=== PATIENT | female | born 1945 | race Caucasian/White ===

== ENCOUNTER 2019-06-17 11:37 | Outpatient (RCR) | payer MEDICARE, OTHER, SELFPAY | END 2019-07-15 23:59 | disposition home or self-care (01) | LOC: SPT 11:37 | PROVIDERS: Family Provider Family Medicine; PCP Family Medicine; Referring Provider Nurse Practitioner Adult Health; Visit Provider Nurse Practitioner Adult Health | DX: Z47.1 Aftercare following joint replacement surgery (principal); Z96.612 Presence of left artificial shoulder joint | CPT/HCPCS: 97110; 97161 ==

== ENCOUNTER 2019-07-16 06:00 | Outpatient (RCR) | payer MEDICARE, OTHER, SELFPAY | END 2019-08-14 23:59 | disposition home or self-care (01) | LOC: SPT 06:00 | PROVIDERS: Family Provider Family Medicine; PCP Family Medicine; Referring Provider Nurse Practitioner Adult Health; Visit Provider Nurse Practitioner Adult Health | DX: Z47.89 Encounter for other orthopedic aftercare (principal); Z96.612 Presence of left artificial shoulder joint | CPT/HCPCS: 97110 ==

== ENCOUNTER 2019-07-29 11:23 | Outpatient (CLI) | payer MEDICARE, OTHER, SELFPAY ==
[2019-07-29 11:59] LABS: Basophils # 0.1 10^3/uL (0.0-0.1); Basophils % 0.7 %; Eosinophils # 0.2 10^3/uL (0.0-0.8); Eosinophils % 2.1 %; Hematocrit 37.1 % (37.0-47.0); Lymphocytes % 27.4 %; Mean Corpuscular HGB Conc 29.6 g/dL (30.0-36.0); Mean Corpuscular Volume 94.4 fL (81-99); Monocytes # 0.7 10^3/uL (0.2-0.9); Monocytes % 9.8 %; Neutrophils # 4.4 10^3/uL (1.8-7.7); Neutrophils % 59.7 %; Nucleated Red Blood Cells % 0 %; Platelet Count 314 10^3/cmm (130-400); Red Blood Count 3.93 10^6/uL (4.1-5.3); Red Cell Distribution Width 13.1 % (12.1-15.1); White Blood Count 7.3 10^3/uL (4.0-10.0)
[2019-07-29 12:27] LABS: Creatinine Urine, Random 21 mg/dL (28-217)
[2019-07-29 12:28] LABS: Albumin Level 4.2 g/dL (3.5-5.2); Anion Gap 19.5 (5-19); Blood Urea Nitrogen 18 mg/dL (8-23); Calcium 10.7 mg/dL (8.5-10.5); Carbon Dioxide 22 mmol/L (22-29); Chloride 100 mmol/L (98-107); Glucose 114 mg/dL (65-115); Phosphorus 2.9 mg/dL (2.5-4.5); Potassium 3.5 mmol/L (3.5-5.1); Sodium 138 mmol/L (136-145)
[2019-07-29 12:41] LABS: 25 Hydroxy Vitamin D 32 ng/mL (30-100)
[2019-07-29 12:42] LABS: Calcium 9.9 mg/dL (8.5-10.5); Parathyroid Hormone 104.9 pg/mL (15-65)
[2019-07-29 12:43] LABS: Microalbum Creatinine Ratio Ur 48 mg/dL (0-20); Microalbumin Random Urine < 1 ug/dL (0-20)
== END 2019-07-29 11:24 | disposition home or self-care (01) ==
LOC: LAB 11:28
PROVIDERS: Family Provider Family Medicine; PCP Family Medicine; Visit Provider Internal Medicine Nephrology
DX: N18.3 Chronic kidney disease, stage 3 (moderate) (principal)
CPT/HCPCS: 80069; 82044; 82306; 82310; 83970; 85025

== ENCOUNTER 2019-08-15 06:00 | Outpatient (RCR) | payer MEDICARE, OTHER, SELFPAY | END 2019-09-14 23:59 | disposition home or self-care (01) | LOC: SPT 06:00 | PROVIDERS: PCP Family Medicine; Referring Provider Nurse Practitioner Adult Health; Visit Provider Nurse Practitioner Adult Health | DX: Z47.1 Aftercare following joint replacement surgery (principal); Z96.612 Presence of left artificial shoulder joint | CPT/HCPCS: 97110 ==

== ENCOUNTER 2019-09-19 11:05 | Outpatient (CLI) | payer MEDICARE, OTHER, SELFPAY ==
[2019-09-19 11:41] VITALS: BMI 32.8
== END 2019-09-19 11:06 | disposition home or self-care (01) ==
LOC: GILAB 11:10
PROVIDERS: PCP Family Medicine; Visit Provider Family Medicine
DX: M81.8 Other osteoporosis without current pathological fracture (principal)
CPT/HCPCS: 96365; J3489

== ENCOUNTER 2019-09-24 16:51 | Outpatient (RCR) | payer MEDICARE, OTHER, SELFPAY | END 2019-10-14 23:59 | disposition home or self-care (01) | LOC: SPT 16:51 | PROVIDERS: PCP Family Medicine; Visit Provider Nurse Practitioner Adult Health | DX: R53.1 Weakness (principal) | CPT/HCPCS: 97110 ==

== ENCOUNTER 2019-10-14 12:22 | Outpatient (RCR) | payer MEDICARE, OTHER, SELFPAY | END 2019-10-14 23:59 | disposition home or self-care (01) | LOC: SPT 12:22 | PROVIDERS: PCP Family Medicine; Referring Provider Family Medicine; Visit Provider Family Medicine | DX: R53.1 Weakness (principal) | CPT/HCPCS: 97161 ==

== ENCOUNTER 2019-11-15 06:00 | Outpatient (RCR) | payer MEDICARE, OTHER, SELFPAY | END 2019-12-15 23:59 | disposition home or self-care (01) | LOC: SPT 06:00 | PROVIDERS: PCP Family Medicine; Referring Provider Family Medicine; Visit Provider Family Medicine | DX: R53.1 Weakness (principal) | CPT/HCPCS: 97110 ==

== ENCOUNTER → 2019-12-10 15:07 | Outpatient (BNVA) | payer MEDICARE, OTHER, SELFPAY | PROVIDERS: PCP Family Medicine; Referring Provider Internal Medicine; Visit Provider Specialist | DX: M25.562 Pain in left knee (principal); M17.12 Unilateral primary osteoarthritis, left knee; E66.9 Obesity, unspecified | CPT/HCPCS: 73560; 73565 ==

== ENCOUNTER 2019-12-24 12:19 | Outpatient (CLI) | payer MEDICARE, OTHER, SELFPAY ==
--- NOTE | 2019-12-24 12:34 | IR_ITS ---
WS: [id number] LEFT KNEE ARTHROGRAM Fluoroscopic guided left knee arthrogram. CLINICAL INFORMATION: L KNEE PAIN COMPARISON: None. TECHNIQUE: The procedure including risks, benefits, and complications were discussed with the patient , who agreed to proceed. Timeout was performed. Using sterile technique, the patient was prepped and draped in the usual sterile fashion. After 1% lidocaine injection using fluoroscopic guidance, a 22-g auge spinal needle was advanced into the left patellofemoral compartment. Subsequently 40 cc of a mix ture containing 20 cc normal saline and 20 cc Omnipaque 300 was administered. No immediate complicati ons. FLUOROSCOPY TIME: 1.3 minutes. IR/[place] [id number] IMPRESSION: Uncomplicated left knee fluoroscopic guided arthrogram. CT to follow.
--- NOTE | 2019-12-24 13:00 | CT_ITS ---
WS: [id number] CT ARTHROGRAM LEFT KNEE TECHNIQUE: CT arthrogram left knee with coronal and sagittal reformatted images. CLINICAL INFORMATION: pain COMPARISON: None. DLP: 835.[address] scans at [facility] use at least one of these dose optimization techniques: automat ed exposure control; mA and/or kV adjustment per patient size (includes targeted exams where dose is matched to clinical indication); or iterative reconstruction. FINDINGS: Moderate degenerative arthritis left knee with hypertrophic changes along the joint line. Moderate albert int space narrowing with chronic narrowing of the medial and lateral meniscus. Hypertrophic patella. Small lobulated popliteal cyst measuring 1.8 cm. Moderate to advanced chondromalacia patella. Anterior and posterior cruciate ligaments appear intact. No acute appearing meniscal tears. Prior postoperative changes intramedullary velasquez and screw fixation distal femur partially included on this examination. Medial and lateral collateral ligaments appear intact. CT/CT knee LT w con [id number] IMPRESSION: 1. Moderate degenerative arthritis with medial and lateral joint space narrowi ng. Hypertrophic changes along the joint line. 2. Moderate to advanced chondromalacia patella with hypertrophic patella. 3. Chronic thinning of the medial and lateral meniscus. No acute appearing men iscal tears. 4. Anterior and posterior cruciate ligaments appear intact. 5. Prior postoperative changes intramedullary velasquez and screw fixation distal fe mur partially visualized. 6. Small popliteal cyst measuring 18 mm.
[2019-12-24] MEDS: iohexol 300 mg/mL 50 mL Btl IV (13:20)
== END 2019-12-24 12:20 | disposition home or self-care (01) ==
LOC: RAD 12:22
PROVIDERS: Visit Provider Specialist
DX: M17.12 Unilateral primary osteoarthritis, left knee (principal); M22.42 Chondromalacia patellae, left knee; M71.22 Synovial cyst of popliteal space [Baker], left knee
CPT/HCPCS: 27369; 73701; 77002

== ENCOUNTER 2020-02-03 14:41 | Outpatient (CLI) | payer MEDICARE, OTHER, SELFPAY ==
[2020-02-03 15:32] LABS: Basophils # 0.1 10^3/uL (0.0-0.1); Basophils % 0.8 %; Eosinophils # 0.2 10^3/uL (0.0-0.8); Eosinophils % 2.2 %; Hematocrit 36.7 % (37.0-47.0); Hemoglobin 11.1 g/dL (11.5-15.3); Lymphocytes # 1.7 10^3/uL (0.8-4.8); Lymphocytes % 22.6 %; Mean Corpuscular HGB Conc 30.2 g/dL (30.0-36.0); Mean Corpuscular Hemoglobin 29.4 pg (28.0-34.0); Mean Corpuscular Volume 97.1 fL (81-99); Mean Platelet Volume 9.8 fL (7.4-10.4); Monocytes # 0.6 10^3/uL (0.2-0.9); Monocytes % 7.9 %; Neutrophils % 66.2 %; Nucleated Red Blood Cells % 0 %; Platelet Count 364 10^3/cmm (130-400); Red Blood Count 3.78 10^6/uL (4.1-5.3); Red Cell Distribution Width 13.7 % (12.1-15.1); White Blood Count 7.6 10^3/uL (4.0-10.0)
[2020-02-03 15:51] LABS: Anion Gap 16.6 (5-19); Blood Urea Nitrogen 29 mg/dL (8-23); Carbon Dioxide 22 mmol/L (22-29); Chloride 99 mmol/L (98-107); Glucose 133 mg/dL (65-115); Phosphorus 4.6 mg/dL (2.5-4.5); Potassium 3.6 mmol/L (3.5-5.1); Sodium 134 mmol/L (136-145)
[2020-02-03 16:14] LABS: Calcium 9.8 mg/dL (8.5-10.5); Parathyroid Hormone 144.2 pg/mL (15-65)
[2020-02-03 16:20] LABS: Creatinine Urine, Random 52 mg/dL (28-217)
[2020-02-03 16:23] LABS: Microalbum Creatinine Ratio Ur 19 mg/dL (0-20); Microalbumin Random Urine 1 ug/dL (0-20)
== END 2020-02-03 14:42 | disposition home or self-care (01) ==
LOC: LAB 14:48
PROVIDERS: Visit Provider Registered Nurse
DX: N18.30 Chronic kidney disease, stage 3 unspecified (principal)
CPT/HCPCS: 36415; 80069; 82044; 82310; 83970; 85025

== ENCOUNTER 2020-03-30 12:39 | Outpatient (CLI) | payer MEDICARE, OTHER, SELFPAY ==
--- NOTE | 2020-03-30 13:01 | XR_ITS ---
WS: [id number] Left shoulder, 2 views, 03/30/2020 Clinical Data: L SHOULDER PAIN/? FROZEN VS OA Comparison: Left shoulder, 05/22/2018. Findings: There is now a total left shoulder prosthesis in position. The stem of the prosthesis is fixed to the proximal humerus with circumferential wires. The AC joint is unremarkable. The adjacent left ribs and left lung are normal. The soft tissues are normal. XR/XR shoulder LT min 2V* [id number] Impression: Portable left shoulder prosthesis with no evidence of recent fracture or loosen ing.
[2020-03-30 14:11] LABS: Chol HDL Ratio 3.46 mg/dL (0.0-4.40); Cholesterol 173 mg/dL (0-200); Free T4 Free Thyroxine 1.74 ng/dL (0.82-1.77); HDL Cholesterol 50 mg/dL (60-100); LDL Cholesterol Calculated 103 mg/dL (50-129); LDL HDL Ratio 2.06 RATIO (0.00-3.22); Thyroid Stimulating Hormone 0.45 uIU/mL (0.27-4.20); Triglycerides 102 mg/dL (0-150)
[2020-03-30 15:10] LABS: Estmated Average Glucose 117; Hemoglobin A1C 5.7 % (4.0-6.0)
== END 2020-03-30 12:40 | disposition home or self-care (01) ==
PROVIDERS: PCP Internal Medicine; Visit Provider Internal Medicine
DX: M25.512 Pain in left shoulder (principal); E11.9 Type 2 diabetes mellitus without complications; E03.9 Hypothyroidism, unspecified
CPT/HCPCS: 36415; 73030; 80061; 83036; 84439; 84443

== ENCOUNTER → 2020-03-31 11:59 | Outpatient (BNVA) | payer MEDICARE, OTHER, SELFPAY | PROVIDERS: PCP Internal Medicine; Visit Provider Specialist | DX: M17.11 Unilateral primary osteoarthritis, right knee (principal) | CPT/HCPCS: 73560; 73565 ==

== ENCOUNTER 2020-06-30 14:56 | Outpatient (CLI) | payer MEDICARE, OTHER, SELFPAY ==
[2020-06-30 15:42] LABS: Albumin Level 3.8 g/dL (3.5-5.2); Anion Gap 14.5 (5-19); Blood Urea Nitrogen 20 mg/dL (8-23); Calcium 9.4 mg/dL (8.5-10.5); Carbon Dioxide 25 mmol/L (22-29); Chloride 102 mmol/L (98-107); Glucose 157 mg/dL (65-115); Phosphorus 3.3 mg/dL (2.5-4.5); Potassium 3.5 mmol/L (3.5-5.1); Sodium 138 mmol/L (136-145)
== END 2020-06-30 14:57 | disposition home or self-care (01) ==
LOC: LAB 15:03
PROVIDERS: PCP Internal Medicine; Visit Provider Internal Medicine Nephrology
DX: N18.32 Chronic kidney disease, stage 3b (principal)
CPT/HCPCS: 36415; 80069

== ENCOUNTER 2020-07-21 13:38 | Outpatient (CLI) | payer MEDICARE, OTHER, SELFPAY ==
[2020-07-21 14:18] LABS: Basophils # 0.1 10^3/uL (0.0-0.1); Basophils % 0.7 %; Eosinophils # 0.2 10^3/uL (0.0-0.8); Eosinophils % 3.3 %; Hematocrit 35.3 % (37.0-47.0); Hemoglobin 10.4 g/dL (11.5-15.3); Lymphocytes # 2.3 10^3/uL (0.8-4.8); Lymphocytes % 33.3 %; Mean Corpuscular HGB Conc 29.5 g/dL (30.0-36.0); Mean Corpuscular Hemoglobin 28.4 pg (28.0-34.0); Mean Corpuscular Volume 96.4 fL (81-99); Mean Platelet Volume 9.8 fL (7.4-10.4); Monocytes # 0.6 10^3/uL (0.2-0.9); Monocytes % 8.7 %; Neutrophils # 3.73 10^3/uL (1.8-7.7); Neutrophils % 53.9 %; Nucleated Red Blood Cells % 0 %; Platelet Count 350 10^3/cmm (130-400); Red Blood Count 3.66 10^6/uL (4.1-5.3); Red Cell Distribution Width 13.4 % (12.1-15.1); White Blood Count 6.9 10^3/uL (4.0-10.0)
[2020-07-21 14:33] LABS: Anion Gap 13.8 (5-19); Blood Urea Nitrogen 21 mg/dL (8-23); Calcium 9.2 mg/dL (8.5-10.5); Carbon Dioxide 22 mmol/L (22-29); Chloride 102 mmol/L (98-107); Glucose 97 mg/dL (65-115); Osmolality Calculated 281 mOsm/kg (285-295); Potassium 3.8 mmol/L (3.5-5.1); Sodium 134 mmol/L (136-145)
[2020-07-21 15:14] LABS: Ferritin 28 ng/mL (15-150); Iron 73 ug/dL (37-145); Percent Saturation 28.6 % (20-50); Total Iron Binding Capacity 255 mcg/dl; Unsaturated Iron Binding 182 ug/dL (112-347)
== END 2020-07-21 13:39 | disposition home or self-care (01) ==
LOC: LAB 13:45
PROVIDERS: PCP Internal Medicine; Visit Provider Nurse Practitioner
DX: D63.1 Anemia in chronic kidney disease (principal)
CPT/HCPCS: 80048; 82728; 83540; 83550; 85025

== ENCOUNTER 2020-08-06 11:44 | Outpatient (CLI) | payer MEDICARE, OTHER, SELFPAY ==
--- NOTE | 2020-08-06 11:49 | MM_ITS ---
WS: [id number] BILATERAL DIGITAL DIAGNOSTIC MAMMOGRAM MAMMOGRAPHY WITH CAD CLINICAL INFORMATION: BREAST LESION HISTORY: COMPARISON: TECHNIQUE: Bilateral CC, MLO, and ML views. FINDINGS: The breasts are composed of heterogeneous fibroglandular density, which can limit the detection of sm all underlying mass lesions. Palpable marker left breast near the areola with skin thickening. Skin t hickening left breast. Focal asymmetric density deep to the palpable marker measuring 8 mm. This appe ars new since 2019. Ultrasound is pending. Right breast is unremarkable and unchanged. ULTRASOUND BREAST LEFT TECHNIQUE: Ultrasound left breast focused area of concern. CLINICAL INFORMATION: BREAST LESION COMPARISON: None. FINDINGS: Ultrasound left breast 12:00 position at the areola. Concern. Dense shadowing tissue deep to the areo la. Adjacent to the nipple there is a mixed echogenicity ill-defined lesion which merges with the are loretta. Considering asymmetry on mammogram, Recommend further evaluation with biopsy. Ultrasound biopsy can be attempted, however surgical biopsy may need to be performed due to superficial location and p roximity to the nipple. MM/[place] [id number] IMPRESSION: BI-RADS: 4-Suspicious Finding-Biopsy Should Be Considered FOLLOW UP: See Report RECOMMEND ULTRASOUND GUIDED BIOPSY VERSUS SURGICAL EXCISION LEFT AREOLA LESION. ULTRASOUND BIOPSY CAN BE ATTEMPTED HOWEVER SURGICAL BIOPSY MAY NEED TO BE PERFO RMED DUE TO SUPERFICIAL LOCATION AND PROXIMITY TO THE NIPPLE.
== END 2020-08-06 11:45 | disposition home or self-care (01) ==
LOC: RADSHAW 11:48
PROVIDERS: PCP Internal Medicine; Visit Provider Internal Medicine
DX: N64.89 Other specified disorders of breast (principal)
CPT/HCPCS: 76642; 77066

== ENCOUNTER 2020-08-18 10:13 | Outpatient (CLI) | payer MEDICARE, OTHER, SELFPAY ==
--- NOTE | 2020-08-18 11:00 | US_ITS ---
WS: [id number] ULTRASOUND-GUIDED LEFT BREAST BIOPSY CLINICAL INFORMATION: N63.20 - Unspecified lump in the left breast, unspecified... COMPARISON: None. FINDINGS: The procedure including risks, benefits, and complications were discussed with the patient who agreed to proceed. Using sterile technique patient was prepped and draped in the usual sterile fashion. Aft er 1% lidocaine utilizing real-time ultrasound guidance 6 14-gauge cores were obtained of the left br east lesion at the 5:00 o'clock position at the nipple. Subsequently a titanium clip was placed in th e biopsy cavity. No immediate complications. PATHOLOGY DEMONSTRATES: Invasive ductal carcinoma breast with moderate nuclear grade 5 of 5 cores in volved. Longest positive core 0.7 cm Breast prognostic profile is pending. US/[place] [id number] IMPRESSION: 1. Uncomplicated ultrasound-guided left breast biopsy. 2. The pathology demonstrates INVASIVE DUCTAL CARCINOMA WITH MODERATE NUCLEAR GRADE. 3. Breast cancer prognostic profile is pending BI-RADS: 6-Known Biopsy-Proven Malignancy FOLLOW UP: Surgical Biopsy Recommended RECOMMEND BREAST SURGERY CONSULTATION FOR FURTHER EVALUATION.
[2020-08-23 10:40] LABS: Miscellaneous Test See Scanned Lab Rpt
== END 2020-08-18 10:14 | disposition home or self-care (01) ==
LOC: RAD 10:16
PROVIDERS: PCP Internal Medicine; Visit Provider Surgery
DX: N63.20 Unspecified lump in the left breast, unspecified quadrant (principal); C50.512 Malignant neoplasm of lower-outer quadrant of left female breast
CPT/HCPCS: 19083; 88305; 88361; 88367; 88374

== ENCOUNTER 2020-08-26 09:54 | Outpatient (CLI) | payer MEDICARE, OTHER, SELFPAY ==
--- NOTE | 2020-08-26 17:00 | ONC CON_ITS ---
Dr. Alston New Patient Note Patient: Lucie Joyner Unit #: [id number]: 1945 Dicatated By: Francois Alston M.D.Date of Visit: August 26, 2020 Onc MED New Patient/Consult Referring Physician: Dr. CAROLINE DE LEON M.D. Chief Complaint: Breast cancer. 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 She had presented with a palpable mass in the subareolar area of the left breast, which she first noticed a week before . Bilateral diagnostic mammogram on 08/06/2020 showed a focal asymmetric density deep to the palpable marker measuring 8 mm. It was new from a prior study in 2019. Ultrasound showed a mixed echogenicity ill-defined lesion adjacent to the nipple. It appeared to emerge with the areola. The findings were BI-RADS 4, suspicious, and subsequent ultrasound directed biopsy on 08/18/2020 showed grade 2 invasive ductal carcinoma. The breast prognostic profile showed ER positive at 99% and MT positive at 100%. It was positive for overexpression of HER-2/alhaji, 3+ by IHC and amplification ratio by FISH of 5.3 with 12.4 HER-2 copies/cell. The Ki-67 was high at 35%. She is seen now for further management. She says she feels fine, but she has very limited activity due to longstanding degenerative disease with chronic pain and to a severe neuropathy in her left leg which developed following an ORIF procedure for a traumatic intertrochanteric left hip fracture in May 2018. Her ECOG score is 3. Her appetite has been good. Her weight tends to fluctuate somewhat. Recently it has been up a little. She does not have fever, night sweats, or hot flashes. She had menopause following complete hysterectomy in 1988. She had 4 years of hormone replacement therapy. It was stopped when she developed a small blood clot . She reports having sinus congestion/drainage all the time and she does have occasional cough. She also complains of shortness of breath, which also limits her activity. She does not complain of chest pain. She has some acid reflux at night. Bowel function has been okay. She has neurogenic bladder, and she self catheterizes. She has fairly generalized joint pain including the knees, hips, shoulders, and hands. She also has chronic back pain. That has been going on for years . She says she has sinus headache every day. She has pain, weakness, and numbness associated with the neuropathy in her left leg. Past Medical History: Her medical history includes borderline diabetes, degenerative arthritis, degenerative disease of the spine, hyperlipidemia, hypertension, hypothyroidism, left lower extremity neuropathy, obesity, and osteoporosis. Past Surgical History: Her surgical/procedural history includes arthroscopic knee surgery, bilateral cataract excisions, carpal tunnel release, tonsillectomy, redo left shoulder joint arthroplasty in 2019, ORIF for intertrochanteric left hip fracture in 2018, thoracic laminectomy with placement of spinal cord stimulator in 2015, L4-L5 laminectomy for lumbar spinal stenosis in 2014, decompressive laminectomy at L3-4 and L4-5 for severe stenosis in 2012, left shoulder replacement in 2011, right shoulder replacement in 2010, incisional hernia repair in 2001, gastric bypass procedure in 2000, hysterectomy/bilateral salpingo-oophorectomy in 1988, and cholecystectomy in 1970. Medications: B-12 1 (1000 mcg) Tablet Oral daily, Benadryl Allergy 1 (25 mg) Tablet Oral t.i.d., Claritin 1 (10 mg) Tablet Oral daily, HYDROcodone-Acetaminophen 1 (10-325 mg) Tablet Oral four times a day, K-Tab 1 (20 meq) Tablet, controlled release Oral b.i.d., Lasix 1 (40 mg) Tablet Oral b.i.d., Levothyroxine Sodium 1 (125 mcg) Tablet Oral every am, Losartan Potassium 1 (50 mg) Tablet Oral daily, Melatonin 1 (10 mg/mL) Liquid Oral at bedtime, Simvastatin 1 (40 mg) Tablet Oral daily Allergies: TRENT Inhibitors, Cephalexin, Gabapentin, Pregabalin, Sulfa Antibiotics, and traZODone HCl. Social History: Ms. Joyner is . nking. She is a retired RN. She is a non-smoker. She does not drink alcohol. Family History: Father at age 91 of ruptured aortic aneurysm. Mother of heart attack at age 88. She also had diabetes and she had endometrial cancer. One sister is in good health. Review Of Symptoms: Constitutional - She says she feels fine, but she has very limited activity. Her appetite has been okay. Her weight recently has been up a little. She does not have fever, night sweats, or hot flashes. ECOG score is 3, Eyes - No recent change in vision. She has had cataract excisions, ENMT - She has hearing loss and tinnitus. She has sinus congestion all the time. No mouth sores. No sore throat or difficulty swallowing, Hematologic/Lymphatic - No abnormal bruising or bleeding. She has a history of having had a small blood clot while on hormone replacement therapy, Respiratory - She has shortness of breath. She occasionally has cough. No pleuritic pain or hemoptysis, Cardiovascular - No angina pain. No palpitations, Gastrointestinal - No nausea or vomiting. She sometimes has acid reflux at night No diarrhea or constipation. No blood in the stool or black stools, Genitourinary (F) - She has neurogenic bladder and she self catheterizes, Musculoskeletal - She has longstanding, generalized pain including her hips, knees, shoulders, and hands. She also has chronic back pain. She has had persistent pain following ORIF for intertrochanteric left hip fracture in May 2018, Neurologic - She has sinus headaches on a daily basis. She also has dizziness. She has numbness associated with the neuropathy in her left leg and foot, Psychiatric - No anxiety or depression. She has difficulty sleeping. Vital Signs: Performed on August 26, 2020 11:06: 8, 6, 0.00, 0.00 sq.m, 99 %, 73 /min, 18 /min, 150/84 mm(hg) (HIGH), 98.3 F (LOW), and 239 lbs (HIGH). Physical Examination: Constitutional - She has very limited mobility. She does not appear acutely ill, Eyes - Sclerae nonicteric. Conjunctivae clear, ENMT - No lesions noted in the oral cavity, Neck - No mass or thyromegaly, Hematologic/Lymphatic - No cervical or clavicular adenopathy, Respiratory - Lungs are clear with some decrease in air movement bilaterally, Cardiovascular - Heart rhythm is regular. There is no murmur, gallop, or rub noted, Breasts - The right breast shows no mass. There is mild induration in the central left breast. There is a firm nodule in the immediate subareolar area which does appear to be a little less than a centimeter in diameter. There is no axillary adenopathy, Abdomen - Soft and non-tender. Liver and spleen are not enlarged. There is no abdominal mass or ascites noted and there is no inguinal adenopathy, Back/Spine - No spine or CVA tenderness noted, Extremities - No edema. Dorsalis pedis pulses are palpable bilaterally, Integumentary - No rashes. No suspicious skin lesions noted, Neurologic - There is significant weakness in the proximal musculature of the left leg. Problem List: 1. Grade 2 invasive ductal carcinoma involving the subareolar area of the left breast, ER/MT positive and HER-2/alhaji positive. Staging is incomplete, but it appears to be a T1b primary lesion. 2. Hypertension. 3. Hyperlipidemia. 4. Borderline diabetes. 5. Hypothyroidism. 6. 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 7. Osteoporosis. 8. Left lower extremity neuropathy. 9. Obesity with previous gastric bypass. 10. 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 Problems Addressed with this Encounter and Plan: Patient with grade 2 invasive ductal carcinoma involving the subareolar area of the left breast, ER/MT positive and HER-2/alhaji positive. Staging is incomplete, but it appears to be a T1b primary lesion. The pathology results were reviewed with the patient and we discussed the clinical implications. She has infiltrating ductal carcinoma of the left breast which is ER/MT positive and HER-2/alhaji positive. Her primary tumor is in the subareolar area, and it is small, estimated to be T1b. In the absence of any evidence of lymph node involvement, she would not meet criteria for neoadjuvant chemotherapy. In that case, we would then proceed with lumpectomy and axillary sentinel lymph node biopsy, as she would be appropriate for breast conservation management. Her further management will obviously depend on the final pathologic staging, but I can already identify multiple issues that may potentially complicate her treatment, not the least of which is that her generalized arthritis pain may preclude use of an aromatase inhibitor for endocrine therapy and her history of thrombosis in association with hormone replacement therapy would potentially be a contraindication to use of tamoxifen. Furthermore, her marginal performance status and neuropathy would potentially complicate chemotherapy if it is ultimately determined to be appropriate. At least initially I am going to schedule her for left axillary ultrasound and for ultrasound directed biopsy if any suspicious lymph nodes are identified. If the ultrasound is negative, she can return to Dr. De Leon for excision of the mass and axillary sentinel lymph node biopsy. She is aware that the excision will have to include the nipple areolar complex. Signed By: Francois Alston M.D. <<Signature on File>>
== END 2020-08-26 09:55 | disposition home or self-care (01) ==
LOC: ONCMED 09:57
PROVIDERS: PCP Internal Medicine; Visit Provider Internal Medicine Medical Oncology
DX: C50.012 Malignant neoplasm of nipple and areola, left female breast (principal); Z17.0 Estrogen receptor positive status [ER+]; I10 Essential (primary) hypertension; E78.5 Hyperlipidemia, unspecified; R73.03 Prediabetes; E03.9 Hypothyroidism, unspecified; M47.9 Spondylosis, unspecified; M81.0 Age-related osteoporosis without current pathological fracture; G62.9 Polyneuropathy, unspecified; E66.9 Obesity, unspecified; Z86.718 Personal history of other venous thrombosis and embolism; Z79.01 Long term (current) use of anticoagulants; Z79.890 Hormone replacement therapy; Z79.899 Other long term (current) drug therapy
CPT/HCPCS: 99205

== ENCOUNTER 2020-08-27 14:16 | Outpatient (CLI) | payer MEDICARE, OTHER, SELFPAY ==
--- NOTE | 2020-08-27 14:27 | US_ITS ---
WS: [id number] ULTRASOUND LEFT axilla HISTORY: POSITIVE FOR BREAST CANCER COMPARISON: None available. TECHNIQUE: 2-D and Doppler. Several lymph nodes are identified within the LEFT axilla. These lymph nodes maintain a normal fatty юлия. Cortex is not enlarged and is lymph nodes are not significantly abnormal. US/US breast LT limited* [id number] IMPRESSION: BI-RADS: 6-Known Biopsy-Proven Malignancy FOLLOW-UP: See Report LEFT axillary lymph nodes appear benign. No suspicious or enlarged lymph nodes in the LEFT axilla. Patient has known LEFT breast cancer.
== END 2020-08-27 14:17 | disposition home or self-care (01) ==
LOC: RAD 14:22
PROVIDERS: PCP Internal Medicine; Visit Provider Internal Medicine Medical Oncology
DX: C50.912 Malignant neoplasm of unspecified site of left female breast (principal)
CPT/HCPCS: 76642

== ENCOUNTER → 2020-09-10 14:43 | Outpatient (BNVA) | payer MEDICARE, OTHER, SELFPAY | PROVIDERS: PCP Internal Medicine; Visit Provider Surgery | DX: Z01.812 Encounter for preprocedural laboratory examination (principal); Z20.822 Contact with and (suspected) exposure to COVID-19 | CPT/HCPCS: 87635 ==

== ENCOUNTER 2020-09-16 07:33 | Day surgery (SDC) | payer MEDICARE, OTHER, SELFPAY ==
[2020-09-15 14:12] VITALS: BMI 34.7
[2020-09-16] VITALS (7 sets, daily range): BP systolic 122–142; BP diastolic 72–79; PULSE 72–79; RESP 12–18; TEMP 36.1–36.7; O2SAT 95–100
--- NOTE | 2020-09-16 07:30 | NM_ITS ---
WS: [id number] SENTINEL NODE TECHNIQUE: Left sentinel node injection CLINICAL INFORMATION: L Breast Mass/Lumpectomy COMPARISON: None. PROCEDURE: The procedure including risks, benefits, and complications were discussed; the patient agr eed to proceed. Patient was prepped and draped in usual sterile fashion. Subsequently, 1% lidocaine p reservative-free was administered at the 12:00, 3:00, 6:00, and 9:00 o'clock positions for local anes thesia. Subsequently, 4 aliquots of filtered technetium 99m sulfur colloid was injected into the subc utaneous soft tissues. A total dose of 1.07 mCi was administered. Patient tolerated the procedure well with no immediate complications. SC/SC sentinel node inject [id number] IMPRESSION: Uncomplicated left breast sentinel node injection with a total dose of 1.07 mCi .
--- NOTE | 2020-09-16 08:38 | PC.NURSE ---
Left Breast [place] Node Injection 4 quardrants. No Complications. Patient was injected with 1.07 mCi Tc99m Filtered Sulfur Colloid @ 0815.
[2020-09-16] MEDS: sodium chloride 0.9% 1,000 ML 30 ML IV (08:54)
[2020-09-16] MEDS: acetaminophen 1,000 MG/100 ML PIGGYBACK 400 MG IV (08:54)
--- NOTE | 2020-09-16 09:26 | W.PM.OPSUD ---
Surgery/Procedure H&P Update DATE OF PROCEDURE: September 16, 2020 DATE H&P PERFORMED: 09/08/20 H&P UPDATE INFORMATION: I have reviewed H&P completed within last 30 days, I have examined patient prior to procedure and No changes to prior documentation PREOP DIAGNOSIS: Breast Cancer PRIMARY INDICATION FOR PROCEDURE: The same PLANNED PROCEDURE: Operation Date: 09/16/20 09:50 Proposed Procedures p Lumpectomy 23943 76870 63562 c50.919(Left) - Maurizio De Leon MD s w/sentinel lymph node axilla biopsy(Left) - Maurizio De Leon MD
[2020-09-16 09:37] LABS: Blood Urea Nitrogen 16 mg/dL (8-23); Carbon Dioxide 23 mmol/L (22-29); Chloride 105 mmol/L (98-107); Glucose 101 mg/dL (65-115); Osmolality Calculated 287 mOsm/kg (285-295); Sodium 138 mmol/L (136-145)
--- NOTE | 2020-09-16 09:50 | ANES.PREANE2 ---
Pre-Anesthetic Assessment Pre-Anesthetic Assessment: Height/Weight: Height 1.75 m Weight 106.594 kg Temp Pulse Resp BP Pulse Ox 98.1 F 79 18 142/79 100 09/16/20 07:56 09/16/20 07:56 09/16/20 07:56 09/16/20 07:56 09/16/20 07:56 Preop Diagnosis: Breast Cancer Proposed Procedure: Operation Date: 09/16/20 09:50 Proposed Procedures p Lumpectomy 76918 15732 53040 c50.919(Left) - Maurizio De Leon MD s w/sentinel lymph node axilla biopsy(Left) - Maurizio De Leon MD Was Beta Colleen taken within 24 hours: N/A Was Clonidine taken within 24 hours: N/A Last intake: Intake Last Liquid Date 09/15/20 Last Solid Date 09/15/20 Social: Social History: No alcohol and No tobacco Exam: Pre-Anes Outpt Exam: alert, oriented x 3, clear to auscultation bilaterally and regular rate & rhythm Airway: Submandibular: WNL Cervical ROM: WNL MP: 2 Dentition: Full CV/HEM: CV/HEM: HTN Metabolic: Metabolic: Hyperlipidemia, Morbid obesity and Thyroid Anesthetic Plan: ASA status: 3 Anesthesia: General Risk of > 500 ml blood loss (7ml/kg in children): No Meds/Allergies Current Medications: Current Medications Generic Name Dose Route Start Last Admin Trade Name Freq PRN Reason Stop Dose Admin Sodium Chloride 1,000 mls @ 30 ml s/hr 09/16/20 07:45 09/16/20 08:54 Sodium Chloride 0.9% IV 09/17/20 07:44 30 mls/hr .Q24H YANICK Administration PFSH Anesthesia PFSH: Medical History Diabetes Hyperlipemia Hypertension Hypothyroidism Osteoporosis Surgical History H/O bariatric surgery H/O hernia repair H/O total hysterectomy History of appendectomy History of back surgery History of repair of left hip joint History of tonsillectomy Hx of cholecystectomy Family History Mother Stroke Hypertension CAD (coronary artery disease) Social History Smoking and tobacco status: never smoked Alcohol intake: never Data Anesthesia CBC & Chem 7: 09/16/20 08:00 Other Labs: Laboratory Results - last 48 hr 09/16/20 08:00 Sodium 138 Potassium 4.0 Chloride 105 Carbon Dioxide 23 Anion Gap 14.0 BUN 16 Creatinine 1.1 H GFR Calculation Not Reportable Glucose 101 Calculated Osmolality 287 Calcium 9.0 Cardiac Studies: No Data to Display
[2020-09-16] MEDS: clindamycin 900 MG/50 ML PREMIX 100 MG IV (10:34)
--- NOTE | 2020-09-16 12:06 | P.OP_ITS ---
Operative Report Date of procedure: September 16, 2020 Pre-op Diagnosis: Breast Cancer Post-op diagnosis: same Post-op Findings: [place] lymph node biopsy x1 Procedure Done: Left partial mastectomy with left axilla sentinel lymph node biopsy Specimens removed/disposition: Left axillary sentinel lymph node biopsy in vivo 35 and ex vivo 0 Left partial mastectomy short sutures marked superior and long sutures marked lateral Surgeon: Maurizio De Leon Grinder Tender: Surgical sayda Sampson Circulating nurse Christina Higginbotham Anesthesia: General ([employer] SUPERVISOR Will Smart and Ovidio) Estimated blood loss (mL): 20 Condition: stable Disposition: same day Brief History: Left breast cancer. Full H&P and informed consent per chart Procedure: In the nuclear medicine suite, patient undergone technetium 99 injection peritumoral Of the left breast lump. The patient was then identified in the holding area and the left breast was marked by me in the presence of female supervisor home energy consultant nursing staff Sherley.Few hours after technetium injection. Patient was taken to the operating room and general anesthesia was induced,Time- out was done verifying the patient's name/date of /planned procedure and destination after the procedure, all were in agreement. SCDs confirmed to be functioning, preoperative antibiotics administered per protocol, and beta oralia protocol was confirmed, appropriate positioning of the patient was done by me Staff. patient was placed in supine position, with her left side being towards the edge of the table, and hand-held gamma probe was used to identify the location of the hottest spot in the axilla .prep and drape was done for the chest including left breast and left arm and axilla. Lymphazurin blue dye was injected at the peritumoral region, this was massaged gently for 5 minutes, again hand-held probe was used to identify the location of the hottest spot in the axilla. incision was then made over the left axilla, the probe was placed in contact with the Lymphofatty tissues/There was not much blue staining was appreciated, and the lymphofatty tissues were excised in its entirety. [place] counts as follows [place] lymph node #1 in vivo 35,ex vivo 0 The above lymph node was placed in formalin and passed to the circulating nurse for permanent pathology No additional hot spots were detected, or blue lymphatics were identified. No clinically abnormal nodes were palpated. Procedure was terminated at this point. Hemostasis was achieved using small clips and Bovie cautery, after thorough irrigation of the left axilla, and the wound was closed in layers using interrupted 3-0 Vicryl followed by 4-0 Monocryl. Attention now was deviated towards the left breast mass ,an elliptical Skin incision was then made including the previous left nipple areolar complex including the underlying mass,I was able to dissect using the Bovie cautery a good margin of normal breast tissue, and appropriate orientation was done for the left partial mastectomy which was oriented in the form of short superior sutures, long lateral sutures, and the specimen was taken out and passed to the circulating nurse for permanent pathology Note. The specimen was stained by Lymphazurin blue due to the previous injection at the nipple areolar complex. Thorough irrigation of the cavity was done with normal saline followed by appropriate hemostasis, followed by closure with deep subdermal 2-0 Vicryl followed by skin melisa, followed by fluffs and sports bra Counts of sponges, needles and instruments were completed at the end of the procedure I was present for the whole entire procedure Patient was then extubated and taken to the recovery room in stable condition
[2020-09-16] MEDS: HYDROcodone-acetaminophen 10-325 mg Tablet 1 TAB PO (13:26)
--- NOTE | 2020-09-16 14:59 | ANE.PACU2 ---
Inpatient post-anesthesia follow up: Airway intact: Yes Vital signs: Temperature 97.6 F Pulse Rate 76 Respiratory Rate 18 Blood Pressure 122/72 Pulse Oximetry 96 Oxygen Delivery Me thod Room Air Oxygen Flow Rate 8 Fraction of Inspir ed Oxygen Hydration adequate: Yes Nausea and vomiting: No Pain level: 2 Mental status: Baseline
== END 2020-09-16 14:00 | disposition home or self-care (01) ==
PROVIDERS: PCP Internal Medicine; Visit Provider Surgery
PROC: (CPT 19301; 2020-09-16 09:40)
PROC: (CPT 19303; 2020-09-16 09:40)
DX: C50.912 Malignant neoplasm of unspecified site of left female breast (principal); I10 Essential (primary) hypertension; E78.5 Hyperlipidemia, unspecified; E66.01 Morbid (severe) obesity due to excess calories; Z68.34 Body mass index [BMI] 34.0-34.9, adult; E11.9 Type 2 diabetes mellitus without complications; E03.9 Hypothyroidism, unspecified; M81.0 Age-related osteoporosis without current pathological fracture; Z98.84 Bariatric surgery status
CPT/HCPCS: 19301; 38525; 36415; 38792; 80048; 88305; 88309; 96365; A9541; J1100; J2405; J2704; J2710; J3010; J3490; J7030

== ENCOUNTER → 2020-09-23 11:15 | Day surgery (SDC) | payer MEDICARE, OTHER, SELFPAY ==
[2020-09-23 11:25] VITALS: BP 110/64; PULSE 74; RESP 18; TEMP 36.4; O2SAT 99
[2020-09-23 11:31] VITALS: BMI 35.2
== END ==
PROVIDERS: PCP Internal Medicine; Visit Provider Internal Medicine
DX: M81.0 Age-related osteoporosis without current pathological fracture (principal)
CPT/HCPCS: 96365; J3489

== ENCOUNTER 2020-10-06 07:53 | Outpatient (CLI) | payer MEDICARE, OTHER, SELFPAY ==
--- NOTE | 2020-10-09 15:08 | ONC FU_ITS ---
Dr. Alston Patient Follow-Up Note Patient: Lucie Joyner Unit #: [id number]: 1945 Dicatated By: Francois Alston M.D.Date of Visit:Oct 06, 2020 Onc Med Follow-up/Prog Note Chief Complaint: Breast cancer. 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 She had presented with a palpable mass in the subareolar area of the left breast, which she first noticed a week before . Bilateral diagnostic mammogram on 08/06/2020 showed a focal asymmetric density deep to the palpable marker measuring 8 mm. It was new from a prior study in 2019. Ultrasound showed a mixed echogenicity ill-defined lesion adjacent to the nipple. It appeared to emerge with the areola. The findings were BI-RADS 4, suspicious, and subsequent ultrasound directed biopsy on 08/18/2020 showed grade 2 invasive ductal carcinoma. The breast prognostic profile showed ER positive at 99% and MO positive at 100%. It was positive for overexpression of HER-2/alhaji, 3+ by IHC and amplification ratio by FISH of 5.3 with 12.4 HER-2 copies/cell. The Ki-67 was high at 35%. I had seen her initially on 08/26/2020. She had had further evaluation with left axillary ultrasound. That study did show several lymph nodes within the left axilla, but they appeared benign, as there was noted to be maintenance of normal fatty юлия. By clinical staging she appeared to have T1, N0 disease, and she did not meet criteria for neoadjuvant chemotherapy. As such, she was recommended to proceed with surgery. On 09/16/2020 she underwent left breast lumpectomy and left axillary sentinel lymph node biopsy. Pathology on the lumpectomy showed grade 2 invasive ductal carcinoma measuring 1.2 cm in greatest dimension. There was no DCIS identified. The closest margin was the inferior margin measuring 4 mm. There were no lymph nodes identified in the axillary specimen. She is seen now to discuss further management of the breast cancer. Her history is otherwise significant for longstanding degenerative disease with chronic pain for a severe neuropathy in her left leg which developed following an ORIF procedure for a traumatic intertrochanteric left hip fracture in May 2018. As a result, she has had very limited activity with ECOG score 3. She does complain that her neuropathy has continued to get worse and that her activity tolerance has continued to decline. Her other medical illnesses include hypertension, hyperlipidemia, borderline diabetes, hypothyroidism, and osteoporosis. Her other prior surgeries include gastric bypass for obesity in 2000, cholecystectomy in 1970, and hysterectomy/bilateral salpingo-oophorectomy in 1988. She has also had bilateral shoulder replacement and redo arthroplasty of the left shoulder, lumbar laminectomy in 2014, and thoracic laminectomy in 2015. She is a non-smoker. Medications: B-12 1 (1000 mcg) Tablet Oral daily, Benadryl Allergy 1 (25 mg) Tablet Oral t.i.d., Claritin 1 (10 mg) Tablet Oral daily, HYDROcodone-Acetaminophen 1 (10-325 mg) Tablet Oral four times a day, K-Tab 1 (20 meq) Tablet, controlled release Oral b.i.d., Lasix 1 (40 mg) Tablet Oral b.i.d., Levothyroxine Sodium 1 (125 mcg) Tablet Oral every am, Losartan Potassium 1 (50 mg) Tablet Oral daily, Melatonin 1 (10 mg/mL) Liquid Oral at bedtime, Simvastatin 1 (40 mg) Tablet Oral daily Allergies: TRENT Inhibitors, Cephalexin, Gabapentin, Pregabalin, Sulfa Antibiotics, and traZODone HCl. Vital Signs: Performed on Oct 06, 2020 08:04 Temperature - 98.5 F Pulse - 65 /min Respiration - 18 /min BP - 106/69 mm(hg) O2 Sat - 99 % Pain - 0 Fatigue - 6 Problem List: 1. Grade 2 invasive ductal carcinoma involving the subareolar area of the left breast, ER/MO positive and HER-2/alhaji positive. Staging is incomplete, but it appears to be a T1b primary lesion. 2. Hypertension. 3. Hyperlipidemia. 4. Borderline diabetes. 5. Hypothyroidism. 6. 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 7. Osteoporosis. 8. Left lower extremity neuropathy. 9. Obesity with previous gastric bypass. 10. 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 Problems Addressed with this Encounter and Plan: Patient with grade 2 invasive ductal carcinoma involving the subareolar area of the left breast, ER/MO positive and HER-2/alhaji positive. By clinical evaluation, she had T1, N0 disease, and she did not meet criteria for neoadjuvant chemotherapy. She then proceeded with left breast lumpectomy and left axillary sentinel lymph node biopsy on 09/16/2020. Pathology showed grade 2 invasive ductal carcinoma measuring 1.2 cm in maximum diameter. The margins were free. There were no lymph nodes identified in the axillary specimen. Her pathologic staging was pT1c, Nx. With a HER-2/alhaji positive T1c primary tumor, she is recommended to undergo adjuvant chemotherapy, per NCCN guidelines. I reviewed options with her. With a T1c primary tumor and with a clinically negative axilla, I would limit the chemotherapy to weekly paclitaxel/Herceptin, but that treatment would have the risk of worsening her neuropathy. I think it is still reasonable to consider it if I can get approval for use of nab-paclitaxel, as the neuropathy with it is more likely to be reversible. Otherwise, may be best to limit her systemic adjuvant therapy to just Herceptin and endocrine therapy. The intercurrent therapy also may be problematic, though, as she has significant degenerative arthritis and she may not tolerate an aromatase inhibitor, and her history of thrombosis while on hormone replacement therapy will be a relative contraindication to use of tamoxifen. She is aware that she also will need to undergo radiation to the left breast. The timing of that will depend on whether or not her systemic adjuvant therapy includes the chemotherapy. Signed By: Francois Alston M.D. <<Signature on File>>
== END 2020-10-06 07:54 | disposition home or self-care (01) ==
LOC: ONCMED 07:57
PROVIDERS: PCP Internal Medicine; Visit Provider Internal Medicine Medical Oncology
DX: C50.812 Malignant neoplasm of overlapping sites of left female breast (principal); Z17.0 Estrogen receptor positive status [ER+]; I10 Essential (primary) hypertension; E78.5 Hyperlipidemia, unspecified; E03.9 Hypothyroidism, unspecified; M47.9 Spondylosis, unspecified; M18.0 Bilateral primary osteoarthritis of first carpometacarpal joints; G57.92 Unspecified mononeuropathy of left lower limb; E66.9 Obesity, unspecified; Z98.84 Bariatric surgery status; Z86.718 Personal history of other venous thrombosis and embolism
CPT/HCPCS: 99214

== ENCOUNTER → 2020-10-21 15:56 | Outpatient (BNVA) | payer MEDICARE, OTHER, SELFPAY | PROVIDERS: PCP Internal Medicine; Visit Provider Internal Medicine Medical Oncology | DX: Z01.812 Encounter for preprocedural laboratory examination (principal); Z20.822 Contact with and (suspected) exposure to COVID-19 | CPT/HCPCS: 87635 ==

== ENCOUNTER 2020-10-25 12:12 | Outpatient (CLI) | payer MEDICARE, OTHER, SELFPAY ==
--- NOTE | 2020-10-25 12:30 | USCV_ITS ---
Lucie Joyner Age: 75 Gender: F : 1945 Exam Date: 10/25/2020 12:47 Ordering Phys: Francois Alston MD Technologist: Jessica Meadows Exam Location: [facility] [place] Indication: BEGINNING HIGH RISK CHEMO BP: 104 / 67 HR: 64 Rhythm: Sinus Technical Quality: Adequate MEASUREMENTS (Male / Female) Normal Values 2D ECHO LV Diastolic Diameter PLAX 3.3 cm 4.2 - 5.9 / 3.9 - 5.3 cm LV Systolic Diameter PLAX 2.4 cm LV Chamber Size 2.6 cm IVS Diastolic Thickness 1.5 cm 0.6 - 1.0 / 0.6 - 0.9 cm IVS Systolic Thickness 1.4 cm LVPW Diastolic Thickness 1.5 cm 0.6 - 1.0 / 0.6 - 0.9 cm LVPW Systolic Thickness 1.3 cm RV Chamber Size 2.9 cm LVOT Diameter 2.0 cm LV Ejection Fraction 2D Teich 56.2 % LV Ejection Fraction MOD 2C 32.9 % LV Ejection Fraction 2C AL 39.5 % LA Diameter 2.8 cm LA Width 3.6 cm LA Height 4.5 cm RA Width 3.6 cm RA Height 3.9 cm M-MODE LV Diastolic Diameter MM 5.6 cm 4.2 - 5.9 / 3.9 - 5.3 cm LV Systolic Diameter MM 3.9 cm LV Ejection Fraction MM Teich 58.9 % IVS Diastolic Thickness MM 1.2 cm 0.6 - 1.0 / 0.6 - 0.9 cm IVS Systolic Thickness MM 1.1 cm LVPW Diastolic Thickness MM 1.5 cm 0.6 - 1.0 / 0.6 - 0.9 cm LVPW Systolic Thickness MM 2.3 cm Aortic Annulus Diameter 2.5 cm LA Ao Ratio MM 1.3 MV E Point Septal Separation 0.5 cm DOPPLER AV Peak Velocity 185.0 cm/s LVOT Peak Velocity 111.0 cm/s AV Area Cont Eq vti 2.2 cm squared AV Area Cont Eq pk 1.9 cm squared MV Area PHT 3.5 cm squared Mitral E to A Ratio 1.0 MV E' Velocity 55.5 cm/s Mitral E to MV E' Ratio 8.9 Mitral E to LV E' Lateral Ratio 10.8 Mitral E to LV E' Septal Ratio 7.6 TR Peak Velocity 207.4 cm/s TR Peak Gradient 17.2 mmHg TR Mean Velocity 172.8 cm/s TR Mean Gradient 12.8 mmHg TR Velocity Time Integral 71.7 cm TV Peak E Velocity 53.0 cm/s Right Atrial Pressure 3.0 mmHg Pulmonary Artery Systolic Pressu 20.2 mmHg PV Peak Velocity 54.0 cm/s RV Acceleration Time 0.1 s RV Ejection Time 0.3 s RV AcT/ET 0.3 FINDINGS Left Ventricle Normal left ventricular size and systolic function, EF 70 %. No regional wall motion abnormalitiesmild left ventricular hypertrophy. Grade I/IV diastolic dysfunction (abnormal relaxation filling pattern), normal to mildly elevated filling pressures. . Right Ventricle The right ventricle is normal in size and function. Right Atrium The right atrium is normal in size. Left Atrium The left atrium is normal in size. Mitral Valve Moderate mitral annular calcification. Aortic Valve Thickened aortic valve. Tricuspid Valve Tricuspid valve not well visualized. Pulmonic Valve Pulmonic valve not well visualized. Pericardium Normal pericardium without effusion. Aorta Normal aortic annulus size. CONCLUSIONS Normal left ventricular size and systolic function, EF 70 %. No regional wall motion abnormalitiesmild left ventricular hypertrophy. Grade I/IV diastolic dysfunction (abnormal relaxation filling pattern), normal to mildly elevated filling pressures. . Moderate mitral annular calcification. Thickened aortic valve. There is no pericardial effusion. Technically difficult study because of the poor ultrasonic window. Comparison with the previous study is difficult because of the difference in the technical quality. Dr Jagjit Gonzales MD [facility] (Electronically Signed) Final Date: 25 October 2020 17:52 S
== END 2020-10-25 12:13 | disposition home or self-care (01) ==
PROVIDERS: PCP Internal Medicine; Visit Provider Radiology Radiation Oncology
DX: Z79.899 Other long term (current) drug therapy (principal); I35.8 Other nonrheumatic aortic valve disorders
CPT/HCPCS: 93306

== ENCOUNTER 2020-10-25 12:23 | Day surgery (SDC) | payer MEDICARE, OTHER, SELFPAY ==
[2020-10-22 14:08] VITALS: BMI 34.9
[2020-10-25] VITALS (8 sets, daily range): BP systolic 127–154; BP diastolic 63–90; PULSE 65–77; RESP 12–18; TEMP 36.1–36.6; O2SAT 96–99
--- NOTE | 2020-10-25 | SCC_ITS ---
Procedure Done: Right subclavian vein PowerPort placement 26.7 seconds of fluoroscopic guidance, for a cumulative dose of 6.75 mGy, was provided to Dr. De Leon by the radiology department. C-arm images of the chest were saved for the patient's permanent record. [facility]
[2020-10-25] MEDS: sodium chloride 0.9% 1,000 ML 30 ML IV (14:08)
--- NOTE | 2020-10-25 14:11 | SC_ITS ---
WS: [id number] INTRAOPERATIVE TECHNIQUE: 2 Spot fluoroscopic images for intraoperative purposes. FLUOROSCOPY TIME: 26.7 seconds CLINICAL INFORMATION: portacath COMPARISON: None. FINDINGS: Right Port-A-Cath with tip in the distal SVC. No visualized pneumothorax. SC/C-arm FL for CVA [id number] IMPRESSION: Images obtained for intraoperative purposes.
--- NOTE | 2020-10-25 15:05 | ANES.PREANE2 ---
Pre-Anesthetic Assessment Pre-Anesthetic Assessment: Height/Weight: Height 1.75 m Weight 107.501 kg Temp Pulse Resp BP Pulse Ox 97 F L 71 18 154/63 99 10/25/20 13:33 10/25/20 13:33 10/25/20 13:33 10/25/20 13:33 10/25/20 13:33 Preop Diagnosis: Breast Cancer Proposed Procedure: Operation Date: 10/25/20 14:35 Proposed Procedures p Portacath Placement 83787 C50.919(Not Applicable) - Maurizio De Leon MD Was Beta Colleen taken within 24 hours: N/A Was Clonidine taken within 24 hours: N/A Last intake: Intake Last Liquid Date 10/25/20 Last Liquid Time 09:00 Last Solid Date 10/24/20 Last Solid Time 21:00 Social: Social History: No alcohol and No tobacco Exam: Pre-Anes Outpt Exam: alert, oriented x 3, clear to auscultation bilaterally and regular rate & rhythm Airway: Submandibular: WNL Cervical ROM: WNL MP: 2 Dentition: Full CV/HEM: CV/HEM: HTN Metabolic: Metabolic: Hyperlipidemia, Morbid obesity and Thyroid Neuropsych: Neuropsych: Neuropathy Comments: wheelchair Anesthetic Plan: ASA status: 3 Anesthesia: MAC Risk of > 500 ml blood loss (7ml/kg in children): No Meds/Allergies Current Medications: Current Medications Generic Name Dose Route Start Last Admin Trade Name Freq PRN Reason Stop Dose Admin Sodium Chloride 1,000 mls @ 30 ml s/hr 10/25/20 13:00 10/25/20 14:08 Sodium Chloride 0.9% IV 10/26/20 12:59 30 mls/hr .Q24H YANICK Administration PFSH Anesthesia PFSH: Medical History Diabetes Hyperlipemia Hypertension Hypothyroidism Osteoporosis Surgical History H/O bariatric surgery H/O hernia repair H/O total hysterectomy History of appendectomy History of back surgery History of repair of left hip joint History of tonsillectomy Hx of cholecystectomy Family History Mother Stroke Hypertension CAD (coronary artery disease) Social History Smoking and tobacco status: never smoked Alcohol intake: never Data Anesthesia Cardiac Studies: No Data to Display
--- NOTE | 2020-10-25 15:14 | W.PM.OPSUD ---
Surgery/Procedure H&P Update DATE OF PROCEDURE: October 25, 2020 DATE H&P PERFORMED: 09/08/20 H&P UPDATE INFORMATION: I have reviewed H&P completed within last 30 days, I have examined patient prior to procedure and Changes to prior documentation as noted here (Patient after being seen by oncology service requiring Port-A-Cath for chemotherapy) PREOP DIAGNOSIS: Breast Cancer PRIMARY INDICATION FOR PROCEDURE: The same PLANNED PROCEDURE: Operation Date: 10/25/20 14:35 Proposed Procedures p Portacath Placement 70204 C50.919(Not Applicable) - Maurizio De Leon MD
[2020-10-25] MEDS: clindamycin 900 MG/50 ML PREMIX 100 MG IV (15:59)
[2020-10-25] MEDS: lidocaine 2% INJ 20 mL INJECTION (16:05)
[2020-10-25] MEDS: heparin, porcine 1,000 unit/mL INJ 10 mL 10000 UNIT INJECTION (16:26)
--- NOTE | 2020-10-25 16:39 | P.OP_ITS ---
Operative Report Date of procedure: October 25, 2020 Pre-op Diagnosis: Breast cancer Post-op diagnosis: same Procedure Done: Right subclavian vein PowerPort placement Fluoroscopic interpretation was done by me through the entire procedure Implants: Right subclavian vein PowerPort placed Specimens removed/disposition: No specimen [employer] Specialist: Isiah Vasquez Circulating nurse Patricia Corona Anesthesia: MAC (seconds grader [place]) Estimated blood loss (mL): 5 Condition: stable Disposition: same day Brief History: Left breast cancer requiring PowerPort placement for chemotherapy. Full H&P per chart Procedure: Patient was identified in the holding area and taken to the operative room and placed in supine position IV propofol was given by the anesthesia provider ,both arms were tucked,Time-out was done verifying the patient's name/date of /planned procedure and destination after the procedure, all were in agreement. SCDs confirmed to be functioning, preoperative antibiotics administered per protocol, and beta oralia protocol was confirmed, appropriate positioning of the patient was done by me. Medications were reviewed to assess for anticoagulant usage. Risks and benefits and prevention of central line associated blood stream infection (CLABSI) were discussed with the patient/CPOA, and a consent was obtained. Monitors were in place and monitored throughout the procedure. All necessary supplies were available prior to start. Hand hygiene was completed prior to starting. Maximum barrier technique was utilized including a sterile gown, sterile gloves with a hat and mask. Site was was prepped with [chlorhexidine] and a full body drape was placed. 5 mL of 2% lidocaine was injected into the skin with a 25 gauge needle. Prep& drape was done under the usual sterile technique, lidocaine 2% was injected at the site of the stick, started by right subclavian stick that retrieved venous blood was obtained from the first stick, a guidewire was then threaded and under the guidance of fluoroscopy position was confirmed to be in the right ventricle and my personal interpretation, there was no PVC changes, at that point the guidewire was secured to the drapes with a hemostat and the needle was taken out, attention was then deviated towards creation of a pocket for the port were lidocaine 2% was injected using an 15 blade knife skin incision was created dissection using the Bovie to create a pocket for the Port-A-Cath to be accommodated, hemostasis was secured, after the port being appropriately flushed it was inserted into the pocket and a tunneler was used to accommodate the catheter of the port cath to be delivered through the incision first created at the site of the stick, at that point under fluoroscopy an estimated length was measured for the catheter and was cut at the designed level, followed by that a dilator with the sheath introduced onto the guidewire the dilator and the wire were retrieved and the catheter of the port was introduced via the sheath where it was peeled off and the catheter maintained to be in the SVC that was confirmed with fluoroscopy, and the fluoroscopy interpretation was done by me throughout the entire procedure. The port was kept in its pocket,3-0 Vicryl deep subdermal interrupted sutures, skin was then closed by 4-0 Monocryl as subcuticular closure. The port was flushed and blood was withdrawn without difficulty. The stick site was closed by 3/0 Vicryl followed by Dermabond that was used followed by dry dressing. Patient tolerated the procedure well was taken to the recovery area Count was correct at the end of the procedure I was present for the whole entire procedure. Position of the catheter was checked with a postoperative chest x-ray and it was in good position without evidence of pneumothorax
--- NOTE | 2020-10-25 16:40 | XRR_ITS ---
PROCEDURE INFORMATION: Exam: XR Chest Exam date and time: 10/25/2020 5:03 PM Age: 75 years old Clinical indication: Other vascular access device placement or adjustment; Patient HX: Status post placement of right subclavian vein powerport jordan TECHNIQUE: Imaging protocol: XR of the chest. Views: 1 view. COMPARISON: Chest x-ray 06/06/2018 FINDINGS: Tubes, catheters and devices: Right chest port terminates within the cavoatrial junction. Suspected spinal stimulator device leads projecting over the lower thoracic spine. Lungs: Minor interstitial scarring. No consolidation. Pleural spaces: Unremarkable. No pleural effusion. No pneumothorax. Heart/Mediastinum: Unremarkable. No cardiomegaly. Bones/joints: Left reversed total shoulder arthroplasty and right shoulder hemiarthroplasty in expected positioning. Moderate acromioclavicular DJD. Moderate to severe scoliosis and DJD of the thoracic spine. Soft tissues: Left breast/axillary clips. XR/XR chest 1V portable [id number] IMPRESSION: Status post right port placement which terminates at the cavoatrial junction. No acute cardiopulmonary findings.
--- NOTE | 2020-10-25 16:47 | P.PCN_ITS ---
Documented by User: [place] Arthur CRNA 10/25/20 16:47 PACU note PACU note: VSS, Good respiratory effort, report to TECHNICAL ASSISTANCE CONSULTANT Post-Anesthesia Exam: awake
--- NOTE | 2020-10-25 17:11 | ANE.PACU2 ---
Inpatient post-anesthesia follow up: Airway intact: Yes Vital signs: Temperature 97.8 F Pulse Rate 65 Respiratory Rate 16 Blood Pressure 148/67 Pulse Oximetry 99 Oxygen Delivery Me thod Room Air Oxygen Flow Rate Fraction of Inspir ed Oxygen Hydration adequate: Yes Nausea and vomiting: No Pain level: 2 Mental status: Baseline
== END 2020-10-25 18:20 | disposition home or self-care (01) ==
PROVIDERS: PCP Internal Medicine; Visit Provider Surgery
PROC: (CPT 36561; principal; 2020-10-25 14:25)
DX: C50.919 Malignant neoplasm of unspecified site of unspecified female breast (principal); I10 Essential (primary) hypertension; E78.5 Hyperlipidemia, unspecified; E66.01 Morbid (severe) obesity due to excess calories; Z68.35 Body mass index [BMI] 35.0-35.9, adult; Z99.3 Dependence on wheelchair; E11.40 Type 2 diabetes mellitus with diabetic neuropathy, unspecified; E03.9 Hypothyroidism, unspecified; M81.0 Age-related osteoporosis without current pathological fracture; Z98.84 Bariatric surgery status; Z82.49 Family history of ischemic heart disease and other diseases of the circulatory system; Z82.3 Family history of stroke
CPT/HCPCS: 36561; 71045; 76000; 77001; C1788; J1644; J2704; J3010; J3490; J7030

== ENCOUNTER 2020-10-28 11:21 | Outpatient (CLI) | payer MEDICARE, OTHER, SELFPAY ==
[2020-10-28 12:18] LABS: Basophils # 0.1 10^3/uL (0.0-0.1); Eosinophils # 0.3 10^3/uL (0.0-0.8); Eosinophils % 3.9 %; Hematocrit 34.3 % (37.0-47.0); Hemoglobin 10.2 g/dL (11.5-15.3); Lymphocytes # 2.2 10^3/uL (0.8-4.8); Lymphocytes % 31.2 %; Mean Corpuscular HGB Conc 29.7 g/dL (30.0-36.0); Mean Corpuscular Hemoglobin 28.8 pg (28.0-34.0); Mean Corpuscular Volume 96.9 fL (81-99); Mean Platelet Volume 10.3 fL (7.4-10.4); Monocytes # 0.8 10^3/uL (0.2-0.9); Monocytes % 11.6 %; Neutrophils # 3.75 10^3/uL (1.8-7.7); Neutrophils % 52.2 %; Nucleated Red Blood Cells % 0 %; Platelet Count 311 10^3/cmm (130-400); Red Blood Count 3.54 10^6/uL (4.1-5.3); Red Cell Distribution Width 13.2 % (12.1-15.1); White Blood Count 7.2 10^3/uL (4.0-10.0)
[2020-10-28 12:55] LABS: Alanine Aminotransferase < 5 U/L (0-33); Albumin Level 3.8 g/dL (3.5-5.2); Alkaline Phosphatase 106 IU/L (35-105); Anion Gap 15.2 (5-19); Aspartate Amino Transferase 17 U/L (0-32); Blood Urea Nitrogen 20 mg/dL (8-23); Carbon Dioxide 21 mmol/L (22-29); Chloride 106 mmol/L (98-107); Globulin 2.5 g/dL (1.3-4.6); Glucose 89 mg/dL (65-115); Osmolality Calculated 288 mOsm/kg (285-295); Potassium 4.2 mmol/L (3.5-5.1); Sodium 138 mmol/L (136-145); Total Bilirubin 0.4 mg/dL (0.15-1.2); Total Protein 6.3 g/dL (6.6-8.7)
[2020-10-28] MEDS: acetaminophen 325 mg Tablet 650 MG PO (15:03)
[2020-10-28] MEDS: sodium chloride 0.9% 250 ML 75 ML IV (15:03)
[2020-10-28] MEDS: famotidine 20 mg/2 mL INJ IVP (15:03)
[2020-10-28] MEDS: diphenhydrAMINE 50 mg/mL SDV 1mL 25 MG IV (15:04)
[2020-10-28] MEDS: ondansetron 2 mg/ML SDV 2 mL 8 MG IV (15:08)
--- NOTE | 2020-10-29 07:37 | ONC FU_ITS ---
Dr. Alston Patient Follow-Up Note Patient: Lucie Joyner Unit #: [id number]: 1945 Dicatated By: Francois Alston M.D.Date of Visit:Oct 28, 2020 Onc Med Follow-up/Prog Note Chief Complaint: Breast cancer. 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 She had presented with a palpable mass in the subareolar area of the left breast, which she first noticed a week before . Bilateral diagnostic mammogram on 08/06/2020 showed a focal asymmetric density deep to the palpable marker measuring 8 mm. It was new from a prior study in 2019. Ultrasound showed a mixed echogenicity ill-defined lesion adjacent to the nipple. It appeared to emerge with the areola. The findings were BI-RADS 4, suspicious, and subsequent ultrasound directed biopsy on 08/18/2020 showed grade 2 invasive ductal carcinoma. The breast prognostic profile showed ER positive at 99% and AL positive at 100%. It was positive for overexpression of HER-2/alhaji, 3+ by IHC and amplification ratio by FISH of 5.3 with 12.4 HER-2 copies/cell. The Ki-67 was high at 35%. I had seen her initially on 08/26/2020. She had had further evaluation with left axillary ultrasound. That study did show several lymph nodes within the left axilla, but they appeared benign, as there was noted to be maintenance of normal fatty юлия. By clinical staging she appeared to have T1, N0 disease, and she did not meet criteria for neoadjuvant chemotherapy. As such, she was recommended to proceed with surgery. On 09/16/2020 she underwent left breast lumpectomy and left axillary sentinel lymph node biopsy. Pathology on the lumpectomy showed grade 2 invasive ductal carcinoma measuring 1.2 cm in greatest dimension. There was no DCIS identified. The closest margin was the inferior margin measuring 4 mm. There were no lymph nodes identified in the axillary specimen. As such her disease was pathologic stage pT1c, Nx. but stage IA for clinical T1, N0 or IB for T1, N1 involvement. In the setting of HER-2/alhaji positive disease, I had recommended adjuvant chemotherapy with weekly Abraxane/Herceptin for 12 weeks, as she had additional history of longstanding neuropathy of the left leg, and I preferred to avoid use of Taxol. Her other medical illnesses include hypertension, hyperlipidemia, borderline diabetes, hypothyroidism, degenerative arthritis, and osteoporosis. Her other prior surgeries include gastric bypass for obesity in 2000, cholecystectomy in 1970, and hysterectomy/bilateral salpingo-oophorectomy in 1988. She has also had bilateral shoulder replacement and redo arthroplasty of the left shoulder, lumbar laminectomy in 2014, and thoracic laminectomy in 2015. She is a non-smoker. INTERIM HISTORY: She continues to have very limited activity due to the neuropathy and to her degenerative arthritis. Her ECOG score is 3. Her appetite is not very good. She complains of dry mouth and throat. She has no fever, night sweats, or hot flashes. She has no shortness of breath, cough, or chest pain. She reports having a lot of acid reflux at night. She has chronic constipation. She has neurogenic bladder. She has significant arthritis pain, mainly in the knees, and she has chronic neuropathy in the left leg. Medications: B-12 1 (1000 mcg) Tablet Oral daily, Benadryl Allergy 1 (25 mg) Tablet Oral t.i.d., Claritin 1 (10 mg) Tablet Oral daily, HYDROcodone-Acetaminophen 1 (10-325 mg) Tablet Oral four times a day, K-Tab 1 (20 meq) Tablet, controlled release Oral b.i.d., Lasix 1 (40 mg) Tablet Oral b.i.d., Levothyroxine Sodium 1 (125 mcg) Tablet Oral every am, Losartan Potassium 1 (50 mg) Tablet Oral daily, Melatonin 1 (10 mg/mL) Liquid Oral at bedtime, Simvastatin 1 (40 mg) Tablet Oral daily Allergies: TRENT Inhibitors, Cephalexin, Gabapentin, Pregabalin, Sulfa Antibiotics, and traZODone HCl. Vital Signs: Performed on Oct 28, 2020 14:37 Height - 69 in Weight - 235 lbs (LOW) BSA - 2.21 sq.m BMI - 34.70 (HIGH) Temperature - 98.2 F (LOW) Pulse - 69 /min Respiration - 18 /min BP - 105/69 mm(hg) O2 Sat - 97 % Pain - 6 Fatigue - 8 Physical Examination: Constitutional - She has very limited mobility, Eyes - Sclerae nonicteric. Conjunctivae clear, ENMT - No lesions noted in the oral cavity, Hematologic/Lymphatic - No cervical, clavicular, or axillary adenopathy, Respiratory - Lungs sound clear, Cardiovascular - Heart rhythm is regular. There is no murmur, gallop, or rub noted, Abdomen - Soft. Liver and spleen are not enlarged. There is no abdominal mass or ascites noted, Extremities - No edema, Neurologic - She has significant weakness in her left leg. Lab/Imaging: Test performed on Oct 28, 2020 11:50 Sodium 138 mmol/L Potassium 4.2 mmol/L Chloride 106 mmol/L CO2 21 mmol/L Anion Gap 15.2 BUN 20 mg/dL Creatinine 1.3 mg/dL Cr Clearance (Est) 62.92 mL/min Glucose 89 mg/dL Osmolality - Calculated 288 mOsm/kg Calcium 9.0 mg/dL Protein, Total 6.3 g/dL Albumin 3.8 g/dL Globulin 2.5 g/dL Bilirubin, Total 0.4 mg/dL ALT (SGPT) < 5 U/L AST (SGOT) 17 U/L Alkaline Phosphatase 106 IU/L WBC 7.2 10 3/uL RBC 3.54 10 6/uL HGB 10.2 g/dL HCT 34.3 % MCV 96.9 fL MCH 28.8 pg MCHC 29.7 g/dL RDW 13.2 % Platelet Count 311 10 3/cmm MPV 10.3 fL Neutrophils 3.75 10 3/uL Lymphocytes 2.2 10 3/uL Monocytes 0.8 10 3/uL Eosinophils 0.3 10 3/uL Basophils 0.1 10 3/uL Neutrophil % 52.2 % Lymphocyte % 31.2 % Monocyte % 11.6 % Eosinophil % 3.9 % Basophils % 1.0 % NRBC % 0 % Problem List: 1. Grade 2 invasive ductal carcinoma involving the subareolar area of the left breast, ER/AL positive and HER-2/alhaji positive. Staging is incomplete, but it appears to be a T1b primary lesion. 2. Hypertension. 3. Hyperlipidemia. 4. Borderline diabetes. 5. Hypothyroidism. 6. 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 7. Osteoporosis. 8. Left lower extremity neuropathy. 9. Obesity with previous gastric bypass. 10. 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 Problems Addressed with this Encounter and Plan: Patient with grade 2 invasive ductal carcinoma involving the subareolar area of the left breast, ER/AL positive and HER-2/alhaji positive. By clinical evaluation, she had T1, N0 disease, and she did not meet criteria for neoadjuvant chemotherapy. She then proceeded with left breast lumpectomy and left axillary sentinel lymph node biopsy on 09/16/2020. Pathology showed grade 2 invasive ductal carcinoma measuring 1.2 cm in maximum diameter. The margins were free. There were no lymph nodes identified in the axillary specimen. Her pathologic staging was pT1c, Nx. With a HER-2/alhaji positive T1c primary tumor, she was recommended to undergo adjuvant chemotherapy with weekly Abraxane/Herceptin for 12 weeks. I reviewed anticipated side effects which may include nausea/vomiting, diarrhea, alopecia, fatigue, low blood counts, and neuropathy, among others. She is aware, in particular, that the neuropathy may worsen, and it will just have to be monitored very closely. She begins week 1 treatment today. She will return for lab and treatment next week and for a follow-up visit in 2 weeks. Signed By: Francois Alston M.D. <<Signature on File>>
== END 2020-10-28 11:22 | disposition home or self-care (01) ==
LOC: ONCMED 11:23
PROVIDERS: PCP Internal Medicine; Visit Provider Internal Medicine Medical Oncology
DX: Z51.11 Encounter for antineoplastic chemotherapy (principal); C50.812 Malignant neoplasm of overlapping sites of left female breast; Z17.0 Estrogen receptor positive status [ER+]; I10 Essential (primary) hypertension; E78.5 Hyperlipidemia, unspecified; E03.9 Hypothyroidism, unspecified; M47.9 Spondylosis, unspecified; M18.0 Bilateral primary osteoarthritis of first carpometacarpal joints; G57.92 Unspecified mononeuropathy of left lower limb; E66.9 Obesity, unspecified; Z68.34 Body mass index [BMI] 34.0-34.9, adult; Z98.84 Bariatric surgery status; Z86.718 Personal history of other venous thrombosis and embolism
CPT/HCPCS: 36415; 80053; 85025; 96367; 96375; 96413; 96417; 99215; J1100; J1200; J2405; J3490; J7050; J9264; Q5112

== ENCOUNTER 2020-11-08 05:44 | Outpatient (RCR) | payer MEDICARE, OTHER, SELFPAY ==
[2020-11-04 12:07] LABS: Basophils % 0.8 %; Eosinophils # 0.2 10^3/uL (0.0-0.8); Eosinophils % 5.3 %; Hematocrit 31.8 % (37.0-47.0); Hemoglobin 9.3 g/dL (11.5-15.3); Lymphocytes # 1.4 10^3/uL (0.8-4.8); Lymphocytes % 34.3 %; Mean Corpuscular HGB Conc 29.2 g/dL (30.0-36.0); Mean Corpuscular Volume 99.1 fL (81-99); Mean Platelet Volume 10.5 fL (7.4-10.4); Monocytes # 0.2 10^3/uL (0.2-0.9); Monocytes % 3.8 %; Neutrophils # 2.21 10^3/uL (1.8-7.7); Neutrophils % 55.3 %; Nucleated Red Blood Cells % 0 %; Platelet Count 283 10^3/cmm (130-400); Red Blood Count 3.21 10^6/uL (4.1-5.3); Red Cell Distribution Width 12.9 % (12.1-15.1)
[2020-11-04 12:34] LABS: Alanine Aminotransferase 7 U/L (0-33); Albumin Level 3.6 g/dL (3.5-5.2); Alkaline Phosphatase 97 IU/L (35-105); Anion Gap 15.2 (5-19); Aspartate Amino Transferase 15 U/L (0-32); Blood Urea Nitrogen 20 mg/dL (8-23); Calcium 9.1 mg/dL (8.5-10.5); Globulin 2.3 g/dL (1.3-4.6); Glucose 102 mg/dL (65-115); Osmolality Calculated 293 mOsm/kg (285-295); Potassium 4.2 mmol/L (3.5-5.1); Sodium 140 mmol/L (136-145); Total Bilirubin 0.3 mg/dL (0.15-1.2)
[2020-11-04 12:47] LABS: Carbon Dioxide 20 mmol/L (22-29); Chloride 109 mmol/L (98-107); Total Protein 5.9 g/dL (6.6-8.7)
[2020-11-08 12:59] LABS: Basophils % 0.8 %; Eosinophils # 0.2 10^3/uL (0.0-0.8); Eosinophils % 3.9 %; Hematocrit 31.3 % (37.0-47.0); Hemoglobin 9.4 g/dL (11.5-15.3); Lymphocytes # 1.7 10^3/uL (0.8-4.8); Lymphocytes % 44.7 %; Mean Corpuscular Hemoglobin 28.7 pg (28.0-34.0); Mean Corpuscular Volume 95.4 fL (81-99); Mean Platelet Volume 10.2 fL (7.4-10.4); Monocytes # 0.6 10^3/uL (0.2-0.9); Monocytes % 14.2 %; Neutrophils % 36.1 %; Nucleated Red Blood Cells % 0 %; Platelet Count 388 10^3/cmm (130-400); Red Blood Count 3.28 10^6/uL (4.1-5.3); Red Cell Distribution Width 12.9 % (12.1-15.1); White Blood Count 3.9 10^3/uL (4.0-10.0)
[2020-11-08 13:22] LABS: Alanine Aminotransferase < 5 U/L (0-33); Albumin Level 3.6 g/dL (3.5-5.2); Alkaline Phosphatase 114 IU/L (35-105); Anion Gap 14.7 (5-19); Aspartate Amino Transferase 13 U/L (0-32); Blood Urea Nitrogen 20 mg/dL (8-23); Calcium 8.5 mg/dL (8.5-10.5); Carbon Dioxide 23 mmol/L (22-29); Chloride 106 mmol/L (98-107); Globulin 2.5 g/dL (1.3-4.6); Glucose 92 mg/dL (65-115); Osmolality Calculated 290 mOsm/kg (285-295); Potassium 4.7 mmol/L (3.5-5.1); Sodium 139 mmol/L (136-145); Total Bilirubin 0.3 mg/dL (0.15-1.2); Total Protein 6.1 g/dL (6.6-8.7)
[2020-11-08] MEDS: acetaminophen 325 mg Tablet 650 MG PO (14:15)
[2020-11-08] MEDS: diphenhydrAMINE 50 mg/mL SDV 1mL 25 MG IVP (14:15)
[2020-11-08] MEDS: sodium chloride 0.9% 250 ML IV (14:50)
[2020-11-08 17:08] LABS: Iron 25 ug/dL (37-145); Percent Saturation 9.7 % (20-50); Total Iron Binding Capacity 257 mcg/dl; Unsaturated Iron Binding 232 ug/dL (112-347)
[2020-11-08 19:14] LABS: Vitamin B12 > 2000 pg/mL (232-1245)
--- NOTE | 2020-11-11 16:46 | ONC FU_ITS ---
Dr. Alston Patient Follow-Up Note Patient: Lucie Joyner Unit #: [id number]: 1945 Dicatated By: Francois Alston M.D.Date of Visit:Nov 08, 2020 Onc Med Follow-up/Prog Note Chief Complaint: Breast cancer. 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 She had presented with a palpable mass in the subareolar area of the left breast, which she first noticed a week before . Bilateral diagnostic mammogram on 08/06/2020 showed a focal asymmetric density deep to the palpable marker measuring 8 mm. It was new from a prior study in 2019. Ultrasound showed a mixed echogenicity ill-defined lesion adjacent to the nipple. It appeared to emerge with the areola. The findings were BI-RADS 4, suspicious, and subsequent ultrasound directed biopsy on 08/18/2020 showed grade 2 invasive ductal carcinoma. The breast prognostic profile showed ER positive at 99% and WI positive at 100%. It was positive for overexpression of HER-2/alhaji, 3+ by IHC and amplification ratio by FISH of 5.3 with 12.4 HER-2 copies/cell. The Ki-67 was high at 35%. I had seen her initially on 08/26/2020. She had had further evaluation with left axillary ultrasound. That study did show several lymph nodes within the left axilla, but they appeared benign, as there was noted to be maintenance of normal fatty юлия. By clinical staging she appeared to have T1, N0 disease, and she did not meet criteria for neoadjuvant chemotherapy. As such, she was recommended to proceed with surgery. On 09/16/2020 she underwent left breast lumpectomy and left axillary sentinel lymph node biopsy. Pathology on the lumpectomy showed grade 2 invasive ductal carcinoma measuring 1.2 cm in greatest dimension. There was no DCIS identified. The closest margin was the inferior margin measuring 4 mm. There were no lymph nodes identified in the axillary specimen. As such her disease was pathologic stage pT1c, Nx. but stage IA for clinical T1, N0 or IB for T1, N1 involvement. In the setting of HER-2/alhaji positive disease, I had recommended adjuvant chemotherapy with weekly Abraxane/Herceptin for 12 weeks, as she had additional history of longstanding neuropathy of the left leg, and I preferred to avoid use of Taxol. Her other medical illnesses include hypertension, hyperlipidemia, borderline diabetes, hypothyroidism, degenerative arthritis, and osteoporosis. Her other prior surgeries include gastric bypass for obesity in 2000, cholecystectomy in 1970, and hysterectomy/bilateral salpingo-oophorectomy in 1988. She has also had bilateral shoulder replacement and redo arthroplasty of the left shoulder, lumbar laminectomy in 2014, and thoracic laminectomy in 2015. She is a non-smoker. INTERIM HISTORY: She began week 1 of weekly Abraxane/Herceptin on 10/28/2020. She tolerated that treatment without acute toxicity. She is seen for a follow-up visit. She says she feels fine. However, she reports that every bone in her body ache for 2 days after her treatment last week. She continues to have very limited activity. ECOG score is 3. She says her appetite is not bad. She has no fever or night sweats. She has allergy related sinus symptoms, adequately managed with Zyrtec. She has had no mouth sores. She has occasional cough. She does not complain of shortness of breath or chest pain. She has had no nausea. She does have some acid reflux. Bowel function remains adequate. She has neurogenic bladder. She still has some pain in her low back and both legs. She has headache and she also reports having some dizziness. She has chronic neuropathy in the left leg. Medications: B-12 1 (1000 mcg) Tablet Oral daily, Benadryl Allergy 1 (25 mg) Tablet Oral t.i.d., Claritin 1 (10 mg) Tablet Oral daily, HYDROcodone-Acetaminophen 1 (10-325 mg) Tablet Oral four times a day, K-Tab 1 (20 meq) Tablet, controlled release Oral b.i.d., Lasix 1 (40 mg) Tablet Oral b.i.d., Levothyroxine Sodium 1 (125 mcg) Tablet Oral every am, Losartan Potassium 1 (50 mg) Tablet Oral daily, Melatonin 1 (10 mg/mL) Liquid Oral at bedtime, Simvastatin 1 (40 mg) Tablet Oral daily Allergies: TRENT Inhibitors, Cephalexin, Gabapentin, Pregabalin, Sulfa Antibiotics, and traZODone HCl. Vital Signs: Performed on Nov 08, 2020 13:30 Height - 69.00 in Temperature - 99.3 F (HIGH) Pulse - 66 /min Respiration - 18 /min BP - 120/69 mm(hg) O2 Sat - 97 % Pain - 6 Fatigue - 5 Physical Examination: Constitutional - She has very limited mobility, Eyes - Sclerae nonicteric. Conjunctivae clear, ENMT - No lesions noted in the oral cavity, Hematologic/Lymphatic - No cervical, clavicular, or axillary adenopathy, Respiratory - Lungs sound clear, Cardiovascular - Heart rhythm is regular. There is no murmur, gallop, or rub noted, Abdomen - Soft. Liver and spleen are not enlarged. There is no abdominal mass or ascites noted, Extremities - No edema, Neurologic - She has significant weakness in her left leg. Lab/Imaging: Test performed on Nov 08, 2020 11:48 Iron 25 mcg/dL Sodium 139 mmol/L Vitamin B12 > 2000 pg/mL Iron Binding Capacity (TIBC) 257 mcg/dl Potassium 4.7 mmol/L % Iron Saturation 9.7 % Chloride 106 mmol/L CO2 23 mmol/L UIBC 232 mcg/dL Anion Gap 14.7 BUN 20 mg/dL Creatinine 1.1 mg/dL Cr Clearance (Est) 74.3600 mL/min Glucose 92 mg/dL Osmolality - Calculated 290 mOsm/kg Calcium 8.5 mg/dL Protein, Total 6.1 g/dL Albumin 3.6 g/dL Globulin 2.5 g/dL Bilirubin, Total 0.3 mg/dL ALT (SGPT) < 5 U/L AST (SGOT) 13 U/L Alkaline Phosphatase 114 IU/L WBC 3.9 10 3/uL RBC 3.28 10 6/uL HGB 9.4 g/dL HCT 31.3 % MCV 95.4 fL MCH 28.7 pg MCHC 30.0 g/dL RDW 12.9 % Platelet Count 388 10 3/cmm MPV 10.2 fL Neutrophils 1.40 10 3/uL Lymphocytes 1.7 10 3/uL Monocytes 0.6 10 3/uL Eosinophils 0.2 10 3/uL Basophils 0.0 10 3/uL Neutrophil % 36.1 % Lymphocyte % 44.7 % Monocyte % 14.2 % Eosinophil % 3.9 % Basophils % 0.8 % NRBC % 0 % Problem List: 1. Grade 2 invasive ductal carcinoma involving the subareolar area of the left breast, ER/WI positive and HER-2/alhaji positive. Staging is incomplete, but it appears to be a T1b primary lesion. 2. Hypertension. 3. Hyperlipidemia. 4. Borderline diabetes. 5. Hypothyroidism. 6. 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 7. Osteoporosis. 8. Left lower extremity neuropathy. 9. Obesity with previous gastric bypass. 10. 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 Problems Addressed with this Encounter and Plan: Patient with grade 2 invasive ductal carcinoma involving the subareolar area of the left breast, ER/WI positive and HER-2/alhaji positive. By clinical evaluation, she had T1, N0 disease, and she did not meet criteria for neoadjuvant chemotherapy. She then proceeded with left breast lumpectomy and left axillary sentinel lymph node biopsy on 09/16/2020. Pathology showed grade 2 invasive ductal carcinoma measuring 1.2 cm in maximum diameter. The margins were free. There were no lymph nodes identified in the axillary specimen. Her pathologic staging was pT1c, Nx. With a HER-2/alhaji positive T1c primary tumor, she was recommended to undergo adjuvant chemotherapy with weekly Abraxane/Herceptin for 12 weeks. She began her week 1 treatment on 10/28/2020. She had generalized bone aching for 2 days after that treatment. She had no other significant side effects, but she has moderately severe neutropenia, and her further treatment will be delayed at least 1 week. In the meantime, she will be given a prescription for Protonix for her GERD symptoms. Signed By: Francois Alston M.D. <<Signature on File>>
== END 2020-11-13 23:59 | disposition home or self-care (01) ==
LOC: ONCMED 05:44
PROVIDERS: PCP Internal Medicine; Visit Provider Internal Medicine Medical Oncology
DX: Z51.12 Encounter for antineoplastic immunotherapy (principal); C50.112 Malignant neoplasm of central portion of left female breast; Z17.0 Estrogen receptor positive status [ER+]; I10 Essential (primary) hypertension; E78.5 Hyperlipidemia, unspecified; R73.03 Prediabetes; E03.9 Hypothyroidism, unspecified; G31.89 Other specified degenerative diseases of nervous system; G89.29 Other chronic pain; M81.0 Age-related osteoporosis without current pathological fracture; G62.9 Polyneuropathy, unspecified; E66.9 Obesity, unspecified; Z86.718 Personal history of other venous thrombosis and embolism; Z79.890 Hormone replacement therapy; Z79.899 Other long term (current) drug therapy
CPT/HCPCS: 36415; 36591; 80053; 82607; 83540; 83550; 85025; 96375; 96413; 99214; J1200; J7050; Q5112

== ENCOUNTER 2020-12-08 13:00 | Outpatient (RCR) | payer MEDICARE, OTHER, SELFPAY ==
[2020-11-15 10:59] LABS: Basophils # 0.1 10^3/uL (0.0-0.1); Eosinophils # 0.2 10^3/uL (0.0-0.8); Eosinophils % 3.4 %; Hematocrit 32.6 % (37.0-47.0); Hemoglobin 9.8 g/dL (11.5-15.3); Lymphocytes # 2.2 10^3/uL (0.8-4.8); Lymphocytes % 35.4 %; Mean Corpuscular HGB Conc 30.1 g/dL (30.0-36.0); Mean Corpuscular Hemoglobin 28.2 pg (28.0-34.0); Mean Corpuscular Volume 93.9 fL (81-99); Mean Platelet Volume 9.5 fL (7.4-10.4); Monocytes # 0.8 10^3/uL (0.2-0.9); Monocytes % 13.5 %; Neutrophils % 46.4 %; Nucleated Red Blood Cells % 0 %; Platelet Count 388 10^3/cmm (130-400); Red Blood Count 3.47 10^6/uL (4.1-5.3); Red Cell Distribution Width 13.1 % (12.1-15.1); White Blood Count 6.2 10^3/uL (4.0-10.0)
[2020-11-15 11:25] LABS: Alanine Aminotransferase < 5 U/L (0-33); Albumin Level 3.8 g/dL (3.5-5.2); Alkaline Phosphatase 131 IU/L (35-105); Anion Gap 13.2 (5-19); Aspartate Amino Transferase 13 U/L (0-32); Blood Urea Nitrogen 20 mg/dL (8-23); Calcium 8.8 mg/dL (8.5-10.5); Carbon Dioxide 23 mmol/L (22-29); Chloride 107 mmol/L (98-107); Globulin 2.3 g/dL (1.3-4.6); Glucose 95 mg/dL (65-115); Osmolality Calculated 290 mOsm/kg (285-295); Potassium 4.2 mmol/L (3.5-5.1); Sodium 139 mmol/L (136-145); Total Bilirubin 0.3 mg/dL (0.15-1.2); Total Protein 6.1 g/dL (6.6-8.7)
[2020-11-15] MEDS: acetaminophen 325 mg Tablet 650 MG PO (12:50)
[2020-11-15] MEDS: sodium chloride 0.9% 250 ML IV (12:53)
[2020-11-15] MEDS: famotidine 20 mg/2 mL INJ IVP (12:53)
[2020-11-15] MEDS: diphenhydrAMINE 50 mg/mL SDV 1mL 25 MG IV (12:55)
[2020-11-15] MEDS: ondansetron 2 mg/ML SDV 2 mL 8 MG IV (13:00)
--- NOTE | 2020-11-19 13:03 | ONC FU_ITS ---
Dr. Alston Patient Follow-Up Note Patient: Lucie Joyner Unit #: [id number]: 1945 Dicatated By: Francois Alston M.D.Date of Visit:Nov 15, 2020 Onc Med Follow-up/Prog Note Chief Complaint: Breast cancer. 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 She had presented with a palpable mass in the subareolar area of the left breast, which she first noticed a week before . Bilateral diagnostic mammogram on 08/06/2020 showed a focal asymmetric density deep to the palpable marker measuring 8 mm. It was new from a prior study in 2019. Ultrasound showed a mixed echogenicity ill-defined lesion adjacent to the nipple. It appeared to emerge with the areola. The findings were BI-RADS 4, suspicious, and subsequent ultrasound directed biopsy on 08/18/2020 showed grade 2 invasive ductal carcinoma. The breast prognostic profile showed ER positive at 99% and AR positive at 100%. It was positive for overexpression of HER-2/alhaji, 3+ by IHC and amplification ratio by FISH of 5.3 with 12.4 HER-2 copies/cell. The Ki-67 was high at 35%. I had seen her initially on 08/26/2020. She had had further evaluation with left axillary ultrasound. That study did show several lymph nodes within the left axilla, but they appeared benign, as there was noted to be maintenance of normal fatty юлия. By clinical staging she appeared to have T1, N0 disease, and she did not meet criteria for neoadjuvant chemotherapy. As such, she was recommended to proceed with surgery. On 09/16/2020 she underwent left breast lumpectomy and left axillary sentinel lymph node biopsy. Pathology on the lumpectomy showed grade 2 invasive ductal carcinoma measuring 1.2 cm in greatest dimension. There was no DCIS identified. The closest margin was the inferior margin measuring 4 mm. There were no lymph nodes identified in the axillary specimen. As such her disease was pathologic stage pT1c, Nx. but stage IA for clinical T1, N0 or IB for T1, N1 involvement. In the setting of HER-2/alhaji positive disease, I had recommended adjuvant chemotherapy with weekly Abraxane/Herceptin for 12 weeks, as she had additional history of longstanding neuropathy of the left leg, and I preferred to avoid use of Taxol. Her other medical illnesses include hypertension, hyperlipidemia, borderline diabetes, hypothyroidism, degenerative arthritis, and osteoporosis. Her other prior surgeries include gastric bypass for obesity in 2000, cholecystectomy in 1970, and hysterectomy/bilateral salpingo-oophorectomy in 1988. She has also had bilateral shoulder replacement and redo arthroplasty of the left shoulder, lumbar laminectomy in 2014, and thoracic laminectomy in 2015. She is a non-smoker. INTERIM HISTORY: She began week 1 of weekly Abraxane/Herceptin on 10/28/2020. She developed bone generalized aching following that treatment. Her further chemotherapy was then delayed due to neutropenia. She did receive a second dose of Herceptin last week. She is seen for a follow-up visit. She continues to have very limited activity. Her ECOG score is 3. Appetite is fair. She has no fever or night sweats. She still has some generalized aching, though she says it is better now than it was. She says her nose runs a lot. She has not had mouth sores. She has no shortness of breath, cough, or chest pain. She has not been having any nausea. Bowel function remains adequate. She has neurogenic bladder. She has had some headaches and she complains that she gets dizzy a lot. She has neuropathy pain in her left leg, which is unchanged. She also has some numbness in both legs, left worse than right. Medications: B-12 1 (1000 mcg) Tablet Oral daily, Benadryl Allergy 1 (25 mg) Tablet Oral t.i.d., Claritin 1 (10 mg) Tablet Oral daily, Esomeprazole Magnesium (20 mg) Tablet, enteric coated Oral daily, HYDROcodone-Acetaminophen 1 (10-325 mg) Tablet Oral four times a day, K-Tab 1 (20 meq) Tablet, controlled release Oral b.i.d., Lasix 1 (40 mg) Tablet Oral b.i.d., Levothyroxine Sodium 1 (125 mcg) Tablet Oral every am, Losartan Potassium 1 (50 mg) Tablet Oral daily, Melatonin 1 (10 mg/mL) Liquid Oral at bedtime, Simvastatin 1 (40 mg) Tablet Oral daily Allergies: TRENT Inhibitors, Cephalexin, Gabapentin, Pregabalin, Sulfa Antibiotics, and traZODone HCl. Vital Signs: Performed on Nov 15, 2020 12:54 Height - 69.00 in Weight - 240 lbs (HIGH) BSA - 2.23 sq.m BMI - 35.44 (HIGH) Temperature - 97.2 F (LOW) Pulse - 73 /min Respiration - 18 /min BP - 155/84 mm(hg) (HIGH) O2 Sat - 99 % Pain - 6 Fatigue - 7 Physical Examination: Constitutional - She has very limited mobility, Eyes - Sclerae nonicteric. Conjunctivae clear, ENMT - No lesions noted in the oral cavity, Hematologic/Lymphatic - No cervical, clavicular, or axillary adenopathy, Respiratory - Lungs sound clear, Cardiovascular - Heart rhythm is regular. There is no murmur, gallop, or rub noted, Abdomen - Soft. Liver and spleen are not enlarged. There is no abdominal mass or ascites noted, Extremities - Mild lower extremity edema, Neurologic - She has significant weakness in her left leg. Lab/Imaging: Test performed on Nov 15, 2020 10:52 Sodium 139 mmol/L Potassium 4.2 mmol/L Chloride 107 mmol/L CO2 23 mmol/L Anion Gap 13.2 BUN 20 mg/dL Creatinine 1.2 mg/dL Cr Clearance (Est) 68.1600 mL/min Glucose 95 mg/dL Osmolality - Calculated 290 mOsm/kg Calcium 8.8 mg/dL Protein, Total 6.1 g/dL Albumin 3.8 g/dL Globulin 2.3 g/dL Bilirubin, Total 0.3 mg/dL ALT (SGPT) < 5 U/L AST (SGOT) 13 U/L Alkaline Phosphatase 131 IU/L WBC 6.2 10 3/uL RBC 3.47 10 6/uL HGB 9.8 g/dL HCT 32.6 % MCV 93.9 fL MCH 28.2 pg MCHC 30.1 g/dL RDW 13.1 % Platelet Count 388 10 3/cmm MPV 9.5 fL Neutrophils 2.90 10 3/uL Lymphocytes 2.2 10 3/uL Monocytes 0.8 10 3/uL Eosinophils 0.2 10 3/uL Basophils 0.1 10 3/uL Neutrophil % 46.4 % Lymphocyte % 35.4 % Monocyte % 13.5 % Eosinophil % 3.4 % Basophils % 1.0 % NRBC % 0 % Test performed on Nov 08, 2020 11:48 Iron 25 mcg/dL Vitamin B12 > 2000 pg/mL Iron Binding Capacity (TIBC) 257 mcg/dl % Iron Saturation 9.7 % UIBC 232 mcg/dL Problem List: 1. Grade 2 invasive ductal carcinoma involving the subareolar area of the left breast, ER/AR positive and HER-2/alhaji positive. Staging is incomplete, but it appears to be a T1b primary lesion. 2. Hypertension. 3. Hyperlipidemia. 4. Borderline diabetes. 5. Hypothyroidism. 6. 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 7. Osteoporosis. 8. Left lower extremity neuropathy. 9. Obesity with previous gastric bypass. 10. 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 Problems Addressed with this Encounter and Plan: Patient with grade 2 invasive ductal carcinoma involving the subareolar area of the left breast, ER/AR positive and HER-2/alhaji positive. By clinical evaluation, she had T1, N0 disease, and she did not meet criteria for neoadjuvant chemotherapy. She then proceeded with left breast lumpectomy and left axillary sentinel lymph node biopsy on 09/16/2020. Pathology showed grade 2 invasive ductal carcinoma measuring 1.2 cm in maximum diameter. The margins were free. There were no lymph nodes identified in the axillary specimen. Her pathologic staging was pT1c, Nx. With a HER-2/alhaji positive T1c primary tumor, she was recommended to undergo adjuvant chemotherapy with weekly Abraxane/Herceptin for 12 weeks. She began her week 1 treatment on 10/28/2020. She had generalized bone aching for 2 days after that treatment. She had no other significant side effects, but at day 8 she was moderately neutropenic and her further chemotherapy was delayed. She has now had adequate recovery of her neutrophil count. She will proceed with week 2 Abraxane/Herceptin. The Abraxane dosage will be reduced by 20% due to the neutropenia. The Herceptin dosage remains the same. I will see her again in 1 week. Signed By: Francois Alston M.D. <<Signature on File>>
[2020-11-22 08:49] LABS: Basophils % 0.7 %; Eosinophils # 0.2 10^3/uL (0.0-0.8); Eosinophils % 3.1 %; Hematocrit 31.6 % (37.0-47.0); Hemoglobin 9.4 g/dL (11.5-15.3); Lymphocytes # 2.4 10^3/uL (0.8-4.8); Lymphocytes % 42.9 %; Mean Corpuscular HGB Conc 29.7 g/dL (30.0-36.0); Mean Corpuscular Hemoglobin 28.7 pg (28.0-34.0); Mean Corpuscular Volume 96.3 fL (81-99); Mean Platelet Volume 10.4 fL (7.4-10.4); Monocytes # 0.3 10^3/uL (0.2-0.9); Monocytes % 5.5 %; Neutrophils % 47.4 %; Nucleated Red Blood Cells % 0 %; Platelet Count 329 10^3/cmm (130-400); Red Blood Count 3.28 10^6/uL (4.1-5.3); Red Cell Distribution Width 13.2 % (12.1-15.1); White Blood Count 5.5 10^3/uL (4.0-10.0)
[2020-11-22 09:08] LABS: Alanine Aminotransferase 6 U/L (0-33); Albumin Level 3.8 g/dL (3.5-5.2); Alkaline Phosphatase 105 IU/L (35-105); Anion Gap 14.6 (5-19); Aspartate Amino Transferase 14 U/L (0-32); Blood Urea Nitrogen 17 mg/dL (8-23); Calcium 9.1 mg/dL (8.5-10.5); Carbon Dioxide 22 mmol/L (22-29); Chloride 107 mmol/L (98-107); Globulin 2.2 g/dL (1.3-4.6); Glucose 94 mg/dL (65-115); Osmolality Calculated 289 mOsm/kg (285-295); Potassium 4.6 mmol/L (3.5-5.1); Sodium 139 mmol/L (136-145); Total Bilirubin 0.4 mg/dL (0.15-1.2)
[2020-11-22] MEDS: acetaminophen 325 mg Tablet 650 MG PO (09:43)
[2020-11-22] MEDS: diphenhydrAMINE 50 mg/mL SDV 1mL 25 MG IV (09:43)
[2020-11-22] MEDS: ondansetron 2 mg/ML SDV 2 mL 8 MG IV (09:46)
[2020-11-22] MEDS: famotidine 20 mg/2 mL INJ IVP (09:48)
[2020-11-22] MEDS: sodium chloride 0.9% 250 ML 75 ML IV (09:51)
--- NOTE | 2020-11-22 13:56 | ONC FU_ITS ---
Dr. Alston Patient Follow-Up Note Patient: Lucie Joyner Unit #: [id number]: 1945 Dicatated By: Francois Alston M.D.Date of Visit:Nov 22, 2020 Onc Med Follow-up/Prog Note Chief Complaint: Breast cancer. 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 She had presented with a palpable mass in the subareolar area of the left breast, which she first noticed a week before . Bilateral diagnostic mammogram on 08/06/2020 showed a focal asymmetric density deep to the palpable marker measuring 8 mm. It was new from a prior study in 2019. Ultrasound showed a mixed echogenicity ill-defined lesion adjacent to the nipple. It appeared to emerge with the areola. The findings were BI-RADS 4, suspicious, and subsequent ultrasound directed biopsy on 08/18/2020 showed grade 2 invasive ductal carcinoma. The breast prognostic profile showed ER positive at 99% and GA positive at 100%. It was positive for overexpression of HER-2/alhaji, 3+ by IHC and amplification ratio by FISH of 5.3 with 12.4 HER-2 copies/cell. The Ki-67 was high at 35%. I had seen her initially on 08/26/2020. She had had further evaluation with left axillary ultrasound. That study did show several lymph nodes within the left axilla, but they appeared benign, as there was noted to be maintenance of normal fatty юлия. By clinical staging she appeared to have T1, N0 disease, and she did not meet criteria for neoadjuvant chemotherapy. As such, she was recommended to proceed with surgery. On 09/16/2020 she underwent left breast lumpectomy and left axillary sentinel lymph node biopsy. Pathology on the lumpectomy showed grade 2 invasive ductal carcinoma measuring 1.2 cm in greatest dimension. There was no DCIS identified. The closest margin was the inferior margin measuring 4 mm. There were no lymph nodes identified in the axillary specimen. As such her disease was pathologic stage pT1c, Nx. but stage IA for clinical T1, N0 or IB for T1, N1 involvement. In the setting of HER-2/alhaji positive disease, I had recommended adjuvant chemotherapy with weekly Abraxane/Herceptin for 12 weeks, as she had additional history of longstanding neuropathy of the left leg, and I preferred to avoid use of Taxol. Her other medical illnesses include hypertension, hyperlipidemia, borderline diabetes, hypothyroidism, degenerative arthritis, and osteoporosis. Her other prior surgeries include gastric bypass for obesity in 2000, cholecystectomy in 1970, and hysterectomy/bilateral salpingo-oophorectomy in 1988. She has also had bilateral shoulder replacement and redo arthroplasty of the left shoulder, lumbar laminectomy in 2014, and thoracic laminectomy in 2015. She is a non-smoker. INTERIM HISTORY: She began week 1 of weekly Abraxane/Herceptin on 10/28/2020. She developed bone generalized aching following that treatment. Her further chemotherapy was then delayed due to neutropenia. The following week her Abraxane had to be delayed due to neutropenia, but she did receive Herceptin. She was then given week 2 Abraxane/Herceptin on 11/15/2020. The Abraxane was administered at a reduced dosage. She is seen for a follow-up visit. She has been having more pain since her treatment last week, particularly in the knees and now mainly in the right knee. She says it feels like a nail is being pounded into it. She also has generalized joint pain and back pain. Her activity is very limited. ECOG score is 3. She says she is having difficulty finding something that she wants to eat. She has not had fever. She had some sweating one night. She has had no mouth sores. She does not complain of cough. Her breathing has been okay and she has not been having chest pain. She has just a little bit of nausea. Her acid reflux is adequately managed with Nexium. Bowel function is the same. Her bowels typically move every other day. She has neurogenic bladder. She has headache almost daily. She has difficulty with balance. She has numbness in her left leg and a little bit in the right leg. She also has some numbness in the ulnar distribution of the left hand. Medications: B-12 1 (1000 mcg) Tablet Oral daily, Benadryl Allergy 1 (25 mg) Tablet Oral t.i.d., Claritin 1 (10 mg) Tablet Oral daily, Esomeprazole Magnesium (20 mg) Tablet, enteric coated Oral daily, HYDROcodone-Acetaminophen 1 (10-325 mg) Tablet Oral four times a day, K-Tab 1 (20 meq) Tablet, controlled release Oral b.i.d., Lasix 1 (40 mg) Tablet Oral b.i.d., Levothyroxine Sodium 1 (125 mcg) Tablet Oral every am, Losartan Potassium 1 (50 mg) Tablet Oral daily, Melatonin 1 (10 mg/mL) Liquid Oral at bedtime, Simvastatin 1 (40 mg) Tablet Oral daily Allergies: TRENT Inhibitors, Cephalexin, Gabapentin, Pregabalin, Sulfa Antibiotics, and traZODone HCl. Vital Signs: Performed on Nov 22, 2020 13:34 Height - 69.00 in Weight - 238 lbs (LOW) BSA - 2.22 sq.m BMI - 35.15 (HIGH) Temperature - 98.3 F (LOW) Pulse - 75 /min Respiration - 18 /min BP - 133/94 mm(hg) O2 Sat - 99 % Pain - 7 Fatigue - 7 Physical Examination: Constitutional - She has very limited mobility, Eyes - Sclerae nonicteric. Conjunctivae clear, ENMT - No lesions noted in the oral cavity, Hematologic/Lymphatic - No cervical, clavicular, or axillary adenopathy, Respiratory - Lungs sound clear, Cardiovascular - Heart rhythm is regular. There is no murmur, gallop, or rub noted, Abdomen - Soft. Liver and spleen are not enlarged. There is no abdominal mass or ascites noted, Extremities - Mild lower extremity edema, Neurologic - She has weakness in her left leg. Lab/Imaging: Test performed on Nov 22, 2020 08:20 Sodium 139 mmol/L Potassium 4.6 mmol/L Chloride 107 mmol/L CO2 22 mmol/L Anion Gap 14.6 BUN 17 mg/dL Creatinine 1.3 mg/dL Cr Clearance (Est) 62.9200 mL/min Glucose 94 mg/dL Osmolality - Calculated 289 mOsm/kg Calcium 9.1 mg/dL Protein, Total 6.0 g/dL Albumin 3.8 g/dL Globulin 2.2 g/dL Bilirubin, Total 0.4 mg/dL ALT (SGPT) 6 U/L AST (SGOT) 14 U/L Alkaline Phosphatase 105 IU/L WBC 5.5 10 3/uL RBC 3.28 10 6/uL HGB 9.4 g/dL HCT 31.6 % MCV 96.3 fL MCH 28.7 pg MCHC 29.7 g/dL RDW 13.2 % Platelet Count 329 10 3/cmm MPV 10.4 fL Neutrophils 2.60 10 3/uL Lymphocytes 2.4 10 3/uL Monocytes 0.3 10 3/uL Eosinophils 0.2 10 3/uL Basophils 0.0 10 3/uL Neutrophil % 47.4 % Lymphocyte % 42.9 % Monocyte % 5.5 % Eosinophil % 3.1 % Basophils % 0.7 % NRBC % 0 % Problem List: 1. Grade 2 invasive ductal carcinoma involving the subareolar area of the left breast, ER/GA positive and HER-2/alhaji positive. Staging is incomplete, but it appears to be a T1b primary lesion. 2. Hypertension. 3. Hyperlipidemia. 4. Borderline diabetes. 5. Hypothyroidism. 6. 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 7. Osteoporosis. 8. Left lower extremity neuropathy. 9. Obesity with previous gastric bypass. 10. 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 Problems Addressed with this Encounter and Plan: Patient with grade 2 invasive ductal carcinoma involving the subareolar area of the left breast, ER/GA positive and HER-2/alhaji positive. By clinical evaluation, she had T1, N0 disease, and she did not meet criteria for neoadjuvant chemotherapy. She then proceeded with left breast lumpectomy and left axillary sentinel lymph node biopsy on 09/16/2020. Pathology showed grade 2 invasive ductal carcinoma measuring 1.2 cm in maximum diameter. The margins were free. There were no lymph nodes identified in the axillary specimen. Her pathologic staging was pT1c, Nx. With a HER-2/alhaji positive T1c primary tumor, she was recommended to undergo adjuvant chemotherapy with weekly Abraxane/Herceptin for 12 weeks. She began her week 1 treatment on 10/28/2020. She had generalized bone aching for 2 days after that treatment. She had no other significant side effects, but at day 8 she was moderately neutropenic and her chemotherapy was delayed. She will continued with week 2 Abraxane/Herceptin on 11/15/2020 with the Abraxane dosage reduced by 20%. She continues to have limited activity. She has experienced some increase in musculoskeletal pain, which seems relatively unlikely to be treatment related. Her neuropathy does not seem to be any worse, and her blood counts now are adequate. She will continue with week 3 Abraxane/Herceptin. The dosages remain the same. She returns in 1 week. Signed By: Francois Alston M.D. <<Signature on File>>
[2020-11-29 09:51] LABS: Eosinophils # 0.2 10^3/uL (0.0-0.8); Eosinophils % 6.3 %; Hematocrit 29.2 % (37.0-47.0); Hemoglobin 8.8 g/dL (11.5-15.3); Lymphocytes # 1.3 10^3/uL (0.8-4.8); Lymphocytes % 44.2 %; Mean Corpuscular HGB Conc 30.1 g/dL (30.0-36.0); Mean Corpuscular Hemoglobin 28.7 pg (28.0-34.0); Mean Corpuscular Volume 95.1 fl (81-99); Mean Platelet Volume 10.5 fL (7.4-10.4); Monocytes # 0.2 10^3/uL (0.2-0.9); Monocytes % 7.9 %; Neutrophils # 1.22 10^3/uL (1.8-7.7); Neutrophils % 40.3 %; Nucleated Red Blood Cells % 0 %; Platelet Count 311 10^3/cmm (130-400); Red Blood Count 3.07 10^6/uL (4.1-5.3); Red Cell Distribution Width 13.5 % (12.1-15.1)
[2020-11-29 10:19] LABS: Alanine Aminotransferase < 5 U/L (0-33); Albumin Level 3.8 g/dL (3.5-5.2); Alkaline Phosphatase 95 IU/L (35-105); Anion Gap 17.3 (5-19); Aspartate Amino Transferase 11 U/L (0-32); Blood Urea Nitrogen 31 mg/dL (8-23); Calcium 9.6 mg/dL (8.5-10.5); Carbon Dioxide 19 mmol/L (22-29); Chloride 106 mmol/L (98-107); Globulin 2.2 g/dL (1.3-4.6); Glucose 97 mg/dL (65-115); Osmolality Calculated 292 mOsm/kg (285-295); Potassium 4.3 mmol/L (3.5-5.1); Sodium 138 mmol/L (136-145); Total Bilirubin 0.3 mg/dL (0.15-1.2)
[2020-11-29] MEDS: sodium chloride 0.9% 250 ML IV (11:29)
[2020-11-29] MEDS: diphenhydrAMINE 50 mg/mL SDV 1mL 25 MG IV (11:29)
[2020-11-29] MEDS: acetaminophen 325 mg Tablet 650 MG PO (11:29)
[2020-11-29] MEDS: famotidine 20 mg/2 mL INJ IVP (11:31)
[2020-11-29] MEDS: ondansetron 2 mg/ML SDV 2 mL 8 MG IV (11:33)
--- NOTE | 2020-11-29 12:41 | ONC FU_ITS ---
Dr. Alston Patient Follow-Up Note Patient: Lucie Joyner Unit #: [id number]: 1945 Dicatated By: Francois Alston M.D.Date of Visit:Nov 29, 2020 Onc Med Follow-up/Prog Note Chief Complaint: Breast cancer. 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 She had presented with a palpable mass in the subareolar area of the left breast, which she first noticed a week before . Bilateral diagnostic mammogram on 08/06/2020 showed a focal asymmetric density deep to the palpable marker measuring 8 mm. It was new from a prior study in 2019. Ultrasound showed a mixed echogenicity ill-defined lesion adjacent to the nipple. It appeared to emerge with the areola. The findings were BI-RADS 4, suspicious, and subsequent ultrasound directed biopsy on 08/18/2020 showed grade 2 invasive ductal carcinoma. The breast prognostic profile showed ER positive at 99% and W[place] positive at 100%. It was positive for overexpression of HER-2/alhaji, 3+ by IHC and amplification ratio by FISH of 5.3 with 12.4 HER-2 copies/cell. The Ki-67 was high at 35%. I had seen her initially on 08/26/2020. She had had further evaluation with left axillary ultrasound. That study did show several lymph nodes within the left axilla, but they appeared benign, as there was noted to be maintenance of normal fatty юлия. By clinical staging she appeared to have T1, N0 disease, and she did not meet criteria for neoadjuvant chemotherapy. As such, she was recommended to proceed with surgery. On 09/16/2020 she underwent left breast lumpectomy and left axillary sentinel lymph node biopsy. Pathology on the lumpectomy showed grade 2 invasive ductal carcinoma measuring 1.2 cm in greatest dimension. There was no DCIS identified. The closest margin was the inferior margin measuring 4 mm. There were no lymph nodes identified in the axillary specimen. As such her disease was pathologic stage pT1c, Nx. but stage IA for clinical T1, N0 or IB for T1, N1 involvement. In the setting of HER-2/alhaji positive disease, I had recommended adjuvant chemotherapy with weekly Abraxane/Herceptin for 12 weeks, as she had additional history of longstanding neuropathy of the left leg, and I preferred to avoid use of Taxol. Her other medical illnesses include hypertension, hyperlipidemia, borderline diabetes, hypothyroidism, degenerative arthritis, and osteoporosis. Her other prior surgeries include gastric bypass for obesity in 2000, cholecystectomy in 1970, and hysterectomy/bilateral salpingo-oophorectomy in 1988. She has also had bilateral shoulder replacement and redo arthroplasty of the left shoulder, lumbar laminectomy in 2014, and thoracic laminectomy in 2015. She is a non-smoker. INTERIM HISTORY: She began week 1 of weekly Abraxane/Herceptin on 10/28/2020. She developed bone generalized aching following that treatment. Her further chemotherapy was then delayed due to neutropenia. The following week her Abraxane had to be delayed due to neutropenia, but she did receive Herceptin. She was then given week 2 Abraxane/Herceptin on 11/15/2020. The Abraxane was administered at a reduced dosage. She tolerated it much better, and she continued with week 3 Abraxane on 11/22/2020. She is seen for a follow-up visit. She has been feeling okay. With her visit last week she was reporting some increase in musculoskeletal pain, I had changed her pain medication to immediate release oxycodone. With that change she has had improved pain control and she has been sleeping better. She still has very limited activity. ECOG score is 3. Her appetite is not very good. She has not had fever. She does have episodes of sweating. Following her last treatment she had developed some fever blisters on the insides of her lips, but those have resolved. She has no shortness of breath, cough, or chest pain. She has very little nausea. Her acid reflux is adequately managed. She has constipation, but that is adequately managed with MiraLAX. She has neurogenic bladder. She still has some pain in her knees and hips, but also adequately managed. Her neuropathy is the same. Medications: B-12 1 (1000 mcg) Tablet Oral daily, Benadryl Allergy 1 (25 mg) Tablet Oral t.i.d., Claritin 1 (10 mg) Tablet Oral daily, Esomeprazole Magnesium (20 mg) Tablet, enteric coated Oral daily, K-Tab 1 (20 meq) Tablet, controlled release Oral b.i.d., Lasix 1 (40 mg) Tablet Oral b.i.d., Levothyroxine Sodium 1 (125 mcg) Tablet Oral every am, Losartan Potassium 1 (50 mg) Tablet Oral daily, Melatonin 1 (10 mg/mL) Liquid Oral at bedtime, oxyCODONE HCl (15 mg) Tablet Oral four times a day PRN, Simvastatin 1 (40 mg) Tablet Oral daily Allergies: TRENT Inhibitors, Cephalexin, Gabapentin, Pregabalin, Sulfa Antibiotics, and traZODone HCl. Vital Signs: Performed on Nov 29, 2020 10:56 Height - 69.00 in Weight - 239 lbs (HIGH) BSA - 2.23 sq.m BMI - 35.29 (HIGH) Temperature - 97.9 F (LOW) Pulse - 76 /min Respiration - 18 /min BP - 108/64 mm(hg) O2 Sat - 99 % Pain - 4 Fatigue - 7 Physical Examination: Constitutional - She has limited mobility, Eyes - Sclerae nonicteric. Conjunctivae clear, ENMT - No lesions noted in the oral cavity, Hematologic/Lymphatic - No cervical, clavicular, or axillary adenopathy, Respiratory - Lungs sound clear, Cardiovascular - Heart rhythm is regular. There is no murmur, gallop, or rub noted, Abdomen - Soft. Liver and spleen are not enlarged. There is no abdominal mass or ascites noted, Extremities - No edema, Neurologic - She has weakness in her left leg. Lab/Imaging: Test performed on Nov 29, 2020 09:32 WBC 3.0 10 3/uL RBC 3.07 10 6/uL HGB 8.8 g/dL HCT 29.2 % MCV 95.1 fl MCH 28.7 pg MCHC 30.1 g/dL RDW 13.5 % Platelet Count 311 10 3/cmm MPV 10.5 fL Neutrophils 1.22 10 3/uL Lymphocytes 1.3 10 3/uL Monocytes 0.2 10 3/uL Eosinophils 0.2 10 3/uL Basophils 0.0 10 3/uL Neutrophil % 40.3 % Lymphocyte % 44.2 % Monocyte % 7.9 % Eosinophil % 6.3 % Basophils % 1.0 % NRBC % 0 % Test performed on Nov 29, 2020 09:23 Sodium 138 mmol/L Potassium 4.3 mmol/L Chloride 106 mmol/L CO2 19 mmol/L Anion Gap 17.3 BUN 31 mg/dL Creatinine 1.4 mg/dL Cr Clearance (Est) 58.4300 mL/min Glucose 97 mg/dL Osmolality - Calculated 292 mOsm/kg Calcium 9.6 mg/dL Protein, Total 6.0 g/dL Albumin 3.8 g/dL Globulin 2.2 g/dL Bilirubin, Total 0.3 mg/dL ALT (SGPT) < 5 U/L AST (SGOT) 11 U/L Alkaline Phosphatase 95 IU/L Problem List: 1. Grade 2 invasive ductal carcinoma involving the subareolar area of the left breast, ER/WV positive and HER-2/alhaji positive. Staging is incomplete, but it appears to be a T1b primary lesion. 2. Hypertension. 3. Hyperlipidemia. 4. Borderline diabetes. 5. Hypothyroidism. 6. 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 7. Osteoporosis. 8. Left lower extremity neuropathy. 9. Obesity with previous gastric bypass. 10. 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 Problems Addressed with this Encounter and Plan: Patient with grade 2 invasive ductal carcinoma involving the subareolar area of the left breast, ER/WV positive and HER-2/alhaji positive. By clinical evaluation, she had T1, N0 disease, and she did not meet criteria for neoadjuvant chemotherapy. She then proceeded with left breast lumpectomy and left axillary sentinel lymph node biopsy on 09/16/2020. Pathology showed grade 2 invasive ductal carcinoma measuring 1.2 cm in maximum diameter. The margins were free. There were no lymph nodes identified in the axillary specimen. Her pathologic staging was pT1c, Nx. With a HER-2/alhaji positive T1c primary tumor, she was recommended to undergo adjuvant chemotherapy with weekly Abraxane/Herceptin for 12 weeks. She began her week 1 treatment on 10/28/2020. She had generalized bone aching for 2 days after that treatment. She had no other significant side effects, but at day 8 she was moderately neutropenic and her chemotherapy was delayed. She will continued with week 2 Abraxane/Herceptin on 11/15/2020 with the Abraxane dosage reduced by 20%. She tolerated that treatment much better. With her week 3 treatment she did require a change in her pain medication due to an increase in her musculoskeletal pain. She has since then been feeling somewhat better. She still has very limited activity. Her neuropathy is the same. There has been further decline in her hemoglobin/hematocrit levels and she also now has moderately severe neutropenia. She will continue with her week 4 Abraxane/Herceptin. The dosages remain the same. She will be given Neupogen prophylactically for 2 days. She returns in 1 week. Signed By: Francois Alston M.D. <<Signature on File>>
[2020-12-01 16:03] LABS: Basophils % 0.6 %; Eosinophils # 0.1 10^3/uL (0.0-0.8); Hemoglobin 8.6 g/dL (11.5-15.3); Lymphocytes # 0.8 10^3/uL (0.8-4.8); Lymphocytes % 16.8 %; Mean Corpuscular HGB Conc 29.7 g/dL (30.0-36.0); Mean Corpuscular Hemoglobin 28.5 pg (28.0-34.0); Monocytes # 0.1 10^3/uL (0.2-0.9); Monocytes % 2.8 %; Neutrophils % 76.8 %; Nucleated Red Blood Cells % 0 %; Platelet Count 318 10^3/cmm (130-400); Red Blood Count 3.02 10^6/uL (4.1-5.3); Red Cell Distribution Width 13.8 % (12.1-15.1)
[2020-12-01 16:51] LABS: Creatinine Urine, Random 21 mg/dL (28-217)
[2020-12-01 16:52] LABS: Microalbum Creatinine Ratio Ur 48 mg/dL (0-20); Microalbumin Random Urine 1 ug/dL (0-20)
[2020-12-01 17:02] LABS: Albumin Level 3.9 g/dL (3.5-5.2); Anion Gap 16.8 (5-19); Blood Urea Nitrogen 26 mg/dL (8-23); Calcium 8.8 mg/dL (8.5-10.5); Carbon Dioxide 18 mmol/L (22-29); Chloride 103 mmol/L (98-107); Glucose 103 mg/dL (65-115); Phosphorus 3.4 mg/dL (2.5-4.5); Potassium 3.8 mmol/L (3.5-5.1); Sodium 134 mmol/L (136-145)
[2020-12-01 17:15] LABS: 25 Hydroxy Vitamin D 58 ng/mL (30-100)
[2020-12-01 18:53] LABS: Calcium 8.8 mg/dL (8.5-10.5); Parathyroid Hormone 264.2 pg/mL (15-65)
[2020-12-06 10:20] LABS: Basophils # 0.1 10^3/uL (0.0-0.1); Eosinophils # 0.1 10^3/uL (0.0-0.8); Eosinophils % 1.7 %; Hematocrit 30.7 % (37.0-47.0); Hemoglobin 9.1 g/dL (11.5-15.3); Lymphocytes # 1.6 10^3/uL (0.8-4.8); Lymphocytes % 22.3 %; Mean Corpuscular HGB Conc 29.6 g/dL (30.0-36.0); Mean Corpuscular Hemoglobin 28.7 pg (28.0-34.0); Mean Corpuscular Volume 96.8 fl (81-99); Mean Platelet Volume 10.5 fL (7.4-10.4); Monocytes # 0.9 10^3/uL (0.2-0.9); Monocytes % 12.4 %; Neutrophils # 3.79 10^3/uL (1.8-7.7); Nucleated Red Blood Cells % 0 %; Platelet Count 362 10^3/cmm (130-400); Red Blood Count 3.17 10^6/uL (4.1-5.3); Red Cell Distribution Width 14.6 % (12.1-15.1); White Blood Count 7.2 10^3/uL (4.0-10.0)
[2020-12-06 10:38] LABS: Alanine Aminotransferase < 5 U/L (0-33); Albumin Level 3.5 g/dL (3.5-5.2); Alkaline Phosphatase 91 IU/L (35-105); Anion Gap 17.8 (5-19); Aspartate Amino Transferase 13 U/L (0-32); Blood Urea Nitrogen 21 mg/dL (8-23); Calcium 8.3 mg/dL (8.5-10.5); Carbon Dioxide 18 mmol/L (22-29); Chloride 106 mmol/L (98-107); Globulin 2.3 g/dL (1.3-4.6); Glucose 140 mg/dL (65-115); Osmolality Calculated 291 mOsm/kg (285-295); Potassium 3.8 mmol/L (3.5-5.1); Sodium 138 mmol/L (136-145); Total Bilirubin 0.2 mg/dL (0.15-1.2); Total Protein 5.8 g/dL (6.6-8.7)
[2020-12-06 11:03] LABS: Neutrophils % 62.6 %
[2020-12-06 11:04] LABS: Slide Review Slide Review Perform
--- NOTE | 2020-12-07 07:09 | ONC FU_ITS ---
Dr. Alston Patient Follow-Up Note Patient: Lucie Joyner Unit #: [id number]: 1945 Dicatated By: Francois Alston M.D.Date of Visit:Dec 06, 2020 Onc Med Follow-up/Prog Note Chief Complaint: Breast cancer. 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 She had presented with a palpable mass in the subareolar area of the left breast, which she first noticed a week before . Bilateral diagnostic mammogram on 08/06/2020 showed a focal asymmetric density deep to the palpable marker measuring 8 mm. It was new from a prior study in 2019. Ultrasound showed a mixed echogenicity ill-defined lesion adjacent to the nipple. It appeared to emerge with the areola. The findings were BI-RADS 4, suspicious, and subsequent ultrasound directed biopsy on 08/18/2020 showed grade 2 invasive ductal carcinoma. The breast prognostic profile showed ER positive at 99% and WV positive at 100%. It was positive for overexpression of HER-2/alhaji, 3+ by IHC and amplification ratio by FISH of 5.3 with 12.4 HER-2 copies/cell. The Ki-67 was high at 35%. I had seen her initially on 08/26/2020. She had had further evaluation with left axillary ultrasound. That study did show several lymph nodes within the left axilla, but they appeared benign, as there was noted to be maintenance of normal fatty юлия. By clinical staging she appeared to have T1, N0 disease, and she did not meet criteria for neoadjuvant chemotherapy. As such, she was recommended to proceed with surgery. On 09/16/2020 she underwent left breast lumpectomy and left axillary sentinel lymph node biopsy. Pathology on the lumpectomy showed grade 2 invasive ductal carcinoma measuring 1.2 cm in greatest dimension. There was no DCIS identified. The closest margin was the inferior margin measuring 4 mm. There were no lymph nodes identified in the axillary specimen. As such her disease was pathologic stage pT1c, Nx. but stage IA for clinical T1, N0 or IB for T1, N1 involvement. In the setting of HER-2/alhaji positive disease, I had recommended adjuvant chemotherapy with weekly Abraxane/Herceptin for 12 weeks, as she had additional history of longstanding neuropathy of the left leg, and I preferred to avoid use of Taxol. Her other medical illnesses include hypertension, hyperlipidemia, borderline diabetes, hypothyroidism, degenerative arthritis, and osteoporosis. Her other prior surgeries include gastric bypass for obesity in 2000, cholecystectomy in 1970, and hysterectomy/bilateral salpingo-oophorectomy in 1988. She has also had bilateral shoulder replacement and redo arthroplasty of the left shoulder, lumbar laminectomy in 2014, and thoracic laminectomy in 2015. She is a non-smoker. INTERIM HISTORY: She began week 1 of weekly Abraxane/Herceptin on 10/28/2020. She developed bone generalized aching following that treatment. Her further chemotherapy was then delayed due to neutropenia. The following week her Abraxane had to be delayed due to neutropenia, but she did receive Herceptin. She was then given week 2 Abraxane/Herceptin on 11/15/2020. The Abraxane was administered at a reduced dosage. She tolerated it much better. She then continued with week 3 Abraxane on 11/22/2020 and with week 4 on 11/29/2020. At that point she had developed moderately severe neutropenia, and she was given Neupogen prophylactically for 2 days. She is seen for a follow-up visit. She said she had a horrible weekend after having 2 days of Neupogen last week. She had generalized aching and hurting and she had low-grade fever, maximum 100.6 degrees. She had associated chills and sweating. She also had a runny nose and cough productive of yellowish sputum. She had a touch of diarrhea. She has had fever blisters and a little bit of sore throat. She has some shortness of breath. She does not complain of chest pain. Her activity remains very limited. ECOG score is three. She complains that she has no appetite and no taste. She does not complain of nausea. Bowel function is okay now. She has neurogenic bladder. She has had headaches and she has some dizziness. Her neuropathy does not seem to be any worse. Medications: Acyclovir 1 Capsule (of 400 mg) Oral b.i.d., B-12 1 (1000 mcg) Tablet Oral daily, Benadryl Allergy 1 (25 mg) Tablet Oral t.i.d., Claritin 1 (10 mg) Tablet Oral daily, Esomeprazole Magnesium (20 mg) Tablet, enteric coated Oral daily, K-Tab 1 (20 meq) Tablet, controlled release Oral b.i.d., Lasix 1 (40 mg) Tablet Oral b.i.d., Levothyroxine Sodium 1 (125 mcg) Tablet Oral every am, Losartan Potassium 1 (50 mg) Tablet Oral daily, Melatonin 1 (10 mg/mL) Liquid Oral at bedtime, oxyCODONE HCl (15 mg) Tablet Oral four times a day PRN, Prochlorperazine Maleate 1 Tablet (of 10 mg) Oral q 4 hours PRN, Simvastatin 1 (40 mg) Tablet Oral daily Allergies: TRENT Inhibitors, Cephalexin, Gabapentin, Pregabalin, Sulfa Antibiotics, and traZODone HCl. Vital Signs: Performed on Dec 06, 2020 11:10 Height - 69.00 in Weight - 237 lbs (LOW) BSA - 2.22 sq.m BMI - 35.00 (HIGH) Temperature - 97.4 F (LOW) Pulse - 89 /min Respiration - 16 /min BP - 105/66 mm(hg) O2 Sat - 99 % Pain - 9 Fatigue - 9 Physical Examination: Constitutional - She appears somewhat weak generally, and she has limited mobility, Eyes - Sclerae nonicteric. Conjunctivae clear, ENMT - No lesions noted in the oral cavity, Hematologic/Lymphatic - No cervical, clavicular, or axillary adenopathy, Respiratory - Lungs sound clear, Cardiovascular - Heart rhythm is regular. There is no murmur, gallop, or rub noted, Abdomen - Soft. Liver and spleen are not enlarged. There is no abdominal mass or ascites noted, Extremities - No edema, Neurologic - She has weakness in her left leg. Lab/Imaging: Test performed on Dec 06, 2020 09:40 Sodium 138 mmol/L Potassium 3.8 mmol/L Chloride 106 mmol/L CO2 18 mmol/L Anion Gap 17.8 BUN 21 mg/dL Creatinine 1.5 mg/dL Cr Clearance (Est) 54.5300 mL/min Glucose 140 mg/dL Osmolality - Calculated 291 mOsm/kg Calcium 8.3 mg/dL Protein, Total 5.8 g/dL Albumin 3.5 g/dL Globulin 2.3 g/dL Bilirubin, Total 0.2 mg/dL ALT (SGPT) < 5 U/L AST (SGOT) 13 U/L Alkaline Phosphatase 91 IU/L WBC 7.2 10 3/uL RBC 3.17 10 6/uL HGB 9.1 g/dL HCT 30.7 % MCV 96.8 fl MCH 28.7 pg MCHC 29.6 g/dL RDW 14.6 % Platelet Count 362 10 3/cmm MPV 10.5 fL Neutrophils 3.79 10 3/uL Lymphocytes 1.6 10 3/uL Monocytes 0.9 10 3/uL Eosinophils 0.1 10 3/uL Basophils 0.1 10 3/uL Neutrophil % 62.6 % Lymphocyte % 22.3 % Monocyte % 12.4 % Eosinophil % 1.7 % Basophils % 1.0 % NRBC % 0 % CBC Slide Review Slide Review Perform REVIEW AGREES WITH AUTOMATED RESULTS Problem List: 1. Grade 2 invasive ductal carcinoma involving the subareolar area of the left breast, ER/WV positive and HER-2/alhaji positive. Staging is incomplete, but it appears to be a T1b primary lesion. 2. Hypertension. 3. Hyperlipidemia. 4. Borderline diabetes. 5. Hypothyroidism. 6. 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 7. Osteoporosis. 8. Left lower extremity neuropathy. 9. Obesity with previous gastric bypass. 10. 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 Problems Addressed with this Encounter and Plan: Patient with grade 2 invasive ductal carcinoma involving the subareolar area of the left breast, ER/WV positive and HER-2/alhaji positive. By clinical evaluation, she had T1, N0 disease, and she did not meet criteria for neoadjuvant chemotherapy. She then proceeded with left breast lumpectomy and left axillary sentinel lymph node biopsy on 09/16/2020. Pathology showed grade 2 invasive ductal carcinoma measuring 1.2 cm in maximum diameter. The margins were free. There were no lymph nodes identified in the axillary specimen. Her pathologic staging was pT1c, Nx. With a HER-2/alhaji positive T1c primary tumor, she was recommended to undergo adjuvant chemotherapy with weekly Abraxane/Herceptin for 12 weeks. She began her week 1 treatment on 10/28/2020. She had generalized bone aching for 2 days after that treatment. She had no other significant side effects, but at day 8 she was moderately neutropenic and her chemotherapy was delayed. She will continued with week 2 Abraxane/Herceptin on 11/15/2020 with the Abraxane dosage reduced by 20%. She tolerated that treatment much better. With her week 3 treatment she did require a change in her pain medication due to an increase in her musculoskeletal pain. She then felt somewhat better and she continued with her week 4 Abraxane/Herceptin on 11/29/2020. At that point she had developed moderately severe neutropenia, and she also was given Neupogen prophylactically for 2 days. She has unfortunately developed significant side effects following the 2 days of Neupogen, including generalized aching and low-grade fever. She also reported having productive cough and some transient diarrhea. She is still not feeling good generally. As such, I am going to delay her chemotherapy for 1 week. In the meantime, as a precaution, I will have her tested for COVID-19 virus infection. Signed By: Francois Alston M.D. <<Signature on File>>
[2020-12-07 10:33] LABS: Quest SARS-CoV-2 RNA DETECTED (NOT DETECTED)
[2020-12-08 13:08] VITALS: BP 89/54; PULSE 76; RESP 20; TEMP 36.8; O2SAT 94; BMI 34.7
[2020-12-08 13:50] VITALS: BP 121/68; PULSE 76; RESP 20; TEMP 36.4; O2SAT 98
[2020-12-08 14:00] VITALS: BP 77/46; PULSE 80; RESP 20; O2SAT 95
[2020-12-08 14:50] VITALS: BP 121/68; PULSE 76; RESP 20; TEMP 36.4; O2SAT 98
== END 2020-12-14 23:59 | disposition home or self-care (01) ==
LOC: ONCMED 13:00
PROVIDERS: Nurse Practitioner; PCP Internal Medicine; Visit Provider Internal Medicine Medical Oncology
DX: Z51.12 Encounter for antineoplastic immunotherapy (principal); Z51.11 Encounter for antineoplastic chemotherapy; C50.812 Malignant neoplasm of overlapping sites of left female breast; Z17.0 Estrogen receptor positive status [ER+]; I10 Essential (primary) hypertension; E78.5 Hyperlipidemia, unspecified; R73.03 Prediabetes; E03.9 Hypothyroidism, unspecified; M47.9 Spondylosis, unspecified; G89.29 Other chronic pain; M81.0 Age-related osteoporosis without current pathological fracture; G62.9 Polyneuropathy, unspecified; E66.9 Obesity, unspecified; Z86.718 Personal history of other venous thrombosis and embolism; Z79.890 Hormone replacement therapy; Z79.899 Other long term (current) drug therapy
CPT/HCPCS: 36415; 36591; 80053; 80069; 82044; 82306; 82310; 83970; 85025; 87635; 96367; 96372; 96375; 96413; 96417; 99214; 99215; J1100; J1200; J2405; J3490; J7050; J9264; Q5101; Q5112

== ENCOUNTER 2021-01-03 05:34 | Outpatient (RCR) | payer MEDICARE, OTHER, SELFPAY ==
[2020-12-21] MEDS: alteplase 1 mg/mL SDV 2 mL 2 MG IV (10:07)
[2020-12-21 10:08] LABS: Basophils # 0.1 10^3/uL (0.0-0.1); Basophils % 0.8 %; Eosinophils # 0.5 10^3/uL (0.0-0.8); Eosinophils % 6.5 %; Hematocrit 31.1 % (37.0-47.0); Hemoglobin 9.2 g/dL (11.5-15.3); Lymphocytes % 27.7 %; Mean Corpuscular HGB Conc 29.6 g/dL (30.0-36.0); Mean Corpuscular Hemoglobin 28.5 pg (28.0-34.0); Mean Corpuscular Volume 96.3 fl (81-99); Mean Platelet Volume 9.6 fL (7.4-10.4); Monocytes % 14.6 %; Neutrophils # 3.56 10^3/uL (1.8-7.7); Neutrophils % 50.1 %; Nucleated Red Blood Cells % 0 %; Platelet Count 402 10^3/cmm (130-400); Red Blood Count 3.23 10^6/uL (4.1-5.3); Red Cell Distribution Width 14.7 % (12.1-15.1); White Blood Count 7.1 10^3/uL (4.0-10.0)
[2020-12-21 10:43] LABS: Alanine Aminotransferase < 5 U/L (0-33); Albumin Level 3.4 g/dL (3.5-5.2); Alkaline Phosphatase 109 IU/L (35-105); Anion Gap 17.4 (5-19); Aspartate Amino Transferase 14 U/L (0-32); Blood Urea Nitrogen 17 mg/dL (8-23); Calcium 9.2 mg/dL (8.5-10.5); Carbon Dioxide 21 mmol/L (22-29); Chloride 105 mmol/L (98-107); Globulin 3.1 g/dL (1.3-4.6); Glucose 93 mg/dL (65-115); Osmolality Calculated 289 mOsm/kg (285-295); Potassium 4.4 mmol/L (3.5-5.1); Sodium 139 mmol/L (136-145); Total Bilirubin 0.4 mg/dL (0.15-1.2); Total Protein 6.5 g/dL (6.6-8.7)
[2020-12-21] MEDS: sodium chloride 0.9% 250 ML IV (11:40)
[2020-12-21] MEDS: acetaminophen 325 mg Tablet 650 MG PO (11:40)
[2020-12-21] MEDS: famotidine 20 mg/2 mL INJ IVP (11:41)
[2020-12-21] MEDS: diphenhydrAMINE 50 mg/mL SDV 1mL 25 MG IV (11:42)
[2020-12-21] MEDS: ondansetron 2 mg/ML SDV 2 mL 8 MG IV (11:43)
--- NOTE | 2020-12-21 15:03 | ONC FU_ITS ---
Dr. Alston Patient Follow-Up Note Patient: Lucie Joyner Unit #: [id number]: 1945 Dicatated By: Francois Alston M.D.Date of Visit:Dec 21, 2020 Onc Med Follow-up/Prog Note Chief Complaint: Breast cancer. 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 She had presented with a palpable mass in the subareolar area of the left breast, which she first noticed a week before . Bilateral diagnostic mammogram on 08/06/2020 showed a focal asymmetric density deep to the palpable marker measuring 8 mm. It was new from a prior study in 2019. Ultrasound showed a mixed echogenicity ill-defined lesion adjacent to the nipple. It appeared to emerge with the areola. The findings were BI-RADS 4, suspicious, and subsequent ultrasound directed biopsy on 08/18/2020 showed grade 2 invasive ductal carcinoma. The breast prognostic profile showed ER positive at 99% and MA positive at 100%. It was positive for overexpression of HER-2/alhaji, 3+ by IHC and amplification ratio by FISH of 5.3 with 12.4 HER-2 copies/cell. The Ki-67 was high at 35%. I had seen her initially on 08/26/2020. She had had further evaluation with left axillary ultrasound. That study did show several lymph nodes within the left axilla, but they appeared benign, as there was noted to be maintenance of normal fatty юлия. By clinical staging she appeared to have T1, N0 disease, and she did not meet criteria for neoadjuvant chemotherapy. As such, she was recommended to proceed with surgery. On 09/16/2020 she underwent left breast lumpectomy and left axillary sentinel lymph node biopsy. Pathology on the lumpectomy showed grade 2 invasive ductal carcinoma measuring 1.2 cm in greatest dimension. There was no DCIS identified. The closest margin was the inferior margin measuring 4 mm. There were no lymph nodes identified in the axillary specimen. As such her disease was pathologic stage pT1c, Nx. but stage IA for clinical T1, N0 or IB for T1, N1 involvement. In the setting of HER-2/alhaji positive disease, I had recommended adjuvant chemotherapy with weekly Abraxane/Herceptin for 12 weeks, as she had additional history of longstanding neuropathy of the left leg, and I preferred to avoid use of Taxol. Her other medical illnesses include hypertension, hyperlipidemia, borderline diabetes, hypothyroidism, degenerative arthritis, and osteoporosis. Her other prior surgeries include gastric bypass for obesity in 2000, cholecystectomy in 1970, and hysterectomy/bilateral salpingo-oophorectomy in 1988. She has also had bilateral shoulder replacement and redo arthroplasty of the left shoulder, lumbar laminectomy in 2014, and thoracic laminectomy in 2015. She is a non-smoker. INTERIM HISTORY: She began week 1 of weekly Abraxane/Herceptin on 10/28/2020. She developed bone generalized aching following that treatment. Her further chemotherapy was then delayed due to neutropenia. The following week her Abraxane had to be delayed due to neutropenia, but she did receive Herceptin. She was then given week 2 Abraxane/Herceptin on 11/15/2020. The Abraxane was administered at a reduced dosage. She tolerated it much better. She then continued with week 3 Abraxane on 11/22/2020 and with week 4 on 11/29/2020. At that point she had developed moderately severe neutropenia, and she was given Neupogen prophylactically for 2 days. At her follow-up visit on 12/06/2020 her blood counts were adequate. However, she had developed a slight cough and she was significantly more fatigued. She also had some generalized aching and low-grade fever. I opted to put her treatment on hold. As a precaution, I also had her tested for COVID-19, and that came back positive. She was given the monoclonal antibody infusion. The following day her temperature spike to 102 degrees, but after that she felt much better. She is seen for a follow-up visit. Her treatment has remained on hold. She says her energy is still not very good, but she is trying to walk more. Her ECOG score is 3. She had a decline in appetite, but is starting to come back now. She has not had any more fever, and she is not having hot flashes or sweating. Her sinus drainage almost stopped and her cough is almost gone now. She had developed fever blisters, but those resolved. She says her breathing is okay, she does not complain of chest pain. She has just occasional nausea. Her bowels are so-so. She has neurogenic bladder. She still has some joint pain in her hips and knees and she also has lower back pain. She does not complain of headache. She does lose her balance very easily. There has been no change in her neuropathy. Medications: Acyclovir 1 Capsule (of 400 mg) Oral b.i.d., B-12 1 (1000 mcg) Tablet Oral daily, Benadryl Allergy 1 (25 mg) Tablet Oral t.i.d., Claritin 1 (10 mg) Tablet Oral daily, Esomeprazole Magnesium (20 mg) Tablet, enteric coated Oral daily, K-Tab 1 (20 meq) Tablet, controlled release Oral b.i.d., Lasix 1 (40 mg) Tablet Oral b.i.d., Levothyroxine Sodium 1 (125 mcg) Tablet Oral every am, Losartan Potassium 1 (50 mg) Tablet Oral daily, Melatonin 1 (10 mg/mL) Liquid Oral at bedtime, oxyCODONE HCl (15 mg) Tablet Oral four times a day PRN, Prochlorperazine Maleate 1 Tablet (of 10 mg) Oral q 4 hours PRN, Simvastatin 1 (40 mg) Tablet Oral daily Allergies: TRENT Inhibitors, Cephalexin, Gabapentin, Pregabalin, Sulfa Antibiotics, and traZODone HCl. Vital Signs: Performed on Dec 21, 2020 11:49 Height - 69.00 in Weight - 230 lbs (LOW) BSA - 2.19 sq.m BMI - 33.97 (HIGH) Temperature - 98.4 F Pulse - 71 /min Respiration - 18 /min BP - 114/72 mm(hg) O2 Sat - 96 % Pain - 7 Fatigue - 7 Physical Examination: Constitutional - She appears generally weak, Eyes - Sclerae nonicteric. Conjunctivae clear, ENMT - No lesions noted in the oral cavity, Hematologic/Lymphatic - No cervical, clavicular, or axillary adenopathy, Respiratory - Lungs sound clear, Cardiovascular - Heart rhythm is regular. There is no murmur, gallop, or rub noted, Abdomen - Mildly distended but soft. Liver and spleen are not enlarged. There is no abdominal mass or ascites noted. There is no inguinal adenopathy noted, Extremities - No edema, Neurologic - She has weakness in her left leg. Lab/Imaging: Test performed on Dec 21, 2020 09:45 Sodium 139 mmol/L Potassium 4.4 mmol/L Chloride 105 mmol/L CO2 21 mmol/L Anion Gap 17.4 BUN 17 mg/dL Creatinine 1.4 mg/dL Cr Clearance (Est) 58.4300 mL/min Glucose 93 mg/dL Osmolality - Calculated 289 mOsm/kg Calcium 9.2 mg/dL Protein, Total 6.5 g/dL Albumin 3.4 g/dL Globulin 3.1 g/dL Bilirubin, Total 0.4 mg/dL ALT (SGPT) < 5 U/L AST (SGOT) 14 U/L Alkaline Phosphatase 109 IU/L WBC 7.1 10 3/uL RBC 3.23 10 6/uL HGB 9.2 g/dL HCT 31.1 % MCV 96.3 fl MCH 28.5 pg MCHC 29.6 g/dL RDW 14.7 % Platelet Count 402 10 3/cmm MPV 9.6 fL Neutrophils 3.56 10 3/uL Lymphocytes 2.0 10 3/uL Monocytes 1.0 10 3/uL Eosinophils 0.5 10 3/uL Basophils 0.1 10 3/uL Neutrophil % 50.1 % Lymphocyte % 27.7 % Monocyte % 14.6 % Eosinophil % 6.5 % Basophils % 0.8 % NRBC % 0 % Test performed on Dec 06, 2020 11:30 SARS-CoV-2 RNA (COVID-19) DETECTED A Detected result indicates that the patients' specimen was positive for SARS-CoV-2 RNA. Test Method: Nucleic Acid Amplification Test including reverse professor of philosophy polymerase chain reaction (RT-PCR and professor of philosophy mediated amplification (TMA). The test method meets the [place] Centers for Disease Control and prevention (CDC) pre departure and arrival requirement for viral test for COVID-19 dated May 13, 2020. Testing requirements for traveling may change with time. The patient is responsible for determining the test requirements for each nation while they are traveling. This test has been authorized by the FDA under an Emergency Use Authorization (EUA) for use by authorized laboratories. Please review the Fact Sheets and FDA authorized labeling available for health care providers and patients using the following websites: https://www.[employer].HOSTING/home/Covid-19/HCP/[facility]/fact- sheet.html https://www.[employer].HOSTING/home/Covid-19/Patients/ [facility]/fact-sheet.html Due to the current public health emergency, [facility] is accepting samples from appropriate clinical sources collected using wide variety of swabs and transport media for COVID-19. Not detected test results derived from specimens received in non- commercially manufactured viral collection kits or those not yet authorized by FDA for COVID-19 testing should be cautiously evaluated and take extra precautions such as such as additional clinical monitoring, including collection of an additional specimen. Additional information about COVID-19 can be found at the [employer] [facility] website: www.[employer].HOSTING/Covid19. THIS TEST WAS PERFORMED AT: [facility] [address] [place] [address] MITCH HANKS DO,MPH Test performed on Dec 06, 2020 09:40 CBC Slide Review Slide Review Perform REVIEW AGREES WITH AUTOMATED RESULTS Test performed on Nov 08, 2020 11:48 Iron 25 mcg/dL Vitamin B12 > 2000 pg/mL Iron Binding Capacity (TIBC) 257 mcg/dl % Iron Saturation 9.7 % UIBC 232 mcg/dL Problem List: 1. Grade 2 invasive ductal carcinoma involving the subareolar area of the left breast, ER/MA positive and HER-2/alhaji positive. Staging is incomplete, but it appears to be a T1b primary lesion. 2. Hypertension. 3. Hyperlipidemia. 4. Borderline diabetes. 5. Hypothyroidism. 6. 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 7. Osteoporosis. 8. Left lower extremity neuropathy. 9. Obesity with previous gastric bypass. 10. 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 Problems Addressed with this Encounter and Plan: 1. Patient with grade 2 invasive ductal carcinoma involving the subareolar area of the left breast, ER/MA positive and HER-2/alhaji positive. By clinical evaluation, she had T1, N0 disease, and she did not meet criteria for neoadjuvant chemotherapy. She then proceeded with left breast lumpectomy and left axillary sentinel lymph node biopsy on 09/16/2020. Pathology showed grade 2 invasive ductal carcinoma measuring 1.2 cm in maximum diameter. The margins were free. There were no lymph nodes identified in the axillary specimen. Her pathologic staging was pT1c, Nx. With a HER-2/alhaji positive T1c primary tumor, she was recommended to undergo adjuvant chemotherapy with weekly Abraxane/Herceptin for 12 weeks. She began her week 1 treatment on 10/28/2020. She had generalized bone aching for 2 days after that treatment. She had no other significant side effects, but at day 8 she was moderately neutropenic and her chemotherapy was delayed. She will continued with week 2 Abraxane/Herceptin on 11/15/2020 with the Abraxane dosage reduced by 20%. She tolerated that treatment much better. With her week 3 treatment she did require a change in her pain medication due to an increase in her musculoskeletal pain. She then felt somewhat better and she continued with her week 4 Abraxane/Herceptin on 11/29/2020. At that point she had developed moderately severe neutropenia, and she was given Neupogen prophylactically for 2 days. At her follow-up visit on 01/06/2021 she presented with increased fatigue in association with a slight cough, some generalized aching, and low-grade fever. Her treatment was put on hold, and she had subsequently tested positive for COVID-19 virus infection. She was given the monoclonal antibody infusion, and she has gradually been feeling better since then. She will proceed now with her week 5 Abraxane/Herceptin. The dosages will remain the same. I am going to have her try it without Neupogen. I will see her in 1 week. 2. She has had mild to moderately severe anemia throughout her treatment. Her serum iron studies show low transferrin saturation at 9.7%, consistent with iron deficiency. She will start on oral iron supplementation. If she does not tolerate it or does not respond adequately, she will be given the option to have parenteral iron replacement. Signed By: Francois Alston M.D. <<Signature on File>>
[2020-12-27 09:42] LABS: Basophils # 0.1 10^3/uL (0.0-0.1); Basophils % 0.8 %; Eosinophils # 0.8 10^3/uL (0.0-0.8); Eosinophils % 12.5 %; Hematocrit 28.5 % (37.0-47.0); Hemoglobin 8.6 g/dL (11.5-15.3); Lymphocytes # 1.5 10^3/uL (0.8-4.8); Lymphocytes % 24.4 %; Mean Corpuscular HGB Conc 30.2 g/dL (30.0-36.0); Mean Corpuscular Hemoglobin 28.7 pg (28.0-34.0); Mean Platelet Volume 10.7 fL (7.4-10.4); Monocytes # 0.3 10^3/uL (0.2-0.9); Monocytes % 4.3 %; Neutrophils # 3.47 10^3/uL (1.8-7.7); Neutrophils % 56.9 %; Nucleated Red Blood Cells % 0 %; Platelet Count 330 10^3/cmm (130-400); Red Cell Distribution Width 14.8 % (12.1-15.1); White Blood Count 6.1 10^3/uL (4.0-10.0)
[2020-12-27 10:29] LABS: Alanine Aminotransferase < 5 U/L (0-33); Albumin Level 3.4 g/dL (3.5-5.2); Alkaline Phosphatase 95 IU/L (35-105); Anion Gap 15.3 (5-19); Aspartate Amino Transferase 15 U/L (0-32); Blood Urea Nitrogen 22 mg/dL (8-23); Calcium 8.9 mg/dL (8.5-10.5); Carbon Dioxide 22 mmol/L (22-29); Chloride 107 mmol/L (98-107); Globulin 2.7 g/dL (1.3-4.6); Glucose 95 mg/dL (65-115); Osmolality Calculated 293 mOsm/kg (285-295); Potassium 4.3 mmol/L (3.5-5.1); Sodium 140 mmol/L (136-145); Total Bilirubin 0.5 mg/dL (0.15-1.2); Total Protein 6.1 g/dL (6.6-8.7)
[2020-12-27] MEDS: famotidine 20 mg/2 mL INJ IVP (11:00)
[2020-12-27] MEDS: sodium chloride 0.9% 250 ML 75 ML IV (11:00)
[2020-12-27] MEDS: acetaminophen 325 mg Tablet 650 MG PO (11:00)
[2020-12-27] MEDS: ondansetron 2 mg/ML SDV 2 mL 8 MG IV (11:02)
[2020-12-27] MEDS: diphenhydrAMINE 50 mg/mL SDV 1mL 25 MG IV (11:05)
--- NOTE | 2020-12-27 17:04 | ONC FU_ITS ---
Dr. Alston Patient Follow-Up Note Patient: Lucie Joyner Unit #: [id number]: 1945 Dicatated By: Francois Alston M.D.Date of Visit:Dec 27, 2020 Onc Med Follow-up/Prog Note Chief Complaint: Breast cancer. 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 She had presented with a palpable mass in the subareolar area of the left breast, which she first noticed a week before . Bilateral diagnostic mammogram on 08/06/2020 showed a focal asymmetric density deep to the palpable marker measuring 8 mm. It was new from a prior study in 2019. Ultrasound showed a mixed echogenicity ill-defined lesion adjacent to the nipple. It appeared to emerge with the areola. The findings were BI-RADS 4, suspicious, and subsequent ultrasound directed biopsy on 08/18/2020 showed grade 2 invasive ductal carcinoma. The breast prognostic profile showed ER positive at 99% and ID positive at 100%. It was positive for overexpression of HER-2/alhaji, 3+ by IHC and amplification ratio by FISH of 5.3 with 12.4 HER-2 copies/cell. The Ki-67 was high at 35%. I had seen her initially on 08/26/2020. She had had further evaluation with left axillary ultrasound. That study did show several lymph nodes within the left axilla, but they appeared benign, as there was noted to be maintenance of normal fatty юлия. By clinical staging she appeared to have T1, N0 disease, and she did not meet criteria for neoadjuvant chemotherapy. As such, she was recommended to proceed with surgery. On 09/16/2020 she underwent left breast lumpectomy and left axillary sentinel lymph node biopsy. Pathology on the lumpectomy showed grade 2 invasive ductal carcinoma measuring 1.2 cm in greatest dimension. There was no DCIS identified. The closest margin was the inferior margin measuring 4 mm. There were no lymph nodes identified in the axillary specimen. As such her disease was pathologic stage pT1c, Nx. but stage IA for clinical T1, N0 or IB for T1, N1 involvement. In the setting of HER-2/alhaji positive disease, I had recommended adjuvant chemotherapy with weekly Abraxane/Herceptin for 12 weeks, as she had additional history of longstanding neuropathy of the left leg, and I preferred to avoid use of Taxol. Her other medical illnesses include hypertension, hyperlipidemia, borderline diabetes, hypothyroidism, degenerative arthritis, and osteoporosis. Her other prior surgeries include gastric bypass for obesity in 2000, cholecystectomy in 1970, and hysterectomy/bilateral salpingo-oophorectomy in 1988. She has also had bilateral shoulder replacement and redo arthroplasty of the left shoulder, lumbar laminectomy in 2014, and thoracic laminectomy in 2015. She is a non-smoker. INTERIM HISTORY: She began week 1 of weekly Abraxane/Herceptin on 10/28/2020. She developed bone generalized aching following that treatment. Her further chemotherapy was then delayed due to neutropenia. The following week her Abraxane had to be delayed due to neutropenia, but she did receive Herceptin. She was then given week 2 Abraxane/Herceptin on 11/15/2020. The Abraxane was administered at a reduced dosage. She tolerated it much better. She then continued with week 3 Abraxane on 11/22/2020 and with week 4 on 11/29/2020. At that point she had developed moderately severe neutropenia, and she was given Neupogen prophylactically for 2 days. At her follow-up visit on 12/06/2020 her blood counts were adequate. However, she had developed a slight cough and she was significantly more fatigued. She also had some generalized aching and low-grade fever. I opted to put her treatment on hold. As a precaution, I also had her tested for COVID-19, and that came back positive. She was given the monoclonal antibody infusion. The following day her temperature spike to 102 degrees, but after that she felt much better. She was able to continue with week 5 Abraxane/Herceptin on 12/21/2020. She is seen for a follow-up visit. She says that her knees have been hurting all weekend. She says they feel like two little jackhammers. She otherwise does not feel too bad. Her activity tolerance remains very limited. ECOG score is 3. She says her appetite is not real good, but she is eating. She does not have fever or night sweats. She complains that her nose runs in her mouth has been a little bit sore. She is having some trouble swallowing her potassium pills. She does not complain of cough and she is not having shortness of breath or chest pain. She has just slight nausea now and then. She has chronic constipation. Her bowels move 2 or 3 times a week. She has neurogenic bladder. She does not complain of headache. She complains that she is dizzy all the time. She has her usual neuropathy symptoms in the left leg. They are not any worse. Medications: Acyclovir 1 Capsule (of 400 mg) Oral b.i.d., B-12 1 (1000 mcg) Tablet Oral daily, Benadryl Allergy 1 (25 mg) Tablet Oral t.i.d., Claritin 1 (10 mg) Tablet Oral daily, Esomeprazole Magnesium (20 mg) Tablet, enteric coated Oral daily, K-Tab 1 (20 meq) Tablet, controlled release Oral b.i.d., Lasix 1 (40 mg) Tablet Oral b.i.d., Levothyroxine Sodium 1 (125 mcg) Tablet Oral every am, Losartan Potassium 1 (50 mg) Tablet Oral daily, Melatonin 1 (10 mg/mL) Liquid Oral at bedtime, oxyCODONE HCl (15 mg) Tablet Oral four times a day PRN, Prochlorperazine Maleate 1 Tablet (of 10 mg) Oral q 4 hours PRN, Simvastatin 1 (40 mg) Tablet Oral daily Allergies: TRENT Inhibitors, Cephalexin, Gabapentin, Pregabalin, Sulfa Antibiotics, and traZODone HCl. Vital Signs: Performed on Dec 27, 2020 10:20 Height - 69.00 in Weight - 230 lbs BSA - 2.19 sq.m BMI - 33.97 (HIGH) Temperature - 98.1 F (LOW) Pulse - 80 /min Respiration - 18 /min BP - 134/75 mm(hg) O2 Sat - 92 % (LOW) Pain - 8 Fatigue - 8 Physical Examination: Constitutional - She appears somewhat weak generally, Eyes - Sclerae nonicteric. Conjunctivae clear, ENMT - No lesions noted in the oral cavity, Hematologic/Lymphatic - No cervical, clavicular, or axillary adenopathy, Respiratory - Lungs sound clear, Cardiovascular - Heart rhythm is regular. There is no murmur, gallop, or rub noted, Abdomen - Mildly distended but soft. Liver and spleen are not enlarged. There is no abdominal mass or ascites noted. There is no inguinal adenopathy noted, Extremities - No edema, Neurologic - She has weakness in her left leg. Lab/Imaging: Test performed on Dec 27, 2020 09:00 Sodium 140 mmol/L Potassium 4.3 mmol/L Chloride 107 mmol/L CO2 22 mmol/L Anion Gap 15.3 BUN 22 mg/dL Creatinine 1.3 mg/dL Cr Clearance (Est) 62.9200 mL/min Glucose 95 mg/dL Osmolality - Calculated 293 mOsm/kg Calcium 8.9 mg/dL Protein, Total 6.1 g/dL Albumin 3.4 g/dL Globulin 2.7 g/dL Bilirubin, Total 0.5 mg/dL ALT (SGPT) < 5 U/L AST (SGOT) 15 U/L Alkaline Phosphatase 95 IU/L WBC 6.1 10 3/uL RBC 3.00 10 6/uL HGB 8.6 g/dL HCT 28.5 % MCV 95.0 fl MCH 28.7 pg MCHC 30.2 g/dL RDW 14.8 % Platelet Count 330 10 3/cmm MPV 10.7 fL Neutrophils 3.47 10 3/uL Lymphocytes 1.5 10 3/uL Monocytes 0.3 10 3/uL Eosinophils 0.8 10 3/uL Basophils 0.1 10 3/uL Neutrophil % 56.9 % Lymphocyte % 24.4 % Monocyte % 4.3 % Eosinophil % 12.5 % Basophils % 0.8 % NRBC % 0 % Problem List: 1. Grade 2 invasive ductal carcinoma involving the subareolar area of the left breast, ER/ID positive and HER-2/alhaji positive. Staging is incomplete, but it appears to be a T1b primary lesion. 2. Hypertension. 3. Hyperlipidemia. 4. Borderline diabetes. 5. Hypothyroidism. 6. 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 7. Osteoporosis. 8. Left lower extremity neuropathy. 9. Obesity with previous gastric bypass. 10. 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 Problems Addressed with this Encounter and Plan: Patient with grade 2 invasive ductal carcinoma involving the subareolar area of the left breast, ER/ID positive and HER-2/alhaji positive. By clinical evaluation, she had T1, N0 disease, and she did not meet criteria for neoadjuvant chemotherapy. She then proceeded with left breast lumpectomy and left axillary sentinel lymph node biopsy on 09/16/2020. Pathology showed grade 2 invasive ductal carcinoma measuring 1.2 cm in maximum diameter. The margins were free. There were no lymph nodes identified in the axillary specimen. Her pathologic staging was pT1c, Nx. With a HER-2/alhaji positive T1c primary tumor, she was recommended to undergo adjuvant chemotherapy with weekly Abraxane/Herceptin for 12 weeks. She began her week 1 treatment on 10/28/2020. She had generalized bone aching for 2 days after that treatment. She had no other significant side effects, but at day 8 she was moderately neutropenic and her chemotherapy was delayed. She will continued with week 2 Abraxane/Herceptin on 11/15/2020 with the Abraxane dosage reduced by 20%. She tolerated that treatment much better. With her week 3 treatment she did require a change in her pain medication due to an increase in her musculoskeletal pain. She then felt somewhat better and she continued with her week 4 Abraxane/Herceptin on 11/29/2020. At that point she had developed moderately severe neutropenia, and she was given Neupogen prophylactically for 2 days. At her follow-up visit on 12/06/2020 she presented with increased fatigue in association with a slight cough, some generalized aching, and low-grade fever. Her treatment was put on hold, and she had subsequently tested positive for COVID-19 virus infection. She was given the monoclonal antibody infusion, and she the felt better gradually. She was able to continue with week 5 Abraxane/Herceptin on 12/21/2020. She seems to be tolerating treatment now with acceptable toxicity. She will proceed with her week 6 Abraxane/Herceptin. The dosages will remain the same. She returns in 1 week. Signed By: Francois Alston M.D. <<Signature on File>>
[2021-01-03 09:01] LABS: Hematocrit 27.4 % (37.0-47.0); Hemoglobin 8.5 g/dL (11.5-15.3); Mean Corpuscular Hemoglobin 28.7 pg (28.0-34.0); Mean Corpuscular Volume 92.6 fl (81-99); Mean Platelet Volume 10.7 fL (7.4-10.4); Platelet Count 316 10^3/cmm (130-400); Red Blood Count 2.96 10^6/uL (4.1-5.3); Red Cell Distribution Width 16.1 % (12.1-15.1); White Blood Count 5.4 10^3/uL (4.0-10.0)
[2021-01-03 09:18] LABS: Slide Review Slide Review Perform
[2021-01-03 09:22] LABS: Alanine Aminotransferase 12 U/L (0-33); Albumin Level 3.2 g/dL (3.5-5.2); Alkaline Phosphatase 106 IU/L (35-105); Anion Gap 20.8 (5-19); Aspartate Amino Transferase 20 U/L (0-32); Blood Urea Nitrogen 39 mg/dL (8-23); Carbon Dioxide 13 mmol/L (22-29); Chloride 99 mmol/L (98-107); Globulin 2.8 g/dL (1.3-4.6); Glucose 92 mg/dL (65-115); Osmolality Calculated 275 mOsm/kg (285-295); Potassium 4.8 mmol/L (3.5-5.1); Sodium 128 mmol/L (136-145); Total Bilirubin 0.8 mg/dL (0.15-1.2)
[2021-01-03 09:25] LABS: Absolute Segmented Neutrophil 2.3 10/cmm (1.6-7.1); Band Neutrophils Absolute 2.1 10^3/cmm (0.0-1.2); Eosinophils 1 %; Lymphocytes 13 %; Monocytes Absolute 0.3 10^3/cmm (0.1-0.6); Segmented Neutrophils 42 %; Total Cells Counted 100 (0-100)
[2021-01-03 09:26] LABS: Absolute Neutrophil 4.3 10^3/cmm (1.4-6.5); Anisocytosis 1+; Lymphocytes Absolute 0.7 10^3/cmm (1.2-3.4); Platelet Estimate Normal (Normal); Poikilocytosis 1+
[2021-01-03] MEDS: sodium chloride 0.9% 1,000 ML 999 ML IV (10:00)
--- NOTE | 2021-01-03 10:09 | ONC FU_ITS ---
Dr. Alston Patient Follow-Up Note Patient: Lucie Joyner Unit #: [id number]: 1945 Dicatated By: Francois Alston M.D.Date of Visit:Jan 03, 2021 Onc Med Follow-up/Prog Note Chief Complaint: Breast cancer. 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 She had presented with a palpable mass in the subareolar area of the left breast, which she first noticed a week before . Bilateral diagnostic mammogram on 08/06/2020 showed a focal asymmetric density deep to the palpable marker measuring 8 mm. It was new from a prior study in 2019. Ultrasound showed a mixed echogenicity ill-defined lesion adjacent to the nipple. It appeared to emerge with the areola. The findings were BI-RADS 4, suspicious, and subsequent ultrasound directed biopsy on 08/18/2020 showed grade 2 invasive ductal carcinoma. The breast prognostic profile showed ER positive at 99% and MN positive at 100%. It was positive for overexpression of HER-2/alhaji, 3+ by IHC and amplification ratio by FISH of 5.3 with 12.4 HER-2 copies/cell. The Ki-67 was high at 35%. I had seen her initially on 08/26/2020. She had had further evaluation with left axillary ultrasound. That study did show several lymph nodes within the left axilla, but they appeared benign, as there was noted to be maintenance of normal fatty юлия. By clinical staging she appeared to have T1, N0 disease, and she did not meet criteria for neoadjuvant chemotherapy. As such, she was recommended to proceed with surgery. On 09/16/2020 she underwent left breast lumpectomy and left axillary sentinel lymph node biopsy. Pathology on the lumpectomy showed grade 2 invasive ductal carcinoma measuring 1.2 cm in greatest dimension. There was no DCIS identified. The closest margin was the inferior margin measuring 4 mm. There were no lymph nodes identified in the axillary specimen. As such her disease was pathologic stage pT1c, Nx. but stage IA for clinical T1, N0 or IB for T1, N1 involvement. In the setting of HER-2/alhaji positive disease, I had recommended adjuvant chemotherapy with weekly Abraxane/Herceptin for 12 weeks, as she had additional history of longstanding neuropathy of the left leg, and I preferred to avoid use of Taxol. Her other medical illnesses include hypertension, hyperlipidemia, borderline diabetes, hypothyroidism, degenerative arthritis, and osteoporosis. Her other prior surgeries include gastric bypass for obesity in 2000, cholecystectomy in 1970, and hysterectomy/bilateral salpingo-oophorectomy in 1988. She has also had bilateral shoulder replacement and redo arthroplasty of the left shoulder, lumbar laminectomy in 2014, and thoracic laminectomy in 2015. She is a non-smoker. INTERIM HISTORY: She began week 1 of weekly Abraxane/Herceptin on 10/28/2020. She developed bone generalized aching following that treatment. Her further chemotherapy was then delayed due to neutropenia. The following week her Abraxane had to be delayed due to neutropenia, but she did receive Herceptin. She was then given week 2 Abraxane/Herceptin on 11/15/2020. The Abraxane was administered at a reduced dosage. She tolerated it much better. She then continued with week 3 Abraxane on 11/22/2020 and with week 4 on 11/29/2020. At that point she had developed moderately severe neutropenia, and she was given Neupogen prophylactically for 2 days. At her follow-up visit on 12/06/2020 her blood counts were adequate. However, she had developed a slight cough and she was significantly more fatigued. She also had some generalized aching and low-grade fever. I opted to put her treatment on hold. As a precaution, I also had her tested for COVID-19, and that came back positive. She was given the monoclonal antibody infusion. The following day her temperature spike to 102 degrees, but after that she felt much better. She was able to continue with week 5 Abraxane/Herceptin on 12/21/2020 and with week 6 on 12/27/2020. She is seen for a scheduled visit. She says she has been feeling really bad all weekend. Her symptoms started evening with low-grade fever, up to 101.4 degrees. She has had no energy to even get up. Her appetite has been poor. She has been drinking water, but she has had very limited food intake. She has been having chills and sweating. She has very dry mouth and throat. She is short of breath with activity. She does not complain of cough and she has not been having chest pain. She had some nausea last evening. She had one episode of diarrhea on Sunday and on Sunday, and then she began having more diarrhea this morning. Her urine output has decreased. She has significantly increased generalized joint pain and she has developed numbness in her fingers. Medications: Acyclovir 1 Capsule (of 400 mg) Oral b.i.d., B-12 1 (1000 mcg) Tablet Oral daily, Benadryl Allergy 1 (25 mg) Tablet Oral t.i.d., Claritin 1 (10 mg) Tablet Oral daily, Esomeprazole Magnesium (20 mg) Tablet, enteric coated Oral daily, Ferrous Sulfate (325 (65 fe) mg) Tablet Oral daily, K-Tab 1 (20 meq) Tablet, controlled release Oral b.i.d., Lasix 1 (40 mg) Tablet Oral b.i.d., Levothyroxine Sodium 1 (125 mcg) Tablet Oral every am, Losartan Potassium 1 (50 mg) Tablet Oral daily, Melatonin 1 (10 mg/mL) Liquid Oral at bedtime, oxyCODONE HCl (15 mg) Tablet Oral four times a day PRN, Prochlorperazine Maleate 1 Tablet (of 10 mg) Oral q 4 hours PRN, Simvastatin 1 (40 mg) Tablet Oral daily Allergies: TRENT Inhibitors, Cephalexin, Gabapentin, Pregabalin, Sulfa Antibiotics, and traZODone HCl. Vital Signs: Performed on Jan 03, 2021 09:50 Height - 69.00 in Weight - 229 lbs (LOW) BSA - 2.19 sq.m BMI - 33.82 (HIGH) Temperature - 100.4 F (HIGH) Pulse - 116 /min (HIGH) Respiration - 20 /min BP - 79/51 mm(hg) (LOW) Pain - 10 Fatigue - 10 Physical Examination: Constitutional - She appears generally weak and her color is poor, Eyes - Sclerae nonicteric. Conjunctivae clear, ENMT - Mouth is dry. There are no lesions noted in the oral cavity, Hematologic/Lymphatic - No cervical, clavicular, or axillary adenopathy, Respiratory - Lungs sound clear, Cardiovascular - Heart rhythm is regular. There is no murmur, gallop, or rub noted, Abdomen - Soft. Liver and spleen are not enlarged. There is no abdominal mass or ascites noted. There is no inguinal adenopathy noted, Extremities - No edema, Neurologic - She has chronic weakness in her left leg. Lab/Imaging: Test performed on Jan 03, 2021 08:49 Sodium 128 mmol/L Potassium 4.8 mmol/L Chloride 99 mmol/L CO2 13 mmol/L Anion Gap 20.8 BUN 39 mg/dL Creatinine 3.5 mg/dL Cr Clearance (Est) 23.0100 mL/min Glucose 92 mg/dL Osmolality - Calculated 275 mOsm/kg Calcium 9.0 mg/dL Protein, Total 6.0 g/dL Albumin 3.2 g/dL Globulin 2.8 g/dL Bilirubin, Total 0.8 mg/dL ALT (SGPT) 12 U/L AST (SGOT) 20 U/L Alkaline Phosphatase 106 IU/L WBC 5.4 10 3/uL Manual Segs % 42 % Manual Bands % 38.0 % RBC 2.96 10 6/uL HGB 8.5 g/dL Manual Lymphs % 13 % Atypical Lymphs % 0.0 % HCT 27.4 % MCV 92.6 fl Total Cells Counted 100 Manual Monos % 5.0 % MCH 28.7 pg Manual Eos % 1 % MCHC 31.0 g/dL Manual Basos % 0.0 % RDW 16.1 % Metamyelocytes % 1.0 % Platelet Count 316 10 3/cmm MPV 10.7 fL CBC Slide Review Slide Review Perform Anisocytosis 1+ Poikilocytosis 1+ Platelet Estimate Normal Manual Segs Abs 2.3 10/cmm Manual Bands Abs 2.1 10 3/cmm Manual Neutrophils Abs 4.3 10 3/cmm Manual Lymphocytes Abs 0.7 10 3/cmm Manual Monocytes Abs 0.3 10 3/cmm Manual Eosinophils Abs 0.0 10 3/cmm Manual Basophils Abs 0.0 10 3/cmm Problem List: 1. Grade 2 invasive ductal carcinoma involving the subareolar area of the left breast, ER/MN positive and HER-2/alhaji positive. Staging is incomplete, but it appears to be a T1b primary lesion. 2. Hypertension. 3. Hyperlipidemia. 4. Borderline diabetes. 5. Hypothyroidism. 6. 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 7. Osteoporosis. 8. Left lower extremity neuropathy. 9. Obesity with previous gastric bypass. 10. 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 Problems Addressed with this Encounter and Plan: Patient with grade 2 invasive ductal carcinoma involving the subareolar area of the left breast, ER/MN positive and HER-2/alhaji positive. By clinical evaluation, she had T1, N0 disease, and she did not meet criteria for neoadjuvant chemotherapy. She then proceeded with left breast lumpectomy and left axillary sentinel lymph node biopsy on 09/16/2020. Pathology showed grade 2 invasive ductal carcinoma measuring 1.2 cm in maximum diameter. The margins were free. There were no lymph nodes identified in the axillary specimen. Her pathologic staging was pT1c, Nx. With a HER-2/alhaji positive T1c primary tumor, she was recommended to undergo adjuvant chemotherapy with weekly Abraxane/Herceptin for 12 weeks. She began her week 1 treatment on 10/28/2020. She had generalized bone aching for 2 days after that treatment. She had no other significant side effects, but at day 8 she was moderately neutropenic and her chemotherapy was delayed. She will continued with week 2 Abraxane/Herceptin on 11/15/2020 with the Abraxane dosage reduced by 20%. She tolerated that treatment much better. With her week 3 treatment she did require a change in her pain medication due to an increase in her musculoskeletal pain. She then felt somewhat better and she continued with her week 4 Abraxane/Herceptin on 11/29/2020. At that point she had developed moderately severe neutropenia, and she was given Neupogen prophylactically for 2 days. At her follow-up visit on 12/06/2020 she presented with increased fatigue in association with a slight cough, some generalized aching, and low-grade fever. Her treatment was put on hold, and she had subsequently tested positive for COVID-19 virus infection. She was given the monoclonal antibody infusion, and she the felt better gradually. She was able to continue with week 5 Abraxane/Herceptin on 12/21/2020. and with week 6 on 12/27/2020. She presents now with a significant decline in her general condition. She has had low-grade fever and diarrhea through the weekend. She is generally weak and this morning she is hypotensive. She also has developed new neuropathy symptoms. Her white blood cell count and platelet count are normal. She is a little more anemic, but still above transfusion threshold. There has been a significant decline in her renal function with creatinine increased to 3.5 mg/dL compared to 1.3 mg/dL 1 week ago. The clinical presentation is consistent with sepsis. She is starting IV hydration and she is having additional lab studies drawn including blood cultures and lactic acid level. I have been in contact with Dr. Fernando, and I am arranging for direct admission to the hospital. Signed By: Francois Alston M.D. <<Signature on File>>
[2021-01-03 10:56] LABS: Lactate (Lactic Acid level) 2.6 mmol/L (0.5-2.2)
== END 2021-01-03 11:00 | disposition home or self-care (01) ==
LOC: ONCMED 05:34
PROVIDERS: PCP Internal Medicine; Visit Provider Internal Medicine Medical Oncology
DX: Z51.12 Encounter for antineoplastic immunotherapy (principal); Z51.11 Encounter for antineoplastic chemotherapy; C50.812 Malignant neoplasm of overlapping sites of left female breast; Z17.0 Estrogen receptor positive status [ER+]; I10 Essential (primary) hypertension; E78.5 Hyperlipidemia, unspecified; R73.03 Prediabetes; E03.9 Hypothyroidism, unspecified; M47.9 Spondylosis, unspecified; G89.29 Other chronic pain; M81.0 Age-related osteoporosis without current pathological fracture; G62.9 Polyneuropathy, unspecified; E66.9 Obesity, unspecified; Z86.718 Personal history of other venous thrombosis and embolism; Z79.890 Hormone replacement therapy; Z79.899 Other long term (current) drug therapy
CPT/HCPCS: 36593; 80053; 83605; 85007; 85025; 87040; 87077; 87186; 87205; 96360; 96367; 96375; 96413; 96417; 99215; J1100; J1200; J2370; J2405; J2704; J2997; J3010; J3490; J7030; J7050; J9264; Q5112

== ENCOUNTER 2021-01-03 11:08 | Inpatient (IN) | payer MEDICARE, OTHER, SELFPAY ==
--- NOTE | 2021-01-03 11:28 | XRR_ITS ---
PROCEDURE INFORMATION: Exam: XR Chest Exam date and time: 01/03/2021 11:28 AM Age: 76 years old Clinical indication: Fever and shortness of breath; Patient HX: History--sob for one week/progressively getting worse TECHNIQUE: Imaging protocol: XR of the chest. Views: 1 view. Total images: 1 COMPARISON: CR XR chest 1V portable [id number] 10/25/2020 5:03 PM FINDINGS: Tubes, catheters and devices: A right infusion port is present. Lungs: Coarse chronic pulmonary markings. Nonspecific opacity in the right lung base, favoring atelectasis or pneumonia. Pleural spaces: Unremarkable. No pleural effusion. No pneumothorax. Heart/Mediastinum: Heart size is stable when compared to the prior exam. Vasculature: Atherosclerosis is evident. Bones/joints: Right shoulder arthroplasty. Left shoulder arthroplasty. Osseous structures are unchanged from the prior exam. Soft tissues: Surgical clips noted in the soft tissues of the left chest. XR/XR chest 1V portable [id number] IMPRESSION: 1. Coarse chronic pulmonary markings. 2. Nonspecific opacity in the right lung base, favoring atelectasis or pneumonia.
--- NOTE | 2021-01-03 11:28 | PM.HP ---
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 She states she has been hurting all over. Last had chemotherapy about a week ago. Had Covid around 30 days ago. Not eating and drinking as well. Denies any productive cough. Has had quite a bit of loose stool. No blood in stool or black or tarry stool. Last chemo 12/27 Abraxene/Herceptin. Review of Systems General: Reports: 10 or more systems reviewed and unremarkable except in HPI and below Const: Reports: fever(s), chills and fatigue Eyes: Denies: change in vision ENMT: Denies: throat pain Card: Denies: chest pain Resp: Reports: dyspnea GI: Reports: nausea and diarrhea; Denies: abdominal pain, hematochezia or melena : Denies: flank pain Musc: Denies: neck pain Skin/Breast: Denies: rash Neuro: Denies: headache(s) Psych: Denies: anxiety or depression Endo: Denies: polyuria Devang/Lymph: Denies: easy bruising All/Imm: Denies: urticaria Medications/Allergies Home Medications Medication Instructions Recorded Confirmed Last Taken Type clotrimazole 1 % topical cream 1 applic TOPICAL BID 12/10/19 12/29/20 10/25/20 07:45 History cyanocobalamin (vitamin B-12) 100 100 mcg PO DAILY 12/10/19 12/29/20 10/25/20 08:00 History mcg tablet levothyroxine 125 mcg capsule 125 mcg PO DAILY 12/10/19 12/29/20 10/25/20 08:00 History losartan 50 mg tablet 50 mg PO DAILY 12/10/19 12/29/20 10/25/20 08:00 History oxycodone 10 mg tablet 10 mg PO QID PRN 12/10/19 12/29/20 10/25/20 08:00 History polyethylene glycol 3350 17 gram 17 gm PO DAILY 12/10/19 12/29/20 10/25/20 08:00 History oral powder packet simvastatin 40 mg tablet 40 mg PO DAILY 12/10/19 12/29/20 10/25/20 08:00 History triamcinolone acetonide 0.1 % 1 applic TOPICAL BID 12/10/19 12/29/20 10/25/20 08:00 History topical cream potassium chloride 20 meq PO DAILY 09/15/20 12/29/20 10/25/20 08:00 History furosemide 40 mg tablet 20 mg PO DAILY tab 11/11/20 12/29/20 Unknown History prochlorperazine maleate 10 mg 10 mg PO BID PRN 11/11/20 12/29/20 Unknown History tablet External Heel Lift to Left #1 ea 12/29/20 12/29/20 Unknown Rx Allergies Allergy/AdvReac Type Severity Reaction Status Date / Time TRENT Inhibitors Allergy ADR-Cough Verified 12/29/20 13:51 cephalexin [From Keflex] Allergy ALGY-Rash Verified 12/29/20 13:51 gabapentin Allergy Unknown Verified 12/29/20 13:51 povidone-iodine Allergy ADR-Itching Verified 12/29/20 13:51 [From Betadine] pregabalin [From Lyrica] Allergy ADR-Blurry Verified 12/29/20 13:51 Vision soap [From Betadine] Allergy ADR-Itching Verified 12/29/20 13:51 Sulfa (Sulfonamide Allergy ALGY-Hives Verified 12/29/20 13:51 Antibiotics) trazodone Allergy ADR-Irritab Verified 12/29/20 13:51 le PFSH Acute PFSH: Medical History (Updated 01/03/21 @ 15:17 by Josué Fernando MD) Diabetes Hyperlipemia Hypertension Hypothyroidism Neurogenic bladder Osteoporosis Surgical History H/O bariatric surgery H/O hernia repair H/O total hysterectomy History of appendectomy History of back surgery History of repair of left hip joint History of tonsillectomy Hx of cholecystectomy Family History Mother Stroke Hypertension CAD (coronary artery disease) Social History Smoking and tobacco status: never smoked Alcohol intake: never Physical Exam Narrative: EXAM NARRATIVE: General exam is a tired appearing white female, hard of hearing but able to answer all questions. HEENT: Pupils equally round. Atraumatic and normocephalic. Oropharynx clear. Mucous membranes dry. Neck is supple no lymphadenopathy or thyromegaly Cardiovascular slight tachycardia, no murmur. Lungs clear without wheezing or crackles. Abdomen is soft with positive bowel sounds. No obvious organomegaly. exam is deferred Extremities no cyanosis clubbing or edema, cap refill brisk. Skin without rash Neuro no focal deficits. Data Other data: Laboratory today demonstrated a white count of 5.4, platelets 316, hemoglobin 8.5. She is not neutropenic. Sodium 128, potassium 4.8, chloride 99, bicarb 13, anion gap 21, BUN 39, creatinine 3.5, lactic acid 2.4 with repeat of 2.6 LFTs demonstrate alk phos of 106, rest of LFTs are normal. CK is 201. Albumin 3.2 TSH 0.6 Urinalysis ordered and pending Chest x-ray nonspecific right lung base infiltrate port noted as well as bilateral shoulder replacements A&P Assessment and plan (1) Acute kidney injury: Creatinine significantly elevated over her baseline. Hydration CK was checked and not significantly elevated Place Marlow. She self caths 3-4 times a day. Depending upon urinalysis may check CT renal protocol versus just CT abdomen and pelvis without contrast. Urine culture Status: Acute (2) Pneumonia: IV antibiotics consisting of Primaxin. Allergic to cephalosporins. Check MRSA PCR Sputum culture. Status: Acute (3) Dehydration: Hydration. From my understanding she received a bolus of fluids in Dr. Alston's office. Will repeat bolus of 500 cc LR. Then continue LR at 100 cc an hour. Status: Acute (4) Diarrhea: Stool studies with Hemoccult, bacterial antigen panel as well as parasite panel Check C. difficile toxin Status: Acute (5) Invasive ductal carcinoma of breast, female: Followed by oncology Status: Acute Additional A&P Information Multiple other medical problems as outlined in past medical history Heparin for DVT prophylaxis Attestations Medical Necessity Statement*: Greater than 2 midnight stay for evaluation and treatment of fever in this patient receiving chemotherapy with borderline blood pressure, pneumonia, acute kidney injury. Time Spent in Patient Care: Greater than 35 minutes Coding Level of Care Code Acute Instrument Man for [facility] Diagnoses Acute kidney injury N17.9 Pneumonia J18.9 Dehydration E86.0 Diarrhea R19.7 Invasive ductal carcinoma of breast, female C50.915
[2021-01-03 12:07] VITALS: BP 71/43; PULSE 107; RESP 18; TEMP 36.6; O2SAT 100
[2021-01-03 12:14] VITALS: BP 90/56
[2021-01-03] MEDS: lactated ringers 1,000 ML 100 ML IV (12:15)
[2021-01-03] MEDS: heparin 5,000 unit/mL INJ 1 mL 5000 UNIT SUBCUT ×2 (12:22→23:29)
[2021-01-03] MEDS: lactated ringers 500 ML 999 ML IV (13:30)
[2021-01-03 13:57] LABS: Creatine Phosphokinase 201 U/L (26-192)
[2021-01-03 15:08] LABS: Lactic Sepsis W/Reflex 2.4 mmol/L (0.5-2.2)
[2021-01-03 15:30] VITALS: BP 103/57; PULSE 117; RESP 18; TEMP 37.1; O2SAT 100
[2021-01-03 16:34] LABS: Reflex Lactate Order REFLEX LACTIC ORDERD
[2021-01-03 17:09] VITALS: RESP 20
[2021-01-03] MEDS: oxyCODONE 5 mg IR Tab/Cap 10 MG PO (17:09)
[2021-01-03] MEDS: pantoprazole DR 40 mg Tablet PO (17:10)
[2021-01-03 17:44] LABS: Bilirubin Urine 1+ (Negative); Blood Urine 3+ (Negative); Glucose Urine UA Norm (Normal); Ketones Urine Negative (Negative); Leukocyte Esterase Urine 2+ (Negative); Nitrate Urine Positive (Negative); Protein Urine 1+ (Negative); Urine Appearance Hazy (CLEAR); Urine Color Yellow (Yellow); Urobilinogen Urine 1 mg/dL (Negative); pH Urine 6 (5-7)
[2021-01-03 17:46] LABS: Add Urine Culture? No; Bacteria Urine 4+ /hpf; WBC Urine TOO NUMEROUS TO CNT /hpf (0-5)
--- NOTE | 2021-01-03 18:00 | CTR_ITS ---
PROCEDURE INFORMATION: Exam: CT Abdomen And Pelvis Without Contrast Exam date and time: 01/03/2021 6:00 PM Age: 76 years old Clinical indication: Other: Diarrhea; Additional info: Blood in urine, febrile TECHNIQUE: Imaging protocol: Computed tomography of the abdomen and pelvis without contrast. Radiation optimization: All CT scans at this facility use at least one of these dose optimization techniques: automated exposure control; mA and/or kV adjustment per patient size (includes targeted exams where dose is matched to clinical indication); or iterative reconstruction. COMPARISON: CT Abdomen/Pelvis Renal [id number] 08/28/2017 8:11 AM RADIATION DOSE METRICS: Total DLP (mGy-cm): 1699.68 FINDINGS: Tubes, catheters and devices: Stimulator device in the left buttock region with stimulator lead extending into the posterior thoracic spinal canal. Lungs: Bibasilar atelectasis. Liver: Normal. No mass. Gallbladder and bile ducts: Gallbladder is absent. The bile ducts are normal. Pancreas: Calcification in the pancreatic head. Otherwise unremarkable. Spleen: Normal. No splenomegaly. Adrenal glands: Normal. No mass. Kidneys and ureters: Lobulated contour of the kidneys is most likely congenital. 7 mm nonobstructing right renal calculus. 9 mm obstructing calculus in the proximal left ureter. Moderate left hydronephrosis with perinephric stranding. Stomach and bowel: Unremarkable. No obstruction. No mucosal thickening. Appendix: The appendix is not visualized. No secondary signs of appendicitis. Intraperitoneal space: Unremarkable. No free air. No significant fluid collection. Vasculature: Unremarkable. No abdominal aortic aneurysm. Lymph nodes: Unremarkable. No enlarged lymph nodes. Urinary bladder: Marlow catheter in a decompressed urinary bladder. Mild urinary bladder wall thickening is most likely related to nondistention. Reproductive: Unremarkable as visualized. Bones/joints: Intramedullary velasquez with compression screw in the proximal left femur. Scoliosis and degenerative changes. No acute fracture. Old right rib fractures. Soft tissues: Small left inguinal hernia. Mild body wall edema. Small fat containing umbilical hernia. Anterior abdominal wall mesh. CT/CT kidney stone [id number] IMPRESSION: 1. Obstructing 9 mm calculus in the proximal left ureter with moderate hydronephrosis. 2. 7 mm right renal calculus. 3. Thickening in the urinary bladder wall may relate to nondistention. Cystitis is not excluded. Radiation Dose CTDIVOL = (mGy): DLP = 1699.68 (mGy-cm)
[2021-01-03 18:08] LABS: Lactic Acid level (Lactate) 1.8 mmol/L (0.5-2.2)
[2021-01-03 20:10] VITALS: BP 93/52; PULSE 114; RESP 18; TEMP 36.9; O2SAT 95
--- NOTE | 2021-01-03 20:58 | PC.NURSE ---
CT Pt to CT via bed
[2021-01-03 23:50] VITALS: BP 83/52; PULSE 90; RESP 18; TEMP 37.2; O2SAT 94
[2021-01-04] VITALS (14 sets, daily range): BP systolic 68–136; BP diastolic 36–73; PULSE 70–135; RESP 16–26; TEMP 36.7–38.4; O2SAT 92–100
--- NOTE | 2021-01-04 | SCC_ITS ---
Procedure Done: 1. Cystoscopy, left ureteral stent placement (8.5 Honduran by 28 cm) 56.2 seconds of fluoroscopic guidance, for a cumulative dose of 24.10 mGy, was provided to Dr. Barron by the radiology department. C-arm images of the abdomen were saved for the patient's permanent record. [facility]
[2021-01-04] MEDS: oxyCODONE 5 mg IR Tab/Cap 10 MG PO ×3 (00:10→22:58)
[2021-01-04] MEDS: lactated ringers 1,000 ML 100 ML IV ×3 (01:07→15:08)
[2021-01-04] MEDS: lactated ringers 500 ML 999 ML IV (01:10)
--- NOTE | 2021-01-04 01:45 | PC.NURSE ---
BP Pts BP was 83/52 with midnight VS check per N aide. Was rechecked using different sized cuff with result of 70/45. Pt alert and talking with nurse. Dr was notified with 500ml bolus of LR given. BP is now 92/[address] was made aware of result.
[2021-01-04 05:47] LABS: Basophils % 0.6 %; Eosinophils % 0.2 %; Hematocrit 23.5 % (37.0-47.0); Hemoglobin 7.4 g/dL (11.5-15.3); Lymphocytes # 0.5 10^3/uL (0.8-4.8); Mean Corpuscular HGB Conc 31.5 g/dL (30.0-36.0); Mean Corpuscular Hemoglobin 28.9 pg (28.0-34.0); Mean Corpuscular Volume 91.8 fl (81-99); Mean Platelet Volume 11.5 fL (7.4-10.4); Monocytes # 0.7 10^3/uL (0.2-0.9); Monocytes % 12.8 %; Neutrophils # 4.03 10^3/uL (1.8-7.7); Nucleated Red Blood Cells % 0 %; Platelet Count 265 10^3/cmm (130-400); Red Blood Count 2.56 10^6/uL (4.1-5.3); Red Cell Distribution Width 16.4 % (12.1-15.1); White Blood Count 5.3 10^3/uL (4.0-10.0)
[2021-01-04 06:07] LABS: Alanine Aminotransferase 12 U/L (0-33); Albumin Level 2.6 g/dL (3.5-5.2); Alkaline Phosphatase 116 IU/L (35-105); Anion Gap 16.7 (5-19); Aspartate Amino Transferase 21 U/L (0-32); Blood Urea Nitrogen 37 mg/dL (8-23); Carbon Dioxide 16 mmol/L (22-29); Chloride 104 mmol/L (98-107); Globulin 2.7 g/dL (1.3-4.6); Glucose 76 mg/dL (65-115); Magnesium 1.4 mg/dL (1.7-2.3); Osmolality Calculated 281 mOsm/kg (285-295); Potassium 4.7 mmol/L (3.5-5.1); Slide Review Slide Review Perform; Sodium 132 mmol/L (136-145); Total Bilirubin 0.5 mg/dL (0.15-1.2); Total Protein 5.3 g/dL (6.6-8.7)
--- NOTE | 2021-01-04 07:21 | PM.PN ---
Subjective Subjective: Interval history: No events last night. Patient reports she feels little bit better. Less nauseous. Still having some loose stool. Medications: Reviewed: Yes Vitals/I&O/Wt Last Vital Signs Temp 98.1 F 01/04/21 04:25 Pulse 90 01/04/21 04:25 Resp 18 01/04/21 04:25 BP 100/64 01/04/21 04:25 Pulse Ox 95 01/04/21 04:25 01/03/21 01/04/21 01/04/21 22:59 06:59 14:59 Intake Total 1600 / 1700 1445 / 3145 Output Total 90 / 90 750 / 840 Balance 1510 / 1610 695 / 2305 Weight last 48 hrs Weight 111.448 kg Physical Exam Narrative: EXAM NARRATIVE: General exam no distress Neck is supple no lymphadenopathy or thyromegaly Cardiovascular slight tachycardia, no murmur. Lungs clear without wheezing or crackles. Abdomen is soft with positive bowel sounds. No obvious organomegaly. Extremities no cyanosis clubbing or edema, cap refill brisk. Urinary Catheter Management^: Marlow: Cath Placed During This Visit: yes Reason for Continuing Indwelling Catheter: Chronic Indwelling Urinary Catheter on Admission Urinary Catheter Date of Insertion: 01/03/21 Urinary Catheter Time of Insertion: 17:02 Data : 01/04/21 04:39 01/04/21 04:39 A&P Assessment and plan (1) Acute kidney injury: With hydration creatinine has improved, as well as her metabolic acidosis. CK was checked and not significantly elevated Currently with Marlow CT renal protocol demonstrates left ureteral stone with obstruction. Urology consulted. Patient made n.p.o. Status: Acute (2) Pneumonia: IV antibiotics consisting of Primaxin. Allergic to cephalosporins. MRSA PCR, sputum culture pending Status: Acute (3) Dehydration: Resolved. Status: Acute (4) Diarrhea: Stool studies with Hemoccult, bacterial antigen panel as well as parasite panel. These are pending C. difficile toxin pending. Status: Acute (5) Invasive ductal carcinoma of breast, female: Followed by oncology Status: Acute Additional A&P Information UTI with bacteremia, and evidence for sepsis with elevated lactate, decreased blood pressure. Patient received significant hydration in oncology office prior to coming over and then another bolus here. With these interventions she stabilized and needed no further aggressive boluses through the night. Blood cultures growing gram-negative velasquez. Urine culture pending. Repeat blood culture tomorrow. Anemia. Awaiting stool Hemoccult. Transfuse 1 unit packed red blood cells. Continue Protonix. No evidence of active bleeding. Hyponatremia, improving Hypomagnesemia, supplement Multiple other medical problems as outlined in past medical history Heparin for DVT prophylaxis Attestations Medical Necessity Statement*: To need hospital stay secondary to sepsis requiring IV antibiotics with bacteremia, acute kidney injury. Coding Level of Care Code Acute Certified Appliance Service Technician for [facility] Diagnoses Acute kidney injury N17.9 Pneumonia J18.9 Dehydration E86.0 Diarrhea R19.7 Invasive ductal carcinoma of breast, female C50.919
[2021-01-04] MEDS: magnesium sulfate premix 2 GM/50 ML PIGGYBACK IV (07:29)
--- NOTE | 2021-01-04 07:55 | PM.CONSULT ---
Providers/Reason For Consult Consulting Physician/Specialty*: Urology/Barron Reason for Consult*: Obstructive pyelonephritis Attending Physician: Josué Fernando MD Primary Care Provider: Rossy Wilson DO History of Present Illness History of Present Illness Lucie Joyner is a 76 year old female admitted last night through the emergency department for evidence of sepsis with UTI. CT scan showed a 9 mm obstructing left proximal ureteral stone. Symptoms consistent with UTI as well as left ureteral obstruction. I was consulted this morning for evaluation. Clinically she is hemodynamically stable but still appears quite ill. Creatinine is elevated. Lactate is elevated. We will plan on cystoscopy stent placement when time available this morning. In addition she has a history of neurogenic bladder with self-catheterization. Review of Systems Const: Reports: fever(s) and chills Eyes: Denies: change in vision or blurry vision ENMT: Denies: hoarseness Card: Denies: chest pain or palpitations Resp: Reports: dyspnea; Denies: wheezing GI: Reports: abdominal pain and nausea; Denies: hematochezia : Reports: flank pain (Left) Musc: Denies: joint redness or joint warmth Skin/Breast: Denies: rash or changing lesions Neuro: Denies: confusion, Slurred speech present or seizure-like activity Psych: Reports: anxiety (Related to illness) Endo: Denies: flushing Devang/Lymph: Denies: easy bruising or easy bleeding All/Imm: Denies: urticaria or acute wheezing Meds/Allergies Home Medications and Allergies Home Medications Medication Instructions Recorded Confirmed Last Taken Type clotrimazole 1 % topical cream 1 applic TOPICAL BID 12/10/19 01/03/21 1 Day Ago History ~01/02/21 cyanocobalamin (vitamin B-12) 100 100 mcg PO DAILY 12/10/19 01/03/21 1 Day Ago History mcg tablet ~01/02/21 levothyroxine 125 mcg capsule 125 mcg PO DAILY 12/10/19 01/03/21 1 Day Ago History ~01/02/21 losartan 50 mg tablet 50 mg PO DAILY 12/10/19 01/03/21 1 Day Ago History ~01/02/21 oxycodone 10 mg tablet 10 mg PO QID PRN 12/10/19 01/03/21 1 Day Ago History ~01/02/21 polyethylene glycol 3350 17 gram 17 gm PO DAILY 12/10/19 01/03/21 1 Day Ago History oral powder packet ~01/02/21 simvastatin 40 mg tablet 40 mg PO DAILY 12/10/19 01/03/21 1 Day Ago History ~01/02/21 triamcinolone acetonide 0.1 % 1 applic TOPICAL BID 12/10/19 01/03/21 1 Day Ago History topical cream ~01/02/21 potassium chloride 20 meq PO DAILY 09/15/20 01/03/21 1 Day Ago History ~01/02/21 furosemide 40 mg tablet 20 mg PO DAILY tab 11/11/20 01/03/21 1 Day Ago History ~01/02/21 prochlorperazine maleate 10 mg 10 mg PO BID PRN 11/11/20 01/03/21 1 Day Ago History tablet ~01/02/21 External Heel Lift to Left #1 ea 12/29/20 01/03/21 Unknown Rx Allergies Allergy/AdvReac Type Severity Reaction Status Date / Time TRENT Inhibitors Allergy ADR-Cough Verified 12/29/20 13:51 cephalexin [From Keflex] Allergy ALGY-Rash Verified 12/29/20 13:51 gabapentin Allergy Unknown Verified 12/29/20 13:51 povidone-iodine Allergy ADR-Itching Verified 12/29/20 13:51 [From Betadine] pregabalin [From Lyrica] Allergy ADR-Blurry Verified 12/29/20 13:51 Vision soap [From Betadine] Allergy ADR-Itching Verified 12/29/20 13:51 Sulfa (Sulfonamide Allergy ALGY-Hives Verified 12/29/20 13:51 Antibiotics) trazodone Allergy ADR-Irritab Verified 12/29/20 13:51 le Current Medications Current Medications Generic Name Dose Route Start Last Admin Trade Name Freq PRN Reason Stop Dose Admin Heparin Sodium (Beef Lung) 5,000 unit 01/03/21 11:30 01/03/21 23:29 Heparin 5,000 Unit/Ml Inj 1 Ml SUBCUT 5,000 unit Q12H YANICK Administration Lactated Ringer's 1,000 mls @ 100 mls/hr 01/03/21 11:30 01/04/21 06:10 Lactated Ringers IV 100 mls/hr .Q10H YANICK Administration Imipenem/Cilastatin Sodium 250 100 mls @ 200 mls/hr 01/03/21 11:45 01/04/21 06:12 mg/ Sodium Chloride IV Infused Q6H YANICK Infusion Protocol Magnesium Sulfate 2 gm in 50 mls @ 50 mls/hr 01/04/21 07:30 01/04/21 07:29 Magnesium Sulfate Premix IV 01/04/21 08:29 50 mls/hr ONCE ONE Administration Oxycodone HCl 10 mg 01/03/21 11:52 01/04/21 00:10 Oxycodone 5 Mg Ir Tab/Cap PO 10 mg QID PRN Administration Pain Pantoprazole Sodium 40 mg 01/03/21 18:00 01/03/21 17:[address] 40 Mg Tablet PO 40 mg BID YANICK Administration PFSH Acute PFSH: Medical History Diabetes Hyperlipemia Hypertension Hypothyroidism Neurogenic bladder Osteoporosis Surgical History H/O bariatric surgery H/O hernia repair H/O total hysterectomy History of appendectomy History of back surgery History of repair of left hip joint History of tonsillectomy Hx of cholecystectomy Family History Mother Stroke Hypertension CAD (coronary artery disease) Social History Smoking and tobacco status: never smoked Alcohol intake: never Vitals/I&O/Wt Last Vital Signs Temp 98.7 F 01/04/21 07:36 Pulse 96 01/04/21 07:36 Resp 18 01/04/21 07:36 BP 116/73 01/04/21 07:36 Pulse Ox 97 01/04/21 07:36 01/03/21 01/04/21 01/04/21 22:59 06:59 14:59 Intake Total 1600 / 1700 1445 / 3145 Output Total 90 / 90 750 / 840 Balance 1510 / 1610 695 / 2305 Weight last 48 hrs Weight 245 lb 11.2 oz Physical Exam Const: COMMON NORMALS: alert and well nourished GENERAL APPEARANCE: well kempt and well developed ORIENTATION/CONSCIOUSNESS: not confused HENMT: COMMON NORMALS: normocephalic and atraumatic HEAD & SCALP: normocephalic and atraumatic Eye: COMMON NORMALS: conjunctivae normal and no scleral icterus CONJUNCTIVA: Yes conjunctivae normal Neck/C-Spine: COMMON NORMALS: full ROM Lymph: LYMPHATIC: No no lymphadenopathy noted and No no lymphedema noted Resp: COMMON NORMALS: normal respiratory effort EFFORT & INSPECTION: No labored and No Actively coughing Cardio: COMMON NORMALS: regular rate RATE: regular rate and tachycardic GI: COMMON NORMALS: Soft to palpation and no masses PALPATION: Yes Soft to palpation : BLADDER/KIDNEY EXAM: Yes catheter in place, Yes bladder normal to palpation and Yes CVA tenderness BIMANUAL EXAM - VAGINA & UTERUS: Yes bladder normal to palpation OTHER: Urogenital atrophy. Normal urethral meatus. No obvious discharge Back/Pelvis: GENERAL BACK: Yes CVA tenderness CVA tenderness: left Extremity: COMMON NORMALS: no clubbing, cyanosis or edema Neuro: COMMON NORMALS: no focal motor deficits SENSORIUM/ORIENTATION: Yes alert Psych: COMMON NORMALS: mental status grossly normal APPEARANCE: Yes well kempt ATTITUDE: Yes calm and Yes engaged Skin: COMMON NORMALS: no rashes or lesions noted and no jaundice GENERAL SKIN EXAM: no rashes or lesions noted Urinary Catheter Management^: Marlow: Cath Placed During This Visit: yes Reason for Continuing Indwelling Catheter: Chronic Indwelling Urinary Catheter on Admission Urinary Catheter Date of Insertion: 01/03/21 Urinary Catheter Time of Insertion: 17:02 Data Other Data: Other data: CT scan. Obstructive changes associated 9 mm left proximal ureteral stone in addition to nonobstructing renal calculi A&P Assessment and plan (1) Obstructive pyelonephritis: To the operating room sometime this morning for cystoscopy left ureteral stent placement. Status: Acute (2) Left ureteral calculus: Status: Acute (3) Acute kidney injury: Status: Acute Consult Attestations Medical Necessity Statement: Critically ill. Coding Level of Care Code Acute Comparator Operator for [facility] Fwd Exam Comprehensive Diagnoses Obstructive pyelonephritis N11.1 Left ureteral calculus N20.1 Acute kidney injury N17.9
[2021-01-04] MEDS: loperamide 2 mg Capsule PO (09:43)
[2021-01-04] MEDS: acetaminophen 325 mg Tablet 650 MG PO (09:43)
--- NOTE | 2021-01-04 10:57 | PC.NURSE ---
Pt was taken down to surgery by CATALINA Hastings. Patient's was at bedside.
--- NOTE | 2021-01-04 11:26 | ANES.PREANE2 ---
Pre-Anesthetic Assessment Pre-Anesthetic Assessment: Height/Weight: Height 1.75 m Weight 111.448 kg Temp Pulse Resp BP Pulse Ox 100.9 F H 113 H 24 H 120/73 92 01/04/21 10:28 01/04/21 10:28 01/04/21 10:28 01/04/21 10:28 01/04/21 10:28 Preop Diagnosis: Breast cancer Proposed Procedure: Operation Date: 01/04/21 12:00 Proposed Procedures p Cystoscopy(Not Applicable) - Gómez Barron MD s Ureteral Stent Placement(Bilateral) - Gómez Barron MD s Ureteroscopy(Bilateral) - Gómez Barron MD Was Beta Colleen taken within 24 hours: N/A Was Clonidine taken within 24 hours: N/A Social: Social History: No alcohol and No tobacco Exam: Pre-Anes Outpt Exam: alert and oriented x 3 Airway: Submandibular: WNL Cervical ROM: WNL MP: 1 Dentition: False History/ROS: Other Pulmonary: Pulmonary: None reported CV/HEM: CV/HEM: Anemia : : Chronic renal failure Hepatic: Hepatic: None reported GI: GI: None reported Metabolic: Comments: hypomagnesemia Musc/skel: Musc/skel: None reported Neuropsych: Neuropsych: None reported Anesthetic Plan: ASA status: 3 Anesthesia: Choice Risk of > 500 ml blood loss (7ml/kg in children): No Meds/Allergies Current Medications: Current Medications Generic Name Dose Route Start Last Admin Trade Name Freq PRN Reason Stop Dose Admin Acetaminophen 650 mg 01/03/21 11:28 01/04/21 09:43 Acetaminophen 32 5 Mg Tablet PO 650 mg Q6H PRN Administration Mild/Mod Pain Or Temp >/= 101 Heparin Sodium (Be ef Lung) 5,000 unit 01/03/21 11:30 01/03/21 23:29 Heparin 5,000 Un it/Ml Inj 1 Ml SUBCUT 5,000 unit Q12H YANICK Administration Lactated Ringer's 1,000 mls @ 100 m ls/hr 01/03/21 11:30 01/04/21 06:10 Lactated Ringers IV 100 mls/hr .Q10H YANICK Administration Imipenem/Cilastati n Sodium 250 100 mls @ 200 mls /hr 01/03/21 11:45 01/04/21 06:12 mg/ Sodium Chlor terrell IV Infused Q6H YANICK Infusion Protocol Levothyroxine Sodi um 125 mcg 01/04/21 09:00 01/04/21 08:56 Levothyroxine 12 5 Mcg Tablet PO Not Given DAILY YANICK Oxycodone HCl 10 mg 01/03/21 11:52 01/04/21 00:10 Oxycodone 5 Mg I r Tab/Cap PO 10 mg QID PRN Administration Pain Pantoprazole Sodiu m 40 mg 01/03/21 18:00 01/04/21 08:[address] 40 Mg Tablet PO Not Given BID YANICK PFSH Anesthesia PFSH: Medical History Diabetes Hyperlipemia Hypertension Hypothyroidism Neurogenic bladder Osteoporosis Surgical History H/O bariatric surgery H/O hernia repair H/O total hysterectomy History of appendectomy History of back surgery History of repair of left hip joint History of tonsillectomy Hx of cholecystectomy Family History Mother Stroke Hypertension CAD (coronary artery disease) Social History Smoking and tobacco status: never smoked Alcohol intake: never Data Anesthesia CBC & Chem 7: 01/04/21 04:39 01/04/21 04:39 Other Labs: Laboratory Results - last 48 hr 01/03/21 01/03/21 01/03/21 08:49 14:42 16:50 WBC RBC Hgb Hct MCV MCH MCHC RDW Plt Count MPV Neut % (Auto) Lymph % (Auto) [place] % (Auto) Eos % (Auto) Baso % (Auto) Neut # (Auto) Lymph # (Auto) [place] # (Auto) Eos # (Auto) Baso # (Auto) Nucleated RBC % (auto) Nucleated RBCs # Sodium Potassium Chloride Carbon Dioxide Anion Gap BUN Creatinine GFR Calculation Glucose Calculated Osmolality Lactic Acid 2.4 H Lactic Acid (Sepsis) Calcium Magnesium Total Bilirubin AST ALT Alkaline Phosphatase Creatine Kinase 201 H Total Protein Albumin Globulin TSH 0.60 Urine Color Yellow Urine Appearance Hazy A Urine pH 6 Ur Specific [place] 1.000 L Urine Protein 1+ H Urine Glucose (UA) Norm Urine Ketones Negative Urine Blood 3+ H Urine Nitrate Positive H Urine Bilirubin 1+ H Urine Urobilinogen 1 H Ur Leukocyte Esterase 2+ H Urine RBC 5-10 H Urine WBC Too numerous to cnt H Ur Squamous Epith Cells None Amorphous Sediment Not Reportable Urine Bacteria 4+ H Blood Type Rho(D) Type Antibody Screen Crossmatch 01/03/21 01/04/21 01/04/21 17:26 04:39 04:39 WBC 5.3 RBC 2.56 L Hgb 7.4 L Hct 23.5 L MCV 91.8 MCH 28.9 MCHC 31.5 RDW 16.4 H Plt Count 265 MPV 11.5 H Neut % (Auto) 76.0 Lymph % (Auto) 10.0 [place] % (Auto) 12.8 Eos % (Auto) 0.2 Baso % (Auto) 0.6 Neut # (Auto) 4.03 Lymph # (Auto) 0.5 L [place] # (Auto) 0.7 Eos # (Auto) 0.0 Baso # (Auto) 0.0 Nucleated RBC % (auto) 0 Nucleated RBCs # 0.0 Sodium 132 L Potassium 4.7 Chloride 104 Carbon Dioxide 16 L Anion Gap 16.7 BUN 37 H Creatinine 2.9 H GFR Calculation Not Reportable Glucose 76 Calculated Osmolality 281 L Lactic Acid Lactic Acid (Sepsis) 1.8 Calcium 8.0 L Magnesium 1.4 L Total Bilirubin 0.5 AST 21 ALT 12 Alkaline Phosphatase 116 H Creatine Kinase Total Protein 5.3 L Albumin 2.6 L Globulin 2.7 TSH Urine Color Urine Appearance Urine pH Ur Specific [place] Urine Protein Urine Glucose (UA) Urine Ketones Urine Blood Urine Nitrate Urine Bilirubin Urine Urobilinogen Ur Leukocyte Esterase Urine RBC Urine WBC Ur Squamous Epith Cells Amorphous Sediment Urine Bacteria Blood Type Rho(D) Type Antibody Screen Crossmatch 01/04/21 09:32 WBC RBC Hgb Hct MCV MCH MCHC RDW Plt Count MPV Neut % (Auto) Lymph % (Auto) [place] % (Auto) Eos % (Auto) Baso % (Auto) Neut # (Auto) Lymph # (Auto) [place] # (Auto) Eos # (Auto) Baso # (Auto) Nucleated RBC % (auto) Nucleated RBCs # Sodium Potassium Chloride Carbon Dioxide Anion Gap BUN Creatinine GFR Calculation Glucose Calculated Osmolality Lactic Acid Lactic Acid (Sepsis) Calcium Magnesium Total Bilirubin AST ALT Alkaline Phosphatase Creatine Kinase Total Protein Albumin Globulin TSH Urine Color Urine Appearance Urine pH Ur Specific [place] Urine Protein Urine Glucose (UA) Urine Ketones Urine Blood Urine Nitrate Urine Bilirubin Urine Urobilinogen Ur Leukocyte Esterase Urine RBC Urine WBC Ur Squamous Epith Cells Amorphous Sediment Urine Bacteria Blood Type AB Negative Rho(D) Type Negative Antibody Screen Negative Crossmatch See Detail Micro: Microbiology 01/04/21 06:15 Occult Blood (FIT) - Final Stool Routine Collection Cardiac Studies: Echocardiogram 10/25/20
--- NOTE | 2021-01-04 11:32 | SC_ITS ---
WS: [id number] INTRAOPERATIVE TECHNIQUE: 3 Spot fluoroscopic images for intraoperative purposes. FLUOROSCOPY TIME: 56.2 seconds CLINICAL INFORMATION: intra-op COMPARISON: None. FINDINGS: Lumbar scoliosis. Partially visualized spinal stimulator. SC/C-arm FL for Urology IMPRESSION: Images obtained for intraoperative purposes.
--- NOTE | 2021-01-04 11:49 | P.OP_ITS ---
Operative Report Date of procedure: January 04, 2021 Pre-op Diagnosis: Left obstructive pyelonephritis/sepsis Post-op diagnosis: same Procedure Done: 1. Cystoscopy, left ureteral stent placement (8.5 [place] by 28 cm) Pathology: none sent Surgeon: Beatrcie Anesthesia: General Urine output: Not measured Complications: None Condition: critical Disposition: ICU Brief History: Lucie is a very pleasant 76-year-old white female who was admitted to the hospital yesterday and found to have left obstructive pyelonephritis on CT scan and urinalysis consistent with UTI. She initially improved with fluids and antibiotics and I was consulted this morning for evaluation. Further complicated by recent treatment for breast cancer. It was recommended she undergo cystoscopy and left ureteral stent placement and that was planned for now. Preoperatively she was still quite sick appearing and her blood pressure which had been more stable this morning was actually much lower. Procedure: After emergent evaluation examination and obtaining of informed consent she was taken to the operating suite on 01/04/2021 where general anesthesia was administered without difficulty. Prepped and draped in usual sterile fashion in dorsolithotomy position paying careful attention avoiding pressure points. Appropriate timeout was performed, SCDs confirmed to be functioning, preoperative antibiotics administered, beta-oralia protocol confirmed. 21 [place] cystoscope with 30 degree lens was introduced into urethra meatus and advanced into the bladder to videoscopy. Flexible tip guidewire was then advanced up the left ureter but could not easily advance through the tortuous ureter beyond the stone. An open-ended ureteral catheter was then advanced over the guidewire which allowed easy passage of a zip Glidewire. This also straightened out the tortuosity. The catheter was then advanced into the renal pelvic area and the zip wire removed and replaced with a routine flexible tip guidewire. The opening ureteral catheter was removed and a 8.5 [place] by 28 cm double-pigtail stent was advanced over the guidewire through the cystoscope into appropriate position as confirmed via fluoroscopy and cystoscopy. The stent was confirmed to be draining cloudy urine. The bladder was drained with a Marlow ca theter and the procedure was completed Although she remained hemodynamically stable she was requiring blood pressure support throughout the procedure and for that reason it was decided to transfer to the ICU for further care. Dr. Fernando notified
[2021-01-04 13:19] LABS: Hematocrit 25.2 % (37.0-47.0); Hemoglobin 8.1 g/dL (11.5-15.3)
[2021-01-04] MEDS: sodium chloride 0.9% 500 ML IV (13:41)
--- NOTE | 2021-01-04 13:53 | PC.NURSE ---
1255 Received pt from OR by OR staff.- Pt alert and oriented.-Port accessed by OR.- Dr Fernando at bedside. - BP is map of 44. -Orders for 500ml NS bolus and begin Levophed. -Bolus administered and Levophed started. Pt did state she is currently receiving chemo treatments at [facility].
[2021-01-04] MEDS: phenazopyridine 100 mg Tablet 200 MG PO (14:23)
[2021-01-04] MEDS: pantoprazole DR 40 mg Tablet PO (16:56)
[2021-01-04] MEDS: heparin 5,000 unit/mL INJ 1 mL 5000 UNIT SUBCUT (22:44)
[2021-01-05] VITALS (113 sets, daily range): BP systolic 76–138; BP diastolic 45–96; PULSE 0–191; RESP 4–38; TEMP 36.9; O2SAT 79–100
[2021-01-05] MEDS: lactated ringers 1,000 ML 100 ML IV ×3 (01:20→23:52)
[2021-01-05 04:17] LABS: Basophils # 0.1 10^3/uL (0.0-0.1); Basophils % 0.5 %; Eosinophils % 0.1 %; Hematocrit 31.1 % (37.0-47.0); Hemoglobin 9.7 g/dL (11.5-15.3); Lymphocytes # 1.3 10^3/uL (0.8-4.8); Lymphocytes % 7.1 %; Mean Corpuscular HGB Conc 31.2 g/dL (30.0-36.0); Mean Corpuscular Volume 92.8 fl (81-99); Mean Platelet Volume 11.3 fL (7.4-10.4); Monocytes # 2.3 10^3/uL (0.2-0.9); Monocytes % 12.3 %; Neutrophils # 14.51 10^3/uL (1.8-7.7); Neutrophils % 77.2 %; Nucleated Red Blood Cells % 0.1 %; Platelet Count 314 10^3/cmm (130-400); Red Blood Count 3.35 10^6/uL (4.1-5.3); Red Cell Distribution Width 16.7 % (12.1-15.1); White Blood Count 18.8 10^3/uL (4.0-10.0)
[2021-01-05 04:37] LABS: Alanine Aminotransferase 16 U/L (0-33); Albumin Level 2.6 g/dL (3.5-5.2); Alkaline Phosphatase 258 IU/L (35-105); Anion Gap 16.8 (5-19); Aspartate Amino Transferase 43 U/L (0-32); Blood Urea Nitrogen 42 mg/dL (8-23); Calcium 8.8 mg/dL (8.5-10.5); Carbon Dioxide 15 mmol/L (22-29); Chloride 104 mmol/L (98-107); Glucose 199 mg/dL (65-115); Magnesium 2.4 mg/dL (1.7-2.3); Osmolality Calculated 290 mOsm/kg (285-295); Potassium 3.8 mmol/L (3.5-5.1); Sodium 132 mmol/L (136-145); Total Bilirubin 0.5 mg/dL (0.15-1.2); Total Protein 5.6 g/dL (6.6-8.7)
[2021-01-05] MEDS: oxyCODONE 5 mg IR Tab/Cap 10 MG PO ×3 (04:48→17:47)
[2021-01-05 05:04] LABS: Slide Review Slide Review Perform
--- NOTE | 2021-01-05 08:30 | ANE.PACU2 ---
Inpatient post-anesthesia follow up: Airway intact: Yes Vital signs: Temperature 98.5 F Pulse Rate 81 Respiratory Rate 20 Blood Pressure 132/96 Pulse Oximetry 100 Oxygen Delivery Me thod [ Room Air Current Rate & Del mik] Oxygen Delivery Me thod Nasal Cannula Oxygen Flow Rate 2 Fraction of Inspir ed Oxygen Hydration adequate: Yes Nausea and vomiting: No Pain level: 2 Mental status: Baseline
--- NOTE | 2021-01-05 09:10 | P.PN_ITS ---
Subjective Subjective: Interval history: Lucie reports she is doing okay. She is hungry. Still on norepinephrine. Medications: Reviewed: Yes Vitals/I&O/Wt Last Vital Signs Temp 98.5 F 01/05/21 08:00 Pulse 81 01/05/21 08:00 Resp 20 H 01/05/21 08:00 BP 132/96 01/05/21 08:00 Pulse Ox 100 01/05/21 08:00 01/04/21 01/05/21 01/05/21 22:59 06:59 14:59 Intake Total 1779.852 / 0881.140 4090.925 / 3945.777 Output Total 1025 / 1025 999 / 2025 Balance 754.852 / 460.489 9567.925 / 1920.777 Weight last 48 hrs Weight 111.448 kg Physical Exam Narrative: EXAM NARRATIVE: General exam no distress Neck is supple no lymphadenopathy or thyromegaly Cardiovascular slight tachycardia, no murmur. Lungs clear without wheezing or crackles. Abdomen is soft with positive bowel sounds. No obvious organomegaly. Extremities no cyanosis clubbing or edema, cap refill brisk. Urinary Catheter Management^: Marlow: Cath Placed During This Visit: yes, but has since been removed by the nurse Reason for Continuing Indwelling Catheter: Acute Urinary Retention or Obstruction Urinary Catheter Date of Insertion: 01/04/21 Urinary Catheter Time of Insertion: 12:24 Date Urinary Catheter Removed: 01/04/21 Time Urinary Catheter Discontinued: 12:15 Data : 01/05/21 03:45 01/05/21 03:45 Micro: Microbiology 01/05/21 03:50 Blood Culture - Preliminary Blood SPECIMEN COLLECTED 01/05/21 03:45 Blood Culture - Preliminary Blood SPECIMEN COLLECTED 01/04/21 06:15 Enteric Pathogens (PCR) - Final Stool Routine Collection Parasite Antigen Panel - Final C.difficile Toxin B Gene (PCR) - Final 01/03/21 16:50 MRSA Culture - Final Nose 01/04/21 06:15 Occult Blood (FIT) - Final Stool Routine Collection A&P Assessment and plan (1) Acute kidney injury: With hydration creatinine has improved, as well as her metabolic acidosis. CK was checked and not significantly elevated Currently with Marlow CT renal protocol demonstrates left ureteral stone with obstruction. Urology consulted. She is postoperative day #1 status post stent placement Status: Acute (2) Pneumonia: IV antibiotics consisting of Primaxin. Allergic to cephalosporins. MRSA PCR negative Status: Acute (3) Dehydration: Resolved. Status: Acute (4) Diarrhea: Stool Hemoccult negative. Enteric pathogens, parasitic antigen, C. difficile all negative. Loperamide as needed. Status: Acute (5) Invasive ductal carcinoma of breast, female: Followed by oncology Status: Acute Additional A&P Information UTI with bacteremia, and evidence for sepsis with elevated lactate, decreased blood pressure. Currently still on norepinephrine. Continue Primaxin currently and awaiting cultures. Blood culture positive on admission with gram-negative rods, repeating today. Arrhythmia. A few pauses have been noted on telemetry. We will try to reduce norepinephrine and follow closely. No current evidence for electrolyte abnormality. TSH normal on admission. Recent echocardiogram demonstrated preserved ejection fraction, 1/4 diastolic dysfunction Anemia. Stool Hemoccult negative. Transfused 1 unit packed red blood cells January 04. Continue Protonix. No evidence of active bleeding. Hyponatremia, resolving Hypomagnesemia, resolved History of breast cancer undergoing chemotherapy Multiple other medical problems as outlined in past medical history Heparin for DVT prophylaxis Attestations Medical Necessity Statement*: Needs continued hospitalization for sepsis requiring pressors Critical Care Time: The high probability of a clinically significant, sudden or life threatening deterioration of the patient's [renal, infectious disease, cardiovascular] system(s) required my full and direct attention, intervention and personal management. The critical care time is as shown. This time is in addition to time spent performing any reported procedures but includes the following: [x] Data and vital sign review and interpretation [x] Patient assessment, examination and intervention [x] Documentation [x] Medication orders and management Critical Care Time (min): 31 Coding Level of Care Code Acute Machine Pecan Picker for [facility] Fwd Diagnoses Acute kidney injury N17.9 Pneumonia J18.9 Dehydration E86.0 Diarrhea R19.7 Invasive ductal carcinoma of breast, female C50.919
[2021-01-05] MEDS: levothyroxine 125 mcg Tablet PO (09:23)
[2021-01-05] MEDS: pantoprazole DR 40 mg Tablet PO ×2 (09:23→17:46)
--- NOTE | 2021-01-05 10:06 | PC.CHAP ---
Pastoral Care Encounter/Spiritual Assessment Type of Contact [] Declined electrician aircraft visit [] Patient/Family/Request visit [] Outpatient visit [] Follow-up visit [] Physician referral [] Code/Alert [x] Routine visit [] Staff referral [] Actively dying [] Patient sleeping [] Family support [] [] Out of room [] Palliative care [] [x] Receiving care in room [] Pre-surgical visit [] Trauma [] Long length of stay [x] ICU visit [] Other: Relational/Emotional Strength [] Patient feels connected with others/family/visitors/staff [] Distress [] Loneliness/isolation [] Abandonment Spirituality of Patient [] Person of Ann [] Attends Jainism of their Ann [] Believes in Prayer [] Reads Bible or Taoist materials [] There are Spiritual issues to be addressed [place] [employer] Interventions [x] Prayer [] Active listening [] Non-anxious presence [] Spiritual/emotional support [] Crisis/trauma care [] Spiritual counseling [] Bereavement support [] Provided bereavement packet [] Provided Bible/devotional materials [] Provided toy/stuffed animal, coloring book to patient or family member [] Provided Communion [] Anointing/[place] [] Salvation [x] Completed spiritual assessment [] Other: Impact on Illness or Injury [] Angry [] Fearful [] Anxious [] Often cries [] Exhaustion [] Unable to work [] Unable to attend yazidi [] Unable to walk/stand [] Unable to read [] Unable to drive [] Unable to eat/drink [] Unable to sleep [] Unable to be with family [] Patient intubated [] Other: Summary Time spent with patient
[2021-01-05] MEDS: heparin 5,000 unit/mL INJ 1 mL 5000 UNIT SUBCUT ×2 (11:41→23:07)
[2021-01-05] MEDS: loperamide 2 mg Capsule 4 MG PO ×2 (12:15→15:11)
[2021-01-06] VITALS (40 sets, daily range): BP systolic 77–133; BP diastolic 45–69; PULSE 78–108; RESP 8–24; TEMP 36.1–37.3; O2SAT 90–100
[2021-01-06 05:03] LABS: Basophils # 0.1 10^3/uL (0.0-0.1); Basophils % 0.5 %; Eosinophils # 0.1 10^3/uL (0.0-0.8); Eosinophils % 0.3 %; Hematocrit 28.7 % (37.0-47.0); Hemoglobin 9.2 g/dL (11.5-15.3); Lymphocytes # 1.7 10^3/uL (0.8-4.8); Lymphocytes % 9.9 %; Mean Corpuscular HGB Conc 32.1 g/dL (30.0-36.0); Mean Corpuscular Hemoglobin 28.8 pg (28.0-34.0); Mean Platelet Volume 11.2 fL (7.4-10.4); Monocytes # 2.5 10^3/uL (0.2-0.9); Monocytes % 14.5 %; Neutrophils # 11.95 10^3/uL (1.8-7.7); Neutrophils % 69.6 %; Nucleated Red Blood Cells % 0 %; Platelet Count 301 10^3/cmm (130-400); Red Blood Count 3.19 10^6/uL (4.1-5.3); Red Cell Distribution Width 16.8 % (12.1-15.1); White Blood Count 17.2 10^3/uL (4.0-10.0)
[2021-01-06 05:18] LABS: Alanine Aminotransferase 12 U/L (0-33); Albumin Level 2.5 g/dL (3.5-5.2); Alkaline Phosphatase 182 IU/L (35-105); Anion Gap 13.5 (5-19); Aspartate Amino Transferase 29 U/L (0-32); Blood Urea Nitrogen 28 mg/dL (8-23); Calcium 9.1 mg/dL (8.5-10.5); Carbon Dioxide 18 mmol/L (22-29); Chloride 105 mmol/L (98-107); Globulin 2.9 g/dL (1.3-4.6); Glucose 96 mg/dL (65-115); Osmolality Calculated 281 mOsm/kg (285-295); Potassium 3.5 mmol/L (3.5-5.1); Sodium 133 mmol/L (136-145); Total Bilirubin 0.4 mg/dL (0.15-1.2); Total Protein 5.4 g/dL (6.6-8.7)
[2021-01-06 06:05] LABS: Slide Review Slide Review Perform
--- NOTE | 2021-01-06 07:38 | PC.NURSE ---
Addendum entered by Pa García RN 01/06/21 08:16: VF is LR infusing per orders, not NS. Original Note: 0700 Report received, pt resting in bed. Alert and oriented to person and time. Disoriented to place and situation. Reoriented easily. Denies any pain at this time. Repositioned. Marlow cath draining freely. Levo infusing at 6mcg /min, NS at 100ml/h. L PIV secured with tape. Will monitor. 0735 Levophed titrated to 4mcg/min per MD order. Orders to titrate off. Will monitor.
[2021-01-06] MEDS: levothyroxine 125 mcg Tablet PO (08:02)
[2021-01-06] MEDS: pantoprazole DR 40 mg Tablet PO ×2 (08:02→17:07)
--- NOTE | 2021-01-06 08:29 | PM.PN ---
Subjective Subjective: Interval history: Lucie reports she feels much better today. No abdominal pain. No shortness of breath. Still required pressor support through the night. Medications: Reviewed: Yes Vitals/I&O/Wt Last Vital Signs Temp 98.8 F 01/06/21 08:00 Pulse 88 01/06/21 08:00 Resp 20 H 01/06/21 08:00 BP 128/55 01/06/21 08:00 Pulse Ox 100 01/06/21 08:00 01/05/21 01/06/21 01/06/21 22:59 06:59 14:59 Intake Total 1640 / 2994 200 / 3194 Output Total 1000 / 1900 1450 / 3350 Balance 640 / 1094 -1250 / -156 Physical Exam Narrative: EXAM NARRATIVE: General exam no distress Neck is supple no lymphadenopathy or thyromegaly Cardiovascular regular rate and rhythm, no murmur. Port without evidence of infection Lungs clear without wheezing or crackles. Abdomen is soft with positive bowel sounds. No obvious organomegaly. Extremities no cyanosis clubbing or edema, cap refill brisk. Urinary Catheter Management^: Marlow: Cath Placed During This Visit: yes, but has since been removed by the nurse Reason for Continuing Indwelling Catheter: Accurate Measurement of Urinary Output in Critically Ill Patients Urinary Catheter Date of Insertion: 01/04/21 Urinary Catheter Time of Insertion: 12:24 Date Urinary Catheter Removed: 01/04/21 Time Urinary Catheter Discontinued: 12:15 Data : 01/06/21 04:25 01/06/21 04:25 Micro: Microbiology 01/05/21 03:50 Blood Culture - Preliminary Blood NEGATIVE TO DATE 01/05/21 03:45 Blood Culture - Preliminary Blood NEGATIVE TO DATE 01/03/21 16:50 Urine Culture - Preliminary Urine Catheterized Gram Negative Rods A&P Assessment and plan (1) Acute kidney injury: With hydration creatinine has continued to improve and urine output has picked up. CK was checked and not significantly elevated Currently with Marlow CT renal protocol demonstrates left ureteral stone with obstruction. Urology consulted. She is postoperative day #2 status post stent placement Status: Acute (2) Pneumonia: IV antibiotics consisting of Primaxin. Allergic to cephalosporins. MRSA PCR negative Status: Acute (3) Dehydration: Resolved. Status: Acute (4) Diarrhea: Stool Hemoccult negative. Enteric pathogens, parasitic antigen, C. difficile all negative. Loperamide as needed. Status: Acute (5) Invasive ductal carcinoma of breast, female: Followed by oncology Status: Acute Additional A&P Information UTI with bacteremia, and evidence for sepsis with elevated lactate, decreased blood pressure. Currently still on norepinephrine. Continue Primaxin currently and awaiting cultures. Blood culture positive on admission with gram-negative rods, with repeat culture being negative to date. Planning on continuing Primaxin awaiting final culture results. History of neurogenic bladder. She normally self caths. Continue Marlow currently. Arrhythmia. A few pauses have been noted on telemetry initially, with no significant arrhythmias currently.. No current evidence for electrolyte abnormality. TSH normal on admission. Recent echocardiogram demonstrated preserved ejection fraction, 1/4 diastolic dysfunction Anemia. Stool Hemoccult negative. Transfused 1 unit packed red blood cells January 04. Continue Protonix. No evidence of active bleeding. Hemoglobin currently stable Hyponatremia, resolving Hypomagnesemia, resolved History of breast cancer undergoing chemotherapy Multiple other medical problems as outlined in past medical history Heparin for DVT prophylaxis Possible transfer out of ICU if can get off pressors today. Reduce IV fluids Attestations Medical Necessity Statement*: Needs continued hospitalization secondary to sepsis, bacteremia, UTI with obstructive stone still requiring pressors. Critical Care Time: Critical Care Time (min): 31 Other Attestations: The high probability of a clinically significant, sudden or life threatening deterioration of the patient's [renal, cardiovascular] system(s) required my full and direct attention, intervention and personal management. The critical care time is as shown. This time is in addition to time spent performing any reported procedures but includes the following: [x] Data and vital sign review and interpretation [x] Patient assessment, examination and intervention [x] Documentation [x] Medication orders and management Coding Level of Care Code Acute Electrical Manager for [facility] Fwd Diagnoses Acute kidney injury N17.9 Pneumonia J18.9 Dehydration E86.0 Diarrhea R19.7 Invasive ductal carcinoma of breast, female C50.919
--- NOTE | 2021-01-06 08:30 | PC.NURSE ---
Levophed titrated to 2mcg/min.
[2021-01-06] MEDS: potassium chloride ER 20 mEq Tablet 40 MEQ PO (08:33)
[2021-01-06] MEDS: loperamide 2 mg Capsule PO ×2 (09:37→21:50)
[2021-01-06] MEDS: oxyCODONE 5 mg IR Tab/Cap 10 MG PO ×2 (10:45→17:06)
[2021-01-06] MEDS: heparin 5,000 unit/mL INJ 1 mL 5000 UNIT SUBCUT ×2 (10:46→23:25)
[2021-01-06] MEDS: lactated ringers 1,000 ML 75 ML IV (11:01)
--- NOTE | 2021-01-06 12:05 | PC.NURSE ---
1155 Levophed titrated to 1mcg/min
--- NOTE | 2021-01-06 13:15 | PC.NURSE ---
Levo turned off at 1313.
--- NOTE | 2021-01-06 14:54 | PC.SOCIAL ---
Imm Updated Page 2 IMM updated, reviewed and placed in chart. Initialed, timed and dated.
--- NOTE | 2021-01-06 16:39 | PC.NURSE ---
1620 Pt transferred to room 257, report called to Gniny at 1615. Pt tolerated well.
[2021-01-07] VITALS (12 sets, daily range): BP systolic 93–104; BP diastolic 57–66; PULSE 68–87; RESP 16–18; TEMP 36.3–37.1; O2SAT 91–98
[2021-01-07] MEDS: lactated ringers 1,000 ML 75 ML IV (01:09)
[2021-01-07] MEDS: oxyCODONE 5 mg IR Tab/Cap 10 MG PO ×3 (05:20→17:37)
[2021-01-07 05:32] LABS: Basophils # 0.1 10^3/uL (0.0-0.1); Basophils % 0.4 %; Eosinophils % 0.3 %; Hematocrit 25.7 % (37.0-47.0); Hemoglobin 8.2 g/dL (11.5-15.3); Lymphocytes # 1.6 10^3/uL (0.8-4.8); Lymphocytes % 11.6 %; Mean Corpuscular HGB Conc 31.9 g/dL (30.0-36.0); Mean Corpuscular Hemoglobin 29.1 pg (28.0-34.0); Mean Corpuscular Volume 91.1 fl (81-99); Mean Platelet Volume 10.9 fL (7.4-10.4); Monocytes # 1.6 10^3/uL (0.2-0.9); Neutrophils # 9.16 10^3/uL (1.8-7.7); Neutrophils % 68.2 %; Nucleated Red Blood Cells % 0 %; Platelet Count 270 10^3/cmm (130-400); Red Blood Count 2.82 10^6/uL (4.1-5.3); White Blood Count 13.4 10^3/uL (4.0-10.0)
[2021-01-07 05:48] LABS: Blood Urea Nitrogen 19 mg/dL (8-23); Calcium 8.7 mg/dL (8.5-10.5); Carbon Dioxide 19 mmol/L (22-29); Chloride 107 mmol/L (98-107); Glucose 79 mg/dL (65-115); Osmolality Calculated 279 mOsm/kg (285-295); Sodium 134 mmol/L (136-145)
[2021-01-07 05:57] LABS: Slide Review Slide Review Perform
--- NOTE | 2021-01-07 08:34 | P.PN_ITS ---
Subjective Subjective: Interval history: Lucie reports she feels okay. No specific concerns. Medications: Reviewed: Yes Vitals/I&O/Wt Last Vital Signs Temp 98.7 F 01/07/21 07:44 Pulse 81 01/07/21 07:44 Resp 16 01/07/21 07:44 BP 104/66 01/07/21 07:44 Pulse Ox 97 01/07/21 07:44 01/06/21 01/07/21 01/07/21 22:59 06:59 14:59 Intake Total 200 / 2274.000 1100 / 3374.000 Output Total 700 / 700 1000 / 1700 Balance -500 / 1574.000 100 / 1674.000 Physical Exam Narrative: EXAM NARRATIVE: General exam no distress Neck is supple no lymphadenopathy or thyromegaly Cardiovascular regular rate and rhythm, no murmur. Port without evidence of infection Lungs clear without wheezing or crackles. Abdomen is soft with positive bowel sounds. No obvious organomegaly. Extremities no cyanosis clubbing or edema, cap refill brisk. Urinary Catheter Management^: Marlow: Cath Placed During This Visit: yes, but has since been removed by the nurse Reason for Continuing Indwelling Catheter: Accurate Measurement of Urinary Output in Critically Ill Patients Urinary Catheter Date of Insertion: 01/04/21 Urinary Catheter Time of Insertion: 12:24 Date Urinary Catheter Removed: 01/04/21 Time Urinary Catheter Discontinued: 12:15 Data : 01/07/21 05:10 01/07/21 05:10 Micro: Microbiology 01/03/21 16:50 Urine Culture - Final Urine Catheterized Klebsiella pneumoniae Escherichia coli 01/05/21 03:50 Blood Culture - Preliminary Blood NEGATIVE TO DATE 01/05/21 03:45 Blood Culture - Preliminary Blood NEGATIVE TO DATE A&P Assessment and plan (1) Acute kidney injury: With hydration creatinine has continued to improve and urine output has picked up. Creatinine likely at baseline currently. CK was checked and not significantly elevated Currently with Marlow CT renal protocol demonstrates left ureteral stone with obstruction. Urology consulted. She is postoperative day #3 status post stent placement Status: Acute (2) Pneumonia: IV antibiotics consisting of Primaxin. Allergic to cephalosporins. MRSA PCR negative Status: Acute (3) Dehydration: Resolved. Status: Acute (4) Diarrhea: Stool Hemoccult negative. Enteric pathogens, parasitic antigen, C. di fficile all negative. Loperamide as needed. Status: Acute (5) Invasive ductal carcinoma of breast, female: Followed by oncology Status: Acute Additional A&P Information UTI with bacteremia, and evidence for sepsis with elevated lactate, decreased blood pressure. Off norepinephrine currently. Continue Primaxin currently and awaiting cultures. Blood culture positive on admission with gram-negative rods, with repeat culture being negative to date. This was Klebsiella. Urine culture Klebsiella and E. coli. Levofloxacin can be used on discharge. History of neurogenic bladder. She normally self caths. Continue Marlow c urrently. Arrhythmia. A few pauses have been noted on telemetry initially, with no significant arrhythmias currently.. No current evidence for electrolyte abnormality. TSH normal on admission. Recent echocardiogram demonstrated preserved ejection fraction, 1/4 diastolic dysfunction Anemia. Stool Hemoccult negative. Transfused 1 unit packed red blood cells January 04. Continue Protonix. No evidence of active bleeding. Hemoglobin currently stable Hyponatremia, resolving Hypomagnesemia, resolved History of breast cancer undergoing chemotherapy Multiple other medical problems as outlined in past medical history Heparin for DVT prophylaxis Discontinue fluids. Oral hydration. If remains stable consider discharge tomorrow on oral levofloxacin. This will need to be continued at a minimum until follow-up with urology as an outpatient secondary to stent and stone. Attestations Medical Necessity Statement*: Hospitalization for IV antibiotics secondary to bacteremia from UTI and obstructive uropathy. Coding Level of Care Code Acute T[employer] Builder for [facility] Diagnoses Acute kidney injury N17.9 Pneumonia J18.9 Dehydration E86.0 Diarrhea R19.7 Invasive ductal carcinoma of breast, female C50.919
[2021-01-07] MEDS: levothyroxine 125 mcg Tablet PO (09:51)
[2021-01-07] MEDS: pantoprazole DR 40 mg Tablet PO ×2 (09:51→17:38)
[2021-01-07] MEDS: heparin 5,000 unit/mL INJ 1 mL 5000 UNIT SUBCUT ×2 (12:03→23:40)
--- NOTE | 2021-01-07 13:30 | PC.NURSE ---
Assisted patient up to patients power chair standby assist provided, patient reports immediate relief in back pain.
--- NOTE | 2021-01-07 13:39 | PC.CHAP ---
Pastoral Care Encounter/Spiritual Assessment Type of Contact [] Declined mechanic senior visit [] Patient/Family/Request visit [] Outpatient visit [xx] Follow-up visit [] Physician referral [] Code/Alert [xx] Routine visit [] Staff referral [] Actively dying [] Patient sleeping [] Family support [] [] Out of room [] Palliative care [] [] Receiving care in room [] Pre-surgical visit [] Trauma [xx] Long length of stay [] ICU visit [] Other: Relational/Emotional Strength [] Patient feels connected with others/family/visitors/staff [] Distress [] Loneliness/isolation [] Abandonment Spirituality of Patient [] Person of Ann [] Attends Protestant of their Ann [xx] Believes in Prayer [] Reads Bible or Confucianism materials [] There are Spiritual issues to be addressed Manager Post Interventions [xx] Prayer [] Active listening [] Non-anxious presence [] Spiritual/emotional support [] Crisis/trauma care [] Spiritual counseling [] Bereavement support [] Provided bereavement packet [] Provided Bible/devotional materials [] Provided toy/stuffed animal, coloring book to patient or family member [] Provided Communion [] Anointing/[place] [] Salvation [xx] Completed spiritual assessment [] Other: Impact on Illness or Injury [] Angry [] Fearful [] Anxious [] Often cries [] Exhaustion [] Unable to work [] Unable to attend zoroastrianism [] Unable to walk/stand [] Unable to read [] Unable to drive [] Unable to eat/drink [] Unable to sleep [] Unable to be with family [] Patient intubated [] Other: Summary Patient was too drowsy to communicate so mechanic senior prayed without visiting. Time spent with patient 3 minutes
--- NOTE | 2021-01-07 15:28 | PC.NURSE ---
This RN confirms that the care and documentation was received by the student nurse.
--- NOTE | 2021-01-07 17:23 | PM.PN ---
Subjective Subjective: Interval history: Continues to improve. No fever. Regaining strength. No new complaints. Tolerating the stent well. Leaving catheter in now due to her chronic neurogenic bladder with self-catheterization requirement. Vitals/I&O/Wt Last Vital Signs Temp 97.9 F 01/07/21 15:28 Pulse 73 01/07/21 15:28 Resp 16 01/07/21 15:28 BP 96/60 01/07/21 15:28 Pulse Ox 98 01/07/21 15:28 01/07/21 01/07/21 01/07/21 06:59 14:59 22:59 Intake Total 1100 / 3374.000 1471 / 1471 Output Total 1000 / 1700 Balance 100 / 4256.177 1478 / 1471 Physical Exam Narrative: EXAM NARRATIVE: Hard of hearing Const: COMMON NORMALS: no acute distress and alert GENERAL APPEARANCE: cooperative and well kempt; not anxious NUTRITIONAL APPEARANCE: obese ORIENTATION/CONSCIOUSNESS: Yes awake HENMT: COMMON NORMALS: normocephalic and atraumatic HEAD & SCALP: normocephalic and atraumatic Resp: COMMON NORMALS: normal respiratory effort EFFORT & INSPECTION: No respiratory distress : OTHER: Urine is clear yellow. Neuro: SENSORIUM/ORIENTATION: Yes alert Psych: COMMON NORMALS: mental status grossly normal APPEARANCE: Yes grossly normal and Yes well kempt ATTITUDE: Yes calm and Yes engaged Urinary Catheter Management^: Marlow: Cath Placed During This Visit: yes, but has since been removed by the nurse Reason for Continuing Indwelling Catheter: Accurate Measurement of Urinary Output in Critically Ill Patients Urinary Catheter Date of Insertion: 01/04/21 Urinary Catheter Time of Insertion: 12:24 Date Urinary Catheter Removed: 01/04/21 Time Urinary Catheter Discontinued: 12:15 Data : 01/07/21 05:10 01/07/21 05:10 Micro: Microbiology 01/03/21 16:50 Urine Culture - Final Urine Catheterized Klebsiella pneumoniae Escherichia coli A&P Assessment and plan (1) Left ureteral calculus: 9 mm left proximal ureteral stone status post stenting. We will plan on treating the stone sometime in the next week to 2 after clearance of the infection Status: Acute (2) Obstructive pyelonephritis: Improving clinically. No evidence of progressive infectious concerns. Status: Acute Attestations Medical Necessity Statement*: See attending Coding Level of Care Code Acute Supervisor Process Testing for Anjelica [facility] Diagnoses Left ureteral calculus N20.1 Obstructive pyelonephritis N11.1
[2021-01-08] VITALS (7 sets, daily range): BP systolic 89–98; BP diastolic 50–63; PULSE 60–82; RESP 16–18; TEMP 36.1–37.4; O2SAT 98–100
[2021-01-08 06:12] LABS: Basophils % 0.3 %; Eosinophils # 0.1 10^3/uL (0.0-0.8); Eosinophils % 0.7 %; Hematocrit 24.8 % (37.0-47.0); Hemoglobin 7.8 g/dL (11.5-15.3); Lymphocytes # 1.6 10^3/uL (0.8-4.8); Lymphocytes % 13.3 %; Mean Corpuscular HGB Conc 31.5 g/dL (30.0-36.0); Mean Corpuscular Hemoglobin 29.3 pg (28.0-34.0); Mean Corpuscular Volume 93.2 fl (81-99); Mean Platelet Volume 11.1 fL (7.4-10.4); Monocytes # 1.2 10^3/uL (0.2-0.9); Neutrophils # 8.03 10^3/uL (1.8-7.7); Nucleated Red Blood Cells % 0 %; Platelet Count 300 10^3/cmm (130-400); Red Blood Count 2.66 10^6/uL (4.1-5.3); Red Cell Distribution Width 17.7 % (12.1-15.1); White Blood Count 12.2 10^3/uL (4.0-10.0)
[2021-01-08 06:43] LABS: Anion Gap 11.8 (5-19); Blood Urea Nitrogen 16 mg/dL (8-23); Calcium 8.5 mg/dL (8.5-10.5); Carbon Dioxide 20 mmol/L (22-29); Chloride 110 mmol/L (98-107); Glucose 79 mg/dL (65-115); Osmolality Calculated 286 mOsm/kg (285-295); Potassium 3.8 mmol/L (3.5-5.1); Sodium 138 mmol/L (136-145)
[2021-01-08 07:26] LABS: Slide Review Slide Review Perform
[2021-01-08 07:27] LABS: Neutrophils % 75.7 %
[2021-01-08] MEDS: levothyroxine 125 mcg Tablet PO (09:07)
[2021-01-08] MEDS: oxyCODONE 5 mg IR Tab/Cap 10 MG PO (09:07)
[2021-01-08] MEDS: pantoprazole DR 40 mg Tablet PO (09:07)
--- NOTE | 2021-01-08 10:03 | PM.PN ---
Subjective Subjective: Interval history: UROLOGY follow-up Continues to improve Comfortable with leaving the catheter in until definitive treatment of the large left proximal ureteral stone. I reviewed with her a follow-up visit with me next week with making plans at that time for surgical intervention of the stone if she continues to improve. Vitals/I&O/Wt Last Vital Signs Temp 98.2 F 01/08/21 07:08 Pulse 70 01/08/21 07:08 Resp 18 01/08/21 09:07 BP 92/59 01/08/21 07:08 Pulse Ox 99 01/08/21 09:07 01/07/21 01/08/21 01/08/21 22:59 06:59 14:59 Intake Total 250 / 1721 200 / 1921 240 / 240 Output Total 1700 / 1700 Balance 250 / 1721 -1500 / 221 240 / 240 Physical Exam Const: COMMON NORMALS: no acute distress, alert and well nourished GENERAL APPEARANCE: well kempt and well developed ORIENTATION/CONSCIOUSNESS: not confused HENMT: COMMON NORMALS: normocephalic and atraumatic HEAD & SCALP: normocephalic and atraumatic Eye: COMMON NORMALS: conjunctivae normal CONJUNCTIVA: Yes conjunctivae normal Neck/C-Spine: COMMON NORMALS: full ROM Resp: COMMON NORMALS: normal respiratory effort EFFORT & INSPECTION: No labored and No Actively coughing Neuro: SENSORIUM/ORIENTATION: Yes alert Psych: COMMON NORMALS: mental status grossly normal APPEARANCE: Yes grossly normal and Yes well kempt ATTITUDE: Yes calm and Yes engaged Urinary Catheter Management^: Marlow: Cath Placed During This Visit: yes, but has since been removed by the nurse Reason for Continuing Indwelling Catheter: Other Urinary Catheter Date of Insertion: 01/04/21 Urinary Catheter Time of Insertion: 12:24 Date Urinary Catheter Removed: 01/04/21 Time Urinary Catheter Discontinued: 12:15 Data : 01/08/21 05:30 01/08/21 05:30 A&P Assessment and plan (1) Left ureteral calculus: Status post emergency stenting. Complicated by infection. Continues to improve. We will plan on follow-up visit in my office next week and then pick a date for surgical intervention. Status: Acute (2) Obstructive pyelonephritis: Status: Acute (3) Neurogenic bladder: Continue Marlow at discharge Status: Acute Attestations Medical Necessity Statement*: See attending Coding Level of Care Code Acute Supervisor [employer] for Chg Fwd Exam Detailed Diagnoses Left ureteral calculus N20.1 Obstructive pyelonephritis N11.1 Neurogenic bladder N31.9
--- NOTE | 2021-01-08 10:36 | P.DS_ITS ---
Discharge Providers Date of Admission: 01/03/21 11:08 Date of Discharge: January 08, 2021 Attending Provider at Admission: Josué Fernando MD Attending Provider at Discharge: Lauren Gregorio MD Primary Care Provider: Rossy Wilson DO Diagnoses at Discharge Discharge Diagnosis (1) Left ureteral calculus: Status: Acute (2) Obstructive pyelonephritis: Status: Acute (3) Neurogenic bladder: Status: Acute Reason for Visit Reason for Visit: Renal Failure Hospital Course Hospital Course 76-year-old female with history of grade 2 invasive ductal carcinoma left breast follows up with Dr. Alston currently undergoing chemotherapy presented with chief complaint of diarrhea, nausea and fever of 102.4. In the ER she was diagnosed with CRESCENCIO, sepsis, UTI CT scan showed 9 mm obstructing left proximal ureteral stone. Status post stent placement for left proximal ureteral stone 01/04. Blood culture positive for gram-negative rods, Klebsiella pneumonia, urine culture +01/03 with Klebsiella and E. coli, repeat blood culture 01/05 sterile, she was treated with Primaxin in the hospital, will be discharged home with 14- day regimen of Levaquin. Outpatient follow-up with Dr. Barron, she will be discharged with indwelling Marlow catheter. Please note stool Hemoccult negative she was given 1 unit PRBC January 04. TSH normal, 1/ diastolic dysfunction she did show pauses on telemetry noted by Dr. Fernando no evidence of electrolyte abnormality at that time. Physical Exam Narrative: EXAM NARRATIVE: Patient was laying comfortably in her bed Saturating well on room air S1, S2 No audible stridor or wheezing Distended abdomen visceral obesity Lower extremity trace edema Very pleasant and cooperative during my evaluation Marlow catheter in place draining clear urine however urine bag has some blood clots and blood-tinged urine Urinary Catheter Management^: Marlow: Cath Placed During This Visit: yes, but has since been removed by the nurse Reason for Continuing Indwelling Catheter: Other Urinary Catheter Date of Insertion: 01/04/21 Urinary Catheter Time of Insertion: 12:24 Date Urinary Catheter Removed: 01/04/21 Time Urinary Catheter Discontinued: 12:15 Discharge Data Data Completed and Pending: Completed Studies During Hospitalization Category Date Time Status CT kidney stone 7 4176 Routine Cat Scan 01/03/21 18:00 Completed XR chest 1V negar ble 11152 Routine Exams 01/03/21 11:28 Completed Pending at discharge Category Date Time Status Blood Culture AM LABS Lab 01/05/21 03:50 Results Sputum Culture an d Gram Stain Gerardi ne Lab 01/03/21 15:18 Uncollected Labs from last 24 hours 01/08/21 01/08/21 05:30 05:30 WBC 12.2 H RBC 2.66 L Hgb 7.8 L Hct 24.8 L MCV 93.2 MCH 29.3 MCHC 31.5 RDW 17.7 H Plt Count 300 MPV 11.1 H Neut % (Auto) 75.7 Lymph % (Auto) 13.3 Archuleta % (Auto) 10.0 Eos % (Auto) 0.7 Baso % (Auto) 0.3 Neut # (Auto) 8.03 H Lymph # (Auto) 1.6 Archuleta # (Auto) 1.2 H Eos # (Auto) 0.1 Baso # (Auto) 0.0 Nucleated RBC % (a uto) 0 Nucleated RBCs # 0.0 Sodium 138 Potassium 3.8 Chloride 110 H Carbon Dioxide 20 L Anion Gap 11.8 BUN 16 Creatinine 1.3 H GFR Calculation Not Reportable Glucose 79 Calculated Osmolal ity 286 Calcium 8.5 Vitals: Last Vital Signs Temp 98.2 F 01/08/21 07:08 Pulse 70 01/08/21 07:08 Resp 18 01/08/21 09:07 BP 92/59 01/08/21 07:08 Pulse Ox 99 01/08/21 09:07 Discharge Plan Discharge Patient Disposition: Home Condition: Stable Prescriptions: New levofloxacin 750 mg tablet 750 mg PO DAILY 14 Days Qty: 14 RF: 0 Continued levothyroxine 125 mcg capsule 125 mcg PO DAILY RF: 0 polyethylene glycol 3350 [Miralax] 17 gram powder in packet 17 gm PO DAILY RF: 0 oxycodone 10 mg tablet 10 mg PO QID PRN (Reason: Pain) RF: 0 simvastatin 40 mg tablet 40 mg PO DAILY RF: 0 triamcinolone acetonide 0.1 % cream 1 applic TOPICAL BID RF: 0 cyanocobalamin (vitamin B-12) [Vitamin B-12] 100 mcg tablet 100 mcg PO DAILY RF: 0 clotrimazole [Antifungal (clotrimazole)] 1 % cream 1 applic TOPICAL BID RF: 0 furosemide 40 mg tablet 20 mg PO DAILY RF: 0 prochlorperazine maleate 10 mg tablet 10 mg PO BID PRN (Reason: Nausea) RF: 0 (DME) External Heel Lift to Left See Rx Instructions .Route .MEDSUPPLY Qty: 1 RF: 0 potassium chloride 20 mEq Tablet Extended Release 20 meq PO DAILY RF: 0 Held losartan 50 mg tablet 50 mg PO DAILY RF: 0 Hold Instructions: Resume on 01/17/21. Discharge Orders: Discharge Order (Routine); Ordered 01/08/21 Ordered By: Gómez Barron Other Ambulatory Orders: Basic Metabolic Panel (Routine) Timeframe: 3 Days Facility: [facility] - Location: Lab - Main Lab Ordered By: Lauren Gregorio Complete Blood Count w/Auto (Routine) Timeframe: 3 Days Location: Determined by Patient Ordered By: Lauren Gregorio Referrals: Gómez Barron MD [Physician] - 01/11/21 (Postop check. Surgical planning.) Discharge Diet: Cardiac Discharge Activity: Increase activity as tolerated Patient Instructions: Opioid Safety Activity Restrictions/Additional Instructions: Urology instructions: 1. The stent was placed while you were hospitalized in order to help facilitate treatment of the infection that was complicating the large stone in the ureter. 2. That stone still needs to be treated and we will plan for that soon with laser lithotripsy. 3. I will see back in my office early next week to schedule that planning assuming you are still doing well clinically from an infectious perspective. 14-day course of Levaquin please do not take losartan because your kidney function is 1.3 creatinine, another BMP in next week Discharge Attestations Time Spent in Discharge Care*: less than 30 min Quality Metrics Clinical Quality Measures During this hospital stay, did patient experience: None Coding Level of Care Code Acute Chg DC note Diagnoses Left ureteral calculus N20.1 Obstructive pyelonephritis N11.1 Neurogenic bladder N31.9
[2021-01-08] MEDS: heparin 5,000 unit/mL INJ 1 mL 5000 UNIT SUBCUT (11:25)
--- NOTE | 2021-01-08 12:10 | PC.SOCIAL ---
IMM Update pg 2 of IMM updated w/ patient and copy provided.
--- NOTE | 2021-01-10 14:55 | PC.SOCIAL ---
Micro called regarding 2 of 2 blood culture positive for Klebsiella Pneumonaie and 1 of 2 coagulase negative staph thought to be a contaminate. Sent message to Dr Gregorio who was discharging physician and copied Dr Adrianne Fernando who is working and the medical unit secretary. Dr Fernando also saw patient and indicate these initially showed negative after 5 days and suggest as long as patient is feeling better to repeat blood cultures. Notified Patient and she is willing to come to hospital to have this done if they can draw from her car. Called lab and was told they will probably be able to accomodate this. Called registration and patient can call when she arrives and they will notify lab. Updated Dr Fernando that verbal order was placed and once it is signed this nurse will take to registration and have note attached that patient will call them upon arrival to notify lab she is here. Updated Dr Gregorio and will follow up on result. Patient did indicate she is feeling 50-60% although still weak. She has been afebrile. Updated patient on plan and she is agreeable.
--- NOTE | 2021-01-11 13:47 | PC.SOCIAL ---
discharge follow up call made, spoke with patient. patient picked up levaquin from the pharmacy she is taking daily as directed. patients follow up appointment made with Dr. Barron, patient is to have lab work draw at [facility] prior to appointment at 0700, then see Dr. Barron at 0730. patient is coming to [facility] today for 3 day post discharge lab work. patient has discontinued taking Losartan until follow up with Dr. Barron and they will discuss in office.
== END 2021-01-08 12:45 | disposition home or self-care (01) | DRG 853 ==
LOC: MEDSURG 01-04 08:29 → ICU 01-04 12:26 → MEDSURG 01-06 16:27
PROVIDERS: Urology; Admitting Provider Internal Medicine; PCP Internal Medicine; Visit Provider Internal Medicine
PROC: 0TJB8ZZ Inspection of Bladder, Via Natural or Artificial Opening Endoscopic (ICD-10-PCS; CPT 52000; principal; 2021-01-04 12:00)
PROC: 0T778DZ Dilation of Left Ureter with Intraluminal Device, Via Natural or Artificial Opening Endoscopic (ICD-10-PCS; CPT 50605; 2021-01-04 12:00)
PROC: 0TJ98ZZ Inspection of Ureter, Via Natural or Artificial Opening Endoscopic (ICD-10-PCS; CPT 52351; 2021-01-04 12:00)
DX: A41.9 Sepsis, unspecified organism (principal); J18.9 Pneumonia, unspecified organism; N39.0 Urinary tract infection, site not specified; N17.9 Acute kidney failure, unspecified; E87.1 Hypo-osmolality and hyponatremia; N20.1 Calculus of ureter; N10 Acute pyelonephritis; C50.912 Malignant neoplasm of unspecified site of left female breast; Z79.899 Other long term (current) drug therapy; E11.9 Type 2 diabetes mellitus without complications; E78.5 Hyperlipidemia, unspecified; I10 Essential (primary) hypertension; E03.9 Hypothyroidism, unspecified; N31.9 Neuromuscular dysfunction of bladder, unspecified; M81.0 Age-related osteoporosis without current pathological fracture; E86.0 Dehydration; R19.7 Diarrhea, unspecified; Z88.1 Allergy status to other antibiotic agents; E83.42 Hypomagnesemia; Z79.891 Long term (current) use of opiate analgesic; B96.20 Unspecified Escherichia coli [E. coli] as the cause of diseases classified elsewhere; B96.1 Klebsiella pneumoniae [K. pneumoniae] as the cause of diseases classified elsewhere; D64.9 Anemia, unspecified
CPT/HCPCS: 36430; 36591; 51702; 71045; 74176; 76000; 80048; 80053; 81001; 82274; 82550; 83605; 83735; 84443; 85007; 85014; 85018; 85025; 86850; 86900; 86920; 87040; 87077; 87086; 87186; 87205; 87493; 87506; 87641; 96360; 96372; 99215; C2625; J0743; J1644; J2370; J2704; J3010; J3475; J7030; J7040; P9040

== ENCOUNTER 2021-01-11 14:41 | Outpatient (CLI) | payer MEDICARE, OTHER, SELFPAY ==
[2021-01-11 15:09] LABS: Basophils % 0.3 %; Eosinophils # 0.1 10^3/uL (0.0-0.8); Eosinophils % 0.6 %; Hematocrit 29.9 % (37.0-47.0); Hemoglobin 9.2 g/dL (11.5-15.3); Lymphocytes # 1.4 10^3/uL (0.8-4.8); Lymphocytes % 11.5 %; Mean Corpuscular HGB Conc 30.8 g/dL (30.0-36.0); Mean Corpuscular Hemoglobin 28.9 pg (28.0-34.0); Mean Platelet Volume 9.8 fL (7.4-10.4); Monocytes # 0.9 10^3/uL (0.2-0.9); Monocytes % 7.1 %; Neutrophils # 9.53 10^3/uL (1.8-7.7); Neutrophils % 76.4 %; Nucleated Red Blood Cells % 0 %; Platelet Count 433 10^3/cmm (130-400); Red Blood Count 3.18 10^6/uL (4.1-5.3); Red Cell Distribution Width 17.4 % (12.1-15.1); White Blood Count 12.5 10^3/uL (4.0-10.0)
[2021-01-11 15:40] LABS: Anion Gap 14.5 (5-19); Blood Urea Nitrogen 10 mg/dL (8-23); Carbon Dioxide 23 mmol/L (22-29); Chloride 103 mmol/L (98-107); Glucose 108 mg/dL (65-115); Osmolality Calculated 284 mOsm/kg (285-295); Potassium 3.5 mmol/L (3.5-5.1); Sodium 137 mmol/L (136-145)
--- NOTE | 2021-01-17 08:26 | PC.SOCIAL ---
Notified patient and Dr Fernando that the blood cultures were negative and final at this time. Patient was happy to heart that per her report. She knows to update PCP and Dr Alston. She has an appt with Dr Barron tomorrow who can access records and Dr Alston has access. Dr Wilson should electronically receive reports as well.
== END 2021-01-11 14:42 | disposition home or self-care (01) ==
PROVIDERS: PCP Internal Medicine; Referring Provider Internal Medicine; Visit Provider Internal Medicine
DX: N17.9 Acute kidney failure, unspecified (principal); B96.1 Klebsiella pneumoniae [K. pneumoniae] as the cause of diseases classified elsewhere; R31.9 Hematuria, unspecified
CPT/HCPCS: 80048; 85025; 87040

== ENCOUNTER 2021-01-18 06:33 | Outpatient (RCR) | payer MEDICARE, OTHER, SELFPAY ==
[2021-01-18 11:05] LABS: Basophils # 0.1 10^3/uL (0.0-0.1); Basophils % 0.9 %; Eosinophils # 0.1 10^3/uL (0.0-0.8); Eosinophils % 1.1 %; Hematocrit 28.9 % (37.0-47.0); Hemoglobin 8.9 g/dL (11.5-15.3); Lymphocytes # 1.2 10^3/uL (0.8-4.8); Lymphocytes % 11.9 %; Mean Corpuscular HGB Conc 30.8 g/dL (30.0-36.0); Mean Corpuscular Hemoglobin 29.8 pg (28.0-34.0); Mean Corpuscular Volume 96.7 fl (81-99); Mean Platelet Volume 9.5 fL (7.4-10.4); Monocytes # 1.1 10^3/uL (0.2-0.9); Monocytes % 10.6 %; Neutrophils # 7.81 10^3/uL (1.8-7.7); Neutrophils % 75.1 %; Nucleated Red Blood Cells % 0 %; Platelet Count 419 10^3/cmm (130-400); Red Blood Count 2.99 10^6/uL (4.1-5.3); Red Cell Distribution Width 17.4 % (12.1-15.1); White Blood Count 10.4 10^3/uL (4.0-10.0)
[2021-01-18 11:27] LABS: Alanine Aminotransferase < 5 U/L (0-33); Albumin Level 3.3 g/dL (3.5-5.2); Alkaline Phosphatase 98 IU/L (35-105); Anion Gap 15.3 (5-19); Aspartate Amino Transferase 13 U/L (0-32); Blood Urea Nitrogen 16 mg/dL (8-23); Calcium 9.4 mg/dL (8.5-10.5); Carbon Dioxide 26 mmol/L (22-29); Chloride 93 mmol/L (98-107); Globulin 3.5 g/dL (1.3-4.6); Glucose 96 mg/dL (65-115); Osmolality Calculated 273 mOsm/kg (285-295); Potassium 3.3 mmol/L (3.5-5.1); Sodium 131 mmol/L (136-145); Total Bilirubin 0.5 mg/dL (0.15-1.2); Total Protein 6.8 g/dL (6.6-8.7)
[2021-01-18] MEDS: sodium chloride 0.9% 1,000 ML 999 ML IV (13:10)
--- NOTE | 2021-01-18 20:05 | ONC FU_ITS ---
Dr. Alston Patient Follow-Up Note Patient: Lucie Joyner Unit #: [id number]: 1945 Dicatated By: Francois Alston M.D.Date of Visit:Jan 18, 2021 Onc Med Follow-up/Prog Note Chief Complaint: Breast cancer. 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 She had presented with a palpable mass in the subareolar area of the left breast, which she first noticed a week before . Bilateral diagnostic mammogram on 08/06/2020 showed a focal asymmetric density deep to the palpable marker measuring 8 mm. It was new from a prior study in 2019. Ultrasound showed a mixed echogenicity ill-defined lesion adjacent to the nipple. It appeared to emerge with the areola. The findings were BI-RADS 4, suspicious, and subsequent ultrasound directed biopsy on 08/18/2020 showed grade 2 invasive ductal carcinoma. The breast prognostic profile showed ER positive at 99% and CT positive at 100%. It was positive for overexpression of HER-2/alhaji, 3+ by IHC and amplification ratio by FISH of 5.3 with 12.4 HER-2 copies/cell. The Ki-67 was high at 35%. I had seen her initially on 08/26/2020. She had had further evaluation with left axillary ultrasound. That study did show several lymph nodes within the left axilla, but they appeared benign, as there was noted to be maintenance of normal fatty юлия. By clinical staging she appeared to have T1, N0 disease, and she did not meet criteria for neoadjuvant chemotherapy. As such, she was recommended to proceed with surgery. On 09/16/2020 she underwent left breast lumpectomy and left axillary sentinel lymph node biopsy. Pathology on the lumpectomy showed grade 2 invasive ductal carcinoma measuring 1.2 cm in greatest dimension. There was no DCIS identified. The closest margin was the inferior margin measuring 4 mm. There were no lymph nodes identified in the axillary specimen. As such her disease was pathologic stage pT1c, Nx. but stage IA for clinical T1, N0 or IB for T1, N1 involvement. In the setting of HER-2/alhaji positive disease, I had recommended adjuvant chemotherapy with weekly Abraxane/Herceptin for 12 weeks, as she had additional history of longstanding neuropathy of the left leg, and I preferred to avoid use of Taxol. Her other medical illnesses include hypertension, hyperlipidemia, borderline diabetes, hypothyroidism, degenerative arthritis, and osteoporosis. Her other prior surgeries include gastric bypass for obesity in 2000, cholecystectomy in 1970, and hysterectomy/bilateral salpingo-oophorectomy in 1988. She has also had bilateral shoulder replacement and redo arthroplasty of the left shoulder, lumbar laminectomy in 2014, and thoracic laminectomy in 2015. She is a non-smoker. INTERIM HISTORY: She began week 1 of weekly Abraxane/Herceptin on 10/28/2020. She developed bone generalized aching following that treatment. Her further chemotherapy was then delayed due to neutropenia. The following week her Abraxane had to be delayed due to neutropenia, but she did receive Herceptin. She was then given week 2 Abraxane/Herceptin on 11/15/2020. The Abraxane was administered at a reduced dosage. She tolerated it much better. She then continued with week 3 Abraxane on 11/22/2020 and with week 4 on 11/29/2020. At that point she had developed moderately severe neutropenia, and she was given Neupogen prophylactically for 2 days. At her follow-up visit on 12/06/2020 her blood counts were adequate. However, she had developed a slight cough and she was significantly more fatigued. She also had some generalized aching and low-grade fever. I opted to put her treatment on hold. As a precaution, I also had her tested for COVID-19, and that came back positive. She was given the monoclonal antibody infusion. The following day her temperature spike to 102 degrees, but after that she felt much better. She was able to continue with week 5 Abraxane/Herceptin on 12/21/2020 and with week 6 on 12/27/2020. On 01/03/2021 she was admitted to the hospital with gram-negative sepsis. She was not neutropenic. This was determined to be due to left ureteral calculus. She underwent cystoscopy with left ureteral stent placement on 01/04/2021. She was discharged home on 01/08/2021, and she is scheduled to have surgery to remove the stone next week. At this point she is still feeling pretty weak, though not totally bad. Her activity remains limited. ECOG score is 3. She says she has hardly any appetite. She does not have fever or night sweats. Her mouth has been dry and sore. Her breathing has been okay. She does not complain of cough and she has not been having chest pain. She has had some nausea. She occasionally has acid reflux. She has ongoing problems with constipation. She was discharged from the hospital with a Marlow catheter, that was removed this morning. She complains that she aches and hurts all over. She does not complain of headache. She occasionally has dizziness. The neuropathy in her left leg is the same. She also reports having some numbness in her fingers. Medications: Acyclovir 1 Capsule (of 400 mg) Oral b.i.d., B-12 1 (1000 mcg) Tablet Oral daily, Benadryl Allergy 1 (25 mg) Tablet Oral t.i.d., Claritin 1 (10 mg) Tablet Oral daily, Esomeprazole Magnesium (20 mg) Tablet, enteric coated Oral daily, Ferrous Sulfate (325 (65 fe) mg) Tablet Oral daily, K-Tab 1 (20 meq) Tablet, controlled release Oral b.i.d., Lasix 1 (40 mg) Tablet Oral b.i.d., levoFLOXacin 1 (750 mg) Tablet Oral, Levothyroxine Sodium 1 (125 mcg) Tablet Oral every am, Losartan Potassium 1 (50 mg) Tablet Oral daily, Melatonin 1 (10 mg/mL) Liquid Oral at bedtime, oxyCODONE HCl (15 mg) Tablet Oral four times a day PRN, Prochlorperazine Maleate 1 Tablet (of 10 mg) Oral q 4 hours PRN, Simvastatin 1 (40 mg) Tablet Oral daily Allergies: TRENT Inhibitors, Cephalexin, Gabapentin, Pregabalin, Sulfa Antibiotics, and traZODone HCl. Vital Signs: Performed on Jan 18, 2021 12:39 Height - 69.00 in Temperature - 97.1 F (LOW) Pulse - 87 /min Respiration - 18 /min BP - 100/65 mm(hg) O2 Sat - 97 % Pain - 5 Fatigue - 7 Physical Examination: Constitutional - She appears generally weak, Eyes - Sclerae nonicteric. Conjunctivae clear, ENMT - There are no lesions noted in the oral cavity, Hematologic/Lymphatic - No cervical, clavicular, or axillary adenopathy, Respiratory - Lungs sound clear, Cardiovascular - Heart rhythm is regular. There is no murmur, gallop, or rub noted, Abdomen - Soft. Liver and spleen are not enlarged. There is no abdominal mass or ascites noted. There is no inguinal adenopathy noted, Extremities - No edema, Neurologic - She has chronic weakness in her left leg. Lab/Imaging: CBC shows hemoglobin 8.9 g, white blood cell count 10,400, and platelet count 419,000. Comprehensive metabolic profile shows elevated BUN and creatinine at 16 and 2.1 mg/dL. The bilirubin and liver enzymes are normal. Problem List: 1. Grade 2 invasive ductal carcinoma involving the subareolar area of the left breast, ER/CT positive and HER-2/alhaji positive. Staging is incomplete, but it appears to be a T1b primary lesion. 2. Hypertension. 3. Hyperlipidemia. 4. Borderline diabetes. 5. Hypothyroidism. 6. 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 7. Osteoporosis. 8. Left lower extremity neuropathy. 9. Obesity with previous gastric bypass. 10. 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 Problems Addressed with this Encounter and Plan: Patient with grade 2 invasive ductal carcinoma involving the subareolar area of the left breast, ER/CT positive and HER-2/alhaji positive. By clinical evaluation, she had T1, N0 disease, and she did not meet criteria for neoadjuvant chemotherapy. She then proceeded with left breast lumpectomy and left axillary sentinel lymph node biopsy on 09/16/2020. Pathology showed grade 2 invasive ductal carcinoma measuring 1.2 cm in maximum diameter. The margins were free. There were no lymph nodes identified in the axillary specimen. Her pathologic staging was pT1c, Nx. With a HER-2/alhaji positive T1c primary tumor, she was recommended to undergo adjuvant chemotherapy with weekly Abraxane/Herceptin for 12 weeks. She began her week 1 treatment on 10/28/2020. She had generalized bone aching for 2 days after that treatment. She had no other significant side effects, but at day 8 she was moderately neutropenic and her chemotherapy was delayed. She will continued with week 2 Abraxane/Herceptin on 11/15/2020 with the Abraxane dosage reduced by 20%. She tolerated that treatment much better. With her week 3 treatment she did require a change in her pain medication due to an increase in her musculoskeletal pain. She then felt somewhat better and she continued with her week 4 Abraxane/Herceptin on 11/29/2020. At that point she had developed moderately severe neutropenia, and she was given Neupogen prophylactically for 2 days. At her follow-up visit on 12/06/2020 she presented with increased fatigue in association with a slight cough, some generalized aching, and low-grade fever. Her treatment was put on hold, and she had subsequently tested positive for COVID-19 virus infection. She was given the monoclonal antibody infusion, and she the felt better gradually. She was able to continue with week 5 Abraxane/Herceptin on 12/21/2020 and with week 6 on 12/27/2020. On 01/03/2021 she was admitted to the hospital with gram-negative sepsis, reportedly due to a left ureteral calculus. She has undergone placement of the left ureteral stent, and she will be having additional surgery for stone removal next week. Given the toxicities and complications she has experienced during her chemotherapy, I am not going to attempt any further treatment with Abraxane. As her renal function has not completely recovered, she will be given some additional IV fluid today. I will tentatively plan to see her back in 2 weeks. If she has improved, she can then continue Herceptin monotherapy at a 3-week dosing schedule, and we can also then discuss adjuvant hormonal therapy. Signed By: Francois Alston M.D. <<Signature on File>>
== END 2021-01-26 12:00 | disposition home or self-care (01) ==
LOC: ONCMED 06:33
PROVIDERS: PCP Internal Medicine; Visit Provider Internal Medicine Medical Oncology
DX: C50.812 Malignant neoplasm of overlapping sites of left female breast (principal); Z17.0 Estrogen receptor positive status [ER+]; I10 Essential (primary) hypertension; E78.5 Hyperlipidemia, unspecified; R73.03 Prediabetes; E03.9 Hypothyroidism, unspecified; M47.9 Spondylosis, unspecified; M81.0 Age-related osteoporosis without current pathological fracture; G62.9 Polyneuropathy, unspecified; E66.9 Obesity, unspecified; Z86.718 Personal history of other venous thrombosis and embolism; Z79.890 Hormone replacement therapy; Z92.21 Personal history of antineoplastic chemotherapy
CPT/HCPCS: 80053; 85025; 96360; 99214; J7030

== ENCOUNTER 2021-01-18 07:30 | Outpatient (CLI) | payer MEDICARE, OTHER, SELFPAY ==
[2021-01-18 08:25] LABS: Anion Gap 16.2 (5-19); Blood Urea Nitrogen 16 mg/dL (8-23); Calcium 9.4 mg/dL (8.5-10.5); Carbon Dioxide 27 mmol/L (22-29); Chloride 93 mmol/L (98-107); Glucose 93 mg/dL (65-115); Osmolality Calculated 277 mOsm/kg (285-295); Potassium 3.2 mmol/L (3.5-5.1); Sodium 133 mmol/L (136-145)
== END 2021-01-18 07:31 | disposition home or self-care (01) ==
PROVIDERS: PCP Internal Medicine; Visit Provider Urology
DX: N20.1 Calculus of ureter (principal)
CPT/HCPCS: 36415; 80048

== ENCOUNTER 2021-01-26 12:30 | Outpatient (CLI) | payer MEDICARE, OTHER, SELFPAY ==
[2021-01-26 12:54] LABS: Hematocrit 31.2 % (37.0-47.0); Hemoglobin 9.5 g/dL (11.5-15.3); Mean Corpuscular HGB Conc 30.4 g/dL (30.0-36.0); Mean Corpuscular Hemoglobin 29.7 pg (28.0-34.0); Mean Corpuscular Volume 97.5 fl (81-99); Mean Platelet Volume 9.3 fL (7.4-10.4); Platelet Count 310 10^3/cmm (130-400); Red Cell Distribution Width 17.1 % (12.1-15.1); White Blood Count 7.6 10^3/uL (4.0-10.0)
[2021-01-26 13:00] LABS: Basophils # 0.1 10^3/uL (0.0-0.1); Basophils % 0.8 %; Eosinophils # 0.9 10^3/uL (0.0-0.8); Eosinophils % 12.2 %; Lymphocytes # 1.4 10^3/uL (0.8-4.8); Lymphocytes % 19.1 %; Monocytes # 0.8 10^3/uL (0.2-0.9); Monocytes % 11.6 %; Neutrophils # 4.06 10^3/uL (1.8-7.7); Nucleated Red Blood Cells % 0 %
[2021-01-26 13:42] LABS: Albumin Level 3.3 g/dL (3.5-5.2); Anion Gap 13.4 (5-19); Blood Urea Nitrogen 18 mg/dL (8-23); Calcium 9.4 mg/dL (8.5-10.5); Carbon Dioxide 25 mmol/L (22-29); Chloride 101 mmol/L (98-107); Glucose 108 mg/dL (65-115); Phosphorus 3.2 mg/dL (2.5-4.5); Potassium 3.4 mmol/L (3.5-5.1); Sodium 136 mmol/L (136-145)
[2021-01-26 13:43] LABS: Calcium 9.4 mg/dL (8.5-10.5)
[2021-01-26 13:48] LABS: Parathyroid Hormone 138.4 pg/mL (15-65)
[2021-01-26 13:51] LABS: Creatinine Urine, Random 21 mg/dL (28-217); Microalbumin Random Urine 8 ug/dL (0-20)
[2021-01-26 13:56] LABS: 25 Hydroxy Vitamin D 65 ng/mL (30-100)
[2021-01-26 14:02] LABS: Microalbum Creatinine Ratio Ur 381 mg/dL (0-20)
== END 2021-01-26 12:31 | disposition home or self-care (01) ==
LOC: LAB 12:34
PROVIDERS: PCP Internal Medicine; Visit Provider Registered Nurse
DX: N18.32 Chronic kidney disease, stage 3b (principal)
CPT/HCPCS: 80069; 82044; 82306; 82310; 83970; 85025

== ENCOUNTER 2021-01-27 10:28 | Day surgery (SDC) | payer MEDICARE, OTHER, SELFPAY ==
[2021-01-26 17:05] VITALS: BMI 33.7
[2021-01-27] VITALS (8 sets, daily range): BP systolic 100–139; BP diastolic 44–82; PULSE 79–85; RESP 12–18; TEMP 36.2–36.4; O2SAT 95–99; BMI 33.7
--- NOTE | 2021-01-27 | SCC_ITS ---
Procedure Done: 1. Cystoscopy removal of left ureteral stent 2. Left retrograde ureteropyelogram 3. Ureteroscopy laser lithotripsy 4. Left ureteral stent placement (6 [place] by 28 cm double-pigtail without string 41.0 seconds of fluoroscopic guidance, for a cumulative dose of 9.52 mGy, was provided to Dr. Barron by the radiology department. C-arm images of the abdomen were saved for the patient's permanent record. STACYD
--- NOTE | 2021-01-27 11:07 | XR_ITS ---
WS: [id number] XR KUB [id number] REASON FOR EXAM: Pre op FINDINGS: Left ureteral stent in proper position. Dorsal column stimulator battery pack and leads. Severe degenerative spondylosis and scoliosis in the lumbar spine. Large amount of gas and stool in the colon. XR/XR KUB [id number] IMPRESSION: No acute abnormality.
--- NOTE | 2021-01-27 12:20 | SC_ITS ---
WS: [id number] C-arm [place] for Urology REASON FOR EXAM: Preop ureteroscopy FINDINGS: Battery pack and leads for dorsal column stimulator overlie the right abdomen. Left ureteral stent which appears in proper position. SC/C-arm FL for Urology IMPRESSION: Left ureteral stent.
[2021-01-27] MEDS: sodium chloride 0.9% 1,000 ML 30 ML IV (12:21)
--- NOTE | 2021-01-27 12:21 | ANES.PREANE2 ---
Pre-Anesthetic Assessment Pre-Anesthetic Assessment: Height/Weight: Height 1.75 m Weight 103.873 kg Temp Pulse Resp BP Pulse Ox 97.2 F L 81 16 102/71 99 01/27/21 11:38 01/27/21 11:38 01/27/21 11:38 01/27/21 11:38 01/27/21 11:38 Preop Diagnosis: Left proximal ureteral stone Proposed Procedure: Operation Date: 01/27/21 12:00 Proposed Procedures p Cystoscopy 13303 [id number] N20.1(Not Applicable) - Gómez Barron MD s Retrograde Pyelogram(Left) - Gómez Barron MD s Ureteroscopy(Not Applicable) - MD nav [place] Laser Lithotripsy(Not Applicable) - Gómez Barron MD s Ureteral Stent Exchange(Not Applicable) - Gómez Barron MD Was Beta Colleen taken within 24 hours: N/A Was Clonidine taken within 24 hours: N/A Last intake: Intake Last Liquid Date 01/27/21 Last Liquid Time 09:00 Last Solid Date 01/27/21 Last Solid Time 21:00 Social: Social History: No alcohol and No tobacco Exam: Pre-Anes Outpt Exam: alert, oriented x 3 and clear to auscultation bilaterally Airway: Submandibular: WNL Cervical ROM: WNL MP: 2 History/ROS: No significant complaints Pulmonary: Pulmonary: None reported PFSH Anesthesia PFSH: Medical History Acute kidney injury Dehydration Diabetes Diarrhea Hyperlipemia Hypertension Hypothyroidism Invasive ductal carcinoma of breast, female Neurogenic bladder Osteoporosis Pneumonia Surgical History H/O bariatric surgery H/O hernia repair H/O total hysterectomy History of appendectomy History of back surgery History of repair of left hip joint History of tonsillectomy Hx of cholecystectomy Family History Mother Stroke Hypertension CAD (coronary artery disease) Social History Alcohol intake: never Marital status: Current occupational status: retired Data Anesthesia Cardiac Studies: Echocardiogram 10/25/20
--- NOTE | 2021-01-27 12:24 | ANES.PREANE2 ---
Pre-Anesthetic Assessment Pre-Anesthetic Assessment: Height/Weight: Height 1.75 m Weight 103.873 kg Temp Pulse Resp BP Pulse Ox 97.2 F L 81 16 102/71 99 01/27/21 11:38 01/27/21 11:38 01/27/21 11:38 01/27/21 11:38 01/27/21 11:38 Preop Diagnosis: Left proximal ureteral stone Proposed Procedure: Operation Date: 01/27/21 12:00 Proposed Procedures p Cystoscopy 38820 [id number] 10780 N20.1(Not Applicable) - Gómez Barron MD s Retrograde Pyelogram(Left) - MD nav [place] Ureteroscopy(Not Applicable) - MD nav [place] Laser Lithotripsy(Not Applicable) - Gómez Barron MD s Ureteral Stent Exchange(Not Applicable) - Gómez Barron MD Was Beta Colleen taken within 24 hours: N/A Was Clonidine taken within 24 hours: N/A Last intake: Intake Last Liquid Date 01/27/21 Last Liquid Time 09:00 Last Solid Date 01/27/21 Last Solid Time 21:00 Social: Social History: No alcohol and No tobacco Exam: Pre-Anes Outpt Exam: alert, oriented x 3 and clear to auscultation bilaterally Airway: Submandibular: WNL Cervical ROM: WNL MP: 1 History/ROS: No significant complaints Pulmonary: Pulmonary: None reported CV/HEM: CV/HEM: None reported : : None reported (renal calculi) Hepatic: Hepatic: None reported GI: GI: None reported Metabolic: Metabolic: None reported Musc/skel: Musc/skel: None reported Neuropsych: Neuropsych: None reported Anesthetic Plan: ASA status: 2 Anesthesia: Choice Risk of > 500 ml blood loss (7ml/kg in children): No Meds/Allergies Current Medications: Current Medications Generic Name Dose Route Start Last Admin Trade Name Freq PRN Reason Stop Dose Admin Sodium Chloride 1,000 mls @ 30 ml s/hr 01/27/21 11:15 01/27/21 12:21 Sodium Chloride 0.9% IV 01/28/21 11:14 30 mls/hr .Q24H YANICK Administration PFSH Anesthesia PFSH: Medical History Acute kidney injury Dehydration Diabetes Diarrhea Hyperlipemia Hypertension Hypothyroidism Invasive ductal carcinoma of breast, female Neurogenic bladder Osteoporosis Pneumonia Surgical History H/O bariatric surgery H/O hernia repair H/O total hysterectomy History of appendectomy History of back surgery History of repair of left hip joint History of tonsillectomy Hx of cholecystectomy Family History Mother Stroke Hypertension CAD (coronary artery disease) Social History Alcohol intake: never Marital status: Current occupational status: retired Data Anesthesia Cardiac Studies: Echocardiogram 10/25/20
[2021-01-27] MEDS: levofloxacin-dextrose 5 % 500 MG/100 ML PREMIX 100 MG IV (12:29)
[2021-01-27] MEDS: iohexol 300 mg/mL 50 mL Btl (OR ONLY) XX (12:59)
--- NOTE | 2021-01-27 14:01 | PM.OP ---
Operative Report Date of procedure: January 27, 2021 Pre-op Diagnosis: Left proximal ureteral stone Post-op Diagnosis: 2 left renal calculi (lower pole Procedure Done: 1. Cystoscopy removal of left ureteral stent 2. Left retrograde ureteropyelogram 3. Ureteroscopy laser lithotripsy 4. Left ureteral stent placement (6 [place] by 28 cm double-pigtail without string Surgeon: Beatrice Anesthesia: General Estimated blood loss: Minimal Urine output: Not measured Complications: None Findings: The previously located left proximal ureteral stone was located now in the lower pole calyx along with another stone. Both stones were fragmented with a 365 ?m thulium superpulse laser fiber into sand. Much of this was removed with passage of basket. Much of it was flushed out through the ureteral access sheath. Stent left indwelling (6 [place] by 28 cm double-pigtail no string Condition: stable Disposition: PACU Brief History: Lucie is a very pleasant 76-year-old white female who was recently evaluated for sepsis related to obstructive pyelonephritis and had emergency stenting. She has recovered well. Findings at the time of her diagnosis were a 9 mm stone in the left proximal ureter and another stone in the kidney that was nonobstructing. She has recovered well and is admitted to outpatient surgery today with plans for ureteroscopic treatment of the stones. Procedure: After routine preoperative evaluation examination and obtaining of informed consent she was taken to the operating suite on 01/27/2021 where general anesthesia was administered without difficulty after appropriate timeout was performed, SCDs confirmed to be functioning, preoperative antibiotics administered, beta-oralia protocol confirmed. Prepped and draped in the usual sterile fashion in dorsolithotomy position paying careful attention to avoiding pressure points. 21 Citizen [place] cystoscope with 30 degree lens was introduced into the urethral meatus and advanced into the bladder to videoscopy. A flexible tip guidewire was then advanced up the left ureter next to the stent. The stent was grasped with grasping forceps withdrawn through the urethral meatus and a second guidewire was passed through it. The first wire was secured to the drapes as a safety wire and the second wire was utilized as a working wire. A 38 centimeters ureteral access sheath was advanced over the working wire to just below the UPJ. Offset semirigid ureteroscope was advanced through the sheath and then the ureter was inspected and found to be nicely dilated. The sheath was backed down to the hub of the scope and the scope was passed back down to the distal ureter and the stone that had been seen previously in the ureter was no longer identified in the ureter. The scope was then advanced back to the UPJ and the sheath advanced over the scope to just below that point. No stone was identified in the portion of the renal pelvis it could be seen with the semirigid scope. A flexible ureteroscope was then passed through the sheath after the offset scope was removed. The calyceal system was inspected and found to have a lot of sediment and this was irrigated out. In the lower pole calyx there were 2 stones one of them consistent with a stone that have been seen previously in the left ureter. A 365 ?m thulium superpulse laser fiber was utilized to fragment both stones into very small pieces of sand much of this was removed with a basket much was flushed out of the collecting system through the ureteral access sheath. On final inspection there was no significant residual stone burden just some sand and some sediment. The ureter was then reinspected and no stone was seen. The ureter was in good shape. Cystoscope was then backloaded over the guidewire and a 6 [place] by 28 cm double-pigtail stent was advanced over the guidewire through the cystoscope into appropriate position as confirmed via fluoroscopy and cystoscopy. The stent was left indwelling to facilitate drainage while recovering from this procedure and to void any obstructive changes in the face of potential colonization of bacteria. She will can be continued on antibiotics. Tolerated the procedure well without complications and was awakened in the operating room and returned to the recovery room in stable condition. PLANS: 1. Anticipate discharge from outpatient surgery today 2. Follow-up in 7 to 10 days in my office with KUB first followed by cystoscopy and stent removal likely.
--- NOTE | 2021-01-27 14:05 | P.PCN_ITS ---
PACU note PACU note: VSS, Good respiratory effort, report to ADULT SECONDARY EDUCATION INSTRUCTOR Post-Anesthesia Exam: awake
--- NOTE | 2021-01-27 14:05 | PM.PACU ---
PACU note PACU note: VSS, Good respiratory effort, report to CHARTERED FINANCIAL ANALYST Post-Anesthesia Exam: awake
--- NOTE | 2021-01-27 14:23 | SUR.PHASEI ---
PT AWAKE ALERT , C/O VERBALLY OF PAIN ON ADMIT, SEE MED GIVEN BY SHAKER OUT AT BEDSIDE, PT NOW AWERT TAKING ICE CHIPS RATES RT FLANK PAIN AT 8 PT STATES ( THE PAIN WAS AN 8 BEFORE SURGERY TOO, PT OK WITH TAKING PO PAIN MEDS IN OPS.)
[2021-01-27] MEDS: HYDROcodone-acetaminophen 10-325 mg Tablet 1 TAB PO (14:52)
[2021-02-03 02:02] LABS: Stone Source URETERAL STONE
--- NOTE | 2021-02-14 12:06 | P.HPUD_ITS ---
Surgery/Procedure H&P Update DATE OF PROCEDURE: 01/27/2021 DATE H&P PERFORMED: 01/17/21 H&P UPDATE INFORMATION: I have reviewed H&P completed within last 30 days, I have examined patient prior to procedure, No changes to prior documentation and H&P is in [facility] EMR on date indicated PREOP DIAGNOSIS: Left proximal ureteral stone PLANNED PROCEDURE: Operation Date: 01/27/21 12:00 Proposed Procedures p Cystoscopy [id number] N20.1(Not Applicable) - Gómez Barron MD s Retrograde Pyelogram(Left) - MD nav Montoya Ureteroscopy(Not Applicable) - MD nav Montoya Laser Lithotripsy(Not Applicable) - MD nav Montoya Ureteral Stent Exchange(Not Applicable) - Gómez Barron MD
== END 2021-01-27 15:15 | disposition home or self-care (01) ==
PROVIDERS: PCP Internal Medicine; Visit Provider Urology
PROC: 0TJB8ZZ Inspection of Bladder, Via Natural or Artificial Opening Endoscopic (ICD-10-PCS; CPT 52000; principal; 2021-01-27 12:00)
PROC: (CPT 74420; 2021-01-27 12:00)
PROC: 0TJ98ZZ Inspection of Ureter, Via Natural or Artificial Opening Endoscopic (ICD-10-PCS; CPT 52351; 2021-01-27 12:00)
PROC: (CPT 52356; 2021-01-27 12:00)
PROC: (CPT 52356; 2021-01-27 12:00)
DX: N20.2 Calculus of kidney with calculus of ureter (principal); E11.9 Type 2 diabetes mellitus without complications; E78.5 Hyperlipidemia, unspecified; I10 Essential (primary) hypertension; E03.9 Hypothyroidism, unspecified; M81.0 Age-related osteoporosis without current pathological fracture; Z82.49 Family history of ischemic heart disease and other diseases of the circulatory system; Z82.3 Family history of stroke
CPT/HCPCS: 52356; 74018; 76000; 82365; 88300; C2625; J1956; J2405; J2704; J2710; J3010; J3490; J7030; T1015-U1

== ENCOUNTER 2021-02-01 06:34 | Outpatient (RCR) | payer MEDICARE, OTHER, SELFPAY ==
[2021-02-01 10:16] LABS: Basophils % 0.5 %; Eosinophils # 0.4 10^3/uL (0.0-0.8); Eosinophils % 4.6 %; Hematocrit 32.3 % (37.0-47.0); Hemoglobin 9.8 g/dL (11.5-15.3); Lymphocytes # 1.6 10^3/uL (0.8-4.8); Lymphocytes % 19.2 %; Mean Corpuscular HGB Conc 30.3 g/dL (30.0-36.0); Mean Corpuscular Hemoglobin 29.6 pg (28.0-34.0); Mean Corpuscular Volume 97.6 fl (81-99); Mean Platelet Volume 9.2 fL (7.4-10.4); Monocytes # 0.7 10^3/uL (0.2-0.9); Neutrophils # 5.58 10^3/uL (1.8-7.7); Neutrophils % 67.6 %; Nucleated Red Blood Cells % 0 %; Platelet Count 337 10^3/cmm (130-400); Red Blood Count 3.31 10^6/uL (4.1-5.3); Red Cell Distribution Width 16.6 % (12.1-15.1); White Blood Count 8.3 10^3/uL (4.0-10.0)
[2021-02-01 10:56] LABS: Alanine Aminotransferase < 5 U/L (0-33); Albumin Level 3.2 g/dL (3.5-5.2); Alkaline Phosphatase 94 IU/L (35-105); Anion Gap 13.9 (5-19); Aspartate Amino Transferase 14 U/L (0-32); Blood Urea Nitrogen 10 mg/dL (8-23); Calcium 9.4 mg/dL (8.5-10.5); Carbon Dioxide 24 mmol/L (22-29); Chloride 105 mmol/L (98-107); Globulin 3.3 g/dL (1.3-4.6); Glucose 92 mg/dL (65-115); Osmolality Calculated 287 mOsm/kg (285-295); Potassium 3.9 mmol/L (3.5-5.1); Sodium 139 mmol/L (136-145); Total Bilirubin 0.4 mg/dL (0.15-1.2); Total Protein 6.5 g/dL (6.6-8.7)
[2021-02-01] MEDS: acetaminophen 325 mg Tablet 650 MG PO (13:37)
[2021-02-01] MEDS: diphenhydrAMINE 25 mg Capsule PO (13:37)
[2021-02-01] MEDS: sodium chloride 0.9% 250 ML IV (14:00)
--- NOTE | 2021-02-10 00:16 | ONC FU_ITS ---
[facility] Patient Note Patient: Lucie Joyner Unit #: [id number]: 1945 Dictated By: Melvin MchughDate of Visit: Feb 01, 2021 Onc MED Follow-Up/Prog Note Chief Complaint: Breast cancer. 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 She had presented with a palpable mass in the subareolar area of the left breast, which she first noticed a week before . Bilateral diagnostic mammogram on 08/06/2020 showed a focal asymmetric density deep to the palpable marker measuring 8 mm. It was new from a prior study in 2019. Ultrasound showed a mixed echogenicity ill-defined lesion adjacent to the nipple. It appeared to emerge with the areola. The findings were BI-RADS 4, suspicious, and subsequent ultrasound directed biopsy on 08/18/2020 showed grade 2 invasive ductal carcinoma. The breast prognostic profile showed ER positive at 99% and NJ positive at 100%. It was positive for overexpression of HER-2/alhaji, 3+ by IHC and amplification ratio by FISH of 5.3 with 12.4 HER-2 copies/cell. The Ki-67 was high at 35%. Dr Alston had seen her initially on 08/26/2020. She had had further evaluation with left axillary ultrasound. That study did show several lymph nodes within the left axilla, but they appeared benign, as there was noted to be maintenance of normal fatty юлия. By clinical staging she appeared to have T1, N0 disease, and she did not meet criteria for neoadjuvant chemotherapy. As such, she was recommended to proceed with surgery. On 09/16/2020 she underwent left breast lumpectomy and left axillary sentinel lymph node biopsy. Pathology on the lumpectomy showed grade 2 invasive ductal carcinoma measuring 1.2 cm in greatest dimension. There was no DCIS identified. The closest margin was the inferior margin measuring 4 mm. There were no lymph nodes identified in the axillary specimen. As such her disease was pathologic stage pT1c, Nx. but stage IA for clinical T1, N0 or IB for T1, N1 involvement. In the setting of HER-2/alhaji positive disease, it was recommended that she pursue adjuvant chemotherapy with weekly Abraxane/Herceptin for 12 weeks, as she had additional history of longstanding neuropathy of the left leg, and Dr Alston preferred to avoid use of Taxol. Her other medical illnesses include hypertension, hyperlipidemia, borderline diabetes, hypothyroidism, degenerative arthritis, and osteoporosis. Her other prior surgeries include gastric bypass for obesity in 2000, cholecystectomy in 1970, and hysterectomy/bilateral salpingo-oophorectomy in 1988. She has also had bilateral shoulder replacement and redo arthroplasty of the left shoulder, lumbar laminectomy in 2014, and thoracic laminectomy in 2015. She is a non-smoker. INTERIM HISTORY: She began week 1 of weekly Abraxane/Herceptin on 10/28/2020. She developed bone generalized aching following that treatment. Her further chemotherapy was then delayed due to neutropenia. The following week her Abraxane had to be delayed due to neutropenia, but she did receive Herceptin. She was then given week 2 Abraxane/Herceptin on 11/15/2020. The Abraxane was administered at a reduced dosage. She tolerated it much better. She then continued with week 3 Abraxane on 11/22/2020 and with week 4 on 11/29/2020. At that point she had developed moderately severe neutropenia, and she was given Neupogen prophylactically for 2 days. At her follow-up visit on 12/06/2020 her blood counts were adequate. However, she had developed a slight cough and she was significantly more fatigued. She also had some generalized aching and low-grade fever. Dr Alston opted to put her treatment on hold. As a precaution, she was also tested for COVID-19, and that came back positive. She was given the monoclonal antibody infusion. The following day her temperature spiked to 102 degrees, but after that she felt much better. She was able to continue with week 5 Abraxane/Herceptin on 12/21/2020 and with week 6 on 12/27/2020. On 01/03/2021 she was admitted to the hospital with gram-negative sepsis. She was not neutropenic. This was determined to be due to left ureteral calculus. She underwent cystoscopy with left ureteral stent placement on 01/04/2021. She was discharged home on 01/08/2021. On January 27, 2021 she did have cystoscopy removal of the left ureteral stent, left retrograde ureteral pyelogram; ureteroscopy laser lithotripsy and left ureteral stent placement per Dr. Barron at [facility]. She did have follow-up with Dr. Alston on January 18, 2021 and continued to have limited activity. Her ECOG score at that point was 3. She had very poor appetite. She continued to have neuropathy in her left leg and some numbness in her fingers bilaterally. At that point Dr. Alston opted to forego any further chemotherapy but she was given supportive care with hydration. She is due back to see if she could possibly continue Herceptin monotherapy at a 3-week interval. Ms. Joyner is here today for follow-up. She states overall she is feeling much better. She has had some trouble with constipation off and on but controls this with MiraLAX and stool softeners and occasional Dulcolax which works well for her. She states her energy is better. She denies fever or chills. She denies any mouth sores, sore throat or difficulty swallowing. Her neuropathy is stable but she thinks it is actually improving somewhat. Is not been dramatic improvement but certainly no worse. She denies any shortness of breath or orthopnea that is new for her. She states that her shortness of breath actually has gotten some better. Her fatigue is better overall as well. She denies any lower extremity edema. She denies any new pain. She denies any bladder changes. She states since her procedure with Dr. Barron she is urinating well and has had no hematuria. She states her appetite has improved as well. Her ECOG is improved at 2 today she reports some days she is more active than others so it may vary between a 1 and 2 depending on how she feels that day. Past Medical History: Borderline diabetes COVID-19 Degenerative arthritis Degenerative disease of the spine Hyperlipidemia Hypertension Hypothyroidism Left lower extremity neuropathy Obesity Osteoporosis Past Surgical History: Arthroscopic knee surgery Bilateral cataract excisions Carpal tunnel release Tonsillectomy Left ureteral stent replacement; left retrograde ureteral pyelogram; ureteroscopy laser lithotripsy??? in 2020 Covid vaccine #2 in 2020 Covid vaccine #1 in 2020 Redo left shoulder joint arthroplasty in 2019 ORIF for intertrochanteric left hip fracture in 2018 Thoracic laminectomy with placement of spinal cord stimulator in 2015 L4-L5 laminectomy for lumbar spinal stenosis in 2014 Decompressive laminectomy at L3-4 and L4-5 for severe stenosis in 2012 Left shoulder replacement in 2011 Right shoulder replacement in 2010 Incisional hernia repair in 2001 Gastric bypass procedure in 2000 Hysterectomy/bilateral salpingo-oophorectomy in 1988 Cholecystectomy in 1970 Allergies: TRENT Inhibitors, Cephalexin, Gabapentin, Pregabalin, Sulfa Antibiotics, and traZODone HCl. Medications: Acyclovir 1 Capsule (of 400 mg) Oral b.i.d. B-12 1 (1000 mcg) Tablet Oral daily Benadryl Allergy 1 (25 mg) Tablet Oral t.i.d. Claritin 1 (10 mg) Tablet Oral daily Esomeprazole Magnesium (20 mg) Tablet, enteric coated Oral daily Ferrous Sulfate (325 (65 fe) mg) Tablet Oral daily K-Tab 1 (20 meq) Tablet, controlled release Oral b.i.d. Lasix 1 (40 mg) Tablet Oral b.i.d. levoFLOXacin 1 (750 mg) Tablet Oral Levothyroxine Sodium 1 (125 mcg) Tablet Oral every am Losartan Potassium 1 (50 mg) Tablet Oral daily Melatonin 1 (10 mg/mL) Liquid Oral at bedtime oxyCODONE HCl (15 mg) Tablet Oral four times a day PRN Prochlorperazine Maleate 1 Tablet (of 10 mg) Oral q 4 hours PRN Simvastatin 1 (40 mg) Tablet Oral daily Family History: Father at age 91 of ruptured aortic aneurysm. Mother of heart attack at age 88. She also had diabetes and she had endometrial cancer. One sister is in good health. Social History: Ms. Joyner is . Ms. Joyner has never smoked. She has no history of drinking. She is a retired RN. She is a non-smoker. She does not drink alcohol. Review Of Symptoms: <See Above> Vital Signs: Performed on Feb 01, 2021 12:26 Height - 69.00 in Weight - 222.5 lbs (LOW) BSA - 2.16 sq.m BMI - 32.86 (HIGH) Temperature - 98.4 F Pulse - 87 /min Respiration - 18 /min BP - 124/78 mm(hg) O2 Sat - 99 % Pain - 9 Fatigue - 6,2 - Ambulatory/capable of all self-care, unable to perform any work activities. Up and about more than 50% of waking hours. (ECOG) Physical Examination: Constitutional Alert, oriented, no acute distress. Skin pink, warm and dry. Head Normocephalic; atraumatic. Eyes Conjunctivae and sclerae are clear and without icterus. Pupils are reactive and equal. ENMT No oral exudates, ulcers, masses, thrush or mucositis. Oropharynx clear. Tongue normal. Neck Supple without masses or thyromegaly. No jugular venous distension. Hematologic/Lymphatic No petechiae or purpura. No tender or palpable lymph nodes in the cervical or supraclavicular areas. Respiratory Lungs are clear to auscultation without rhonchi or wheezing. Cardiovascular Regular rate and rhythm of heart without murmurs,clicks, gallops or rubs. Abdomen Non-tender, non-distended, no masses or ascites. Good bowel sounds noted in all quads. No guarding or rebound tenderness. No pulsatile masses. Back/Spine Non-tender to palpation. Extremities No visible deformities, no cyanosis, clubbing or edema. Musculoskeletal No tenderness or swelling, normal range of motion with obvious MILD weakness bilaterally. Integumentary No rashes or lesions. Neurologic No sensory or motor deficits, normal cerebellar function, normal gait. Psychiatric Alert and oriented times three. Coherent speech. Verbalizes understanding of our discussions today. Laboratory:Test performed on Feb 01, 2021 10:00 Sodium 139 mmol/L Potassium 3.9 mmol/L Chloride 105 mmol/L CO2 24 mmol/L Anion Gap 13.9 BUN 10 mg/dL Creatinine 1.4 mg/dL Cr Clearance (Est) 57.5300 mL/min Glucose 92 mg/dL Osmolality - Calculated 287 mOsm/kg Calcium 9.4 mg/dL Protein, Total 6.5 g/dL Albumin 3.2 g/dL Globulin 3.3 g/dL Bilirubin, Total 0.4 mg/dL ALT (SGPT) < 5 U/L AST (SGOT) 14 U/L Alkaline Phosphatase 94 IU/L WBC 8.3 10 3/uL RBC 3.31 10 6/uL HGB 9.8 g/dL HCT 32.3 % MCV 97.6 fl MCH 29.6 pg MCHC 30.3 g/dL RDW 16.6 % Platelet Count 337 10 3/cmm MPV 9.2 fL Neutrophils 5.58 10 3/uL Lymphocytes 1.6 10 3/uL Monocytes 0.7 10 3/uL Eosinophils 0.4 10 3/uL Basophils 0.0 10 3/uL Neutrophil % 67.6 % Lymphocyte % 19.2 % Monocyte % 8.0 % Eosinophil % 4.6 % Basophils % 0.5 % NRBC % 0 % Test performed on Jan 03, 2021 10:07 Blood Culture THREE OF THREE BOTTLES POSITIVE DIRECT GRAM STAIN: GRAM NEGATIVE RODS CCRB Y CCRBTECH ROBJE CCRBTO WILAM2 CCRDATE1 [id number] CCRTIME1 1047 GMSTAIN Y G IN 3 BOTTLES Test performed on Jan 03, 2021 08:49 Manual Segs % 42 % Manual Bands % 38.0 % Manual Lymphs % 13 % Atypical Lymphs % 0.0 % Total Cells Counted 100 Manual Monos % 5.0 % Manual Eos % 1 % Manual Basos % 0.0 % Metamyelocytes % 1.0 % CBC Slide Review Slide Review Perform Anisocytosis 1+ Poikilocytosis 1+ Platelet Estimate Normal Manual Segs Abs 2.3 10/cmm Manual Bands Abs 2.1 10 3/cmm Manual Neutrophils Abs 4.3 10 3/cmm Manual Lymphocytes Abs 0.7 10 3/cmm Manual Monocytes Abs 0.3 10 3/cmm Manual Eosinophils Abs 0.0 10 3/cmm Manual Basophils Abs 0.0 10 3/cmm Test performed on Dec 06, 2020 11:30 SARS-CoV-2 RNA (COVID-19) DETECTED A Detected result indicates that the patients' specimen was positive for SARS-CoV-2 RNA. Test Method: Nucleic Acid Amplification Test including reverse upfitter polymerase chain reaction (RT-PCR and upfitter mediated amplification (TMA). The test method meets the [place] Centers for Disease Control and prevention (CDC) pre departure and arrival requirement for viral test for COVID-19 dated May 13, 2020. Testing requirements for traveling may change with time. The patient is responsible for determining the test requirements for each nation while they are traveling. This test has been authorized by the FDA under an Emergency Use Authorization (EUA) for use by authorized laboratories. Please review the Fact Sheets and FDA authorized labeling available for health care providers and patients using the following websites: https://www.[employer]/home/Covid-19/HCP/[employer]/fact- sheet.html https://www.[employer]/home/Covid-19/Patients/ [employer]/fact-sheet.html Due to the current public health emergency, [employer] is accepting samples from appropriate clinical sources collected using wide variety of swabs and transport media for COVID-19. Not detected test results derived from specimens received in non- commercially manufactured viral collection kits or those not yet authorized by FDA for COVID-19 testing should be cautiously evaluated and take extra precautions such as such as additional clinical monitoring, including collection of an additional specimen. Additional information about COVID-19 can be found at the [employer] website: www.[employer]/Covid19. THIS TEST WAS PERFORMED AT: [facility] [address] [place] [address] MITCH HANKS DO,MPH Test performed on Nov 08, 2020 11:48 Iron 25 mcg/dL Vitamin B12 > 2000 pg/mL Iron Binding Capacity (TIBC) 257 mcg/dl % Iron Saturation 9.7 % UIBC 232 mcg/dL Impression: 1. Grade 2 invasive ductal carcinoma involving the subareolar area of the left breast, ER/NJ positive and HER-2/alhaji positive. Staging is incomplete, but it appears to be a T1b primary lesion. 2. Hypertension. 3. Hyperlipidemia. 4. Borderline diabetes. 5. Hypothyroidism. 6. 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 7. Osteoporosis. 8. Left lower extremity neuropathy. 9. Obesity with previous gastric bypass. 10. 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 Plan/Problems Addressed at this Visit: 1. Grade 2 invasive ductal carcinoma involving the subareolar area of the left breast, ER/NJ positive and HER-2/alhaji positive. By clinical evaluation, she had T1, N0 disease, and she did not meet criteria for neoadjuvant chemotherapy. She then proceeded with left breast lumpectomy and left axillary sentinel lymph node biopsy on 09/16/2020. Pathology showed grade 2 invasive ductal carcinoma measuring 1.2 cm in maximum diameter. The margins were free. There were no lymph nodes identified in the axillary specimen. Her pathologic staging was pT1c, Nx. With a HER-2/alhaji positive T1c primary tumor, she was recommended to undergo adjuvant chemotherapy with weekly Abraxane/Herceptin for 12 weeks. She began her week 1 treatment on 10/28/2020. She had generalized bone aching for 2 days after that treatment. She had no other significant side effects, but at day 8 she was moderately neutropenic and her chemotherapy was delayed. She will continued with week 2 Abraxane/Herceptin on 11/15/2020 with the Abraxane dosage reduced by 20%. She tolerated that treatment much better. With her week 3 treatment she did require a change in her pain medication due to an increase in her musculoskeletal pain. She then felt somewhat better and she continued with her week 4 Abraxane/Herceptin on 11/29/2020. At that point she had developed moderately severe neutropenia, and she was given Neupogen prophylactically for 2 days. At her follow-up visit on 12/06/2020 she presented with increased fatigue in association with a slight cough, some generalized aching, and low-grade fever. Her treatment was put on hold, and she had subsequently tested positive for COVID-19 virus infection. She was given the monoclonal antibody infusion, and she the felt better gradually. She was able to continue with week 5 Abraxane/Herceptin on 12/21/2020 and with week 6 on 12/27/2020. On 01/03/2021 she was admitted to the hospital with gram-negative sepsis, reportedly due to a left ureteral calculus. On January 27, 2021 she did have cystoscopy removal of the left ureteral stent, left retrograde ureteral pyelogram; ureteroscopy laser lithotripsy and left [facility]. A. Stop Abraxane. B. Proceed witn single agent Herceptin at 3 week dosing. C. Today's labs were reviewed in detail and discussed with Ms. Joyner and a copy was given to her. WBC 8.3, hemoglobin 9.8, platelets 337,000, ANC is 5580. Creatinine improved to 1.4. It was 2.1 on her January 18, 2021 visit. Random glucose is 92 potassium 3.9 LFTs are normal. Her weight is 222.5 today which is down 7 pounds from her January 03 visit. D. She'll continue her current bowel regimen as this is working well for her. She utilizes MiraLAX and stool softeners as needed for constipation. She occasionally uses Dulcolax as well. E. Her echocardiogram from 10/25/2020 reported normal left ventricular size and systolic function. Her EF at that time was 70% with no regional wall motion abnormalities detected but she did have mild left ventricular hypertrophy. There was a grade I/IV diastolic dysfunction. I have asked for follow-up echocardiogram with her next visit in 3 weeks. F. We'll plan to see her back in 3 weeks with CBC CMP. G. I have opted to delay her initiation of aromatase inhibitors given that she is just now starting to feel better. We will discuss this at her 3-week follow-up visit. She does have a history of osteoporosis. She did have a DEXA scan on September 02, 2018 her lumbar spine bone mineral density reported T score 0.3 right hip reported T score of a -2.4. She is not on any current osteoporosis treatment by her med list and I see no calcium supplementation. I will request a repeat bone mineral density as well as vitamin D levels given her history of osteopenia/osteoporosis from her DEXA scan in 2018. H. Ms Joyner was encouraged to contact us in the interim should questions or problems arise. Signed By: Melvin Mchugh-, AOCNP Francois Alston MD <<Signature on File>>
== END 2021-02-13 23:59 | disposition home or self-care (01) ==
LOC: ONCMED 06:34
PROVIDERS: PCP Internal Medicine; Visit Provider Nurse Practitioner
DX: Z51.12 Encounter for antineoplastic immunotherapy (principal); C50.812 Malignant neoplasm of overlapping sites of left female breast; Z17.0 Estrogen receptor positive status [ER+]; I10 Essential (primary) hypertension; E78.5 Hyperlipidemia, unspecified; R73.03 Prediabetes; E03.9 Hypothyroidism, unspecified; M47.9 Spondylosis, unspecified; G89.29 Other chronic pain; M81.0 Age-related osteoporosis without current pathological fracture; G62.9 Polyneuropathy, unspecified; E66.9 Obesity, unspecified; Z86.718 Personal history of other venous thrombosis and embolism; Z79.890 Hormone replacement therapy; Z79.899 Other long term (current) drug therapy
CPT/HCPCS: 80053; 85025; 96413; 99215; J7050; Q5112

== ENCOUNTER 2021-02-11 08:30 | Outpatient (CLI) | payer MEDICARE, OTHER, SELFPAY ==
--- NOTE | 2021-02-11 08:30 | XR_ITS ---
WS: [id number] Exam: XR KUB [id number] Date/Time of Exam: 02/11/2021 8:39 AM Reason For Exam: URETERAL CALCULUS No bowel obstruction or free air. A left-sided ureteral catheter is in place appearing to be in satis factory location. Organ margins are obscured. There is hardware in the left hip. A neurostimulator pa ck superimposes the lower left abdomen. Several calcifications superimpose region of the right kidney and may represent renal calculi. Angular levoscoliosis of the lumbar spine with multilevel laminecto my defects and advanced degenerative changes. XR/XR KUB [id number] IMPRESSION: 1. Left-sided ureteral catheter in place appearing to be in satisfactory locati on. The distal end of the pigtail catheter is to the right of midline but proba tenisha in the urinary bladder. 2. Several calcifications superimpose the region of the right kidney and may re present renal calculi. 3. No acute process seen.
== END 2021-02-11 08:31 | disposition home or self-care (01) ==
LOC: RAD 08:32
PROVIDERS: PCP Internal Medicine; Visit Provider Urology
DX: N20.1 Calculus of ureter (principal); Z96.0 Presence of urogenital implants; N28.89 Other specified disorders of kidney and ureter
CPT/HCPCS: 74018

== ENCOUNTER 2021-02-18 15:24 | Outpatient (CLI) | payer MEDICARE, OTHER, SELFPAY ==
--- NOTE | 2021-02-18 | USCV_ITS ---
Lucie Joyner Age: 76 Gender: F : 1945 Exam Date: 02/18/2021 15:37 Ordering Phys: Sherry Ta NP Technologist: Clyde York Exam Location: [facility] [place] Indication: HI RISK MEDS BP: 105 / 68 HR: 93 Rhythm: Sinus Technical Quality: Adequate MEASUREMENTS (Male / Female) Normal Values 2D ECHO LV Ejection Fraction MOD 2C 72.1 % LV Ejection Fraction 2C AL 74.1 % LA Width 3.8 cm LA Height 4.7 cm RA Width 3.1 cm RA Height 3.7 cm FINDINGS Left Ventricle Right Ventricle Right Atrium Left Atrium Mitral Valve Aortic Valve Tricuspid Valve Pulmonic Valve Pericardium Aorta CONCLUSIONS This is a limited echocardiogram performed to assess LV systolic function. LV systolic function is normal with EF of >65%. No regional wall motion abnormalities are seen. Compared to prior echocardiogram from 10/25/2020, no significant changes are seen. Balwinder Dacosta MD (Electronically Signed) Final Date: 19 February 2021 19:33 S
== END 2021-02-18 15:25 | disposition home or self-care (01) ==
PROVIDERS: PCP Internal Medicine; Visit Provider Nurse Practitioner
DX: Z79.899 Other long term (current) drug therapy (principal)
CPT/HCPCS: 93308

== ENCOUNTER 2021-02-24 14:45 | Outpatient (RCR) | payer MEDICARE, OTHER, SELFPAY ==
[2021-02-22 11:36] LABS: Basophils % 0.6 %; Eosinophils # 0.1 10^3/uL (0.0-0.8); Eosinophils % 1.6 %; Hematocrit 32.7 % (37.0-47.0); Hemoglobin 9.9 g/dL (11.5-15.3); Lymphocytes # 1.4 10^3/uL (0.8-4.8); Lymphocytes % 21.4 %; Mean Corpuscular HGB Conc 30.3 g/dL (30.0-36.0); Mean Corpuscular Hemoglobin 29.5 pg (28.0-34.0); Mean Corpuscular Volume 97.3 fl (81-99); Mean Platelet Volume 9.9 fL (7.4-10.4); Monocytes # 0.8 10^3/uL (0.2-0.9); Monocytes % 11.2 %; Neutrophils # 4.36 10^3/uL (1.8-7.7); Neutrophils % 64.9 %; Nucleated Red Blood Cells % 0 %; Platelet Count 299 10^3/cmm (130-400); Red Blood Count 3.36 10^6/uL (4.1-5.3); White Blood Count 6.7 10^3/uL (4.0-10.0)
[2021-02-22 12:13] LABS: 25 Hydroxy Vitamin D 59 ng/mL (30-100); Alanine Aminotransferase < 5 U/L (0-33); Albumin Level 3.4 g/dL (3.5-5.2); Alkaline Phosphatase 91 IU/L (35-105); Anion Gap 16.7 (5-19); Aspartate Amino Transferase 12 U/L (0-32); Blood Urea Nitrogen 15 mg/dL (8-23); Calcium 9.1 mg/dL (8.5-10.5); Carbon Dioxide 23 mmol/L (22-29); Chloride 102 mmol/L (98-107); Glucose 107 mg/dL (65-115); Osmolality Calculated 287 mOsm/kg (285-295); Potassium 3.7 mmol/L (3.5-5.1); Sodium 138 mmol/L (136-145); Thyroid Stimulating Hormone 0.11 uIU/mL (0.27-4.20); Total Bilirubin 0.4 mg/dL (0.15-1.2); Total Protein 6.4 g/dL (6.6-8.7)
[2021-02-23] MEDS: acetaminophen 325 mg Tablet 650 MG PO (14:15)
[2021-02-23] MEDS: sodium chloride 0.9% 250 ML IV (14:15)
[2021-02-23] MEDS: diphenhydrAMINE 25 mg Capsule PO (14:15)
== END 2021-03-15 23:59 | disposition home or self-care (01) ==
LOC: ONCMED 14:45
PROVIDERS: PCP Internal Medicine; Visit Provider Internal Medicine Medical Oncology
DX: Z51.11 Encounter for antineoplastic chemotherapy (principal); C50.112 Malignant neoplasm of central portion of left female breast; Z17.0 Estrogen receptor positive status [ER+]; D50.9 Iron deficiency anemia, unspecified; E55.9 Vitamin D deficiency, unspecified; Z79.899 Other long term (current) drug therapy
CPT/HCPCS: 36591; 80053; 82306; 84443; 85025; 96413; J7050; Q5112

== ENCOUNTER 2021-02-24 14:56 | Outpatient (CLI) | payer MEDICARE, OTHER, SELFPAY ==
--- NOTE | 2021-02-24 15:04 | XR_ITS ---
WS: [id number] SCREENING DEXA SCAN haku CLINICAL INFORMATION: OSTEOPOROSIS/OSTEOPENIA, ESTROGEN DEFIENCY, HIGH RISK MEDICA COMPARISON: FINDINGS: Right femoral neck bone mineral density measures 0.655. This corresponds to a T score -2.8 and Z sco re of -1.8. Left forearm bone mineral density 0.619 with a T score of -2.9 and Z score of -0.6 XR/XR DEXA axial skeleton* [id number] IMPRESSION: Osteoporosis right femoral neck. Osteoporosis left forearm Patient's FRAX calculated 10 year probability for major osteoporotic fracture i s 28.4 % and osteoporotic hip fracture is 10.0%.
== END 2021-02-24 14:57 | disposition home or self-care (01) ==
PROVIDERS: PCP Internal Medicine; Visit Provider Nurse Practitioner
DX: Z79.899 Other long term (current) drug therapy (principal); M81.0 Age-related osteoporosis without current pathological fracture; M85.88 Other specified disorders of bone density and structure, other site
CPT/HCPCS: 77080

== ENCOUNTER 2021-04-14 06:17 | Outpatient (RCR) | payer MEDICARE, OTHER, SELFPAY ==
[2021-03-16 08:59] LABS: Basophils % 0.5 %; Eosinophils # 0.3 10^3/uL (0.0-0.8); Eosinophils % 5.2 %; Hematocrit 33.3 % (37.0-47.0); Hemoglobin 10.2 g/dL (11.5-15.3); Lymphocytes % 33.1 %; Mean Corpuscular HGB Conc 30.6 g/dL (30.0-36.0); Mean Corpuscular Hemoglobin 29.1 pg (28.0-34.0); Mean Corpuscular Volume 94.9 fl (81-99); Mean Platelet Volume 10.3 fL (7.4-10.4); Monocytes # 0.6 10^3/uL (0.2-0.9); Neutrophils # 3.05 10^3/uL (1.8-7.7); Nucleated Red Blood Cells % 0 %; Platelet Count 309 10^3/cmm (130-400); Red Blood Count 3.51 10^6/uL (4.1-5.3); Red Cell Distribution Width 12.8 % (12.1-15.1)
[2021-03-16 09:14] LABS: Alanine Aminotransferase < 5 U/L (0-33); Albumin Level 3.3 g/dL (3.5-5.2); Alkaline Phosphatase 90 IU/L (35-105); Anion Gap 13.2 (5-19); Aspartate Amino Transferase 11 U/L (0-32); Blood Urea Nitrogen 16 mg/dL (8-23); Carbon Dioxide 25 mmol/L (22-29); Chloride 107 mmol/L (98-107); Globulin 2.5 g/dL (1.3-4.6); Glucose 95 mg/dL (65-115); Osmolality Calculated 293 mOsm/kg (285-295); Potassium 4.2 mmol/L (3.5-5.1); Sodium 141 mmol/L (136-145); Total Bilirubin 0.2 mg/dL (0.15-1.2); Total Protein 5.8 g/dL (6.6-8.7)
[2021-03-16] MEDS: diphenhydrAMINE 25 mg Capsule PO (11:16)
[2021-03-16] MEDS: acetaminophen 325 mg Tablet 650 MG PO (11:16)
[2021-03-16 11:23] LABS: Iron 29 ug/dL (37-145); Total Iron Binding Capacity 241 mcg/dl; Unsaturated Iron Binding 212 ug/dL (112-347)
[2021-03-16] MEDS: sodium chloride 0.9% 250 ML IV (11:52)
--- NOTE | 2021-03-19 14:23 | ONC FU_ITS ---
Dr. Alston Patient Follow-Up Note Patient: Lucie Joyner Unit #: [id number]: 1945 Dicatated By: Francois Alston M.D.Date of Visit:Mar 16, 2021 Onc Med Follow-up/Prog Note Chief Complaint: Breast cancer. 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 She had presented with a palpable mass in the subareolar area of the left breast, which she first noticed a week before . Bilateral diagnostic mammogram on 08/06/2020 showed a focal asymmetric density deep to the palpable marker measuring 8 mm. It was new from a prior study in 2019. Ultrasound showed a mixed echogenicity ill-defined lesion adjacent to the nipple. It appeared to emerge with the areola. The findings were BI-RADS 4, suspicious, and subsequent ultrasound directed biopsy on 08/18/2020 showed grade 2 invasive ductal carcinoma. The breast prognostic profile showed ER positive at 99% and NJ positive at 100%. It was positive for overexpression of HER-2/alhaji, 3+ by IHC and amplification ratio by FISH of 5.3 with 12.4 HER-2 copies/cell. The Ki-67 was high at 35%. I had seen her initially on 08/26/2020. She had had further evaluation with left axillary ultrasound. That study did show several lymph nodes within the left axilla, but they appeared benign, as there was noted to be maintenance of normal fatty юлия. By clinical staging she appeared to have T1, N0 disease, and she did not meet criteria for neoadjuvant chemotherapy. As such, she was recommended to proceed with surgery. On 09/16/2020 she underwent left breast lumpectomy and left axillary sentinel lymph node biopsy. Pathology on the lumpectomy showed grade 2 invasive ductal carcinoma measuring 1.2 cm in greatest dimension. There was no DCIS identified. The closest margin was the inferior margin measuring 4 mm. There were no lymph nodes identified in the axillary specimen. As such her disease was pathologic stage pT1c, Nx. but stage IA for clinical T1, N0 or IB for T1, N1 involvement. In the setting of HER-2/alhaji positive disease, I had recommended adjuvant chemotherapy with weekly Abraxane/Herceptin for 12 weeks, as she had additional history of longstanding neuropathy of the left leg, and I preferred to avoid use of Taxol. Her other medical illnesses include hypertension, hyperlipidemia, borderline diabetes, hypothyroidism, degenerative arthritis, and osteoporosis. Her other prior surgeries include gastric bypass for obesity in 2000, cholecystectomy in 1970, and hysterectomy/bilateral salpingo-oophorectomy in 1988. She has also had bilateral shoulder replacement and redo arthroplasty of the left shoulder, lumbar laminectomy in 2014, and thoracic laminectomy in 2015. She is a non-smoker. INTERIM HISTORY: She began week 1 of weekly Abraxane/Herceptin on 10/28/2020. She developed bone generalized aching following that treatment. Her further chemotherapy was then delayed due to neutropenia. The following week her Abraxane had to be delayed due to neutropenia, but she did receive Herceptin. She was then given week 2 Abraxane/Herceptin on 11/15/2020. The Abraxane was administered at a reduced dosage. She tolerated it much better. She then continued with week 3 Abraxane on 11/22/2020 and with week 4 on 11/29/2020. At that point she had developed moderately severe neutropenia, and she was given Neupogen prophylactically for 2 days. At her follow-up visit on 12/06/2020 her blood counts were adequate. However, she had developed a slight cough and she was significantly more fatigued. She also had some generalized aching and low-grade fever. I opted to put her treatment on hold. As a precaution, I also had her tested for COVID-19, and that came back positive. She was given the monoclonal antibody infusion. The following day her temperature spike to 102 degrees, but after that she felt much better. She was able to continue with week 5 Abraxane/Herceptin on 12/21/2020 and with week 6 on 12/27/2020. On 01/03/2021 she was admitted to the hospital with gram-negative sepsis. She was not neutropenic. This was determined to be due to left ureteral calculus. She underwent cystoscopy with left ureteral stent placement on 01/04/2021. She was discharged home on 01/08/2021. She then underwent ureteroscopy with laser lithotripsy and placement of left ureteral stent on 01/27/2021. As a result of that illness, I opted to stop her Abraxane and transition her to Herceptin monotherapy. She received cycle 1 of Herceptin on 02/01/2021. She tolerated it well and she continued with cycle 2 on 02/23/2021. She has seen for a scheduled visit. She says she is feeling fairly good, though she does not have much strength. She has been trying to ambulate with a walker. Her activity, though, is very limited. ECOG score is 3. Her appetite is variable, but she is eating more now than she had been. She does not have fever or night sweats. She complains that her nose runs. She does not have sore mouth or throat. She does not complain of cough, and she has not been having shortness of breath or chest pain. She still occasionally has nausea. She has had ongoing problems with constipation. It had worsened on the iron supplement, which she had to cut back to every other day. Her bowel function lately has been a little bit better with Amitiza. She has neurogenic bladder. She has generalized joint pain. She does not complain of headache or dizziness. She says her neuropathy is still bad. Medications: Acyclovir 1 Capsule (of 400 mg) Oral b.i.d., B-12 1 (1000 mcg) Tablet Oral daily, Benadryl Allergy 1 (25 mg) Tablet Oral t.i.d., Claritin 1 (10 mg) Tablet Oral daily, Esomeprazole Magnesium (20 mg) Tablet, enteric coated Oral daily, Ferrous Sulfate (325 (65 fe) mg) Tablet Oral daily, K-Tab 1 (20 meq) Tablet, controlled release Oral b.i.d., Lasix 1 (40 mg) Tablet Oral b.i.d., levoFLOXacin 1 (750 mg) Tablet Oral, Levothyroxine Sodium 1 (125 mcg) Tablet Oral every am, Losartan Potassium 1 (50 mg) Tablet Oral daily, Melatonin 1 (10 mg/mL) Liquid Oral at bedtime, oxyCODONE HCl (15 mg) Tablet Oral four times a day PRN, Prochlorperazine Maleate 1 Tablet (of 10 mg) Oral q 4 hours PRN, Simvastatin 1 (40 mg) Tablet Oral daily Allergies: TRENT Inhibitors, Cephalexin, Gabapentin, Pregabalin, Sulfa Antibiotics, and traZODone HCl. Vital Signs: Performed on Mar 16, 2021 10:25 Height - 69.00 in Weight - 222 lbs (LOW) BSA - 2.16 sq.m BMI - 32.78 (HIGH) Temperature - 97.6 F (LOW) Pulse - 73 /min Respiration - 16 /min BP - 120/71 mm(hg) O2 Sat - 98 % Pain - 7 Fatigue - 6 Physical Examination: Constitutional - She appears generally weak, Eyes - Sclerae nonicteric. Conjunctivae clear, ENMT - There are no lesions noted in the oral cavity, Hematologic/Lymphatic - No cervical, clavicular, or axillary adenopathy, Respiratory - Lungs sound clear, Cardiovascular - Heart rhythm is regular. There is no murmur, gallop, or rub noted, Abdomen - Mildly distended but soft. Liver and spleen are not enlarged. There is no abdominal mass or ascites noted. There is no inguinal adenopathy noted, Extremities - Mild edema, Neurologic - She has chronic weakness in her left leg. Lab/Imaging: Test performed on Mar 16, 2021 08:43 Iron 29 mcg/dL Sodium 141 mmol/L Iron Binding Capacity (TIBC) 241 mcg/dl Potassium 4.2 mmol/L % Iron Saturation 12.0 % Chloride 107 mmol/L CO2 25 mmol/L UIBC 212 mcg/dL Anion Gap 13.2 BUN 16 mg/dL Creatinine 1.6 mg/dL Cr Clearance (Est) 47.6600 mL/min Glucose 95 mg/dL Osmolality - Calculated 293 mOsm/kg Calcium 9.0 mg/dL Protein, Total 5.8 g/dL Albumin 3.3 g/dL Globulin 2.5 g/dL Bilirubin, Total 0.2 mg/dL ALT (SGPT) < 5 U/L AST (SGOT) 11 U/L Alkaline Phosphatase 90 IU/L WBC 6.0 10 3/uL RBC 3.51 10 6/uL HGB 10.2 g/dL HCT 33.3 % MCV 94.9 fl MCH 29.1 pg MCHC 30.6 g/dL RDW 12.8 % Platelet Count 309 10 3/cmm MPV 10.3 fL Neutrophils 3.05 10 3/uL Lymphocytes 2.0 10 3/uL Monocytes 0.6 10 3/uL Eosinophils 0.3 10 3/uL Basophils 0.0 10 3/uL Neutrophil % 51.0 % Lymphocyte % 33.1 % Monocyte % 10.0 % Eosinophil % 5.2 % Basophils % 0.5 % NRBC % 0 % Problem List: 1. Grade 2 invasive ductal carcinoma involving the subareolar area of the left breast, ER/NJ positive and HER-2/alhaji positive. Staging is incomplete, but it appears to be a T1b primary lesion. 2. Hypertension. 3. Hyperlipidemia. 4. Borderline diabetes. 5. Hypothyroidism. 6. 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 7. Osteoporosis. 8. Left lower extremity neuropathy. 9. Obesity with previous gastric bypass. 10. 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 Problems Addressed with this Encounter and Plan: 1. Patient with grade 2 invasive ductal carcinoma involving the subareolar area of the left breast, ER/NJ positive and HER-2/alhaji positive. By clinical evaluation, she had T1, N0 disease, and she did not meet criteria for neoadjuvant chemotherapy. She then proceeded with left breast lumpectomy and left axillary sentinel lymph node biopsy on 09/16/2020. Pathology showed grade 2 invasive ductal carcinoma measuring 1.2 cm in maximum diameter. The margins were free. There were no lymph nodes identified in the axillary specimen. Her pathologic staging was pT1c, Nx. With a HER-2/alhaji positive T1c primary tumor, she was recommended to undergo adjuvant chemotherapy with weekly Abraxane/Herceptin for 12 weeks. She began her week 1 treatment on 10/28/2020. She had generalized bone aching for 2 days after that treatment. She had no other significant side effects, but at day 8 she was moderately neutropenic and her chemotherapy was delayed. She will continued with week 2 Abraxane/Herceptin on 11/15/2020 with the Abraxane dosage reduced by 20%. She tolerated that treatment much better. With her week 3 treatment she did require a change in her pain medication due to an increase in her musculoskeletal pain. She then felt somewhat better and she continued with her week 4 Abraxane/Herceptin on 11/29/2020. At that point she had developed moderately severe neutropenia, and she was given Neupogen prophylactically for 2 days. At her follow-up visit on 12/06/2020 she presented with increased fatigue in association with a slight cough, some generalized aching, and low-grade fever. Her treatment was put on hold, and she had subsequently tested positive for COVID-19 virus infection. She was given the monoclonal antibody infusion, and she the felt better gradually. She was able to continue with week 5 Abraxane/Herceptin on 12/21/2020 and with week 6 on 12/27/2020. On 01/03/2021 she was admitted to the hospital with gram-negative sepsis in association with a left ureteral calculus. On 01/27/2021 she underwent ureteroscopy with laser lithotripsy and placement of left ureteral stent. With that illness, I opted to stop Abraxane and transition her to Herceptin monotherapy. She began cycle 1 of Herceptin on 02/01/2021. She tolerated it well and continued with cycle 2 on 02/23/2021. At this point she appears to be tolerating her treatment well, though she continues to have very limited activity and she has ongoing issues with joint pain and neuropathy. Thus far there has been no evidence of recurrence of the breast cancer. She will proceed now with cycle 3 of Herceptin at 6 mg/kg by IV infusion. She also will now begin adjuvant hormonal therapy with anastrozole 1 mg daily. I reviewed anticipated side effects which may include osteoporosis and musculoskeletal pain, among others. This may be problematic, as she has significant pre-existing generalized joint pain. However, she will not be a candidate for tamoxifen due to prior history of thromboembolism while on hormone replacement therapy. She will be scheduled to return in 3 weeks. 2. She has iron deficiency anemia. It has not been correcting on oral iron supplementation, which she has tolerated very poorly due to constipation. As such, she will now be given parenteral iron replacement with 2 infusions of Injectafer. 3. She has osteoporosis with baseline DEXA scan on 02/24/2021 showing T score -2.8 in the right femoral neck and -2.9 in the left forearm. She will begin treatment with Prolia, subject to verification of insurance coverage. Signed By: Francois Alston M.D. <<Signature on File>>
[2021-04-14] MEDS: ferric carboxy (IVPB) 750 MG in sodium chloride 0.9% (100 ml) 100 ML 345 MG IV (10:55)
[2021-04-14] MEDS: sodium chloride 0.9% 250 ML 75 ML IV (10:55)
[2021-04-14] MEDS: denosumab 60 mg SDV SUBCUT (11:25)
== END 2021-04-15 23:59 | disposition home or self-care (01) ==
LOC: ONCMED 06:17
PROVIDERS: PCP Family Medicine; Visit Provider Internal Medicine Medical Oncology
DX: Z51.12 Encounter for antineoplastic immunotherapy (principal); C50.012 Malignant neoplasm of nipple and areola, left female breast; Z17.0 Estrogen receptor positive status [ER+]; I10 Essential (primary) hypertension; E78.5 Hyperlipidemia, unspecified; R73.03 Prediabetes; E03.9 Hypothyroidism, unspecified; M47.9 Spondylosis, unspecified; M81.0 Age-related osteoporosis without current pathological fracture; G62.9 Polyneuropathy, unspecified; E66.9 Obesity, unspecified; Z68.32 Body mass index [BMI] 32.0-32.9, adult; Z98.84 Bariatric surgery status; Z86.718 Personal history of other venous thrombosis and embolism; Z79.899 Other long term (current) drug therapy
CPT/HCPCS: 80053; 83540; 83550; 85025; 96365; 96372; 96413; 99215; J0897; J1439; J7050; Q5112

== ENCOUNTER 2021-05-12 06:26 | Outpatient (RCR) | payer MEDICARE, OTHER, SELFPAY ==
[2021-04-21] MEDS: sodium chloride 0.9% 250 ML IV (10:25)
[2021-04-21] MEDS: ferric carboxy (IVPB) 750 MG in sodium chloride 0.9% (100 ml) 100 ML 460 MG IV (10:25)
[2021-04-21] MEDS: ondansetron 2 mg/ML SDV 2 mL 8 MG IVP (11:10)
[2021-05-12 08:47] LABS: Basophils % 0.6 %; Eosinophils # 0.3 10^3/uL (0.0-0.8); Hematocrit 41.8 % (37.0-47.0); Hemoglobin 12.8 g/dL (11.5-15.3); Lymphocytes # 2.3 10^3/uL (0.8-4.8); Lymphocytes % 37.4 %; Mean Corpuscular HGB Conc 30.6 g/dL (30.0-36.0); Mean Corpuscular Hemoglobin 29.2 pg (28.0-34.0); Mean Corpuscular Volume 95.2 fl (81-99); Mean Platelet Volume 9.6 fL (7.4-10.4); Monocytes # 0.6 10^3/uL (0.2-0.9); Monocytes % 9.5 %; Neutrophils # 3.01 10^3/uL (1.8-7.7); Neutrophils % 48.3 %; Nucleated Red Blood Cells % 0 %; Platelet Count 334 10^3/cmm (130-400); Red Blood Count 4.39 10^6/uL (4.1-5.3); Red Cell Distribution Width 16.6 % (12.1-15.1); White Blood Count 6.2 10^3/uL (4.0-10.0)
[2021-05-12 09:15] LABS: Alanine Aminotransferase < 5 U/L (0-33); Albumin Level 3.7 g/dL (3.5-5.2); Alkaline Phosphatase 92 IU/L (35-105); Aspartate Amino Transferase 12 U/L (0-32); Blood Urea Nitrogen 10 mg/dL (8-23); Calcium 8.7 mg/dL (8.5-10.5); Carbon Dioxide 19 mmol/L (22-29); Chloride 108 mmol/L (98-107); Globulin 2.9 g/dL (1.3-4.6); Glucose 92 mg/dL (65-115); Osmolality Calculated 289 mOsm/kg (285-295); Sodium 140 mmol/L (136-145); Total Bilirubin 0.3 mg/dL (0.15-1.2); Total Protein 6.6 g/dL (6.6-8.7)
[2021-05-12] MEDS: acetaminophen 325 mg Tablet 650 MG PO (10:30)
[2021-05-12] MEDS: diphenhydrAMINE 25 mg Capsule PO (10:30)
[2021-05-12] MEDS: sodium chloride 0.9% 250 ML IV (11:00)
--- NOTE | 2021-05-12 18:06 | ONC FU_ITS ---
Dr. Alston Patient Follow-Up Note Patient: Lucie Joyner Unit #: [id number]: 1945 Dicatated By: Francois Alston M.D.Date of Visit:May 12, 2021 Onc Med Follow-up/Prog Note Chief Complaint: Breast cancer. 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 She had presented with a palpable mass in the subareolar area of the left breast, which she first noticed a week before . Bilateral diagnostic mammogram on 08/06/2020 showed a focal asymmetric density deep to the palpable marker measuring 8 mm. It was new from a prior study in 2019. Ultrasound showed a mixed echogenicity ill-defined lesion adjacent to the nipple. It appeared to emerge with the areola. The findings were BI-RADS 4, suspicious, and subsequent ultrasound directed biopsy on 08/18/2020 showed grade 2 invasive ductal carcinoma. The breast prognostic profile showed ER positive at 99% and TX positive at 100%. It was positive for overexpression of HER-2/alhaji, 3+ by IHC and amplification ratio by FISH of 5.3 with 12.4 HER-2 copies/cell. The Ki-67 was high at 35%. I had seen her initially on 08/26/2020. She had had further evaluation with left axillary ultrasound. That study did show several lymph nodes within the left axilla, but they appeared benign, as there was noted to be maintenance of normal fatty юлия. By clinical staging she appeared to have T1, N0 disease, and she did not meet criteria for neoadjuvant chemotherapy. As such, she was recommended to proceed with surgery. On 09/16/2020 she underwent left breast lumpectomy and left axillary sentinel lymph node biopsy. Pathology on the lumpectomy showed grade 2 invasive ductal carcinoma measuring 1.2 cm in greatest dimension. There was no DCIS identified. The closest margin was the inferior margin measuring 4 mm. There were no lymph nodes identified in the axillary specimen. As such her disease was pathologic stage pT1c, Nx. but stage IA for clinical T1, N0 or IB for T1, N1 involvement. In the setting of HER-2/alhaji positive disease, I had recommended adjuvant chemotherapy with weekly Abraxane/Herceptin for 12 weeks, as she had additional history of longstanding neuropathy of the left leg, and I preferred to avoid use of Taxol. Her other medical illnesses include hypertension, hyperlipidemia, borderline diabetes, hypothyroidism, degenerative arthritis, and osteoporosis. Her other prior surgeries include gastric bypass for obesity in 2000, cholecystectomy in 1970, and hysterectomy/bilateral salpingo-oophorectomy in 1988. She has also had bilateral shoulder replacement and redo arthroplasty of the left shoulder, lumbar laminectomy in 2014, and thoracic laminectomy in 2015. She is a non-smoker. INTERIM HISTORY: She began week 1 of weekly Abraxane/Herceptin on 10/28/2020. She developed bone generalized aching following that treatment. Her further chemotherapy was then delayed due to neutropenia. The following week her Abraxane had to be delayed due to neutropenia, but she did receive Herceptin. She was then given week 2 Abraxane/Herceptin on 11/15/2020. The Abraxane was administered at a reduced dosage. She tolerated it much better. She then continued with week 3 Abraxane on 11/22/2020 and with week 4 on 11/29/2020. At that point she had developed moderately severe neutropenia, and she was given Neupogen prophylactically for 2 days. At her follow-up visit on 12/06/2020 her blood counts were adequate. However, she had developed a slight cough and she was significantly more fatigued. She also had some generalized aching and low-grade fever. I opted to put her treatment on hold. As a precaution, I also had her tested for COVID-19, and that came back positive. She was given the monoclonal antibody infusion. The following day her temperature spike to 102 degrees, but after that she felt much better. She was able to continue with week 5 Abraxane/Herceptin on 12/21/2020 and with week 6 on 12/27/2020. On 01/03/2021 she was admitted to the hospital with gram-negative sepsis. She was not neutropenic. This was determined to be due to left ureteral calculus. She underwent cystoscopy with left ureteral stent placement on 01/04/2021. She was discharged home on 01/08/2021. She then underwent ureteroscopy with laser lithotripsy and placement of left ureteral stent on 01/27/2021. As a result of that illness, I opted to stop her Abraxane and transition her to Herceptin monotherapy. She received cycle 1 of Herceptin on 02/01/2021. She tolerated it well and she continued with cycle 2 on 02/23/2021, and with cycle 3 on 03/16/2021. At that point she also began adjuvant hormonal therapy with anastrozole 1 mg daily. Her cycle 4 Herceptin monotherapy was administered on 04/14/2021, having been was delayed while she completed parenteral iron replacement for iron deficiency anemia. She has seen for a scheduled visit. Her main complaint is that she has been having generalized pain since starting the anastrozole. She says it is not a horrible pain, but it is constant. She continues to have limited activity, but she has been able to ambulate short distances does with a walker. ECOG score is 3. Her appetite is a little better, and she has been eating more. However, she has continued to lose weight. She does not have fever or night sweats. She complains that her nose runs every day. She has not had sore mouth or throat. She does not complain of cough, and she has not been having shortness of breath or chest pain. She still has some nausea. She has constipation, but it is managed pretty well now with Amitiza. She has neurogenic bladder. She does not complain of headache. She has ongoing problems with neuropathy in the left leg, including neuropathy pain which is severe enough to interfere with her sleeping. She unfortunately has numerous medication intolerances which include gabapentin, pregabalin, and trazodone. Medications: Acyclovir 1 Capsule (of 400 mg) Oral b.i.d., B-12 1 (1000 mcg) Tablet Oral daily, Benadryl Allergy 1 (25 mg) Tablet Oral t.i.d., Claritin 1 (10 mg) Tablet Oral daily, Esomeprazole Magnesium (20 mg) Tablet, enteric coated Oral daily, Ferrous Sulfate (325 (65 fe) mg) Tablet Oral daily, K-Tab 1 (20 meq) Tablet, controlled release Oral b.i.d., Lasix 1 (40 mg) Tablet Oral b.i.d., levoFLOXacin 1 (750 mg) Tablet Oral, Levothyroxine Sodium 1 (125 mcg) Tablet Oral every am, Losartan Potassium 1 (50 mg) Tablet Oral daily, Melatonin 1 (10 mg/mL) Liquid Oral at bedtime, oxyCODONE HCl (15 mg) Tablet Oral four times a day PRN, Prochlorperazine Maleate 1 Tablet (of 10 mg) Oral q 4 hours PRN, Simvastatin 1 (40 mg) Tablet Oral daily Allergies: TRENT Inhibitors, Cephalexin, Gabapentin, Pregabalin, Sulfa Antibiotics, and traZODone HCl. Vital Signs: Performed on May 12, 2021 11:23 Height - 69.00 in Weight - 208 lbs (LOW) BSA - 2.10 sq.m BMI - 30.72 (HIGH) Temperature - 97.8 F (LOW) Pulse - 70 /min Respiration - 16 /min BP - 126/80 mm(hg) O2 Sat - 99 % Pain - 8 Fatigue - 7 Physical Examination: Constitutional - She appears generally weak, Eyes - Sclerae nonicteric. Conjunctivae clear, ENMT - No lesions noted in the oral cavity, Hematologic/Lymphatic - No cervical, clavicular, or axillary adenopathy, Respiratory - Lungs sound clear, Cardiovascular - Heart rhythm is irregular. There is no murmur, gallop, or rub noted, Abdomen - Mildly distended but soft. Liver and spleen are not enlarged. There is no abdominal mass or ascites noted. There is no inguinal adenopathy noted, Extremities - No edema, Neurologic - She has chronic weakness in her left leg. Lab/Imaging: Test performed on May 12, 2021 08:34 Sodium 140 mmol/L Potassium 5.0 mmol/L Chloride 108 mmol/L CO2 19 mmol/L Anion Gap 18.0 BUN 10 mg/dL Creatinine 1.0 mg/dL Cr Clearance (Est) 71.29 mL/min Glucose 92 mg/dL Osmolality - Calculated 289 mOsm/kg Calcium 8.7 mg/dL Protein, Total 6.6 g/dL Albumin 3.7 g/dL Globulin 2.9 g/dL Bilirubin, Total 0.3 mg/dL ALT (SGPT) < 5 U/L AST (SGOT) 12 U/L Alkaline Phosphatase 92 IU/L WBC 6.2 10 3/uL RBC 4.39 10 6/uL HGB 12.8 g/dL HCT 41.8 % MCV 95.2 fl MCH 29.2 pg MCHC 30.6 g/dL RDW 16.6 % Platelet Count 334 10 3/cmm MPV 9.6 fL Neutrophils 3.01 10 3/uL Lymphocytes 2.3 10 3/uL Monocytes 0.6 10 3/uL Eosinophils 0.3 10 3/uL Basophils 0.0 10 3/uL Neutrophil % 48.3 % Lymphocyte % 37.4 % Monocyte % 9.5 % Eosinophil % 4.0 % Basophils % 0.6 % NRBC % 0 % Problem List: 1. Grade 2 invasive ductal carcinoma involving the subareolar area of the left breast, ER/TX positive and HER-2/alhaji positive. Staging is incomplete, but it appears to be a T1b primary lesion. 2. Hypertension. 3. Hyperlipidemia. 4. Borderline diabetes. 5. Hypothyroidism. 6. 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 7. Osteoporosis. 8. Left lower extremity neuropathy. 9. Obesity with previous gastric bypass. 10. 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 Problems Addressed with this Encounter and Plan: 1. Patient with grade 2 invasive ductal carcinoma involving the subareolar area of the left breast, ER/TX positive and HER-2/alhaji positive. By clinical evaluation, she had T1, N0 disease, and she did not meet criteria for neoadjuvant chemotherapy. She then proceeded with left breast lumpectomy and left axillary sentinel lymph node biopsy on 09/16/2020. Pathology showed grade 2 invasive ductal carcinoma measuring 1.2 cm in maximum diameter. The margins were free. There were no lymph nodes identified in the axillary specimen. Her pathologic staging was pT1c, Nx. With a HER-2/alhaji positive T1c primary tumor, she was recommended to undergo adjuvant chemotherapy with weekly Abraxane/Herceptin for 12 weeks. She began her week 1 treatment on 10/28/2020. She had generalized bone aching for 2 days after that treatment. She had no other significant side effects, but at day 8 she was moderately neutropenic and her chemotherapy was delayed. She will continued with week 2 Abraxane/Herceptin on 11/15/2020 with the Abraxane dosage reduced by 20%. She tolerated that treatment much better. With her week 3 treatment she did require a change in her pain medication due to an increase in her musculoskeletal pain. She then felt somewhat better and she continued with her week 4 Abraxane/Herceptin on 11/29/2020. At that point she had developed moderately severe neutropenia, and she was given Neupogen prophylactically for 2 days. At her follow-up visit on 12/06/2020 she presented with increased fatigue in association with a slight cough, some generalized aching, and low-grade fever. Her treatment was put on hold, and she had subsequently tested positive for COVID-19 virus infection. She was given the monoclonal antibody infusion, and she the felt better gradually. She was able to continue with week 5 Abraxane/Herceptin on 12/21/2020 and with week 6 on 12/27/2020. On 01/03/2021 she was admitted to the hospital with gram-negative sepsis in association with a left ureteral calculus. On 01/27/2021 she underwent ureteroscopy with laser lithotripsy and placement of left ureteral stent. With that illness, I opted to stop Abraxane and transition her to Herceptin monotherapy. She began cycle 1 of Herceptin on 02/01/2021. She tolerated it well and continued with cycle 2 on 02/23/2021 and with cycle 3 on 03/16/2021. At that point she also started adjuvant hormonal therapy with anastrozole 1 mg daily. Her cycle 4 of Herceptin monotherapy was delayed to 04/14/2021 while she completed parenteral iron replacement for iron deficiency anemia. Overall, she appears to be tolerating the Herceptin well, but she has developed significant musculoskeletal pain with the anastrozole. As such, she will proceed with cycle 5 of Herceptin monotherapy at 6 mg/kg by IV infusion. The anastrozole will be put on hold. She returns in 3 weeks. 2. She has iron deficiency anemia. It was not correcting on oral iron supplementation, which she had tolerated very poorly due to constipation. As such, she was given parenteral iron replacement with 2 infusions of Injectafer. She has had a good clinical response. 3. She has osteoporosis with baseline DEXA scan on 02/24/2021 showing T score -2.8 in the right femoral neck and -2.9 in the left forearm. She has now started treatment with Prolia. Signed By: Francois Alston M.D. <<Signature on File>>
== END 2021-05-16 23:59 | disposition home or self-care (01) ==
LOC: ONCMED 06:26
PROVIDERS: PCP Family Medicine; Visit Provider Internal Medicine Medical Oncology
DX: Z51.12 Encounter for antineoplastic immunotherapy (principal); C50.812 Malignant neoplasm of overlapping sites of left female breast; Z17.0 Estrogen receptor positive status [ER+]; I10 Essential (primary) hypertension; E78.5 Hyperlipidemia, unspecified; R73.03 Prediabetes; E03.9 Hypothyroidism, unspecified; M19.90 Unspecified osteoarthritis, unspecified site; M47.9 Spondylosis, unspecified; M81.0 Age-related osteoporosis without current pathological fracture; G62.9 Polyneuropathy, unspecified; E66.9 Obesity, unspecified; Z68.30 Body mass index [BMI] 30.0-30.9, adult; Z86.718 Personal history of other venous thrombosis and embolism; Z79.890 Hormone replacement therapy; Z79.899 Other long term (current) drug therapy
CPT/HCPCS: 77336; 80053; 85025; 96367; 96375; 96413; 99215; J1439; J2405; J7050; Q5112

== ENCOUNTER 2021-06-02 07:54 | Outpatient (RCR) | payer MEDICARE, OTHER, SELFPAY ==
[2021-06-02] MEDS: alteplase 1 mg/mL SDV 2 mL 2 MG INTRACATH (08:40)
[2021-06-02 08:51] LABS: Basophils # 0.1 10^3/uL (0.0-0.1); Basophils % 0.7 %; Eosinophils # 0.2 10^3/uL (0.0-0.8); Eosinophils % 3.1 %; Hematocrit 40.4 % (37.0-47.0); Hemoglobin 12.3 g/dL (11.5-15.3); Lymphocytes # 1.9 10^3/uL (0.8-4.8); Lymphocytes % 25.2 %; Mean Corpuscular HGB Conc 30.4 g/dL (30.0-36.0); Mean Corpuscular Hemoglobin 28.8 pg (28.0-34.0); Mean Corpuscular Volume 94.6 fl (81-99); Mean Platelet Volume 9.7 fL (7.4-10.4); Monocytes # 0.6 10^3/uL (0.2-0.9); Monocytes % 8.3 %; Neutrophils # 4.61 10^3/uL (1.8-7.7); Neutrophils % 62.6 %; Nucleated Red Blood Cells % 0 %; Platelet Count 342 10^3/cmm (130-400); Red Blood Count 4.27 10^6/uL (4.1-5.3); White Blood Count 7.4 10^3/uL (4.0-10.0)
[2021-06-02 09:28] LABS: Alanine Aminotransferase 7 U/L (0-33); Alkaline Phosphatase 90 IU/L (35-105); Anion Gap 16.5 (5-19); Aspartate Amino Transferase 15 U/L (0-32); Blood Urea Nitrogen 22 mg/dL (8-23); Calcium 9.9 mg/dL (8.5-10.5); Carbon Dioxide 23 mmol/L (22-29); Chloride 104 mmol/L (98-107); Globulin 2.8 g/dL (1.3-4.6); Glucose 87 mg/dL (65-115); Osmolality Calculated 293 mOsm/kg (285-295); Potassium 3.5 mmol/L (3.5-5.1); Sodium 140 mmol/L (136-145); Total Bilirubin 0.3 mg/dL (0.15-1.2); Total Protein 6.8 g/dL (6.6-8.7)
--- NOTE | 2021-06-02 09:56 | ONC FU_ITS ---
[facility] Hubbard Progress Note Patient: Lucie Joyner Unit #: [id number]: 1945 Dicatated By: Mary Beth Hubbard N.P.Date of Visit:Jun 02, 2021 Onc MED Follow-up/Prog Note Chief Complaint: Breast cancer. 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 She had presented with a palpable mass in the subareolar area of the left breast, which she first noticed a week before . Bilateral diagnostic mammogram on 08/06/2020 showed a focal asymmetric density deep to the palpable marker measuring 8 mm. It was new from a prior study in 2019. Ultrasound showed a mixed echogenicity ill-defined lesion adjacent to the nipple. It appeared to emerge with the areola. The findings were BI-RADS 4, suspicious, and subsequent ultrasound directed biopsy on 08/18/2020 showed grade 2 invasive ductal carcinoma. The breast prognostic profile showed ER positive at 99% and IL positive at 100%. It was positive for overexpression of HER-2/alhaji, 3+ by IHC and amplification ratio by FISH of 5.3 with 12.4 HER-2 copies/cell. The Ki-67 was high at 35%. Dr. Alston had seen her initially on 08/26/2020. She had had further evaluation with left axillary ultrasound. That study did show several lymph nodes within the left axilla, but they appeared benign, as there was noted to be maintenance of normal fatty юлия. By clinical staging she appeared to have T1, N0 disease, and she did not meet criteria for neoadjuvant chemotherapy. As such, she was recommended to proceed with surgery. On 09/16/2020 she underwent left breast lumpectomy and left axillary sentinel lymph node biopsy. Pathology on the lumpectomy showed grade 2 invasive ductal carcinoma measuring 1.2 cm in greatest dimension. There was no DCIS identified. The closest margin was the inferior margin measuring 4 mm. There were no lymph nodes identified in the axillary specimen. As such her disease was pathologic stage pT1c, Nx. but stage IA for clinical T1, N0 or IB for T1, N1 involvement. In the setting of HER-2/alhaji positive disease, Dr. Alston had recommended adjuvant chemotherapy with weekly Abraxane/Herceptin for 12 weeks, as she had additional history of longstanding neuropathy of the left leg, and he preferred to avoid use of Taxol. Her other medical illnesses include hypertension, hyperlipidemia, borderline diabetes, hypothyroidism, degenerative arthritis, and osteoporosis. Her other prior surgeries include gastric bypass for obesity in 2000, cholecystectomy in 1970, and hysterectomy/bilateral salpingo-oophorectomy in 1988. She has also had bilateral shoulder replacement and redo arthroplasty of the left shoulder, lumbar laminectomy in 2014, and thoracic laminectomy in 2015. She is a non-smoker. INTERIM HISTORY: She began week 1 of weekly Abraxane/Herceptin on 10/28/2020. She developed bone generalized aching following that treatment. Her further chemotherapy was then delayed due to neutropenia. The following week her Abraxane had to be delayed due to neutropenia, but she did receive Herceptin. She was then given week 2 Abraxane/Herceptin on 11/15/2020. The Abraxane was administered at a reduced dosage. She tolerated it much better. She then continued with week 3 Abraxane on 11/22/2020 and with week 4 on 11/29/2020. At that point she had developed moderately severe neutropenia, and she was given Neupogen prophylactically for 2 days. At her follow-up visit on 12/06/2020 her blood counts were adequate. However, she had developed a slight cough and she was significantly more fatigued. She also had some generalized aching and low-grade fever. I opted to put her treatment on hold. As a precaution, I also had her tested for COVID-19, and that came back positive. She was given the monoclonal antibody infusion. The following day her temperature spike to 102 degrees, but after that she felt much better. She was able to continue with week 5 Abraxane/Herceptin on 12/21/2020 and with week 6 on 12/27/2020. On 01/03/2021 she was admitted to the hospital with gram-negative sepsis. She was not neutropenic. This was determined to be due to left ureteral calculus. She underwent cystoscopy with left ureteral stent placement on 01/04/2021. She was discharged home on 01/08/2021. She then underwent ureteroscopy with laser lithotripsy and placement of left ureteral stent on 01/27/2021. As a result of that illness, I opted to stop her Abraxane and transition her to Herceptin monotherapy. She received cycle 1 of Herceptin on 02/01/2021. She tolerated it well and she continued with cycle 2 on 02/23/2021, and with cycle 3 on 03/16/2021. At that point she also began adjuvant hormonal therapy with anastrozole 1 mg daily. Her cycle 4 Herceptin monotherapy was administered on 04/14/2021, having been was delayed while she completed parenteral iron replacement for iron deficiency anemia. She presents today for a follow-up visit. She continues to have a states it is no worse than usual. Her does most of the housework due to the fact that she just does not have energy to do it. Her appetite has been good. She has problems with constipation but Amitiza controls that for the most part. She experiences nausea quite often but it is also controlled with Compazine. She denies fever, chills, night sweats. She uses a motorized wheelchair due to her weakness and her neuropathy in her bilateral lower extremities. Review Of Symptoms: See above. Past Medical History: Borderline diabetes COVID-19 Degenerative arthritis Degenerative disease of the spine Hyperlipidemia Hypertension Hypothyroidism Left lower extremity neuropathy Obesity Osteoporosis Covid virus in 2020 Past Surgical History: Arthroscopic knee surgery Bilateral cataract excisions Carpal tunnel release Tonsillectomy Left ureteral stent replacement; left retrograde ureteral pyelogram; ureteroscopy laser lithotripsy??? in 2020 Covid vaccine #2 in 2020 Covid vaccine #2 Moderna in 2020 Covid vaccine #1 in 2020 Covid vaccine #1 Moderna in 2020 Redo left shoulder joint arthroplasty in 2019 ORIF for intertrochanteric left hip fracture in 2019 Thoracic laminectomy with placement of spinal cord stimulator in 2016 L4-L5 laminectomy for lumbar spinal stenosis in 2014 Decompressive laminectomy at L3-4 and L4-5 for severe stenosis in 2012 Left shoulder replacement in 2011 Right shoulder replacement in 2010 Incisional hernia repair in 2001 Gastric bypass procedure in 2000 Hysterectomy/bilateral salpingo-oophorectomy in 1988 Cholecystectomy in 1970 Allergies: TRENT Inhibitors, Cephalexin, Gabapentin, Pregabalin, Sulfa Antibiotics, and traZODone HCl. Medications: Acyclovir 1 Capsule (of 400 mg) Oral b.i.d. B-12 1 (1000 mcg) Tablet Oral daily Benadryl Allergy 1 (25 mg) Tablet Oral t.i.d. Claritin 1 (10 mg) Tablet Oral daily Esomeprazole Magnesium (20 mg) Tablet, enteric coated Oral daily Ferrous Sulfate (325 (65 fe) mg) Tablet Oral daily K-Tab 1 (20 meq) Tablet, controlled release Oral b.i.d. Lasix 1 (40 mg) Tablet Oral b.i.d. Levothyroxine Sodium 1 (125 mcg) Tablet Oral every am Losartan Potassium 1 (50 mg) Tablet Oral daily Melatonin 1 (10 mg/mL) Liquid Oral at bedtime oxyCODONE HCl (15 mg) Tablet Oral four times a day PRN Prochlorperazine Maleate 1 Tablet (of 10 mg) Oral q 4 hours PRN Simvastatin 1 (40 mg) Tablet Oral daily Family History: Father at age 91 of ruptured aortic aneurysm. Mother of heart attack at age 88. She also had diabetes and she had endometrial cancer. One sister is in good health. Social History: Ms. Joyner is . Ms. Joyner has never smoked. She has no history of drinking. She is a retired RN. She is a non-smoker. She does not drink alcohol. Physical Examination: Performed on Jun 02, 2021 09:36: Height - 69.00 in, Weight - 204 lbs (LOW), BSA - 2.08 sq.m, BMI - 30.13 (HIGH), Temperature - 96.9 F (LOW), Pulse - 79 /min, Respiration - 18 /min, BP - 110/72 mm(hg), O2 Sat - 99 %, Pain - 6, and Fatigue - 7. Performance Status: 3 - Capable of only limited self-care, confined to bed or chair more than 50% of waking hours. (ECOG) Constitutional Alert, cooperative, oriented. Mood and affect appropriate. Appears close to chronological age. Well nourished. Well developed. Head Normocephalic; no scars. Respiratory Lungs are clear to auscultation without rhonchi or wheezing. Cardiovascular Regular rate and rhythm of heart without murmurs, gallops or rubs. Abdomen Non-tender, non-distended, no masses, ascites or hepatosplenomegaly. Good bowel sounds. No guarding or rebound tenderness. Extremities No edema Psychiatric Alert and oriented times three. Coherent speech. Verbalizes understanding of our discussions today. Laboratory: Test performed on Jun 02, 2021 08:25 Sodium 140 mmol/L Potassium 3.5 mmol/L Chloride 104 mmol/L CO2 23 mmol/L Anion Gap 16.5 BUN 22 mg/dL Creatinine 1.6 mg/dL Cr Clearance (Est) 43.7000 mL/min Glucose 87 mg/dL Osmolality - Calculated 293 mOsm/kg Calcium 9.9 mg/dL Protein, Total 6.8 g/dL Albumin 4.0 g/dL Globulin 2.8 g/dL Bilirubin, Total 0.3 mg/dL ALT (SGPT) 7 U/L AST (SGOT) 15 U/L Alkaline Phosphatase 90 IU/L WBC 7.4 10 3/uL RBC 4.27 10 6/uL HGB 12.3 g/dL HCT 40.4 % MCV 94.6 fl MCH 28.8 pg MCHC 30.4 g/dL RDW 17.0 % Platelet Count 342 10 3/cmm MPV 9.7 fL Neutrophils 4.61 10 3/uL Lymphocytes 1.9 10 3/uL Monocytes 0.6 10 3/uL Eosinophils 0.2 10 3/uL Basophils 0.1 10 3/uL Neutrophil % 62.6 % Lymphocyte % 25.2 % Monocyte % 8.3 % Eosinophil % 3.1 % Basophils % 0.7 % NRBC % 0 % Test performed on Mar 16, 2021 08:43 Iron 29 mcg/dL Iron Binding Capacity (TIBC) 241 mcg/dl % Iron Saturation 12.0 % UIBC 212 mcg/dL Test performed on Feb 22, 2021 11:25 TSH 0.11 uIU/mL Vitamin D (25-Hydroxy), Total 59 ng/mL Test performed on Jan 03, 2021 10:07 Blood Culture THREE OF THREE BOTTLES POSITIVE DIRECT GRAM STAIN: GRAM NEGATIVE RODS CCRB Y CCRBTECH ROBJE CCRBTO WILAM2 CCRDATE1 [id number] CCRTIME1 1047 GMSTAIN Y G IN 3 BOTTLES Test performed on Jan 03, 2021 08:49 Manual Segs % 42 % Manual Bands % 38.0 % Manual Lymphs % 13 % Atypical Lymphs % 0.0 % Total Cells Counted 100 Manual Monos % 5.0 % Manual Eos % 1 % Manual Basos % 0.0 % Metamyelocytes % 1.0 % CBC Slide Review Slide Review Perform Anisocytosis 1+ Poikilocytosis 1+ Platelet Estimate Normal Manual Segs Abs 2.3 10/cmm Manual Bands Abs 2.1 10 3/cmm Manual Neutrophils Abs 4.3 10 3/cmm Manual Lymphocytes Abs 0.7 10 3/cmm Manual Monocytes Abs 0.3 10 3/cmm Manual Eosinophils Abs 0.0 10 3/cmm Manual Basophils Abs 0.0 10 3/cmm Test performed on Dec 06, 2020 11:30 SARS-CoV-2 RNA (COVID-19) DETECTED A Detected result indicates that the patients' specimen was positive for SARS-CoV-2 RNA. Test Method: Nucleic Acid Amplification Test including reverse inspector motor vehicles polymerase chain reaction (RT-PCR and inspector motor vehicles mediated amplification (TMA). The test method meets the [place] Centers for Disease Control and prevention (CDC) pre departure and arrival requirement for viral test for COVID-19 dated May 13, 2020. Testing requirements for traveling may change with time. The patient is responsible for determining the test requirements for each nation while they are traveling. This test has been authorized by the FDA under an Emergency Use Authorization (EUA) for use by authorized laboratories. Please review the Fact Sheets and FDA authorized labeling available for health care providers and patients using the following websites: [email or web address]/fact- sheet.html [email or web address]/ [facility]/fact-sheet.html Due to the current public health emergency, [facility] is accepting samples from appropriate clinical sources collected using wide variety of swabs and transport media for COVID-19. Not detected test results derived from specimens received in non- commercially manufactured viral collection kits or those not yet authorized by FDA for COVID-19 testing should be cautiously evaluated and take extra precautions such as such as additional clinical monitoring, including collection of an additional specimen. Additional information about COVID-19 can be found at the [facility] website: [email or web address]. THIS TEST WAS PERFORMED AT: [facility] [place] [address] [place] [address] MITCH HANKS DO,MPH Impression: 1. Grade 2 invasive ductal carcinoma involving the subareolar area of the left breast, ER/IL positive and HER-2/alhaji positive. Staging is incomplete, but it appears to be a T1b primary lesion. 2. Hypertension. 3. Hyperlipidemia. 4. Borderline diabetes. 5. Hypothyroidism. 6. 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 7. Osteoporosis. 8. Left lower extremity neuropathy. 9. Obesity with previous gastric bypass. 10. 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 Plan: 1. Patient with grade 2 invasive ductal carcinoma involving the subareolar area of the left breast, ER/IL positive and HER-2/alhaji positive. By clinical evaluation, she had T1, N0 disease, and she did not meet criteria for neoadjuvant chemotherapy. She then proceeded with left breast lumpectomy and left axillary sentinel lymph node biopsy on 09/16/2020. Pathology showed grade 2 invasive ductal carcinoma measuring 1.2 cm in maximum diameter. The margins were free. There were no lymph nodes identified in the axillary specimen. Her pathologic staging was pT1c, Nx. With a HER-2/alhaji positive T1c primary tumor, she was recommended to undergo adjuvant chemotherapy with weekly Abraxane/Herceptin for 12 weeks. She began her week 1 treatment on 10/28/2020. She had generalized bone aching for 2 days after that treatment. She had no other significant side effects, but at day 8 she was moderately neutropenic and her chemotherapy was delayed. She will continued with week 2 Abraxane/Herceptin on 11/15/2020 with the Abraxane dosage reduced by 20%. She tolerated that treatment much better. With her week 3 treatment she did require a change in her pain medication due to an increase in her musculoskeletal pain. She then felt somewhat better and she continued with her week 4 Abraxane/Herceptin on 11/29/2020. At that point she had developed moderately severe neutropenia, and she was given Neupogen prophylactically for 2 days. At her follow-up visit on 12/06/2020 she presented with increased fatigue in association with a slight cough, some generalized aching, and low-grade fever. Her treatment was put on hold, and she had subsequently tested positive for COVID-19 virus infection. She was given the monoclonal antibody infusion, and she the felt better gradually. She was able to continue with week 5 Abraxane/Herceptin on 12/21/2020 and with week 6 on 12/27/2020. On 01/03/2021 she was admitted to the hospital with gram-negative sepsis in association with a left ureteral calculus. On 01/27/2021 she underwent ureteroscopy with laser lithotripsy and placement of left ureteral stent. With that illness, I opted to stop Abraxane and transition her to Herceptin monotherapy. She began cycle 1 of Herceptin on 02/01/2021. She tolerated it well and continued with cycle 2 on 02/23/2021 and with cycle 3 on 03/16/2021. At that point she also started adjuvant hormonal therapy with anastrozole 1 mg daily. Patient is here for her cycle 6 of Herceptin at 6 mg/kg IV. Anastrozole continues to be on hold due to significant musculoskeletal pain. She will return to clinic in 3 weeks with CBC and CMP. 2. She has iron deficiency anemia. It was not correcting on oral iron supplementation, which she had tolerated very poorly due to constipation. As such, she was given parenteral iron replacement with 2 infusions of Injectafer. She has had a good clinical response. 3. She has osteoporosis with baseline DEXA scan on 02/24/2021 showing T score -2.8 in the right femoral neck and -2.9 in the left forearm. She has now started treatment with Prolia. Signed By: Mary Beth Hubbard N.P. <<Signature on File>>
[2021-06-02] MEDS: diphenhydrAMINE 25 mg Capsule PO (10:05)
[2021-06-02] MEDS: acetaminophen 325 mg Tablet 650 MG PO (10:05)
[2021-06-02] MEDS: sodium chloride 0.9% 250 ML IV (10:05)
== END 2021-06-13 23:59 | disposition home or self-care (01) ==
LOC: ONCMED 07:54
PROVIDERS: Visit Provider Nurse Practitioner Family
DX: Z51.12 Encounter for antineoplastic immunotherapy (principal); C50.812 Malignant neoplasm of overlapping sites of left female breast; Z17.0 Estrogen receptor positive status [ER+]; I10 Essential (primary) hypertension; E78.5 Hyperlipidemia, unspecified; R73.03 Prediabetes; E03.9 Hypothyroidism, unspecified; G31.89 Other specified degenerative diseases of nervous system; G89.4 Chronic pain syndrome; M81.0 Age-related osteoporosis without current pathological fracture; G62.9 Polyneuropathy, unspecified; E66.9 Obesity, unspecified; Z68.30 Body mass index [BMI] 30.0-30.9, adult; Z86.718 Personal history of other venous thrombosis and embolism; Z79.890 Hormone replacement therapy; Z79.899 Other long term (current) drug therapy
CPT/HCPCS: 36593; 80053; 85025; 96413; 99215; J2997; J7050; Q5112

== ENCOUNTER 2021-07-14 06:38 | Outpatient (RCR) | payer MEDICARE, OTHER, SELFPAY ==
[2021-06-23 09:26] LABS: Basophils # 0.1 10^3/uL (0.0-0.1); Basophils % 0.5 %; Eosinophils # 0.2 10^3/uL (0.0-0.8); Eosinophils % 1.4 %; Hematocrit 39.7 % (37.0-47.0); Hemoglobin 12.2 g/dL (11.5-15.3); Lymphocytes # 2.3 10^3/uL (0.8-4.8); Lymphocytes % 19.8 %; Mean Corpuscular HGB Conc 30.7 g/dL (30.0-36.0); Mean Corpuscular Hemoglobin 29.9 pg (28.0-34.0); Mean Corpuscular Volume 97.3 fl (81-99); Mean Platelet Volume 10.3 fL (7.4-10.4); Monocytes # 0.8 10^3/uL (0.2-0.9); Monocytes % 6.9 %; Neutrophils # 8.35 10^3/uL (1.8-7.7); Neutrophils % 71.1 %; Nucleated Red Blood Cells % 0 %; Platelet Count 333 10^3/cmm (130-400); Red Blood Count 4.08 10^6/uL (4.1-5.3); Red Cell Distribution Width 16.1 % (12.1-15.1); White Blood Count 11.7 10^3/uL (4.0-10.0)
[2021-06-23 09:45] LABS: Alanine Aminotransferase < 5 U/L (0-33); Alkaline Phosphatase 95 IU/L (35-105); Anion Gap 16.4 (5-19); Aspartate Amino Transferase 14 U/L (0-32); Blood Urea Nitrogen 22 mg/dL (8-23); Calcium 9.6 mg/dL (8.5-10.5); Carbon Dioxide 23 mmol/L (22-29); Chloride 104 mmol/L (98-107); Globulin 3.5 g/dL (1.3-4.6); Glucose 160 mg/dL (65-115); Osmolality Calculated 295 mOsm/kg (285-295); Potassium 4.4 mmol/L (3.5-5.1); Sodium 139 mmol/L (136-145); Total Bilirubin 0.5 mg/dL (0.15-1.2); Total Protein 7.5 g/dL (6.6-8.7)
[2021-06-23] MEDS: acetaminophen 325 mg Tablet 650 MG PO (10:25)
[2021-06-23] MEDS: diphenhydrAMINE 25 mg Capsule PO (10:25)
[2021-06-23] MEDS: sodium chloride 0.9% 250 ML IV (10:25)
--- NOTE | 2021-06-26 13:00 | ONC FU_ITS ---
Dr. Alston Patient Follow-Up Note Patient: Lucie Joyner Unit #: [id number]: 1945 Dicatated By: Francois Alston M.D.Date of Visit:Jun 23, 2021 Onc Med Follow-up/Prog Note Chief Complaint: Breast cancer. 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 She had presented with a palpable mass in the subareolar area of the left breast, which she first noticed a week before . Bilateral diagnostic mammogram on 08/06/2020 showed a focal asymmetric density deep to the palpable marker measuring 8 mm. It was new from a prior study in 2019. Ultrasound showed a mixed echogenicity ill-defined lesion adjacent to the nipple. It appeared to emerge with the areola. The findings were BI-RADS 4, suspicious, and subsequent ultrasound directed biopsy on 08/18/2020 showed grade 2 invasive ductal carcinoma. The breast prognostic profile showed ER positive at 99% and WV positive at 100%. It was positive for overexpression of HER-2/alhaji, 3+ by IHC and amplification ratio by FISH of 5.3 with 12.4 HER-2 copies/cell. The Ki-67 was high at 35%. I had seen her initially on 08/26/2020. She had had further evaluation with left axillary ultrasound. That study did show several lymph nodes within the left axilla, but they appeared benign, as there was noted to be maintenance of normal fatty юлия. By clinical staging she appeared to have T1, N0 disease, and she did not meet criteria for neoadjuvant chemotherapy. As such, she was recommended to proceed with surgery. On 09/16/2020 she underwent left breast lumpectomy and left axillary sentinel lymph node biopsy. Pathology on the lumpectomy showed grade 2 invasive ductal carcinoma measuring 1.2 cm in greatest dimension. There was no DCIS identified. The closest margin was the inferior margin measuring 4 mm. There were no lymph nodes identified in the axillary specimen. As such her disease was pathologic stage pT1c, Nx. but stage IA for clinical T1, N0 or IB for T1, N1 involvement. In the setting of HER-2/alhaji positive disease, I had recommended adjuvant chemotherapy with weekly Abraxane/Herceptin for 12 weeks, as she had additional history of longstanding neuropathy of the left leg, and I preferred to avoid use of Taxol. Her other medical illnesses include hypertension, hyperlipidemia, borderline diabetes, hypothyroidism, degenerative arthritis, and osteoporosis. Her other prior surgeries include gastric bypass for obesity in 2000, cholecystectomy in 1970, and hysterectomy/bilateral salpingo-oophorectomy in 1988. She has also had bilateral shoulder replacement and redo arthroplasty of the left shoulder, lumbar laminectomy in 2014, and thoracic laminectomy in 2015. She is a non-smoker. INTERIM HISTORY: She began week 1 of weekly Abraxane/Herceptin on 10/28/2020. She developed bone generalized aching following that treatment. Her further chemotherapy was then delayed due to neutropenia. The following week her Abraxane had to be delayed due to neutropenia, but she did receive Herceptin. She was then given week 2 Abraxane/Herceptin on 11/15/2020. The Abraxane was administered at a reduced dosage. She tolerated it much better. She then continued with week 3 Abraxane on 11/22/2020 and with week 4 on 11/29/2020. At that point she had developed moderately severe neutropenia, and she was given Neupogen prophylactically for 2 days. At her follow-up visit on 12/06/2020 her blood counts were adequate. However, she had developed a slight cough and she was significantly more fatigued. She also had some generalized aching and low-grade fever. I opted to put her treatment on hold. As a precaution, I also had her tested for COVID-19, and that came back positive. She was given the monoclonal antibody infusion. The following day her temperature spike to 102 degrees, but after that she felt much better. She was able to continue with week 5 Abraxane/Herceptin on 12/21/2020 and with week 6 on 12/27/2020. On 01/03/2021 she was admitted to the hospital with gram-negative sepsis. She was not neutropenic. This was determined to be due to left ureteral calculus. She underwent cystoscopy with left ureteral stent placement on 01/04/2021. She was discharged home on 01/08/2021. She then underwent ureteroscopy with laser lithotripsy and placement of left ureteral stent on 01/27/2021. As a result of that illness, I opted to stop her Abraxane and transition her to Herceptin monotherapy. She received cycle 1 of Herceptin on 02/01/2021. She tolerated it well and she continued with cycle 2 on 02/23/2021, and with cycle 3 on 03/16/2021. At that point she also began adjuvant hormonal therapy with anastrozole 1 mg daily. Her cycle 4 Herceptin monotherapy was administered on 04/14/2021, having been was delayed while she completed parenteral iron replacement for iron deficiency anemia. She had continued Herceptin monotherapy at 3-week intervals. As of 06/02/2021 she had completed her 6th cycle. She has seen for a scheduled visit. She says she has been feeling okay I guess . This morning she has been unusually achy and stiff and she says it hurts to move anything. She continues to have very limited activity. ECOG score is 3. Appetite is fair, but not good. She has not had fever or night sweats. She does report having chills. She complains that her nose runs. She has not had sore mouth or throat. She does not complain of cough, and she has not been having shortness of breath or chest pain. She currently has no GI complaints. She has neurogenic bladder. She does not complain of headache or dizziness. She thinks the neuropathy in her left leg is getting worse. Medications: Acyclovir 1 Capsule (of 400 mg) Oral b.i.d., B-12 1 (1000 mcg) Tablet Oral daily, Benadryl Allergy 1 (25 mg) Tablet Oral t.i.d., Claritin 1 (10 mg) Tablet Oral daily, Esomeprazole Magnesium (20 mg) Tablet, enteric coated Oral daily, Ferrous Sulfate (325 (65 fe) mg) Tablet Oral daily, K-Tab 1 (20 meq) Tablet, controlled release Oral b.i.d., Lasix 1 (40 mg) Tablet Oral b.i.d., Levothyroxine Sodium 1 (125 mcg) Tablet Oral every am, Losartan Potassium 1 (50 mg) Tablet Oral daily, Melatonin 1 (10 mg/mL) Liquid Oral at bedtime, oxyCODONE HCl (15 mg) Tablet Oral four times a day PRN, Prochlorperazine Maleate 1 Tablet (of 10 mg) Oral q 4 hours PRN, Simvastatin 1 (40 mg) Tablet Oral daily Allergies: TRENT Inhibitors, Cephalexin, Pregabalin, Sulfa Antibiotics, and traZODone HCl. Vital Signs: Performed on Jun 23, 2021 11:19 Height - 69.00 in Weight - 201.0 lbs (LOW) BSA - 2.07 sq.m BMI - 29.68 Temperature - 97.0 F (LOW) Pulse - 76 /min Respiration - 18 /min BP - 116/77 mm(hg) O2 Sat - 94 % (LOW) Pain - 8 Fatigue - 8 Physical Examination: Constitutional - She appears generally weak, Eyes - Sclerae nonicteric. Conjunctivae clear, ENMT - No lesions noted in the oral cavity, Hematologic/Lymphatic - No cervical, clavicular, or axillary adenopathy, Respiratory - Lungs sound clear, Cardiovascular - Heart rhythm is irregular. There is no murmur, gallop, or rub noted, Abdomen - Soft. Liver and spleen are not enlarged. There is no abdominal mass or ascites noted. There is no inguinal adenopathy noted, Extremities - No edema, Neurologic - She has chronic weakness in her left leg. Lab/Imaging: Test performed on Jun 23, 2021 09:10 Sodium 139 mmol/L Potassium 4.4 mmol/L Chloride 104 mmol/L CO2 23 mmol/L Anion Gap 16.4 BUN 22 mg/dL Creatinine 1.5 mg/dL Cr Clearance (Est) 46.6100 mL/min Glucose 160 mg/dL Osmolality - Calculated 295 mOsm/kg Calcium 9.6 mg/dL Protein, Total 7.5 g/dL Albumin 4.0 g/dL Globulin 3.5 g/dL Bilirubin, Total 0.5 mg/dL ALT (SGPT) < 5 U/L AST (SGOT) 14 U/L Alkaline Phosphatase 95 IU/L WBC 11.7 10 3/uL RBC 4.08 10 6/uL HGB 12.2 g/dL HCT 39.7 % MCV 97.3 fl MCH 29.9 pg MCHC 30.7 g/dL RDW 16.1 % Platelet Count 333 10 3/cmm MPV 10.3 fL Neutrophils 8.35 10 3/uL Lymphocytes 2.3 10 3/uL Monocytes 0.8 10 3/uL Eosinophils 0.2 10 3/uL Basophils 0.1 10 3/uL Neutrophil % 71.1 % Lymphocyte % 19.8 % Monocyte % 6.9 % Eosinophil % 1.4 % Basophils % 0.5 % NRBC % 0 % Problem List: 1. Grade 2 invasive ductal carcinoma involving the subareolar area of the left breast, ER/WV positive and HER-2/alhaji positive. Staging is incomplete, but it appears to be a T1b primary lesion. 2. Hypertension. 3. Hyperlipidemia. 4. Borderline diabetes. 5. Hypothyroidism. 6. 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 7. Osteoporosis. 8. Left lower extremity neuropathy. 9. Obesity with previous gastric bypass. 10. 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 Problems Addressed with this Encounter and Plan: 1. Patient with grade 2 invasive ductal carcinoma involving the subareolar area of the left breast, ER/WV positive and HER-2/alhaji positive. By clinical evaluation, she had T1, N0 disease, and she did not meet criteria for neoadjuvant chemotherapy. She then proceeded with left breast lumpectomy and left axillary sentinel lymph node biopsy on 09/16/2020. Pathology showed grade 2 invasive ductal carcinoma measuring 1.2 cm in maximum diameter. The margins were free. There were no lymph nodes identified in the axillary specimen. Her pathologic staging was pT1c, Nx. With a HER-2/alhaji positive T1c primary tumor, she was recommended to undergo adjuvant chemotherapy with weekly Abraxane/Herceptin for 12 weeks. She began her week 1 treatment on 10/28/2020. She had generalized bone aching for 2 days after that treatment. She had no other significant side effects, but at day 8 she was moderately neutropenic and her chemotherapy was delayed. She will continued with week 2 Abraxane/Herceptin on 11/15/2020 with the Abraxane dosage reduced by 20%. She tolerated that treatment much better. With her week 3 treatment she did require a change in her pain medication due to an increase in her musculoskeletal pain. She then felt somewhat better and she continued with her week 4 Abraxane/Herceptin on 11/29/2020. At that point she had developed moderately severe neutropenia, and she was given Neupogen prophylactically for 2 days. At her follow-up visit on 12/06/2020 she presented with increased fatigue in association with a slight cough, some generalized aching, and low-grade fever. Her treatment was put on hold, and she had subsequently tested positive for COVID-19 virus infection. She was given the monoclonal antibody infusion, and she the felt better gradually. She was able to continue with week 5 Abraxane/Herceptin on 12/21/2020 and with week 6 on 12/27/2020. On 01/03/2021 she was admitted to the hospital with gram-negative sepsis in association with a left ureteral calculus. On 01/27/2021 she underwent ureteroscopy with laser lithotripsy and placement of left ureteral stent. With that illness, I opted to stop Abraxane and transition her to Herceptin monotherapy. She began cycle 1 of Herceptin on 02/01/2021. She tolerated it well and continued with cycle 2 on 02/23/2021 and with cycle 3 on 03/16/2021. At that point she also started adjuvant hormonal therapy with anastrozole 1 mg daily. Her cycle 4 of Herceptin monotherapy was delayed to 04/14/2021 while she completed parenteral iron replacement for iron deficiency anemia. She then continued Herceptin monotherapy at 3-week intervals. During that time her anastrozole was put on hold due to increased musculoskeletal pain. She has now completed 6 cycles of treatment. She continues to have significant musculoskeletal pain. Overall she appears stable clinically. She will proceed with cycle 7 of Herceptin monotherapy at 6 mg/kg by IV infusion. She returns in 3 weeks. In the meantime, I will also have her see Dr. Miranda, as she is potentially a candidate for adjuvant radiation. 2. She has chronic neuropathy in the left leg, which she feels is getting worse. She had previously been given gabapentin, but it caused significant sedation at the 300 mg dosage. She is wanting to try it again but with the dosage reduced to 100 mg. 3. She has osteoporosis with baseline DEXA scan on 02/24/2021 showing T score -2.8 in the right femoral neck and -2.9 in the left forearm. She has started treatment with Prolia. Signed By: Francois Alston M.D. <<Signature on File>>
[2021-07-14 08:49] LABS: Basophils # 0.1 10^3/uL (0.0-0.1); Basophils % 0.7 %; Eosinophils # 0.3 10^3/uL (0.0-0.8); Eosinophils % 4.7 %; Hematocrit 38.8 % (37.0-47.0); Hemoglobin 11.8 g/dL (11.5-15.3); Lymphocytes # 2.7 10^3/uL (0.8-4.8); Lymphocytes % 37.4 %; Mean Corpuscular HGB Conc 30.4 g/dL (30.0-36.0); Mean Corpuscular Hemoglobin 29.9 pg (28.0-34.0); Mean Corpuscular Volume 98.5 fl (81-99); Mean Platelet Volume 10.3 fL (7.4-10.4); Monocytes # 0.5 10^3/uL (0.2-0.9); Monocytes % 7.5 %; Neutrophils # 3.55 10^3/uL (1.8-7.7); Neutrophils % 49.6 %; Nucleated Red Blood Cells % 0 %; Platelet Count 332 10^3/cmm (130-400); Red Blood Count 3.94 10^6/uL (4.1-5.3); Red Cell Distribution Width 14.6 % (12.1-15.1); White Blood Count 7.2 10^3/uL (4.0-10.0)
[2021-07-14 09:07] LABS: Alanine Aminotransferase < 5 U/L (0-33); Albumin Level 3.7 g/dL (3.5-5.2); Alkaline Phosphatase 79 IU/L (35-105); Anion Gap 13.8 (5-19); Aspartate Amino Transferase 12 U/L (0-32); Blood Urea Nitrogen 22 mg/dL (8-23); Calcium 9.6 mg/dL (8.5-10.5); Carbon Dioxide 24 mmol/L (22-29); Chloride 105 mmol/L (98-107); Globulin 2.5 g/dL (1.3-4.6); Glucose 97 mg/dL (65-115); Osmolality Calculated 291 mOsm/kg (285-295); Potassium 3.8 mmol/L (3.5-5.1); Sodium 139 mmol/L (136-145); Total Bilirubin 0.3 mg/dL (0.15-1.2); Total Protein 6.2 g/dL (6.6-8.7)
[2021-07-14] MEDS: diphenhydrAMINE 25 mg Capsule PO (10:44)
[2021-07-14] MEDS: acetaminophen 325 mg Tablet 650 MG PO (10:44)
[2021-07-14] MEDS: sodium chloride 0.9% 250 ML IV (10:44)
--- NOTE | 2021-07-17 11:52 | ONC FU_ITS ---
[facility] Progress Note Patient: Lucie Joyner < Unit #: [id number]: 1945 Dicatated By: Mary Beth Hubbard N.P.Date of Visit:Jul 14, 2021 Onc MED Follow-up/Prog Note Chief Complaint: Breast cancer. 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 She had presented with a palpable mass in the subareolar area of the left breast, which she first noticed a week before . Bilateral diagnostic mammogram on 08/06/2020 showed a focal asymmetric density deep to the palpable marker measuring 8 mm. It was new from a prior study in 2019. Ultrasound showed a mixed echogenicity ill-defined lesion adjacent to the nipple. It appeared to emerge with the areola. The findings were BI-RADS 4, suspicious, and subsequent ultrasound directed biopsy on 08/18/2020 showed grade 2 invasive ductal carcinoma. The breast prognostic profile showed ER positive at 99% and KY positive at 100%. It was positive for overexpression of HER-2/alhaji, 3+ by IHC and amplification ratio by FISH of 5.3 with 12.4 HER-2 copies/cell. The Ki-67 was high at 35%. Dr. Alston had seen her initially on 08/26/2020. She had had further evaluation with left axillary ultrasound. That study did show several lymph nodes within the left axilla, but they appeared benign, as there was noted to be maintenance of normal fatty юлия. By clinical staging she appeared to have T1, N0 disease, and she did not meet criteria for neoadjuvant chemotherapy. As such, she was recommended to proceed with surgery. On 09/16/2020 she underwent left breast lumpectomy and left axillary sentinel lymph node biopsy. Pathology on the lumpectomy showed grade 2 invasive ductal carcinoma measuring 1.2 cm in greatest dimension. There was no DCIS identified. The closest margin was the inferior margin measuring 4 mm. There were no lymph nodes identified in the axillary specimen. As such her disease was pathologic stage pT1c, Nx. but stage IA for clinical T1, N0 or IB for T1, N1 involvement. In the setting of HER-2/alhaji positive disease, Dr. Alston had recommended adjuvant chemotherapy with weekly Abraxane/Herceptin for 12 weeks, as she had additional history of longstanding neuropathy of the left leg, and he preferred to avoid use of Taxol. Her other medical illnesses include hypertension, hyperlipidemia, borderline diabetes, hypothyroidism, degenerative arthritis, and osteoporosis. Her other prior surgeries include gastric bypass for obesity in 2000, cholecystectomy in 1970, and hysterectomy/bilateral salpingo-oophorectomy in 1988. She has also had bilateral shoulder replacement and redo arthroplasty of the left shoulder, lumbar laminectomy in 2014, and thoracic laminectomy in 2015. She is a non-smoker. INTERIM HISTORY: She began week 1 of weekly Abraxane/Herceptin on 10/28/2020. She developed bone generalized aching following that treatment. Her further chemotherapy was then delayed due to neutropenia. The following week her Abraxane had to be delayed due to neutropenia, but she did receive Herceptin. She was then given week 2 Abraxane/Herceptin on 11/15/2020. The Abraxane was administered at a reduced dosage. She tolerated it much better. She then continued with week 3 Abraxane on 11/22/2020 and with week 4 on 11/29/2020. At that point she had developed moderately severe neutropenia, and she was given Neupogen prophylactically for 2 days. At her follow-up visit on 12/06/2020 her blood counts were adequate. However, she had developed a slight cough and she was significantly more fatigued. She also had some generalized aching and low-grade fever. I opted to put her treatment on hold. As a precaution, I also had her tested for COVID-19, and that came back positive. She was given the monoclonal antibody infusion. The following day her temperature spike to 102 degrees, but after that she felt much better. She was able to continue with week 5 Abraxane/Herceptin on 12/21/2020 and with week 6 on 12/27/2020. On 01/03/2021 she was admitted to the hospital with gram-negative sepsis. She was not neutropenic. This was determined to be due to left ureteral calculus. She underwent cystoscopy with left ureteral stent placement on 01/04/2021. She was discharged home on 01/08/2021. She then underwent ureteroscopy with laser lithotripsy and placement of left ureteral stent on 01/27/2021. As a result of that illness, I opted to stop her Abraxane and transition her to Herceptin monotherapy. She received cycle 1 of Herceptin on 02/01/2021. She tolerated it well and she continued with cycle 2 on 02/23/2021, and with cycle 3 on 03/16/2021. At that point she also began adjuvant hormonal therapy with anastrozole 1 mg daily. Her cycle 4 Herceptin monotherapy was administered on 04/14/2021, having been was delayed while she completed parenteral iron replacement for iron deficiency anemia. She had continued Herceptin monotherapy at 3-week intervals. As of 06/02/2021 she had completed her 6th cycle. Patient presents today for scheduled visit. She continues to have a great deal of fatigue but states she is feeling okay. Her appetite is fair. She denies fever, chills, night sweats. No shortness of breath or cough. No GI problems. She has generalized joint and body aches. She has neuropathy in the bilateral lower extremities which is stable. Review Of Symptoms: See above. Past Medical History: Borderline diabetes COVID-19 Degenerative arthritis Degenerative disease of the spine Hyperlipidemia Hypertension Hypothyroidism Left lower extremity neuropathy Obesity Osteoporosis Covid virus in 2020 Past Surgical History: Arthroscopic knee surgery Bilateral cataract excisions Carpal tunnel release Tonsillectomy Left ureteral stent replacement; left retrograde ureteral pyelogram; ureteroscopy laser lithotripsy??? in 2020 Covid vaccine #2 in 2020 Covid vaccine #2 Moderna in 2020 Covid vaccine #1 in 2020 Covid vaccine #1 Moderna in 2020 Redo left shoulder joint arthroplasty in 2020 ORIF for intertrochanteric left hip fracture in 2019 Thoracic laminectomy with placement of spinal cord stimulator in 2016 L4-L5 laminectomy for lumbar spinal stenosis in 2015 Decompressive laminectomy at L3-4 and L4-5 for severe stenosis in 2012 Left shoulder replacement in 2011 Right shoulder replacement in 2010 Incisional hernia repair in 2001 Gastric bypass procedure in 2000 Hysterectomy/bilateral salpingo-oophorectomy in 1988 Cholecystectomy in 1970 Allergies: TRENT Inhibitors, Cephalexin, Pregabalin, Sulfa Antibiotics, and traZODone HCl. Medications: Acyclovir 1 Capsule (of 400 mg) Oral b.i.d. B-12 1 (1000 mcg) Tablet Oral daily Benadryl Allergy 1 (25 mg) Tablet Oral t.i.d. Claritin 1 (10 mg) Tablet Oral daily Esomeprazole Magnesium (20 mg) Tablet, enteric coated Oral daily Ferrous Sulfate (325 (65 fe) mg) Tablet Oral daily Gabapentin 1 Capsule (of 100 mg) Oral t.i.d. K-Tab 1 (20 meq) Tablet, controlled release Oral b.i.d. Lasix 1 (40 mg) Tablet Oral b.i.d. Levothyroxine Sodium 1 (125 mcg) Tablet Oral every am Losartan Potassium 1 (50 mg) Tablet Oral daily Melatonin 1 (10 mg/mL) Liquid Oral at bedtime oxyCODONE HCl (15 mg) Tablet Oral four times a day PRN Prochlorperazine Maleate 1 Tablet (of 10 mg) Oral q 4 hours PRN Simvastatin 1 (40 mg) Tablet Oral daily Family History: Father at age 91 of ruptured aortic aneurysm. Mother of heart attack at age 88. She also had diabetes and she had endometrial cancer. One sister is in good health. Social History: Ms. Joyner is . Ms. Joyner has never smoked. She has no history of drinking. She is a retired RN. She is a non-smoker. She does not drink alcohol. Physical Examination: Performed on Jul 14, 2021 11:10: Height - 69.00 in, Weight - 202 lbs (HIGH), BSA - 2.07 sq.m, BMI - 29.83, Temperature - 97.6 F (LOW), Pulse - 80 /min, Respiration - 16 /min, BP - 123/80 mm(hg), O2 Sat - 98 %, Pain - 0, and Fatigue - 7. Performance Status: 3 - Capable of only limited self-care, confined to bed or chair more than 50% of waking hours. (ECOG) Constitutional Alert, cooperative, oriented. Mood and affect appropriate. Appears close to chronological age. Well nourished. Well developed. Head Normocephalic; no scars. Respiratory Lungs are clear to auscultation without rhonchi or wheezing. Cardiovascular Regular rate and rhythm of heart without murmurs, gallops or rubs. Abdomen Non-tender, non-distended, no masses, ascites or hepatosplenomegaly. Good bowel sounds. No guarding or rebound tenderness. Musculoskeletal No tenderness or swelling, normal range of motion without obvious weakness. Psychiatric Alert and oriented times three. Coherent speech. Verbalizes understanding of our discussions today. Laboratory: Test performed on Jul 14, 2021 08:34 Sodium 139 mmol/L Potassium 3.8 mmol/L Chloride 105 mmol/L CO2 24 mmol/L Anion Gap 13.8 BUN 22 mg/dL Creatinine 1.6 mg/dL Cr Clearance (Est) 43.7000 mL/min Glucose 97 mg/dL Osmolality - Calculated 291 mOsm/kg Calcium 9.6 mg/dL Protein, Total 6.2 g/dL Albumin 3.7 g/dL Globulin 2.5 g/dL Bilirubin, Total 0.3 mg/dL ALT (SGPT) < 5 U/L AST (SGOT) 12 U/L Alkaline Phosphatase 79 IU/L WBC 7.2 10 3/uL RBC 3.94 10 6/uL HGB 11.8 g/dL HCT 38.8 % MCV 98.5 fl MCH 29.9 pg MCHC 30.4 g/dL RDW 14.6 % Platelet Count 332 10 3/cmm MPV 10.3 fL Neutrophils 3.55 10 3/uL Lymphocytes 2.7 10 3/uL Monocytes 0.5 10 3/uL Eosinophils 0.3 10 3/uL Basophils 0.1 10 3/uL Neutrophil % 49.6 % Lymphocyte % 37.4 % Monocyte % 7.5 % Eosinophil % 4.7 % Basophils % 0.7 % NRBC % 0 % Test performed on Mar 16, 2021 08:43 Iron 29 mcg/dL Iron Binding Capacity (TIBC) 241 mcg/dl % Iron Saturation 12.0 % UIBC 212 mcg/dL Test performed on Feb 22, 2021 11:25 TSH 0.11 uIU/mL Vitamin D (25-Hydroxy), Total 59 ng/mL Impression: 1. Grade 2 invasive ductal carcinoma involving the subareolar area of the left breast, ER/KY positive and HER-2/alhaji positive. Staging is incomplete, but it appears to be a T1b primary lesion. 2. Hypertension. 3. Hyperlipidemia. 4. Borderline diabetes. 5. Hypothyroidism. 6. 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 7. Osteoporosis. 8. Left lower extremity neuropathy. 9. Obesity with previous gastric bypass. 10. 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 Plan: 1. Patient with grade 2 invasive ductal carcinoma involving the subareolar area of the left breast, ER/KY positive and HER-2/alhaji positive. By clinical evaluation, she had T1, N0 disease, and she did not meet criteria for neoadjuvant chemotherapy. She then proceeded with left breast lumpectomy and left axillary sentinel lymph node biopsy on 09/16/2020. Pathology showed grade 2 invasive ductal carcinoma measuring 1.2 cm in maximum diameter. The margins were free. There were no lymph nodes identified in the axillary specimen. Her pathologic staging was pT1c, Nx. With a HER-2/alhaji positive T1c primary tumor, she was recommended to undergo adjuvant chemotherapy with weekly Abraxane/Herceptin for 12 weeks. She began her week 1 treatment on 10/28/2020. She had generalized bone aching for 2 days after that treatment. She had no other significant side effects, but at day 8 she was moderately neutropenic and her chemotherapy was delayed. She will continued with week 2 Abraxane/Herceptin on 11/15/2020 with the Abraxane dosage reduced by 20%. She tolerated that treatment much better. With her week 3 treatment she did require a change in her pain medication due to an increase in her musculoskeletal pain. She then felt somewhat better and she continued with her week 4 Abraxane/Herceptin on 11/29/2020. At that point she had developed moderately severe neutropenia, and she was given Neupogen prophylactically for 2 days. At her follow-up visit on 12/06/2020 she presented with increased fatigue in association with a slight cough, some generalized aching, and low-grade fever. Her treatment was put on hold, and she had subsequently tested positive for COVID-19 virus infection. She was given the monoclonal antibody infusion, and she the felt better gradually. She was able to continue with week 5 Abraxane/Herceptin on 12/21/2020 and with week 6 on 12/27/2020. On 01/03/2021 she was admitted to the hospital with gram-negative sepsis in association with a left ureteral calculus. On 01/27/2021 she underwent ureteroscopy with laser lithotripsy and placement of left ureteral stent. With that illness, I opted to stop Abraxane and transition her to Herceptin monotherapy. She began cycle 1 of Herceptin on 02/01/2021. She tolerated it well and continued with cycle 2 on 02/23/2021 and with cycle 3 on 03/16/2021. At that point she also started adjuvant hormonal therapy with anastrozole 1 mg daily. Her cycle 4 of Herceptin monotherapy was delayed to 04/14/2021 while she completed parenteral iron replacement for iron deficiency anemia. She then continued Herceptin monotherapy at 3-week intervals. During that time her anastrozole was put on hold due to increased musculoskeletal pain. She has now completed 6 cycles of treatment. She continues to have significant musculoskeletal pain. Overall she appears stable clinically. She will proceed with cycle 8 of Herceptin monotherapy at 6 mg/kg by IV infusion. She returns in 3 weeks. A referral has been placed for her to see Dr. Miranda for possible adjuvant radiation therapy. 2. She has chronic neuropathy in the left leg, which she feels is getting worse. She had previously been given gabapentin, but it caused significant sedation at the 300 mg dosage. The dose was decreased to 100 mg and she is tolerating that much better and it is helping her neuropathy. 3. She has osteoporosis with baseline DEXA scan on 02/24/2021 showing T score -2.8 in the right femoral neck and -2.9 in the left forearm. She has started treatment with Prolia. She received her first dose 04/14/2021. Signed By: Mary Beth Hubbard NJarret <<Signature on File>>
== END 2021-07-14 23:59 | disposition home or self-care (01) ==
LOC: ONCMED 06:38
PROVIDERS: Internal Medicine Medical Oncology; Visit Provider Nurse Practitioner Family
DX: Z51.11 Encounter for antineoplastic chemotherapy (principal); C50.812 Malignant neoplasm of overlapping sites of left female breast; Z17.0 Estrogen receptor positive status [ER+]; I10 Essential (primary) hypertension; E78.5 Hyperlipidemia, unspecified; R73.03 Prediabetes; E03.9 Hypothyroidism, unspecified; M19.90 Unspecified osteoarthritis, unspecified site; M47.9 Spondylosis, unspecified; M81.0 Age-related osteoporosis without current pathological fracture; G62.9 Polyneuropathy, unspecified; E66.9 Obesity, unspecified; Z98.84 Bariatric surgery status; Z86.718 Personal history of other venous thrombosis and embolism; Z79.890 Hormone replacement therapy; Z79.899 Other long term (current) drug therapy
CPT/HCPCS: 80053; 85025; 96413; 99215; J7050; Q5112

== ENCOUNTER 2021-07-25 13:31 | Outpatient (RCR) | payer MEDICARE, OTHER, SELFPAY ==
--- NOTE | 2021-07-20 10:53 | N.ONRAD NP_ITS ---
Radiation Oncology Consultation Patient Name: Lucie Joyner Date of : 1945 Date of Service: 07/20/2021 Attending Physician: Fredy Miranda M.D. Lucie Joyner was seen in consultation this morning at the request of Francois Alston M.D. for consideration of adjuvant breast radiotherapy for the management of an early stage breast cancer. The patient was evaluated for a palpable left breast mass. A bilateral diagnostic mammogram ordered on August 06, 2020 identified an 8 mm, asymmetric lesion within the left breast. Ultrasonography confirmed at the 12 o'clock position in the left breast deep to the areola an ill-defined lesion. A needle core biopsy completed on August 18, 2020 diagnosed a grade 2, invasive ductal carcinoma. The breast cancer prognostic profile reported positivity for estrogen receptor (99%) and progesterone receptor (100%) and HER-2 overexpression (IHC 3+; HER-2 ratio 5.3). The Ki-67 was 35%. A left partial mastectomy with axillary sentinel lymph node biopsy was performed by Maurizio Vázquez M.D. on September 16, 2020. The pathology report (personally reviewed in [facility]) confirmed a 1.2 cm, grade 2, invasive, ductal carcinoma was confirmed. No DCIS was identified. All surgical margins were uninvolved by malignancy. There were no lymph nodes identified in the axillary tissue. Adjuvant chemotherapy was prescribed by Francois Alston M.D. A total of 2 cycles of Abraxane and Herceptin were administered between the dates of October 28, 2020 through December 27, 2020 followed by 8 cycles of Herceptin (February 01, 2021 through July 14, 2021). The patient was evaluated for adjuvant breast radiotherapy. I discussed with Ms. Joyner the [place] [employer] on Cancer staging and specifically the patient's pathological stage IA (T1cN0) specific to her breast cancer diagnosis and The National Comprehensive Cancer Network Guidelines for adjuvant radiotherapy. I also reviewed the classic study by NSABP comparing mastectomy, lumpectomy, and lumpectomy with radiotherapy and the Early Breast Cancer Trialist Collaborative Group meta-analysis. She is aware that the addition of radiotherapy to lumpectomy provides improvement in local control and overall survival. I anticipate a 3 week course of hypofractionated radiotherapy. A computed tomographic radiotherapy planning scan in the treatment position will be performed to identify the clinical tumor volume. The potential toxicities of breast radiotherapy were reviewed. The patient has verbalized understanding would like to proceed as recommended. The patient's medical treatment plan was discussed with Francois Alston M.D. Signed by: Dr. Fredy Miranda 07/20/2021 10:51:47 AM
--- NOTE | 2021-07-25 | CT_ITS ---
Radiation Therapy Planning CT images; total exam DLP: 912.87 mGy-cm MTDD
== END 2021-07-26 13:00 | disposition home or self-care (01) ==
LOC: ONCMED 13:31
PROVIDERS: PCP Family Medicine; Visit Provider Radiology Radiation Oncology
DX: Z51.0 Encounter for antineoplastic radiation therapy (principal); C50.112 Malignant neoplasm of central portion of left female breast; Z17.0 Estrogen receptor positive status [ER+]; D50.9 Iron deficiency anemia, unspecified; Z79.899 Other long term (current) drug therapy; Z90.12 Acquired absence of left breast and nipple
CPT/HCPCS: 77280; 77295; 77300; 77334; 77470; 99205

== ENCOUNTER 2021-07-25 14:10 | Outpatient (CLI) | payer MEDICARE, OTHER, SELFPAY ==
[2021-07-25 15:20] LABS: Basophils % 0.4 %; Eosinophils # 0.2 10^3/uL (0.0-0.8); Eosinophils % 1.5 %; Hematocrit 39.8 % (37.0-47.0); Hemoglobin 11.8 g/dL (11.5-15.3); Lymphocytes % 9.2 %; Mean Corpuscular HGB Conc 29.6 g/dL (30.0-36.0); Mean Corpuscular Hemoglobin 29.7 pg (28.0-34.0); Mean Corpuscular Volume 100.3 fl (81-99); Mean Platelet Volume 10.4 fL (7.4-10.4); Monocytes # 0.8 10^3/uL (0.2-0.9); Monocytes % 7.1 %; Neutrophils # 9.15 10^3/uL (1.8-7.7); Neutrophils % 81.5 %; Nucleated Red Blood Cells % 0 %; Platelet Count 261 10^3/cmm (130-400); Red Blood Count 3.97 10^6/uL (4.1-5.3); White Blood Count 11.2 10^3/uL (4.0-10.0)
[2021-07-25 15:54] LABS: Calcium 10.2 mg/dL (8.5-10.5); Parathyroid Hormone 168.3 pg/mL (15-65)
[2021-07-25 16:03] LABS: 25 Hydroxy Vitamin D 65 ng/mL (30-100); Albumin Level 3.7 g/dL (3.5-5.2); Blood Urea Nitrogen 30 mg/dL (8-23); Calcium 10.1 mg/dL (8.5-10.5); Carbon Dioxide 18 mmol/L (22-29); Chloride 100 mmol/L (98-107); Glucose 94 mg/dL (65-115); Phosphorus 3.8 mg/dL (2.5-4.5); Sodium 135 mmol/L (136-145)
[2021-07-25 16:04] LABS: Anion Gap 20.7 (5-19); Potassium 3.7 mmol/L (3.5-5.1)
[2021-07-25 17:28] LABS: Creatinine Urine, Random 39 mg/dL (28-217); Microalbum Creatinine Ratio Ur 26 mg/dL (0-20); Microalbumin Random Urine 1 ug/dL (0-20)
== END 2021-07-25 14:11 | disposition home or self-care (01) ==
LOC: LAB 14:12
PROVIDERS: PCP Family Medicine; Visit Provider Registered Nurse
DX: N18.32 Chronic kidney disease, stage 3b (principal)
CPT/HCPCS: 36415; 80069; 82044; 82306; 82310; 83970; 85025

== ENCOUNTER 2021-07-26 13:23 | Outpatient (CLI) | payer MEDICARE, OTHER, SELFPAY ==
--- NOTE | 2021-07-26 14:30 | XR_ITS ---
WS: [id number] ABDOMEN 1 VIEW(S) HISTORY: RETAINED URETERAL STENT COMPARISON: 02/11/2021 Diffuse fecal retention and constipation. Distortion of the GI tract within the abdomen due to severe LEFT curvature the lumbar spine. There are several calcific densities in the RIGHT abdomen similar t o the prior study. These could be renal calcifications. The largest measures 5 mm. Prior ORIF LEFT hip. XR/XR KUB [id number] IMPRESSION: 1. Several small calcific densities in the RIGHT abdomen similar to the prior study of 02/11/2021. The largest measures 5 mm. 2. Severe LEFT curvature lumbar spine.
== END 2021-07-26 13:24 | disposition home or self-care (01) ==
LOC: RAD 13:26
PROVIDERS: PCP Family Medicine; Visit Provider Urology
DX: Z96.0 Presence of urogenital implants (principal)
CPT/HCPCS: 74018

== ENCOUNTER 2021-08-09 13:40 | Outpatient (CLI) | payer MEDICARE, OTHER, SELFPAY ==
--- NOTE | 2021-08-09 13:55 | XR_ITS ---
WS: [id number] Pelvis, AP views, 08/09/2021 Clinical Data: PAIN UPON ON SITTING Comparison: Hip and left pelvis, 10/15/2018. Findings: The left femoral neck screw and intramedullary velasquez repairing a left intertrochanteric subtrochanteric hip fracture remain in the same position. The right hip is unremarkable. The SI joints and pubic sym physis are intact. There is osteoarthritic change of the lower lumbar spine. There is a generator overlying the left iliac crest. XR/XR pelvis 1-2V* [id number] Impression: Internal fixation of left intertrochanteric subtrochanteric fracture.
== END 2021-08-09 13:41 | disposition home or self-care (01) ==
LOC: RAD 13:45
PROVIDERS: PCP Family Medicine
DX: R10.2 Pelvic and perineal pain (principal)
CPT/HCPCS: 72170

== ENCOUNTER 2021-08-12 06:36 | Outpatient (RCR) | payer MEDICARE, OTHER, SELFPAY ==
--- NOTE | 2021-08-02 13:07 | ONCRAD TMN_ITS ---
Radiation Oncology Treatment Management Note Patient Name: Lucie Joyner Date of : 1945 Date of Service: 08/02/2021 Attending Physician: Fredy Miranda M.D. Lucie Joyner is a 76 year-old white female diagnosed with a pathological stage IA (T1cN0) ductal carcinoma of the left breast. She was evaluated for a palpable left breast mass. A bilateral diagnostic mammogram ordered on August 06, 2020 identified an 8 mm, asymmetric lesion within the left breast. Ultrasonography confirmed at the 12 o'clock position in the left breast deep to the areola an ill-defined lesion. A needle core biopsy completed on August 18, 2020 diagnosed a grade 2, invasive ductal carcinoma. The breast cancer prognostic profile reported positivity for estrogen receptor (99%) and progesterone receptor (100%) and HER-2 overexpression (IHC 3+; HER-2 ratio 5.3). The Ki-67 was 35%. A left partial mastectomy with axillary sentinel lymph node biopsy was performed by Maurizio Vázquez M.D. on September 16, 2020. The pathology report confirmed a 1.2 cm, grade 2, invasive, ductal carcinoma was confirmed. No DCIS was identified. All surgical margins were uninvolved by malignancy. There were no lymph nodes identified in the axillary tissue. Adjuvant chemotherapy was prescribed by Francois Alston M.D. A total of 2 cycles of Abraxane and Herceptin were administered between the dates of October 28, 2020 through December 27, 2020 followed by 8 cycles of Herceptin (February 01, 2021 through July 14, 2021). She has received 5.4 Gy of a prescribed 40 Gy delivered with a 3D conformal radiotherapy plan utilizing opposed tangential portal roche with a [id number] treatment technique. Upon review of systems, she denied any breast complaints to radiotherapy. On physical examination, the patient weighed 202 lbs. Her temperature was 97.5 ???F and the blood pressure was 105/61 mmHg. Her pulse was 65 bpm and the respiratory rate was 16. There was no erythema within the treatment roche of the left breast. Continue hypofractionated left breast radiotherapy as prescribed. Signed by: Fredy Miranda 08/02/2021 1:05:11 PM
--- NOTE | 2021-08-02 13:07 | ONCRAD TMN_ITS ---
Radiation Oncology Treatment Management Note Patient Name: Lucie Joyner Date of : 1945 Date of Service: 08/02/2021 Attending Physician: Fredy Miranda M.D. Lucie Joyner is a 76 year-old white female diagnosed with a pathological stage IA (T1cN0) ductal carcinoma of the left breast. She was evaluated for a palpable left breast mass. A bilateral diagnostic mammogram ordered on August 06, 2020 identified an 8 mm, asymmetric lesion within the left breast. Ultrasonography confirmed at the 12 o'clock position in the left breast deep to the areola an ill-defined lesion. A needle core biopsy completed on August 18, 2020 diagnosed a grade 2, invasive ductal carcinoma. The breast cancer prognostic profile reported positivity for estrogen receptor (99%) and progesterone receptor (100%) and HER-2 overexpression (IHC 3+; HER-2 ratio 5.3). The Ki-67 was 35%. A left partial mastectomy with axillary sentinel lymph node biopsy was performed by Maurizio Vázquez M.D. on September 16, 2020. The pathology report confirmed a 1.2 cm, grade 2, invasive, ductal carcinoma was confirmed. No DCIS was identified. All surgical margins were uninvolved by malignancy. There were no lymph nodes identified in the axillary tissue. Adjuvant chemotherapy was prescribed by Francois Alston M.D. A total of 2 cycles of Abraxane and Herceptin were administered between the dates of October 28, 2020 through December 27, 2020 followed by 8 cycles of Herceptin (February 01, 2021 through July 14, 2021). She has received 5.4 Gy of a prescribed 40 Gy delivered with a 3D conformal radiotherapy plan utilizing opposed tangential portal roche with a [id number] treatment technique. Upon review of systems, she denied any breast complaints related to radiotherapy. On physical examination, the patient weighed 202 lbs. Her temperature was 97.5 ???F and the blood pressure was 105/61 mmHg. Her pulse was 65 bpm and the respiratory rate was 16. There was no erythema within the treatment roche of the left breast. Continue hypofractionated left breast radiotherapy as prescribed. Signed by: Fredy Miranda 08/02/2021 1:05:37 PM
[2021-08-04 11:19] LABS: Basophils % 0.2 %; Eosinophils % 0.1 %; Hematocrit 37.9 % (37.0-47.0); Hemoglobin 11.6 g/dL (11.5-15.3); Lymphocytes # 0.6 10^3/uL (0.8-4.8); Lymphocytes % 6.5 %; Mean Corpuscular HGB Conc 30.6 g/dL (30.0-36.0); Mean Corpuscular Hemoglobin 30.1 pg (28.0-34.0); Mean Corpuscular Volume 98.2 fl (81-99); Mean Platelet Volume 10.2 fL (7.4-10.4); Monocytes # 0.5 10^3/uL (0.2-0.9); Monocytes % 5.8 %; Neutrophils # 7.99 10^3/uL (1.8-7.7); Nucleated Red Blood Cells % 0 %; Platelet Count 305 10^3/cmm (130-400); Red Blood Count 3.86 10^6/uL (4.1-5.3); Red Cell Distribution Width 13.3 % (12.1-15.1); White Blood Count 9.2 10^3/uL (4.0-10.0)
[2021-08-04 11:55] LABS: Alanine Aminotransferase 12 U/L (0-33); Albumin Level 4.1 g/dL (3.5-5.2); Alkaline Phosphatase 91 IU/L (35-105); Anion Gap 17.9 (5-19); Aspartate Amino Transferase 20 U/L (0-32); Blood Urea Nitrogen 34 mg/dL (8-23); Calcium 9.6 mg/dL (8.5-10.5); Carbon Dioxide 21 mmol/L (22-29); Chloride 102 mmol/L (98-107); Globulin 2.4 g/dL (1.3-4.6); Glucose 108 mg/dL (65-115); Osmolality Calculated 292 mOsm/kg (285-295); Potassium 3.9 mmol/L (3.5-5.1); Sodium 137 mmol/L (136-145); Total Bilirubin 0.4 mg/dL (0.15-1.2); Total Protein 6.5 g/dL (6.6-8.7)
[2021-08-04] MEDS: sodium chloride 0.9% 500 ML 999 ML IV (13:25)
[2021-08-04] MEDS: acetaminophen 325 mg Tablet 650 MG PO (13:28)
[2021-08-04] MEDS: diphenhydrAMINE 25 mg Capsule PO (13:28)
--- NOTE | 2021-08-07 17:08 | ONC FU_ITS ---
[facility] Progress Note Patient: Lucie Joyner Unit #: [id number]: 1945 Dicatated By: Mary Beth Hubbard N.P.Date of Visit:Aug 04, 2021 Onc MED Follow-up/Prog Note Chief Complaint: Breast cancer. 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 She had presented with a palpable mass in the subareolar area of the left breast, which she first noticed a week before . Bilateral diagnostic mammogram on 08/06/2020 showed a focal asymmetric density deep to the palpable marker measuring 8 mm. It was new from a prior study in 2019. Ultrasound showed a mixed echogenicity ill-defined lesion adjacent to the nipple. It appeared to emerge with the areola. The findings were BI-RADS 4, suspicious, and subsequent ultrasound directed biopsy on 08/18/2020 showed grade 2 invasive ductal carcinoma. The breast prognostic profile showed ER positive at 99% and OH positive at 100%. It was positive for overexpression of HER-2/alhaji, 3+ by IHC and amplification ratio by FISH of 5.3 with 12.4 HER-2 copies/cell. The Ki-67 was high at 35%. Dr. Alston had seen her initially on 08/26/2020. She had had further evaluation with left axillary ultrasound. That study did show several lymph nodes within the left axilla, but they appeared benign, as there was noted to be maintenance of normal fatty юлия. By clinical staging she appeared to have T1, N0 disease, and she did not meet criteria for neoadjuvant chemotherapy. As such, she was recommended to proceed with surgery. On 09/16/2020 she underwent left breast lumpectomy and left axillary sentinel lymph node biopsy. Pathology on the lumpectomy showed grade 2 invasive ductal carcinoma measuring 1.2 cm in greatest dimension. There was no DCIS identified. The closest margin was the inferior margin measuring 4 mm. There were no lymph nodes identified in the axillary specimen. As such her disease was pathologic stage pT1c, Nx. but stage IA for clinical T1, N0 or IB for T1, N1 involvement. In the setting of HER-2/alhaji positive disease, Dr. Alston had recommended adjuvant chemotherapy with weekly Abraxane/Herceptin for 12 weeks, as she had additional history of longstanding neuropathy of the left leg, and he preferred to avoid use of Taxol. Her other medical illnesses include hypertension, hyperlipidemia, borderline diabetes, hypothyroidism, degenerative arthritis, and osteoporosis. Her other prior surgeries include gastric bypass for obesity in 2000, cholecystectomy in 1970, and hysterectomy/bilateral salpingo-oophorectomy in 1988. She has also had bilateral shoulder replacement and redo arthroplasty of the left shoulder, lumbar laminectomy in 2014, and thoracic laminectomy in 2015. She is a non-smoker. INTERIM HISTORY: She began week 1 of weekly Abraxane/Herceptin on 10/28/2020. She developed bone generalized aching following that treatment. Her further chemotherapy was then delayed due to neutropenia. The following week her Abraxane had to be delayed due to neutropenia, but she did receive Herceptin. She was then given week 2 Abraxane/Herceptin on 11/15/2020. The Abraxane was administered at a reduced dosage. She tolerated it much better. She then continued with week 3 Abraxane on 11/22/2020 and with week 4 on 11/29/2020. At that point she had developed moderately severe neutropenia, and she was given Neupogen prophylactically for 2 days. At her follow-up visit on 12/06/2020 her blood counts were adequate. However, she had developed a slight cough and she was significantly more fatigued. She also had some generalized aching and low-grade fever. I opted to put her treatment on hold. As a precaution, I also had her tested for COVID-19, and that came back positive. She was given the monoclonal antibody infusion. The following day her temperature spike to 102 degrees, but after that she felt much better. She was able to continue with week 5 Abraxane/Herceptin on 12/21/2020 and with week 6 on 12/27/2020. On 01/03/2021 she was admitted to the hospital with gram-negative sepsis. She was not neutropenic. This was determined to be due to left ureteral calculus. She underwent cystoscopy with left ureteral stent placement on 01/04/2021. She was discharged home on 01/08/2021. She then underwent ureteroscopy with laser lithotripsy and placement of left ureteral stent on 01/27/2021. As a result of that illness, I opted to stop her Abraxane and transition her to Herceptin monotherapy. She received cycle 1 of Herceptin on 02/01/2021. She tolerated it well and she continued with cycle 2 on 02/23/2021, and with cycle 3 on 03/16/2021. At that point she also began adjuvant hormonal therapy with anastrozole 1 mg daily. Her cycle 4 Herceptin monotherapy was administered on 04/14/2021, having been was delayed while she completed parenteral iron replacement for iron deficiency anemia. She had continued Herceptin monotherapy at 3-week intervals. As of 06/02/2021 she had completed her 6th cycle. Patient presents today for follow-up. She continues to have fatigue but otherwise she is feeling well. Her appetite has been good. She denies fever, chills, night sweats. No sinus drainage or mouth sores. No shortness of breath, cough, chest pain. She has been having some nausea. She is also noticed some decreased urine output. She states her counter weigher changed her Lasix to Bumex. It was noted that her creatinine is elevated today to 2.2. She has no edema in her lower extremities. She has chronic joint pain. She has neuropathy bilateral lower extremities that is well controlled. Review Of Symptoms: see above. Past Medical History: Borderline diabetes COVID-19 Degenerative arthritis Degenerative disease of the spine Hyperlipidemia Hypertension Hypothyroidism Left lower extremity neuropathy Obesity Osteoporosis Covid virus in 2020 Past Surgical History: Arthroscopic knee surgery Bilateral cataract excisions Carpal tunnel release Tonsillectomy Left ureteral stent replacement; left retrograde ureteral pyelogram; ureteroscopy laser lithotripsy??? in 2020 Covid vaccine #2 in 2020 Covid vaccine #2 Moderna in 2020 Covid vaccine #1 in 2020 Covid vaccine #1 Moderna in 2020 Redo left shoulder joint arthroplasty in 2020 ORIF for intertrochanteric left hip fracture in 2019 Thoracic laminectomy with placement of spinal cord stimulator in 2015 L4-L5 laminectomy for lumbar spinal stenosis in 2014 Decompressive laminectomy at L3-4 and L4-5 for severe stenosis in 2012 Left shoulder replacement in 2011 Right shoulder replacement in 2010 Incisional hernia repair in 2001 Gastric bypass procedure in 2000 Hysterectomy/bilateral salpingo-oophorectomy in 1988 Cholecystectomy in 1970 Allergies: TRENT Inhibitors, Cephalexin, Pregabalin, Sulfa Antibiotics, and traZODone HCl. Medications: Acyclovir 1 Capsule (of 400 mg) Oral b.i.d. B-12 1 (1000 mcg) Tablet Oral daily Benadryl Allergy 1 (25 mg) Tablet Oral t.i.d. Bumex 1 Tablet (of 0.5 mg) Oral daily Claritin 1 (10 mg) Tablet Oral daily Esomeprazole Magnesium (20 mg) Tablet, enteric coated Oral daily Ferrous Sulfate (325 (65 fe) mg) Tablet Oral daily Gabapentin 1 Capsule (of 100 mg) Oral t.i.d. K-Tab 1 (20 meq) Tablet, controlled release Oral b.i.d. Levothyroxine Sodium 1 (125 mcg) Tablet Oral every am Losartan Potassium 1 (50 mg) Tablet Oral daily Melatonin 1 (10 mg/mL) Liquid Oral at bedtime oxyCODONE HCl (15 mg) Tablet Oral four times a day PRN Prochlorperazine Maleate 1 Tablet (of 10 mg) Oral q 4 hours PRN Simvastatin 1 (40 mg) Tablet Oral daily Family History: Father at age 91 of ruptured aortic aneurysm. Mother of heart attack at age 88. She also had diabetes and she had endometrial cancer. One sister is in good health. Social History: Ms. Joyner is . Ms. Joyner has never smoked. She has no history of drinking. She is a retired RN. She is a non-smoker. She does not drink alcohol. Physical Examination: Performed on Aug 04, 2021 12:43: Height - 69.00 in, Weight - 199.5 lbs (LOW), BSA - 2.06 sq.m, BMI - 29.46, Temperature - 98.2 F (LOW), Pulse - 61 /min, Respiration - 16 /min, BP - 117/76 mm(hg), O2 Sat - 97 %, Pain - 7, and Fatigue - 7. Performance Status: 3 - Capable of only limited self-care, confined to bed or chair more than 50% of waking hours. (ECOG) Constitutional Alert, cooperative, oriented. Mood and affect appropriate. Appears close to chronological age. Well nourished. Well developed. Head Normocephalic; no scars. Respiratory Lungs are clear to auscultation without rhonchi or wheezing. Cardiovascular Regular rate and rhythm of heart without murmurs, gallops or rubs. Abdomen Non-tender, non-distended, no masses, ascites or hepatosplenomegaly. Good bowel sounds. No guarding or rebound tenderness. Extremities No edema Musculoskeletal generalized weakness Psychiatric Alert and oriented times three. Coherent speech. Verbalizes understanding of our discussions today. Laboratory: Test performed on Aug 04, 2021 11:05 Sodium 137 mmol/L Potassium 3.9 mmol/L Chloride 102 mmol/L CO2 21 mmol/L Anion Gap 17.9 BUN 34 mg/dL Creatinine 2.2 mg/dL Cr Clearance (Est) 31.7800 mL/min Glucose 108 mg/dL Osmolality - Calculated 292 mOsm/kg Calcium 9.6 mg/dL Protein, Total 6.5 g/dL Albumin 4.1 g/dL Globulin 2.4 g/dL Bilirubin, Total 0.4 mg/dL ALT (SGPT) 12 U/L AST (SGOT) 20 U/L Alkaline Phosphatase 91 IU/L WBC 9.2 10 3/uL RBC 3.86 10 6/uL HGB 11.6 g/dL HCT 37.9 % MCV 98.2 fl MCH 30.1 pg MCHC 30.6 g/dL RDW 13.3 % Platelet Count 305 10 3/cmm MPV 10.2 fL Neutrophils 7.99 10 3/uL Lymphocytes 0.6 10 3/uL Monocytes 0.5 10 3/uL Eosinophils 0.0 10 3/uL Basophils 0.0 10 3/uL Neutrophil % 87.0 % Lymphocyte % 6.5 % Monocyte % 5.8 % Eosinophil % 0.1 % Basophils % 0.2 % NRBC % 0 % Test performed on Mar 16, 2021 08:43 Iron 29 mcg/dL Iron Binding Capacity (TIBC) 241 mcg/dl % Iron Saturation 12.0 % UIBC 212 mcg/dL Test performed on Feb 22, 2021 11:25 TSH 0.11 uIU/mL Vitamin D (25-Hydroxy), Total 59 ng/mL Impression: 1. Grade 2 invasive ductal carcinoma involving the subareolar area of the left breast, ER/OH positive and HER-2/alhaji positive. Staging is incomplete, but it appears to be a T1b primary lesion. 2. Hypertension. 3. Hyperlipidemia. 4. Borderline diabetes. 5. Hypothyroidism. 6. 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 7. Osteoporosis. 8. Left lower extremity neuropathy. 9. Obesity with previous gastric bypass. 10. 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 Plan: 1. Patient with grade 2 invasive ductal carcinoma involving the subareolar area of the left breast, ER/OH positive and HER-2/alhaji positive. By clinical evaluation, she had T1, N0 disease, and she did not meet criteria for neoadjuvant chemotherapy. She then proceeded with left breast lumpectomy and left axillary sentinel lymph node biopsy on 09/16/2020. Pathology showed grade 2 invasive ductal carcinoma measuring 1.2 cm in maximum diameter. The margins were free. There were no lymph nodes identified in the axillary specimen. Her pathologic staging was pT1c, Nx. With a HER-2/alhaji positive T1c primary tumor, she was recommended to undergo adjuvant chemotherapy with weekly Abraxane/Herceptin for 12 weeks. She began her week 1 treatment on 10/28/2020. She had generalized bone aching for 2 days after that treatment. She had no other significant side effects, but at day 8 she was moderately neutropenic and her chemotherapy was delayed. She will continued with week 2 Abraxane/Herceptin on 11/15/2020 with the Abraxane dosage reduced by 20%. She tolerated that treatment much better. With her week 3 treatment she did require a change in her pain medication due to an increase in her musculoskeletal pain. She then felt somewhat better and she continued with her week 4 Abraxane/Herceptin on 11/29/2020. At that point she had developed moderately severe neutropenia, and she was given Neupogen prophylactically for 2 days. At her follow-up visit on 12/06/2020 she presented with increased fatigue in association with a slight cough, some generalized aching, and low-grade fever. Her treatment was put on hold, and she had subsequently tested positive for COVID-19 virus infection. She was given the monoclonal antibody infusion, and she the felt better gradually. She was able to continue with week 5 Abraxane/Herceptin on 12/21/2020 and with week 6 on 12/27/2020. On 01/03/2021 she was admitted to the hospital with gram-negative sepsis in association with a left ureteral calculus. On 01/27/2021 she underwent ureteroscopy with laser lithotripsy and placement of left ureteral stent. With that illness, I opted to stop Abraxane and transition her to Herceptin monotherapy. She began cycle 1 of Herceptin on 02/01/2021. She tolerated it well and continued with cycle 2 on 02/23/2021 and with cycle 3 on 03/16/2021. At that point she also started adjuvant hormonal therapy with anastrozole 1 mg daily. Her cycle 4 of Herceptin monotherapy was delayed to 04/14/2021 while she completed parenteral iron replacement for iron deficiency anemia. She then continued Herceptin monotherapy at 3-week intervals. During that time her anastrozole was put on hold due to increased musculoskeletal pain. She has now completed 8 cycles of treatment. She continues to have significant musculoskeletal pain. Overall she appears stable clinically. She will proceed with cycle 9 of Herceptin monotherapy at 6 mg/kg by IV infusion. She returns in 3 weeks. She is also receiving radiation therapy with Dr. Miranda and tolerating it well. 2. She has chronic neuropathy in the left leg, which she feels is getting worse. She had previously been given gabapentin, but it caused significant sedation at the 300 mg dosage. The dose was decreased to 100 mg and she is tolerating that much better and it is helping her neuropathy. 3. She has osteoporosis with baseline DEXA scan on 02/24/2021 showing T score -2.8 in the right femoral neck and -2.9 in the left forearm. She has started treatment with Prolia. She received her first dose 04/14/2021. 4. Her creatinine was noted to be elevated to 2.2 during this visit. Urine output has also been decreased. Her lasix was changed to Bumex by her counter weigher. She will receive 500cc NS infusion today for hydration today. Signed By: Mary Beth Hubbard, N.P. <<Signature on File>>
--- NOTE | 2021-08-09 13:25 | ONCRAD TMN_ITS ---
Radiation Oncology Treatment Management Note Patient Name: Lucie Joyner Date of : 1945 Date of Service: 08/09/2021 Attending Physician: Fredy Miranda M.D. Lucie Joyner is a 76 year-old white female diagnosed with a pathological stage IA (T1cN0) ductal carcinoma of the left breast. She was evaluated for a palpable left breast mass. A bilateral diagnostic mammogram ordered on August 06, 2020 identified an 8 mm, asymmetric lesion within the left breast. Ultrasonography confirmed at the 12 o'clock position in the left breast deep to the areola an ill-defined lesion. A needle core biopsy completed on August 18, 2020 diagnosed a grade 2, invasive ductal carcinoma. The breast cancer prognostic profile reported positivity for estrogen receptor (99%) and progesterone receptor (100%) and HER-2 overexpression (IHC 3+; HER-2 ratio 5.3). The Ki-67 was 35%. A left partial mastectomy with axillary sentinel lymph node biopsy was performed by Maurizio Vázquez M.D. on September 16, 2020. The pathology report confirmed a 1.2 cm, grade 2, invasive, ductal carcinoma was confirmed. No DCIS was identified. All surgical margins were uninvolved by malignancy. There were no lymph nodes identified in the axillary tissue. Adjuvant chemotherapy was prescribed by Francois Alston M.D. A total of 2 cycles of Abraxane and Herceptin were administered between the dates of October 28, 2020 through December 27, 2020 followed by 8 cycles of Herceptin (February 01, 2021 through July 14, 2021). She has received 18.7 Gy of a prescribed 40 Gy delivered with a 3D conformal radiotherapy plan utilizing opposed tangential portal roche with a [id number] treatment technique. Upon review of systems, she denied any breast complaints related to radiotherapy. She described pain in the pelvis while sitting. On physical examination, the patient weighed 200 lbs. Her temperature was 96.9 ???F and the blood pressure was 110/64 mmHg. Her pulse was 68 bpm and the respiratory rate was 16. There was no erythema within the treatment roche of the left breast. Continue hypofractionated left breast radiotherapy as planned. Radiographs will be ordered to evaluate pelvic pain. Signed by: Fredy Miranda 08/09/2021 1:25:22 PM
== END 2021-08-13 23:59 | disposition home or self-care (01) ==
LOC: ONCMED 06:36
PROVIDERS: Nurse Practitioner Family; Absent Provider Radiology Radiation Oncology; PCP Family Medicine; Visit Provider Radiology Radiation Oncology
DX: Z51.0 Encounter for antineoplastic radiation therapy (principal); Z51.11 Encounter for antineoplastic chemotherapy; C50.012 Malignant neoplasm of nipple and areola, left female breast; Z17.0 Estrogen receptor positive status [ER+]; R53.82 Chronic fatigue, unspecified; D70.1 Agranulocytosis secondary to cancer chemotherapy; T45.1X5A Adverse effect of antineoplastic and immunosuppressive drugs, initial encounter; Z86.16 Personal history of COVID-19; Z86.19 Personal history of other infectious and parasitic diseases; G62.89 Other specified polyneuropathies; M81.0 Age-related osteoporosis without current pathological fracture; Z79.899 Other long term (current) drug therapy
CPT/HCPCS: 77336; 77387; 77412; 80053; 85025; 96360; 96413; 99215; J7040; J7050; Q5112

== ENCOUNTER 2021-09-02 11:24 | Oncology outpatient (recurring) (ONCR) | payer MEDICARE, OTHER, SELFPAY ==
--- NOTE | 2021-08-16 13:26 | ONCRAD TMN_ITS ---
Radiation Oncology Treatment Management Note Patient Name: Lucie Joyner Date of : 1945 Date of Service: 08/16/2021 Attending Physician: Fredy Miranda M.D. Lucie Joyner is a 76 year-old white female diagnosed with a pathological stage IA (T1cN0) ductal carcinoma of the left breast. She was evaluated for a palpable left breast mass. A bilateral diagnostic mammogram ordered on August 06, 2020 identified an 8 mm, asymmetric lesion within the left breast. Ultrasonography confirmed at the 12 o'clock position in the left breast deep to the areola an ill-defined lesion. A needle core biopsy completed on August 18, 2020 diagnosed a grade 2, invasive ductal carcinoma. The breast cancer prognostic profile reported positivity for estrogen receptor (99%) and progesterone receptor (100%) and HER-2 overexpression (IHC 3+; HER-2 ratio 5.3). The Ki-67 was 35%. A left partial mastectomy with axillary sentinel lymph node biopsy was performed by Maurizio Vázquez M.D. on September 16, 2020. The pathology report confirmed a 1.2 cm, grade 2, invasive, ductal carcinoma was confirmed. No DCIS was identified. All surgical margins were uninvolved by malignancy. There were no lymph nodes identified in the axillary tissue. Adjuvant chemotherapy was prescribed by Francois Alston M.D. A total of 2 cycles of Abraxane and Herceptin were administered between the dates of October 28, 2020 through December 27, 2020 followed by 8 cycles of Herceptin (February 01, 2021 through July 14, 2021). She has received 32 Gy of a prescribed 40 Gy delivered with a 3D conformal radiotherapy plan utilizing opposed tangential portal roche with a [id number] treatment technique. She continues Herceptin every 21 days. Upon review of systems, she denied any breast complaints related to radiotherapy. On physical examination, the patient weighed 202 lbs. Her temperature was 97.4 ???F and the blood pressure was 106/51 mmHg. Her pulse was 69 bpm and the respiratory rate was 18. There was no erythema within the treatment roche of the left breast. Continue hypofractionated left breast radiotherapy as prescribed. Signed by: Fredy Miranda 08/16/2021 1:25:16 PM
--- NOTE | 2021-08-19 11:43 | N.ONRD TS_ITS ---
Radiation OncologyTreatment Summary Patient Name: Lucie Joyner Date of : 1945 Date of Service: 08/19/2021 Attending Physician: Fredy Miranda M.D. Lucie Joyner has completed adjuvant left breast radiotherapy for the management of a pathological stage IA (T1cN0) ductal carcinoma of the left breast. She was evaluated for a palpable left breast mass. A bilateral diagnostic mammogram ordered on August 06, 2020 identified an 8 mm, asymmetric lesion within the left breast. Ultrasonography confirmed at the 12 o'clock position in the left breast deep to the areola an ill-defined lesion. A needle core biopsy completed on August 18, 2020 diagnosed a grade 2, invasive ductal carcinoma. The breast cancer prognostic profile reported positivity for estrogen receptor (99%) and progesterone receptor (100%) and HER-2 overexpression (IHC 3+; HER-2 ratio 5.3). The Ki-67 was 35%. A left partial mastectomy with axillary sentinel lymph node biopsy was performed by Maurizio Vázquez M.D. on September 16, 2020. The pathology report confirmed a 1.2 cm, grade 2, invasive, ductal carcinoma was confirmed. No DCIS was identified. All surgical margins were uninvolved by malignancy. There were no lymph nodes identified in the axillary tissue. Adjuvant chemotherapy was prescribed by Francois Alston M.D. A total of 2 cycles of Abraxane and Herceptin were administered between the dates of October 28, 2020 through December 27, 2020 followed by 8 cycles of Herceptin (February 01, 2021 through July 14, 2021). She continues Herceptin every 21 days. Daily radiotherapy was administered between the dates of August 01, 2021 through August 19, 2021. A prescribed dose of 40 Gy was delivered in 15 fractions encompassing 19 elapsed days. The left breast was treated in the supine position with a 3-dimensional conformal radiotherapy plan applying an opposed tangential portal field design utilizing a [id number] treatment technique. The medial tangential field utilized a 305??? gantry angle with a collimator angle of 0???. The field size measured 0 cm x 13 cm within the X-direction and 20 cm x 0 cm within the Y-direction. The SSD measured 88.1 cm with the field delivering 148 monitor units. An energy of 6 MV was prescribed. A supplemental medial tangential port with multi-leaf collimation was designed prescribing 6 MV photon energy that administered 8 monitor units. The lateral tangential field employed a gantry angle of 127??? with a collimator angle of 0???. The field size measured 13 cm x 0 cm within X-direction and 20cm x 0 cm within the Y-direction. The measured SSD was 87.6 cm with the field allocating 159 monitor units. A photon energy of 6 MV was prescribed. An auxiliary lateral tangential port with MLC was designed assigning 6 MV photon energy that apportioned 8 monitor units. All treatments were performed with the Heroic linear accelerator and an isocentric technique. The dose was calculated by Anisotropic Analytic Algorithm. The plan was normalized to deliver 95% of the prescription dose to 95% of the planning target volume. Signed by: Fredy Miranda 08/19/2021 11:42:02 AM
[2021-08-25 10:47] VITALS: BMI 29.8
[2021-08-25 10:52] LABS: Basophils % 0.7 %; Eosinophils # 0.3 10^3/uL (0.0-0.8); Eosinophils % 5.6 %; Hematocrit 36.9 % (37.0-47.0); Hemoglobin 11.3 g/dL (11.5-15.3); Lymphocytes # 1.5 10^3/uL (0.8-4.8); Lymphocytes % 26.9 %; Mean Corpuscular HGB Conc 30.6 g/dL (30.0-36.0); Mean Corpuscular Hemoglobin 30.8 pg (28.0-34.0); Mean Corpuscular Volume 100.5 fl (81-99); Mean Platelet Volume 10.4 fL (7.4-10.4); Monocytes # 0.5 10^3/uL (0.2-0.9); Monocytes % 9.8 %; Neutrophils % 56.5 %; Nucleated Red Blood Cells % 0 %; Platelet Count 292 10^3/cmm (130-400); Red Blood Count 3.67 10^6/uL (4.1-5.3); White Blood Count 5.5 10^3/uL (4.0-10.0)
[2021-08-25 11:11] LABS: Alanine Aminotransferase 9 U/L (0-33); Albumin Level 3.7 g/dL (3.5-5.2); Alkaline Phosphatase 98 IU/L (35-105); Anion Gap 15.8 (5-19); Aspartate Amino Transferase 15 U/L (0-32); Blood Urea Nitrogen 21 mg/dL (8-23); Calcium 10.4 mg/dL (8.5-10.5); Carbon Dioxide 23 mmol/L (22-29); Chloride 105 mmol/L (98-107); Globulin 3.1 g/dL (1.3-4.6); Glucose 92 mg/dL (65-115); Osmolality Calculated 293 mOsm/kg (285-295); Potassium 3.8 mmol/L (3.5-5.1); Sodium 140 mmol/L (136-145); Total Bilirubin 0.4 mg/dL (0.15-1.2); Total Protein 6.8 g/dL (6.6-8.7)
[2021-08-25] MEDS: diphenhydrAMINE 25 mg Capsule PO (11:50)
[2021-08-25] MEDS: acetaminophen 325 mg Tablet 650 MG PO (11:50)
[2021-08-25] MEDS: sodium chloride 0.9% 250 ML 75 ML IV (12:26)
[2021-08-25 13:25] VITALS: BP 120/65; PULSE 60; RESP 18; TEMP 36.2; O2SAT 99
--- NOTE | 2021-09-02 11:52 | ONCRAD EPV_ITS ---
Radiation Oncology Follow-Up Note Patient Name: Lucie Joyner Date of : 1945 Date of Service: 09/02/2021 Attending Physician: Fredy Miranda M.D. Lucie Joyner returned to my office this morning for a routinely scheduled post-radiotherapy follow-up appointment. She completed adjuvant breast radiotherapy in August for the management of a pathological stage IA (T1cN0) ductal carcinoma of the left breast. She was evaluated for a palpable left breast mass. A bilateral diagnostic mammogram ordered on August 06, 2020 identified an 8 mm, asymmetric lesion within the left breast. Ultrasonography confirmed at the 12 o'clock position in the left breast deep to the areola an ill-defined lesion. A needle core biopsy completed on August 18, 2020 diagnosed a grade 2, invasive ductal carcinoma. The breast cancer prognostic profile reported positivity for estrogen receptor (99%) and progesterone receptor (100%) and HER-2 overexpression (IHC 3+; HER-2 ratio 5.3). The Ki-67 was 35%. A left partial mastectomy with axillary sentinel lymph node biopsy was performed by Maurizio Vázquez M.D. on September 16, 2020. The pathology report confirmed a 1.2 cm, grade 2, invasive, ductal carcinoma was confirmed. No DCIS was identified. All surgical margins were uninvolved by malignancy. There were no lymph nodes identified in the axillary tissue. Adjuvant chemotherapy was prescribed by Francois Alston M.D. A total of 2 cycles of Abraxane and Herceptin were administered between the dates of October 28, 2020 through December 27, 2020 followed by 8 cycles of Herceptin (February 01, 2021 through July 14, 2021). She continues Herceptin every 21 days. Daily radiotherapy was administered between the dates of August 01, 2021 through August 19, 2021. A prescribed dose of 40 Gy was delivered in 15 fractions encompassing 19 elapsed days. On review of systems, she did not report any breast complaints. On physical examination, the patient weighed 251 lbs and the temperature was 97.3???F. Her blood pressure was 134/93 mmHg. The pulse was 92 bpm and the respiratory rate was 18 breaths per minute. Examination of the left breast did not reveal any significant erythema. In summary, Ms. Joyner returned for a routine post-radiotherapy follow-up. There are no sequelae from treatment. She will continue trastuzmab scheduled with her medical oncologist. Signed by: Dr. Fredy Miranda 09/02/2021 11:50:51 AM
== END 2021-09-13 23:59 | disposition home or self-care (01) ==
PROVIDERS: Internal Medicine Medical Oncology; PCP Family Medicine; Visit Provider Radiology Radiation Oncology
DX: C50.812 Malignant neoplasm of overlapping sites of left female breast (principal); Z17.0 Estrogen receptor positive status [ER+]; Z90.12 Acquired absence of left breast and nipple; Z92.3 Personal history of irradiation; Z79.899 Other long term (current) drug therapy
CPT/HCPCS: 77014; 77336; 77387; 77412; 77427; 80053; 85025; 96413; 99215; J7050; Q5112

== ENCOUNTER 2021-10-13 14:00 | Oncology outpatient (recurring) (ONCR) | payer MEDICARE, OTHER, SELFPAY ==
[2021-09-15 10:29] LABS: Basophils % 0.7 %; Eosinophils # 0.3 10^3/uL (0.0-0.8); Eosinophils % 5.8 %; Hematocrit 36.5 % (37.0-47.0); Hemoglobin 11.3 g/dL (11.5-15.3); Lymphocytes # 1.6 10^3/uL (0.8-4.8); Lymphocytes % 26.6 %; Mean Corpuscular Hemoglobin 30.6 pg (28.0-34.0); Mean Corpuscular Volume 98.9 fl (81-99); Mean Platelet Volume 10.6 fL (7.4-10.4); Monocytes # 0.6 10^3/uL (0.2-0.9); Monocytes % 9.3 %; Neutrophils # 3.39 10^3/uL (1.8-7.7); Neutrophils % 57.4 %; Nucleated Red Blood Cells % 0 %; Platelet Count 254 10^3/cmm (130-400); Red Blood Count 3.69 10^6/uL (4.1-5.3); Red Cell Distribution Width 12.8 % (12.1-15.1); White Blood Count 5.9 10^3/uL (4.0-10.0)
[2021-09-15 10:45] LABS: Alanine Aminotransferase 6 U/L (0-33); Albumin Level 3.8 g/dL (3.5-5.2); Alkaline Phosphatase 104 IU/L (35-105); Anion Gap 16.1 (5-19); Aspartate Amino Transferase 12 U/L (0-32); Blood Urea Nitrogen 20 mg/dL (8-23); Calcium 9.5 mg/dL (8.5-10.5); Carbon Dioxide 22 mmol/L (22-29); Chloride 108 mmol/L (98-107); Globulin 2.8 g/dL (1.3-4.6); Glucose 95 mg/dL (65-115); Osmolality Calculated 296 mOsm/kg (285-295); Potassium 4.1 mmol/L (3.5-5.1); Sodium 142 mmol/L (136-145); Total Bilirubin 0.3 mg/dL (0.15-1.2); Total Protein 6.6 g/dL (6.6-8.7)
[2021-09-15] MEDS: acetaminophen 325 mg Tablet 650 MG PO (12:11)
[2021-09-15] MEDS: diphenhydrAMINE 25 mg Capsule PO (12:11)
[2021-09-15] MEDS: sodium chloride 0.9% 250 ML 75 ML IV (12:16)
--- NOTE | 2021-09-20 07:00 | USCV_ITS ---
Lucie Joyner Age: 76 Gender: F : 1945 Exam Date: 09/20/2021 07:25 Ordering Phys: Mary Beth Hubbard CLASS A [employer] Technologist: Nathan Le Exam Location: [facility] [place] Indication: r/o dvt PROCEDURES: Venous duplex imaging was performed in only the right lower extremity. The following venous structures were evaluated: common femoral vein, profunda vein, proximal portion of the greater saphenous vein, superficial femoral vein, and the popliteal vein. In addition, the posterior tibial and peroneal trunk were evaluated. Serial compression, augmentation maneuvers, and spectral Doppler flow evaluation were performed. FINDINGS: Normal 2-D Doppler and augmentation and compressibility throughout the lower extremity venous structures. Additional imaging through the proximal calf veins also reveals no thrombus. Limited evaluation of the greater saphenous vein is patent with no thrombus. Patient directs to area of pain right lateral distal calf. CONCLUSIONS No DVT right lower extremity. Dr. Jeannette Berry DO (Electronically Signed) Final Date: 20 September 2021 08:22 S
[2021-10-06 10:05] LABS: Basophils % 0.7 %; Eosinophils # 0.3 10^3/uL (0.0-0.8); Eosinophils % 5.6 %; Hemoglobin 11.4 g/dL (11.5-15.3); Lymphocytes # 1.4 10^3/uL (0.8-4.8); Lymphocytes % 26.3 %; Mean Corpuscular HGB Conc 31.7 g/dL (30.0-36.0); Mean Corpuscular Hemoglobin 30.8 pg (28.0-34.0); Mean Corpuscular Volume 97.3 fl (81-99); Mean Platelet Volume 10.8 fL (7.4-10.4); Monocytes # 0.5 10^3/uL (0.2-0.9); Monocytes % 9.1 %; Neutrophils # 3.14 10^3/uL (1.8-7.7); Neutrophils % 58.1 %; Nucleated Red Blood Cells % 0 %; Platelet Count 264 10^3/cmm (130-400); Red Cell Distribution Width 12.9 % (12.1-15.1); White Blood Count 5.4 10^3/uL (4.0-10.0)
[2021-10-06 10:26] LABS: Alanine Aminotransferase 6 U/L (0-33); Alkaline Phosphatase 97 IU/L (35-105); Anion Gap 15.6 (5-19); Aspartate Amino Transferase 15 U/L (0-32); Blood Urea Nitrogen 18 mg/dL (8-23); Carbon Dioxide 24 mmol/L (22-29); Chloride 106 mmol/L (98-107); Globulin 2.5 g/dL (1.3-4.6); Glucose 93 mg/dL (65-115); Osmolality Calculated 296 mOsm/kg (285-295); Potassium 3.6 mmol/L (3.5-5.1); Sodium 142 mmol/L (136-145); Total Bilirubin 0.3 mg/dL (0.15-1.2); Total Protein 6.5 g/dL (6.6-8.7)
[2021-10-06] MEDS: acetaminophen 325 mg Tablet 650 MG PO (11:28)
[2021-10-06] MEDS: sodium chloride 0.9% 250 ML 75 ML IV (11:28)
[2021-10-06] MEDS: diphenhydrAMINE 25 mg Capsule PO (11:29)
[2021-10-06 13:50] VITALS: BP 154/91; PULSE 84; RESP 18; TEMP 36.4; O2SAT 98
[2021-10-06 13:56] VITALS: BP 154/91; PULSE 84; RESP 18; TEMP 36.6
[2021-10-13 13:58] VITALS: BP 119/63; PULSE 76; RESP 18; TEMP 36.9; O2SAT 96
[2021-10-13] MEDS: denosumab 60 mg SDV SUBCUT (14:03)
== END 2021-10-13 23:59 | disposition home or self-care (01) ==
PROVIDERS: Internal Medicine Medical Oncology; Nurse Practitioner Family; PCP Family Medicine; Visit Provider Radiology Radiation Oncology
DX: Z79.899 Other long term (current) drug therapy (principal); Z53.9 Procedure and treatment not carried out, unspecified reason
CPT/HCPCS: 80053; 85025; 93971; 96372; 96413; 96415; 99214; 99215; J0897; J7050; Q5112

== ENCOUNTER 2021-11-02 14:24 | Oncology outpatient (recurring) (ONCR) | payer MEDICARE, OTHER, SELFPAY ==
[2021-11-02 15:16] LABS: Basophils % 0.5 %; Eosinophils # 0.2 10^3/uL (0.0-0.8); Eosinophils % 1.9 %; Hematocrit 37.2 % (37.0-47.0); Hemoglobin 11.3 g/dL (11.5-15.3); Lymphocytes # 1.2 10^3/uL (0.8-4.8); Lymphocytes % 14.8 %; Mean Corpuscular HGB Conc 30.4 g/dL (30.0-36.0); Mean Corpuscular Hemoglobin 31.2 pg (28.0-34.0); Mean Corpuscular Volume 102.8 fl (81-99); Mean Platelet Volume 10.3 fL (7.4-10.4); Monocytes # 0.6 10^3/uL (0.2-0.9); Neutrophils # 5.92 10^3/uL (1.8-7.7); Neutrophils % 74.4 %; Nucleated Red Blood Cells % 0 %; Platelet Count 258 10^3/cmm (130-400); Red Blood Count 3.62 10^6/uL (4.1-5.3); Red Cell Distribution Width 13.2 % (12.1-15.1)
[2021-11-02 16:18] LABS: 25 Hydroxy Vitamin D 68 ng/mL (30-100); Alanine Aminotransferase < 5 U/L (0-33); Albumin Level 3.9 g/dL (3.5-5.2); Alkaline Phosphatase 77 IU/L (35-105); Anion Gap 14.7 (5-19); Aspartate Amino Transferase 12 U/L (0-32); Blood Urea Nitrogen 14 mg/dL (8-23); Calcium 8.5 mg/dL (8.5-10.5); Carbon Dioxide 23 mmol/L (22-29); Chloride 108 mmol/L (98-107); Globulin 2.4 g/dL (1.3-4.6); Glucose 91 mg/dL (65-115); Osmolality Calculated 292 mOsm/kg (285-295); Potassium 4.7 mmol/L (3.5-5.1); Sodium 141 mmol/L (136-145); Total Bilirubin 0.3 mg/dL (0.15-1.2); Total Protein 6.3 g/dL (6.6-8.7)
== END 2021-11-13 23:59 | disposition home or self-care (01) ==
PROVIDERS: Internal Medicine Medical Oncology; PCP Family Medicine; Visit Provider Radiology Radiation Oncology
DX: C50.112 Malignant neoplasm of central portion of left female breast; Z17.0 Estrogen receptor positive status [ER+]; R53.83 Other fatigue; Z86.16 Personal history of COVID-19; Z86.19 Personal history of other infectious and parasitic diseases; M81.0 Age-related osteoporosis without current pathological fracture; Z79.899 Other long term (current) drug therapy; G56.22 Lesion of ulnar nerve, left upper limb; Z92.21 Personal history of antineoplastic chemotherapy; Z92.25 Personal history of immunosuppression therapy; Z79.818 Long term (current) use of other agents affecting estrogen receptors and estrogen levels
CPT/HCPCS: 36591; 80053; 82306; 85025; 95908; 95910; 99214

== ENCOUNTER → 2021-12-06 13:37 | Outpatient (BNVA) | payer MEDICARE, OTHER, SELFPAY | PROVIDERS: PCP Family Medicine; Visit Provider Orthopaedic Surgery | DX: G56.22 Lesion of ulnar nerve, left upper limb (principal) | CPT/HCPCS: 99213; 99214 ==

== ENCOUNTER 2021-12-12 11:19 | Oncology outpatient (recurring) (ONCR) | payer MEDICARE, OTHER, SELFPAY ==
[2021-12-12 11:45] LABS: Basophils % 0.4 %; Eosinophils # 0.3 10^3/uL (0.0-0.8); Eosinophils % 4.2 %; Hematocrit 39.9 % (37.0-47.0); Hemoglobin 12.3 g/dL (11.5-15.3); Lymphocytes # 1.4 10^3/uL (0.8-4.8); Lymphocytes % 20.6 %; Mean Corpuscular HGB Conc 30.8 g/dL (30.0-36.0); Mean Corpuscular Hemoglobin 31.1 pg (28.0-34.0); Mean Corpuscular Volume 100.8 fl (81-99); Mean Platelet Volume 9.7 fL (7.4-10.4); Monocytes # 0.6 10^3/uL (0.2-0.9); Monocytes % 8.6 %; Neutrophils # 4.55 10^3/uL (1.8-7.7); Neutrophils % 66.1 %; Nucleated Red Blood Cells % 0 %; Platelet Count 262 10^3/cmm (130-400); Red Blood Count 3.96 10^6/uL (4.1-5.3); Red Cell Distribution Width 12.9 % (12.1-15.1); White Blood Count 6.9 10^3/uL (4.0-10.0)
[2021-12-12 12:10] LABS: Alanine Aminotransferase < 5 U/L (0-33); Albumin Level 4.1 g/dL (3.5-5.2); Alkaline Phosphatase 74 U/L (35-105); Anion Gap 16.7 (5-19); Aspartate Amino Transferase 14 U/L (0-32); Blood Urea Nitrogen 17 mg/dL (8-23); Calcium 8.9 mg/dL (8.5-10.5); Carbon Dioxide 23 mmol/L (22-29); Chloride 108 mmol/L (98-107); Globulin 2.6 g/dL (1.3-4.6); Glucose 93 mg/dL (65-115); Osmolality Calculated 297 mOsm/kg (285-295); Potassium 4.7 mmol/L (3.5-5.1); Sodium 143 mmol/L (136-145); Total Bilirubin 0.3 mg/dL (0.15-1.2); Total Protein 6.7 g/dL (6.6-8.7)
[2021-12-12 12:26] LABS: 25 Hydroxy Vitamin D 62 ng/mL (30-100)
== END 2021-12-14 23:59 | disposition home or self-care (01) ==
PROVIDERS: Nurse Practitioner; PCP Family Medicine; Visit Provider Internal Medicine Medical Oncology
DX: Z79.899 Other long term (current) drug therapy; C50.112 Malignant neoplasm of central portion of left female breast; Z17.0 Estrogen receptor positive status [ER+]; R53.0 Neoplastic (malignant) related fatigue; Z79.818 Long term (current) use of other agents affecting estrogen receptors and estrogen levels; Z92.21 Personal history of antineoplastic chemotherapy; Z92.3 Personal history of irradiation
CPT/HCPCS: 36591; 80053; 82306; 85025; 99214

== ENCOUNTER 2021-12-22 11:20 | Outpatient (CLI) | payer MEDICARE, OTHER, SELFPAY ==
--- NOTE | 2021-12-22 11:28 | MM_ITS ---
WS: [id number] BILATERAL 3D TOMOSYNTHESIS DIGITAL DIAGNOSTIC MAMMOGRAPHY WITH CAD CLINICAL INFORMATION: HX OF BREAST CA HISTORY: LEFT breast cancer COMPARISON: August 06, 2020 TECHNIQUE: Bilateral CC, MLO, and ML views. FINDINGS: Images obtained in wheelchair Scattered fibroglandular densities bilaterally. Interval postoperative changes LEFT lumpectomy near t he areola with parenchymal fibrosis. Skin thickening LEFT breast compatible with treatment-related ch anges. No suspicious new parenchymal lesions in the LEFT breast. RIGHT breast is unchanged in appearance compared to previous. A few incidental punctate calcificatio ns. Vascular calcification. No suspicious focal mass, asymmetry, calcifications, or architectural distortion. No evidence of javier gnancy. MM/[place] [id number] IMPRESSION: BI-RADS: 2-Benign FOLLOW UP: 1 Year Follow-up Recommend return to annual diagnostic mammography.
== END 2021-12-22 11:21 | disposition home or self-care (01) ==
LOC: RAD 11:21
PROVIDERS: PCP Family Medicine; Visit Provider Internal Medicine Medical Oncology
DX: Z85.3 Personal history of malignant neoplasm of breast (principal)
CPT/HCPCS: 77062; G0279

== ENCOUNTER 2021-12-28 13:46 | Outpatient (CLI) | payer MEDICARE, OTHER, SELFPAY ==
[2021-12-28 14:22] LABS: Basophils % 0.6 %; Eosinophils # 0.2 10^3/uL (0.0-0.8); Eosinophils % 3.2 %; Hematocrit 41.1 % (37.0-47.0); Hemoglobin 12.4 g/dL (11.5-15.3); Lymphocytes # 1.4 10^3/uL (0.8-4.8); Lymphocytes % 22.4 %; Mean Corpuscular HGB Conc 30.2 g/dL (30.0-36.0); Mean Corpuscular Hemoglobin 30.7 pg (28.0-34.0); Mean Corpuscular Volume 101.7 fl (81-99); Mean Platelet Volume 10.1 fL (7.4-10.4); Monocytes # 0.6 10^3/uL (0.2-0.9); Monocytes % 8.8 %; Neutrophils # 4.11 10^3/uL (1.8-7.7); Neutrophils % 64.8 %; Nucleated Red Blood Cells % 0 %; Platelet Count 288 10^3/cmm (130-400); Red Blood Count 4.04 10^6/uL (4.1-5.3); Red Cell Distribution Width 13.6 % (12.1-15.1); White Blood Count 6.3 10^3/uL (4.0-10.0)
[2021-12-28 14:56] LABS: Creatinine Urine, Random 16 mg/dL (28-217); Microalbumin Random Urine 1 ug/dL (0-20)
[2021-12-28 14:57] LABS: Microalbum Creatinine Ratio Ur 63 mg/dL (0-20)
[2021-12-28 15:00] LABS: Calcium 9.4 mg/dL (8.5-10.5); Parathyroid Hormone 270.1 pg/mL (15-65)
[2021-12-28 15:09] LABS: Albumin Level 3.9 g/dL (3.5-5.2); Anion Gap 15.5 (5-19); Blood Urea Nitrogen 17 mg/dL (8-23); Calcium 9.3 mg/dL (8.5-10.5); Carbon Dioxide 23 mmol/L (22-29); Chloride 106 mmol/L (98-107); Glucose 101 mg/dL (65-115); Phosphorus 3.5 mg/dL (2.5-4.5); Potassium 4.5 mmol/L (3.5-5.1); Sodium 140 mmol/L (136-145)
[2021-12-28 16:46] LABS: 25 Hydroxy Vitamin D > 100 ng/mL (30-100)
== END 2021-12-28 13:47 | disposition home or self-care (01) ==
PROVIDERS: PCP Family Medicine; Visit Provider Internal Medicine Nephrology
DX: I12.9 Hypertensive chronic kidney disease with stage 1 through stage 4 chronic kidney disease, or unspecified chronic kidney disease (principal); N18.32 Chronic kidney disease, stage 3b; Z79.899 Other long term (current) drug therapy
CPT/HCPCS: 36415; 80069; 82044; 82306; 82310; 83970; 85025

== ENCOUNTER 2021-12-29 08:28 | Day surgery (SDC) | payer MEDICARE, OTHER, SELFPAY ==
[2021-12-28 16:56] VITALS: BMI 29.5
[2021-12-29] VITALS (9 sets, daily range): BP systolic 112–135; BP diastolic 57–68; PULSE 65–77; RESP 14–18; TEMP 36.3–36.6; O2SAT 94–100
[2021-12-29] MEDS: sodium chloride 0.9% 1,000 ML 30 ML IV (09:40)
--- NOTE | 2021-12-29 10:27 | SUR.PREOP ---
10:20 PATIENTS'S ALLERGIES REVIEWED WITH DOCTOR GARCIA . VERBALIZED OK TO GIVE ANCEF FOR SURGERY.
--- NOTE | 2021-12-29 10:36 | W.PM.OPSUD ---
Surgery/Procedure H&P Update DATE OF PROCEDURE: December 29, 2021 DATE H&P PERFORMED: 12/06/21 H&P UPDATE INFORMATION: I have reviewed H&P completed within last 30 days PREOP DIAGNOSIS: Left Cubital tunnel syndrome PLANNED PROCEDURE: Operation Date: 12/29/21 10:00 Proposed Procedures p Ulnar nerve decompression of left upper limb: 15682,G56.22(Left) - Gaudencio Johnson MD
--- NOTE | 2021-12-29 10:55 | P.ANESASSM_ITS ---
Pre-Anesthetic Assessment Height/Weight: Height 1.75 m Weight 90.718 kg Temp Pulse Resp BP Pulse Ox O2 Del Method 97.3 F L 65 18 135/66 100 12/29/21 08:44 12/29/21 08:44 12/29/21 08:44 12/29/21 08:44 12/29/21 08:44 12/29/21 08:53 Preop Diagnosis: Left Cubital tunnel syndrome Operation Date: 12/29/21 10:00 Proposed Procedures p Ulnar nerve decompression of left upper limb: 28171,G56.22(Left) - Gaudencio Johnson MD Familial anesthetic complications: None Was Beta Colleen taken within 24 hours: N/A Was Clonidine taken within 24 hours: N/A Last intake: Intake Last Liquid Date 12/28/21 Last Liquid Time 23:30 Last Solid Date 12/28/21 Last Solid Time 23:30 Social No alcohol and No tobacco Exam alert, oriented x 3, clear to auscultation bilaterally and regular rate & rhythm Airway Submandibular: within normal limits Cervical ROM: within normal limits Mallampati: Class II Chronic Renal Insufficiency Metabolic Hyperlipidemia and Thyroid Disease [facility] Lower Back Pain and Osteoarthritis/DJD Anesthetic Plan ASA status: 3 Anesthesia: General Medications/Allergies Home Medications Medication Instructions Recorded Confirmed Last Taken Type clotrimazole 1 % topical cream 1 applic topical BID 12/10/19 12/28/21 12/19/21 History (Antifungal (clotrimazole)) cyanocobalamin (vitamin B-12) 100 100 mcg PO DAILY 12/10/19 12/28/21 12/28/21 History mcg tablet (Vitamin B-12) polyethylene glycol 3350 17 gram 17 gm PO DAILY 12/10/19 12/28/21 01/26/21 History oral powder packet (Miralax) simvastatin 40 mg tablet 40 mg PO DAILY 12/10/19 12/28/21 12/27/21 20:00 History prochlorperazine maleate 10 mg 10 mg PO BID PRN Nausea 11/11/20 12/28/21 01/26/21 History tablet (Compazine) External Heel Lift to Left #1 ea 12/29/20 12/06/21 Unknown Rx cetirizine 10 mg capsule (Zyrtec) 10 mg PO DAILY PRN Allergy Symptoms 10/09/0312/28/21 12/28/21 History loratadine 10 mg tablet (Claritin) 10 mg PO DAILY 01/18/21 12/28/21 12/28/21 06:00 History melatonin 12 mg tablet 12 mg PO BEDTIME 01/18/21 12/28/21 12/27/21 20:00 History methenamine hippurate 1 gram tablet 1 g PO BID Recurrent UTI #60 tabs 02/11/21 12/28/21 12/28/21 06:00 Rx bumetanide 1 mg tablet 1 mg PO DAILY 10/06/21 12/28/21 12/28/21 History levothyroxine 125 mcg capsule 75 mcg PO DAILY 10/06/21 12/28/21 12/29/21 06:00 History gabapentin 100 mg capsule 100 mg PO TID #90 caps 10/19/21 12/28/21 12/29/21 06:00 Rx exemestane 25 mg tablet 25 mg PO DAILY #30 tabs 12/12/21 12/28/21 12/28/21 Rx lubiprostone 24 mcg capsule See Rx Instructions .Route 12/12/21 12/28/21 12/28/21 06:00 Rx (Amitiza) .COMPLEX PRN constipation #60 caps potassium chloride 20 mEq 20 meq PO TID Constipation 12/12/21 12/28/21 12/28/21 07:00 History tablet,extended release oxycodone 15 mg tablet 15 mg PO QID PRN pain 30 days #120 12/15/21 12/28/21 12/29/21 06:00 Rx tabs Allergies Allergy/AdvReac Type Severity Reaction Status Date / Time TRENT Inhibitors Allergy ADR-Cough Verified 12/12/21 12:40 cephalexin [From Keflex] Allergy ALGY-Rash Verified 12/12/21 12:40 pregabalin [From Lyrica] Allergy ADR-Blurry Verified 12/12/21 12:40 Vision soap [From Betadine] Allergy ADR-Itching Verified 12/12/21 12:40 Sulfa (Sulfonamide Allergy ALGY-Hives Verified 12/12/21 12:40 Antibiotics) trazodone Allergy ADR-Irritab Verified 12/12/21 12:40 le silk tape Allergy ALGY-Rash Uncoded 12/12/21 12:40 Current Medications Generic Name Dose Route Start Last Admin Trade Name Freq PRN Reason Stop Dose Admin Sodium Chloride 1,000 mls @ 30 mls/hr 12/29/21 08:45 12/29/21 09:40 Sodium Chloride 0.9% IV 12/30/21 08:44 30 mls/hr .Q24H YANICK Administration PFSH Anesthesia Medical History Breast cancer Chronic kidney disease Degenerative arthritis Degenerative joint disease of spine History of iron deficiency anemia Hyperlipemia Hypertension Hypothyroidism Neurogenic bladder Osteoporosis Peripheral neuropathy Type 2 diabetes mellitus Urolithiasis Surgical History (Updated 12/13/21 @ 06:10 by Francois Alstno MD) H/O bariatric surgery H/O hernia repair H/O total hysterectomy History of appendectomy History of back surgery (2015) Thoracic laminectomy with placement of a spinal cord stimulator History of infusaport central venous catheter insertion History of left shoulder replacement (2011) History of lumbar laminectomy (2014) History of lumpectomy of left breast (10/13/20) left breast lumpectomy and left axillary sentinel lymph node biopsy History of repair of left hip joint (2018) ORIF for intertrochanteric fracture History of right shoulder replacement (2010) With redo replacement in 2019 History of tonsillectomy Hx of cholecystectomy S/P ureteral stent placement Family History Mother , at age 84 Stroke Hypertension CAD (coronary artery disease) Father , at age 90 No problems noted. Social History Smoking and tobacco status: never smoked Alcohol intake: never Marital status: Current occupational status: retired History of recent travel: No Data Anesthesia Cardiac Studies: Echocardiogram 10/25/20 Echocardiogram Limited Views 02/18/21
[2021-12-29] MEDS: clindamycin 600 MG/50 ML PREMIX 100 MG IV (12:17)
--- NOTE | 2021-12-29 12:35 | P.OP_ITS ---
Operative Report Date of procedure: December 29, 2021 Pre-op diagnosis: Preop Diagnosis left cubital tunnel syndrome Post-op diagnosis: same Procedure done: Left ulnar nerve decompression Surgeon: Gaudencio Johnson Anesthesia: General Estimated blood loss (mL): 10 Tourniquet time (min): 9 Findings: No masses or space-occupying lesions were seen about the ulnar nerve at the elbow or within the carpal tunnel. The nerve was fixed and then scar tissue behind the medial epicondyle Condition: stable Disposition: PACU Procedure: The patient was taken to the operating room and given a general anesthesia. A tourniquet was inflated to 225 mmHg. A timeout was performed. A 5 cm long incision was made behind the medial epicondyle. Dissection was accomplished bluntly under loupe magnification identifying the ulnar nerve proximally. Utilizing a hemostat the fascia over the nerve was elevated and incised proximally. Dissection was then carried distally behind the medial epicondyle and into the flexor carpi ulnaris musculature. Dissection was stopped with the first muscular branches identified. Elbow was brought through range of motion with the nerve seen to stay reduced behind the medial epicondyle. No formal transition was thought to be warranted. Wounds were irrigated with saline. De ep tissues were closed with 2-0 Vicryl. The skin was closed with melisa. Xeroform gauze, sterile 4 x 4's, cast padding and Noah wrap were applied. The patient was taken to the recovery room in a sling in stable condition.
[2021-12-29] MEDS: fentaNYL 50 mcg/mL INJ 2mL IVP (12:45)
--- NOTE | 2021-12-29 12:49 | SUR.PHASEI ---
1236 PT TO PACU 5 PT AWAKES TO VOICE, MONITOR SR NO ECTOPY IV TO RT SUBCLAVIAN AREA PORT NS 550ML UP AT KVO RATE PER GRAVITY, ID BRACELET TO RT WRIST PT ID'D WITH 2 IDENTIFIERS, LT UPPER ARM TO HAND DRESSING D/I SLING IN PLACE, DISTAL FINGERS PINK COOL WITH CAP REFILL LESS THAN 3 SECONDS, PT MOVE FINGERS TO COMMAND. BILAT SCDS ON .
--- NOTE | 2021-12-29 15:21 | ANE.PACU2 ---
Inpatient post-anesthesia follow up: Airway intact: Yes Vital signs: Temperature 97.9 F Pulse Rate 67 Respiratory Rate 16 Blood Pressure 117/62 Pulse Oximetry 97 Oxygen Delivery Me thod Room Air Oxygen Flow Rate Fraction of Inspir ed Oxygen Hydration adequate: Yes Nausea and vomiting: No Pain level: 3 Mental status: Baseline
== END 2021-12-29 13:55 | disposition home or self-care (01) ==
PROVIDERS: PCP Family Medicine; Visit Provider Orthopaedic Surgery
PROC: (CPT 64718; principal; 2021-12-29 10:00)
DX: G56.22 Lesion of ulnar nerve, left upper limb (principal); E78.5 Hyperlipidemia, unspecified; Z85.3 Personal history of malignant neoplasm of breast; M19.90 Unspecified osteoarthritis, unspecified site; E11.22 Type 2 diabetes mellitus with diabetic chronic kidney disease; I12.9 Hypertensive chronic kidney disease with stage 1 through stage 4 chronic kidney disease, or unspecified chronic kidney disease; N18.9 Chronic kidney disease, unspecified; E03.9 Hypothyroidism, unspecified; E11.42 Type 2 diabetes mellitus with diabetic polyneuropathy
CPT/HCPCS: 64718; J1100; J2405; J2704; J3010; J3490; J7030

== ENCOUNTER → 2022-01-03 09:17 | Outpatient (BNVA) | payer MEDICARE, OTHER, SELFPAY | PROVIDERS: PCP Family Medicine; Visit Provider Nurse Practitioner Family | DX: Z98.890 Other specified postprocedural states (principal) | CPT/HCPCS: 99024 ==

== ENCOUNTER → 2022-01-10 12:49 | Outpatient (BNVA) | payer MEDICARE, OTHER, SELFPAY | PROVIDERS: PCP Family Medicine; Visit Provider Nurse Practitioner Family | DX: Z98.890 Other specified postprocedural states (principal) | CPT/HCPCS: 99024 ==

== ENCOUNTER 2022-01-13 10:45 | Oncology outpatient (recurring) (ONCR) | payer MEDICARE, OTHER, SELFPAY | END 2022-01-13 23:59 | disposition home or self-care (01) | PROVIDERS: PCP Family Medicine; Visit Provider Internal Medicine Medical Oncology | DX: Z45.2 Encounter for adjustment and management of vascular access device (principal); C50.112 Malignant neoplasm of central portion of left female breast; Z17.0 Estrogen receptor positive status [ER+]; R53.83 Other fatigue | CPT/HCPCS: 96523 ==

== ENCOUNTER 2022-02-10 10:23 | Oncology outpatient (recurring) (ONCR) | payer MEDICARE, OTHER, SELFPAY | END 2022-02-13 23:59 | disposition home or self-care (01) | PROVIDERS: PCP Family Medicine; Visit Provider Internal Medicine Medical Oncology | DX: Z45.2 Encounter for adjustment and management of vascular access device (principal) | CPT/HCPCS: 96523 ==

== ENCOUNTER 2022-03-13 10:24 | Oncology outpatient (recurring) (ONCR) | payer MEDICARE, OTHER, SELFPAY ==
[2022-03-13 10:44] VITALS: BP 117/76; PULSE 60; RESP 18; TEMP 36.4; O2SAT 95
== END 2022-03-15 23:59 | disposition home or self-care (01) ==
PROVIDERS: PCP Family Medicine; Visit Provider Internal Medicine Medical Oncology
DX: Z45.2 Encounter for adjustment and management of vascular access device (principal)
CPT/HCPCS: 96523

== ENCOUNTER 2022-03-31 07:58 | Oncology outpatient (recurring) (ONCR) | payer MEDICARE, OTHER, SELFPAY ==
[2022-03-31 08:21] LABS: Basophils % 0.7 %; Eosinophils # 0.2 10^3/uL (0.0-0.8); Eosinophils % 3.9 %; Hematocrit 34.7 % (37.0-47.0); Hemoglobin 10.9 g/dL (11.5-15.3); Lymphocytes % 32.8 %; Mean Corpuscular HGB Conc 31.4 g/dL (30.0-36.0); Mean Corpuscular Hemoglobin 30.8 pg (28.0-34.0); Mean Platelet Volume 10.4 fL (7.4-10.4); Monocytes # 0.5 10^3/uL (0.2-0.9); Monocytes % 8.9 %; Neutrophils # 3.27 10^3/uL (1.8-7.7); Neutrophils % 53.7 %; Nucleated Red Blood Cells % 0 %; Platelet Count 261 10^3/cmm (130-400); Red Blood Count 3.54 10^6/uL (4.1-5.3); Red Cell Distribution Width 12.2 % (12.1-15.1); White Blood Count 6.1 10^3/uL (4.0-10.0)
[2022-03-31 08:43] LABS: Alanine Aminotransferase 10 U/L (0-33); Albumin Level 3.6 g/dL (3.5-5.2); Alkaline Phosphatase 89 U/L (35-105); Anion Gap 13.7 (5-19); Aspartate Amino Transferase 15 U/L (0-32); Blood Urea Nitrogen 24 mg/dL (8-23); Calcium 9.8 mg/dL (8.5-10.5); Carbon Dioxide 26 mmol/L (22-29); Chloride 103 mmol/L (98-107); Globulin 2.8 g/dL (1.3-4.6); Glucose 95 mg/dL (65-115); Osmolality Calculated 292 mOsm/kg (285-295); Potassium 3.7 mmol/L (3.5-5.1); Sodium 139 mmol/L (136-145); Total Bilirubin 0.4 mg/dL (0.15-1.2); Total Protein 6.4 g/dL (6.6-8.7)
[2022-03-31 09:37] LABS: Iron 49 ug/dL (37-145); Percent Saturation 27.3 % (20-50); Thyroid Stimulating Hormone 2.64 uIU/mL (0.27-4.20); Total Iron Binding Capacity 179 mcg/dl; Unsaturated Iron Binding 130 ug/dL (112-347); Vitamin B12 631 pg/mL (232-1245)
== END 2022-04-15 23:59 | disposition home or self-care (01) ==
LOC: ONCMED 07:59
PROVIDERS: PCP Family Medicine; Visit Provider Internal Medicine Medical Oncology
DX: Z45.2 Encounter for adjustment and management of vascular access device (principal)
CPT/HCPCS: 36591; 80053; 82607; 83540; 83550; 84443; 85025; 99214

== ENCOUNTER → 2022-04-12 15:04 | Outpatient (BNVA) | payer MEDICARE, OTHER, SELFPAY | PROVIDERS: PCP Family Medicine; Visit Provider Specialist | DX: M17.0 Bilateral primary osteoarthritis of knee (principal) | CPT/HCPCS: 20610; 73560; 73565; 99214; J1100; J2795; J3301 ==

== ENCOUNTER → 2022-04-19 14:46 | Outpatient (BNVA) | payer MEDICARE, OTHER, SELFPAY | PROVIDERS: PCP Family Medicine; Referring Provider Registered Nurse; Visit Provider Internal Medicine | DX: E67.3 Hypervitaminosis D (principal); E03.9 Hypothyroidism, unspecified; D64.9 Anemia, unspecified; M81.0 Age-related osteoporosis without current pathological fracture; E55.9 Vitamin D deficiency, unspecified; N18.9 Chronic kidney disease, unspecified; N20.9 Urinary calculus, unspecified | CPT/HCPCS: 36415; 82306; 82310; 82652; 83970; 84100; 99204 ==

== ENCOUNTER → 2022-05-01 14:40 | Outpatient (BNVA) | payer MEDICARE, OTHER, SELFPAY | PROVIDERS: PCP Family Medicine; Visit Provider Otolaryngology | DX: M26.622 Arthralgia of left temporomandibular joint (principal); H93.13 Tinnitus, bilateral; H91.90 Unspecified hearing loss, unspecified ear | CPT/HCPCS: 99202; 99203 ==

== ENCOUNTER 2022-05-02 15:09 | Outpatient (CLI) | payer MEDICARE, OTHER, SELFPAY ==
--- NOTE | 2022-05-02 15:21 | XR_ITS ---
WS: [id number] KUB, AP view, 05/02/2022 Clinical Data: Urolithiasis Comparison: KUB, 07/26/2021 Findings: There is a levoscoliosis. There is a large amount of fecal material throughout the colon. There are c alcifications overlying the region of the right kidney. There is a left hip nail. There is a generator for intradural stimulator wires overlying the left abd omen. There are clips in the right upper quadrant from a cholecystectomy. XR/XR KUB [id number] Impression: No change in possible right renal calcifications.
== END 2022-05-02 15:10 | disposition home or self-care (01) ==
LOC: RAD 15:12
PROVIDERS: PCP Family Medicine; Visit Provider Urology
DX: N20.1 Calculus of ureter (principal); N31.9 Neuromuscular dysfunction of bladder, unspecified; N30.20 Other chronic cystitis without hematuria; Z87.440 Personal history of urinary (tract) infections; N20.9 Urinary calculus, unspecified
CPT/HCPCS: 74018; 81003; 87077; 87086; 87186; 99213

== ENCOUNTER 2022-06-02 09:53 | Oncology outpatient (recurring) (ONCR) | payer MEDICARE, OTHER, SELFPAY ==
[2022-06-02] MEDS: denosumab 60 mg SDV SUBCUT (10:57)
== END 2022-06-13 23:59 | disposition home or self-care (01) ==
PROVIDERS: PCP Family Medicine; Visit Provider Internal Medicine Medical Oncology
DX: M81.0 Age-related osteoporosis without current pathological fracture (principal); Z79.899 Other long term (current) drug therapy
CPT/HCPCS: 96372; 96523; J0897

== ENCOUNTER 2022-06-14 14:35 | Outpatient (CLI) | payer MEDICARE, OTHER, SELFPAY ==
[2022-06-14 15:42] LABS: Basophils % 0.6 %; Eosinophils # 0.2 10^3/uL (0.0-0.8); Eosinophils % 3.5 %; Hematocrit 39.4 % (37.0-47.0); Hemoglobin 11.8 g/dL (11.5-15.3); Lymphocytes # 1.1 10^3/uL (0.8-4.8); Lymphocytes % 15.9 %; Mean Corpuscular HGB Conc 29.9 g/dL (30.0-36.0); Mean Corpuscular Hemoglobin 30.6 pg (28.0-34.0); Mean Corpuscular Volume 102.1 fl (81-99); Mean Platelet Volume 10.5 fL (7.4-10.4); Monocytes # 0.7 10^3/uL (0.2-0.9); Monocytes % 9.9 %; Neutrophils % 69.8 %; Nucleated Red Blood Cells % 0 %; Platelet Count 275 10^3/cmm (130-400); Red Blood Count 3.86 10^6/uL (4.1-5.3); Red Cell Distribution Width 13.6 % (12.1-15.1); White Blood Count 6.9 10^3/uL (4.0-10.0)
[2022-06-14 16:12] LABS: Albumin Level 3.9 g/dL (3.5-5.2); Anion Gap 15.3 (5-19); Blood Urea Nitrogen 22 mg/dL (8-23); Calcium 8.9 mg/dL (8.5-10.5); Carbon Dioxide 23 mmol/L (22-29); Chloride 104 mmol/L (98-107); Glucose 117 mg/dL (65-115); Phosphorus 2.5 mg/dL (2.5-4.5); Potassium 4.3 mmol/L (3.5-5.1); Sodium 138 mmol/L (136-145)
[2022-06-14 16:15] LABS: Calcium 8.8 mg/dL (8.5-10.5); Parathyroid Hormone 414.4 pg/mL (15-65)
[2022-06-14 17:43] LABS: Creatinine Urine, Random 37 mg/dL (28-217); Microalbum Creatinine Ratio Ur 27 mg/dL (0-20); Microalbumin Random Urine 1 ug/dL (0-20)
== END 2022-06-14 14:36 | disposition home or self-care (01) ==
PROVIDERS: PCP Family Medicine; Visit Provider Registered Nurse
DX: N18.32 Chronic kidney disease, stage 3b (principal)
CPT/HCPCS: 36415; 80069; 82044; 82310; 83970; 85025

== ENCOUNTER 2022-06-27 15:54 | Outpatient (CLI) | payer MEDICARE, OTHER, SELFPAY ==
[2022-06-27 17:48] LABS: Parathyroid Hormone 424.4 pg/mL (15-65)
[2022-06-27 17:51] LABS: Phosphorus 3.2 mg/dL (2.5-4.5)
[2022-06-27 17:56] LABS: 25 Hydroxy Vitamin D 49 ng/mL (30-100)
[2022-06-27 18:02] LABS: Calcium 9.1 mg/dL (8.5-10.5)
[2022-07-02 10:55] LABS: Vit D 1,25 (Oh)2, Total 112 pg/mL (18-72); Vit D2 1,25 (Oh)2 <8 pg/mL; Vit D3 1,25 (Oh)2 112 pg/mL
== END 2022-06-27 15:55 | disposition home or self-care (01) ==
PROVIDERS: PCP Family Medicine; Visit Provider Internal Medicine
DX: E55.9 Vitamin D deficiency, unspecified (principal); E03.9 Hypothyroidism, unspecified; E67.3 Hypervitaminosis D; D64.9 Anemia, unspecified
CPT/HCPCS: 36415; 82306; 82310; 82652; 83970; 84100

== ENCOUNTER 2022-07-07 12:05 | Outpatient (CLI) | payer MEDICARE, OTHER, SELFPAY ==
--- NOTE | 2022-07-07 13:02 | XR_ITS ---
WS: [id number] EXAMINATION: XR lumbar spine 6V w f/e [id number] L-SPINE : 8 views REASON FOR EXAM: STRAIN OF MUSCLE/FASCIA TENDON OF LOWER BACK COMPARISON: 07/05/2015 ORDER DATE: 07/07/2022 1:09 PM FINDINGS: Rotoscoliosis of the lumbar spine with convexity to the left. Spinal stimulator noted in the lower th oracic region.. Lumbar vertebral body heights appear maintained. Asymmetric disc space narrowing at a ll levels with osteophytes. Facet joint narrowing and sclerosis at multiple levels. No change on flex ion and extension views. Prior posterior laminectomies at L3-L4 and L4-L5. Marked constipation in the proximal colon XR/XR lumbar spine 6V w f/e [id number] OPINION: 1. Left levorotoscoliosis. 2. Multilevel spondylosis and facet joint osteoarthritic changes. 3. Postoperative changes at L3-L4 and L4-L5. 4. No acute or interval change compared with the last study
[2022-07-07 13:45] LABS: 25 Hydroxy Vitamin D 48 ng/mL (30-100)
[2022-07-08 06:40] LABS: PROTEIN, TOTAL 6.4 g/dL (6.1-8.1)
[2022-07-10 11:25] LABS: Immunoglobulin A 195 mg/dL (70-320)
[2022-07-10 13:24] LABS: Gliadin Ab.IgA <1.0 U/mL; Gliadin Ab.IgG <1.0 U/mL
[2022-07-10 13:33] LABS: Tissue Transglutaminase IgA Ab <1.0 U/mL; Tissue transglutaminase Ab.IgG 1.8 U/mL
[2022-07-10 14:29] LABS: ALBUMIN 3.6 g/dL (3.8-4.8); ALPHA 1 GLOBULIN 0.4 g/dL (0.2-0.3); ALPHA 2 GLOBULIN 0.9 g/dL (0.5-0.9); BETA 1 GLOBULIN 0.4 g/dL (0.4-0.6); BETA 2 GLOBULIN 0.3 g/dL (0.2-0.5); GAMMA GLOBULIN 0.8 g/dL (0.8-1.7)
[2022-07-10 15:39] LABS: KAPPA LIGHT CHAIN, FREE, SERUM 52.6 mg/L (3.3-19.4); KAPPA/LAMBDA LIGHT CHAINS FREE 1.21 (0.26-1.65); LAMBDA LIGHT CHAIN, FREE, SERU 43.3 mg/L (5.7-26.3)
== END 2022-07-07 12:06 | disposition home or self-care (01) ==
LOC: RAD 12:08
PROVIDERS: Internal Medicine; PCP Family Medicine; Visit Provider Family Medicine
DX: S39.012A Strain of muscle, fascia and tendon of lower back, initial encounter (principal); X58.XXXA Exposure to other specified factors, initial encounter; E21.0 Primary hyperparathyroidism; E67.3 Hypervitaminosis D; M81.0 Age-related osteoporosis without current pathological fracture; N18.9 Chronic kidney disease, unspecified; M41.86 Other forms of scoliosis, lumbar region; M47.816 Spondylosis without myelopathy or radiculopathy, lumbar region; Z98.890 Other specified postprocedural states; N20.9 Urinary calculus, unspecified
CPT/HCPCS: 36415; 72114; 82306; 82784; 83516; 83883; 84155; 84165; 86334; 99214

== ENCOUNTER 2022-07-10 15:14 | Outpatient (CLI) | payer MEDICARE, OTHER, SELFPAY ==
[2022-07-10 17:09] LABS: Urine Creatinine 39 mg/dL (28-217)
[2022-07-10 17:48] LABS: Creatinine 24 Hour Urine 653.3 mg/dL (601-1689); Total Volume Urine 1675 ml
[2022-07-10 18:11] LABS: Total Volume Urine 1675 ml
[2022-07-10 18:23] LABS: Calcium 24 Hour Urine 25 mg/24hr (100-300); Urine Calcium Result 1.5 mg/dL
== END 2022-07-10 15:15 | disposition home or self-care (01) ==
PROVIDERS: PCP Family Medicine; Visit Provider Internal Medicine
DX: N18.9 Chronic kidney disease, unspecified (principal); E21.0 Primary hyperparathyroidism; E67.3 Hypervitaminosis D; M81.0 Age-related osteoporosis without current pathological fracture
CPT/HCPCS: 82340; 82570

== ENCOUNTER 2022-07-18 08:50 | Outpatient (CLI) | payer MEDICARE, OTHER, SELFPAY ==
--- NOTE | 2022-07-18 08:30 | NM_ITS ---
WS: [email or web address] EXAMINATION: NM parathyroid [id number] ORDER DATE: 07/18/2022 8:30 AM COMPARISON: None. HISTORY: Hyperparathyroidism TECHNIQUE: Parathyroid scintigraphy with 17.9 mci technetium 99m sestamibi administered. AP and obliq ue views obtained with and without chin and suprasternal notch markers. Initial and 2 hour delayed imagi ng acquired. FINDINGS: Normal salivary uptake. Relatively symmetric bilateral thyroid uptake. Normal thyroid washout on the delayed images. No persistent foci of activity to indicate parathyroid adenoma. NM/NM parathyroid [id number] IMPRESSION: No evidence of parathyroid adenoma
== END 2022-07-18 08:51 | disposition home or self-care (01) ==
LOC: RAD 08:53
PROVIDERS: PCP Family Medicine; Visit Provider Internal Medicine
DX: E21.0 Primary hyperparathyroidism (principal)
CPT/HCPCS: 78070; A9500

== ENCOUNTER 2022-07-19 12:09 | Oncology outpatient (recurring) (ONCR) | payer MEDICARE, OTHER, SELFPAY ==
[2022-07-19 11:51] VITALS: BP 99/63; PULSE 83; RESP 18; TEMP 36.9; O2SAT 94
[2022-07-19 12:07] LABS: Basophils % 0.7 %; Eosinophils # 0.2 10^3/uL (0.0-0.8); Eosinophils % 3.3 %; Hematocrit 35.2 % (37.0-47.0); Hemoglobin 10.5 g/dL (11.5-15.3); Lymphocytes # 1.8 10^3/uL (0.8-4.8); Lymphocytes % 29.5 %; Mean Corpuscular HGB Conc 29.8 g/dL (30.0-36.0); Mean Corpuscular Hemoglobin 29.7 pg (28.0-34.0); Mean Corpuscular Volume 99.7 fl (81-99); Mean Platelet Volume 10.3 fL (7.4-10.4); Monocytes # 0.5 10^3/uL (0.2-0.9); Monocytes % 8.3 %; Neutrophils # 3.52 10^3/uL (1.8-7.7); Nucleated Red Blood Cells % 0 %; Platelet Count 268 10^3/cmm (130-400); Red Blood Count 3.53 10^6/uL (4.1-5.3); Red Cell Distribution Width 13.2 % (12.1-15.1); White Blood Count 6.1 10^3/uL (4.0-10.0)
[2022-07-19 12:18] LABS: Alanine Aminotransferase 8 U/L (0-33); Albumin Level 3.4 g/dL (3.5-5.2); Alkaline Phosphatase 79 U/L (35-105); Anion Gap 14.7 (5-19); Aspartate Amino Transferase 16 U/L (0-32); Blood Urea Nitrogen 30 mg/dL (8-23); Calcium 8.6 mg/dL (8.5-10.5); Carbon Dioxide 24 mmol/L (22-29); Chloride 110 mmol/L (98-107); Globulin 2.8 g/dL (1.3-4.6); Glucose 103 mg/dL (65-115); Osmolality Calculated 304 mOsm/kg (285-295); Potassium 4.7 mmol/L (3.5-5.1); Sodium 144 mmol/L (136-145); Total Bilirubin 0.3 mg/dL (0.15-1.2); Total Protein 6.2 g/dL (6.6-8.7)
[2022-07-19 13:07] LABS: Slide Review Slide Review Perform
== END 2022-08-13 23:59 | disposition home or self-care (01) ==
PROVIDERS: PCP Family Medicine; Visit Provider Internal Medicine Medical Oncology
DX: C50.112 Malignant neoplasm of central portion of left female breast (principal); Z17.0 Estrogen receptor positive status [ER+]; D64.9 Anemia, unspecified; G62.9 Polyneuropathy, unspecified; F41.9 Anxiety disorder, unspecified; Z79.811 Long term (current) use of aromatase inhibitors; Z79.891 Long term (current) use of opiate analgesic; Z79.899 Other long term (current) drug therapy; E03.9 Hypothyroidism, unspecified
CPT/HCPCS: 36591; 80053; 85025; 99214

== ENCOUNTER → 2022-07-24 13:50 | Outpatient (BNVA) | payer MEDICARE, OTHER, SELFPAY | PROVIDERS: PCP Family Medicine; Visit Provider Internal Medicine | DX: E21.0 Primary hyperparathyroidism (principal); E67.3 Hypervitaminosis D; M81.0 Age-related osteoporosis without current pathological fracture; N18.9 Chronic kidney disease, unspecified | CPT/HCPCS: 99214 ==

== ENCOUNTER 2022-08-08 14:37 | Outpatient (CLI) | payer MEDICARE, OTHER, SELFPAY ==
[2022-08-08 16:06] LABS: Alanine Aminotransferase 7 U/L (0-33); Albumin Level 3.8 g/dL (3.5-5.2); Alkaline Phosphatase 69 U/L (35-105); Aspartate Amino Transferase 18 U/L (0-32); Blood Urea Nitrogen 35 mg/dL (8-23); Calcium 9.4 mg/dL (8.5-10.5); Carbon Dioxide 24 mmol/L (22-29); Chloride 106 mmol/L (98-107); Globulin 2.2 g/dL (1.3-4.6); Glucose 91 mg/dL (65-115); Osmolality Calculated 300 mOsm/kg (285-295); Sodium 141 mmol/L (136-145); Total Bilirubin 0.3 mg/dL (0.15-1.2)
== END 2022-08-08 14:38 | disposition home or self-care (01) ==
LOC: LAB 14:42
PROVIDERS: PCP Family Medicine; Visit Provider Internal Medicine
DX: E21.0 Primary hyperparathyroidism (principal); E67.3 Hypervitaminosis D; M81.0 Age-related osteoporosis without current pathological fracture; N20.9 Urinary calculus, unspecified; N18.9 Chronic kidney disease, unspecified
CPT/HCPCS: 36415; 80053

== ENCOUNTER 2022-08-11 12:35 | Outpatient (CLI) | payer MEDICARE, OTHER, SELFPAY ==
--- NOTE | 2022-08-11 12:45 | USCV_ITS ---
Lucie Joyner Age: 77 Gender: F : 1945 Exam Date: 08/11/2022 13:20 Ordering Phys: Bernadette Herrera APRN Technologist: Terri Rosario Exam Location: [facility] Indication: post radiation and chemo BP: 128 / 78 HR: 59 Rhythm: Sinus Technical Quality: Adequate MEASUREMENTS (Male / Female) Normal Values 2D ECHO LV Diastolic Diameter PLAX 4.3 cm 4.2 - 5.9 / 3.9 - 5.3 cm LV Systolic Diameter PLAX 2.6 cm IVS Diastolic Thickness 1.3 cm 0.6 - 1.0 / 0.6 - 0.9 cm IVS Systolic Thickness 1.4 cm LVPW Diastolic Thickness 1.2 cm 0.6 - 1.0 / 0.6 - 0.9 cm LVPW Systolic Thickness 1.8 cm LVOT Diameter 2.0 cm LV Ejection Fraction 2D Teich 71.4 % LV Ejection Fraction MOD 2C 63.8 % LV Ejection Fraction 2C AL 64.2 % LA Diameter 3.1 cm LA Width 3.3 cm LA Height 5.3 cm RA Width 3.4 cm RA Height 4.8 cm Aorta at Sinotubular Diameter 2.6 cm IVC Diameter 1.0 cm M-MODE MV E Point Septal Separation 0.1 cm FINDINGS Left Ventricle Normal left ventricular size and systolic function, EF 66 %. No regional wall motion abnormalities. Right Ventricle The right ventricle is normal in size and function. Right Atrium The right atrium is normal in size. Left Atrium The left atrium is normal in size. Mitral Valve No gross abnormalities noted Aortic Valve Thickened aortic valve. Tricuspid Valve No gross abnormalities noted Pulmonic Valve Pulmonic valve not well visualized. Pericardium Normal pericardium without effusion. Aorta Normal ascending aorta dimension. IVC The inferior vena cava appears normal. CONCLUSIONS Limited 2D echocardiogram normal left ventricular size and systolic function, EF 66 %. No regional wall motion abnormalities. Normal cardiac chamber sizes. Thickened aortic valve. There is no pericardial effusion. Compared to the study from 02/18/2021, there may not be a significant change Dr Jagjit Gonzales MD [facility] (Electronically Signed) Final Date: 12 August 2022 16:22 S
== END 2022-08-11 12:36 | disposition home or self-care (01) ==
LOC: RAD 12:40
PROVIDERS: PCP Family Medicine; Visit Provider Nurse Practitioner Family
DX: C50.112 Malignant neoplasm of central portion of left female breast (principal); I35.8 Other nonrheumatic aortic valve disorders
CPT/HCPCS: 93308

== ENCOUNTER 2022-08-17 11:32 | Oncology outpatient (recurring) (ONCR) | payer MEDICARE, OTHER, SELFPAY ==
[2022-08-17 12:58] LABS: Basophils % 0.7 %; Eosinophils # 0.2 10^3/uL (0.0-0.8); Eosinophils % 3.9 %; Hemoglobin 11.7 g/dL (11.5-15.3); Lymphocytes # 1.5 10^3/uL (0.8-4.8); Lymphocytes % 26.8 %; Mean Corpuscular HGB Conc 30.8 g/dL (30.0-36.0); Mean Corpuscular Hemoglobin 30.5 pg (28.0-34.0); Mean Corpuscular Volume 99.2 fl (81-99); Mean Platelet Volume 9.7 fL (7.4-10.4); Monocytes # 0.6 10^3/uL (0.2-0.9); Monocytes % 10.8 %; Neutrophils # 3.24 10^3/uL (1.8-7.7); Neutrophils % 57.6 %; Nucleated Red Blood Cells % 0 %; Platelet Count 259 10^3/cmm (130-400); Red Blood Count 3.83 10^6/uL (4.1-5.3); Red Cell Distribution Width 12.8 % (12.1-15.1); White Blood Count 5.6 10^3/uL (4.0-10.0)
[2022-08-17 13:20] LABS: Alanine Aminotransferase 8 U/L (0-33); Alkaline Phosphatase 74 U/L (35-105); Anion Gap 14.2 (5-19); Aspartate Amino Transferase 15 U/L (0-32); Blood Urea Nitrogen 21 mg/dL (8-23); Carbon Dioxide 25 mmol/L (22-29); Chloride 104 mmol/L (98-107); Ferritin 160 ng/mL (15-150); Globulin 2.4 g/dL (1.3-4.6); Glucose 93 mg/dL (65-115); Iron 75 ug/dL (37-145); Osmolality Calculated 291 mOsm/kg (285-295); Percent Saturation 37.5 % (20-50); Potassium 4.2 mmol/L (3.5-5.1); Sodium 139 mmol/L (136-145); Total Bilirubin 0.3 mg/dL (0.15-1.2); Total Iron Binding Capacity 200 mcg/dl; Total Protein 6.4 g/dL (6.6-8.7); Unsaturated Iron Binding 125 ug/dL (112-347)
[2022-08-17 14:54] LABS: Vitamin B12 > 2000 pg/mL (232-1245)
== END 2022-09-13 23:59 | disposition home or self-care (01) ==
PROVIDERS: Nurse Practitioner Family; PCP Family Medicine; Visit Provider Internal Medicine Medical Oncology
DX: C50.112 Malignant neoplasm of central portion of left female breast (principal); Z17.0 Estrogen receptor positive status [ER+]; G89.3 Neoplasm related pain (acute) (chronic); M79.604 Pain in right leg; Z79.811 Long term (current) use of aromatase inhibitors; Z79.899 Other long term (current) drug therapy; Z92.21 Personal history of antineoplastic chemotherapy
CPT/HCPCS: 36591; 80053; 82607; 82728; 83540; 83550; 85025; 99214

== ENCOUNTER 2022-08-19 12:25 | Outpatient (CLI) | payer MEDICARE, OTHER, SELFPAY ==
--- NOTE | 2022-08-19 13:00 | USR_ITS ---
PROCEDURE INFORMATION: Exam: US Duplex Left Lower Extremity Veins, Limited Exam date and time: 08/19/2022 12:45 PM Age: 77 years old Clinical indication: Pain; Leg, lower; Left; Additional info: Pain and swelling left leg TECHNIQUE: Imaging protocol: Real-time duplex ultrasound of the left extremity with 2-D marquez scale, color Doppler flow and spectral waveform analysis including responses to compression and other maneuvers (when performed) with image documentation. Limited exam focused on the left lower extremity veins. COMPARISON: CT knee LT w con [id number] 12/24/2019 2:01 PM FINDINGS: Left deep veins: Unremarkable. The common femoral vein and proximal half of the superficial femoral vein are unremarkable. There is impaired compressibility and decreased flow on spectral Doppler imaging involve the distal portion of the left femoral vein and popliteal vein consistent with chronic deep venous thrombosis. Left superficial veins: Unremarkable. Saphenofemoral junction is patent without thrombus. Soft tissues: Unremarkable. US/[place] [id number] IMPRESSION: Findings consistent with chronic DVT involving the distal portion of the left femoral vein and popliteal vein.
== END 2022-08-19 12:26 | disposition home or self-care (01) ==
LOC: RAD 12:30
PROVIDERS: PCP Family Medicine; Visit Provider Internal Medicine Medical Oncology
DX: I82.512 Chronic embolism and thrombosis of left femoral vein (principal)
CPT/HCPCS: 93971

== ENCOUNTER 2022-08-30 08:04 | Outpatient (CLI) | payer MEDICARE, OTHER, SELFPAY ==
--- NOTE | 2022-08-30 08:30 | MM_ITS ---
WS: [id number] ADDITIONAL VIEWS LEFT MAMMOGRAM with tomosynthesis. LEFT BREAST ULTRASOUND HISTORY: nodule central left breast, history LEFT breast cancer. COMPARISON: 12/22/2021, 08/06/2020. LEFT MAMMOGRAM: Spot compression views and true ML with tomosynthesis and sympathetic mammography. Triangular marker is placed along the anterior LEFT breast. There is very minimal soft tissue thicken ing. No discrete well-formed mass. There is slight distortion but this may be related to prior surger y. Surgical sutures are noted towards the LEFT axilla. LEFT BREAST ULTRASOUND 2-D and color Doppler imaging submitted. Ultrasound is directed along the anterior LEFT breast over the palpable abnormality. There is predomi nantly a cystic, ovoid mass corresponding to the palpable abnormality. This mass measures 1.1 x 0.8 x 0.7 cm. There are a few small lobulated soft tissue components within this cyst therefore it is not a simple cyst. There is no increased vascularity. MM/[place] [id number] IMPRESSION: BI-RADS: 3-Probably Benign FOLLOW UP: 6 Month Follow-up 1. No mammographic abnormality. 2. Palpable area corresponds to a complex cyst with diffuse nonvascular nodule s. Favor this is probably benign complex cyst. Recommend 6 month ultrasound fol low-up. In the interval and this mass changes in size earlier imaging can be pe rformed.
--- NOTE | 2022-08-30 08:50 | US_ITS ---
WS: [id number] ADDITIONAL VIEWS LEFT MAMMOGRAM with tomosynthesis. LEFT BREAST ULTRASOUND HISTORY: nodule central left breast, history LEFT breast cancer. COMPARISON: 12/22/2021, 08/06/2020. LEFT MAMMOGRAM: Spot compression views and true ML with tomosynthesis and sympathetic mammography. Triangular marker is placed along the anterior LEFT breast. There is very minimal soft tissue thicken ing. No discrete well-formed mass. There is slight distortion but this may be related to prior surger y. Surgical sutures are noted towards the LEFT axilla. LEFT BREAST ULTRASOUND 2-D and color Doppler imaging submitted. Ultrasound is directed along the anterior LEFT breast over the palpable abnormality. There is predomi nantly a cystic, ovoid mass corresponding to the palpable abnormality. This mass measures 1.1 x 0.8 x 0.7 cm. There are a few small lobulated soft tissue components within this cyst therefore it is not a simple cyst. There is no increased vascularity. US/US breast LT limited* [id number] IMPRESSION: BI-RADS: 3-Probably Benign FOLLOW UP: 6 Month Follow-up 1. No mammographic abnormality. 2. Palpable area corresponds to a complex cyst with diffuse nonvascular nodule s. Favor this is probably benign complex cyst. Recommend 6 month ultrasound fol low-up. In the interval and this mass changes in size earlier imaging can be pe rformed.
== END 2022-08-30 08:05 | disposition home or self-care (01) ==
LOC: RAD 08:11
PROVIDERS: PCP Family Medicine; Visit Provider Internal Medicine Medical Oncology
DX: N60.02 Solitary cyst of left breast (principal); N63.0 Unspecified lump in unspecified breast
CPT/HCPCS: 76642; 77061; G0279

== ENCOUNTER 2022-09-14 12:40 | Oncology outpatient (recurring) (ONCR) | payer MEDICARE, OTHER, SELFPAY ==
[2022-09-14 13:41] VITALS: BP 109/61; PULSE 60; RESP 16; TEMP 37.1; O2SAT 99
== END 2022-10-13 23:59 | disposition home or self-care (01) ==
PROVIDERS: PCP Family Medicine; Visit Provider Internal Medicine Medical Oncology
DX: Z45.2 Encounter for adjustment and management of vascular access device (principal)
CPT/HCPCS: 96523

== ENCOUNTER 2022-09-18 14:11 | Outpatient (CLI) | payer MEDICARE, OTHER, SELFPAY ==
[2022-09-19 12:04] LABS: KAPPA LIGHT CHAIN, FREE, SERUM 50.7 mg/L (3.3-19.4); LAMBDA LIGHT CHAIN, FREE, SERU 39.1 mg/L (5.7-26.3)
== END 2022-09-18 14:12 | disposition home or self-care (01) ==
LOC: LAB 14:14
PROVIDERS: PCP Family Medicine; Visit Provider Internal Medicine
DX: N18.9 Chronic kidney disease, unspecified (principal); E67.3 Hypervitaminosis D; E21.0 Primary hyperparathyroidism; M81.0 Age-related osteoporosis without current pathological fracture; N20.9 Urinary calculus, unspecified; Z01.89 Encounter for other specified special examinations
CPT/HCPCS: 36415; 83883

== ENCOUNTER 2022-09-19 14:31 | Outpatient (CLI) | payer MEDICARE, OTHER, SELFPAY ==
[2022-09-21 11:35] LABS: CREATININE, 24 HOUR URINE 0.66 g/24 h (0.50-2.15); PROTEIN, TOTAL, 24 HR UR 187 mg/24 h (<150); Protein/Creatinine Ratio 0.282 (<0.150); Protein/Creatinine Ratio 282 mg/g creat (<150)
[2022-09-21 16:25] LABS: ALBUMIN 100 %; ALPHA-1-GLOBULINS 0 %; ALPHA-2-GLOBULINS 0 %; BETA GLOBULINS 0 %; GAMMA GLOBULINS 0 %
== END 2022-09-19 14:32 | disposition home or self-care (01) ==
LOC: LAB 14:35
PROVIDERS: PCP Family Medicine; Visit Provider Internal Medicine
DX: E67.3 Hypervitaminosis D (principal); M81.0 Age-related osteoporosis without current pathological fracture; N18.9 Chronic kidney disease, unspecified; N20.9 Urinary calculus, unspecified
CPT/HCPCS: 84156; 84166

== ENCOUNTER → 2022-09-25 14:45 | Outpatient (BNVA) | payer MEDICARE, OTHER, SELFPAY | PROVIDERS: PCP Family Medicine; Visit Provider Internal Medicine | DX: M81.0 Age-related osteoporosis without current pathological fracture (principal); E67.3 Hypervitaminosis D; N18.9 Chronic kidney disease, unspecified; N20.9 Urinary calculus, unspecified; E21.0 Primary hyperparathyroidism; Z79.890 Hormone replacement therapy | CPT/HCPCS: 36415; 80053; 82306; 82310; 83970; 99214 ==

== ENCOUNTER 2022-10-19 13:31 | Oncology outpatient (recurring) (ONCR) | payer MEDICARE, OTHER, SELFPAY ==
[2022-10-19 14:20] VITALS: BP 105/60; PULSE 58; RESP 18; TEMP 36.5; O2SAT 97
== END 2022-11-13 23:59 | disposition home or self-care (01) ==
PROVIDERS: PCP Family Medicine; Visit Provider Internal Medicine Medical Oncology
DX: Z45.2 Encounter for adjustment and management of vascular access device (principal)
CPT/HCPCS: 96523; J1642

== ENCOUNTER → 2022-10-27 09:37 | Outpatient (BNVA) | payer MEDICARE, OTHER, SELFPAY | PROVIDERS: PCP Family Medicine; Referring Provider Nurse Practitioner Family; Visit Provider Specialist | DX: G43.711 Chronic migraine without aura, intractable, with status migrainosus (principal); G62.9 Polyneuropathy, unspecified; T85.840A Pain due to nervous system prosthetic devices, implants and grafts, initial encounter; Y75.1 Therapeutic (nonsurgical) and rehabilitative neurological devices associated with adverse incidents | CPT/HCPCS: 99205 ==

== ENCOUNTER → 2022-11-15 13:11 | Outpatient (BNVA) | payer MEDICARE, OTHER, SELFPAY | PROVIDERS: PCP Family Medicine; Referring Provider Specialist; Visit Provider Physician Assistant | DX: T85.192S Other mechanical complication of implanted electronic neurostimulator of spinal cord electrode (lead), sequela; M41.20 Other idiopathic scoliosis, site unspecified; M47.816 Spondylosis without myelopathy or radiculopathy, lumbar region; Y83.9 Surgical procedure, unspecified as the cause of abnormal reaction of the patient, or of later complication, without mention of misadventure at the time of the procedure; Z01.812 Encounter for preprocedural laboratory examination | CPT/HCPCS: 72020; 72110; 80053; 81001; 85025; 87077; 87086; 87186; 99203 ==

== ENCOUNTER 2022-11-20 09:32 | Day surgery (SDC) | payer MEDICARE, OTHER, SELFPAY ==
[2022-11-20] VITALS (8 sets, daily range): BP systolic 129–156; BP diastolic 64–104; PULSE 66–70; RESP 11–18; TEMP 36.1–36.3; O2SAT 94–100
--- NOTE | 2022-11-20 | XR_ITS ---
WS: [id number] XR thoracic spine 1V [id number] REASON FOR EXAM: removal of scs FINDINGS: Dorsal column stimulator leads have been removed. No residual of the appliance is identified. XR/XR thoracic spine 1V [id number] IMPRESSION: Removal of dorsal column stimulator without abnormality
--- NOTE | 2022-11-20 09:56 | W.PM.OPSUD ---
Surgery/Procedure H&P Update DATE OF PROCEDURE: November 20, 2022 DATE H&P PERFORMED: 11/15/22 H&P UPDATE INFORMATION: I have reviewed H&P completed within last 30 days, I have examined patient prior to procedure and No changes to prior documentation PREOP DIAGNOSIS: Failed Spinal COrd Stimulator PLANNED PROCEDURE: Operation Date: 11/20/22 11:05 Proposed Procedures p 78966: Spinal cord stimulator removal , [id number] Revises or removes a previously implanted spinal neruostimulator(Not Applicable) - Miguel Galindo DO
--- NOTE | 2022-11-20 10:00 | ANES.PREANE2 ---
Pre-Anesthetic Assessment Height/Weight: Height 1.75 m Weight 92.079 kg Temp Pulse Resp BP Pulse Ox O2 Del Method 97.4 F L 68 18 154/85 99 Room Air 11/20/22 09:45 11/20/22 09:45 11/20/22 09:45 11/20/22 09:45 11/20/22 09:45 11/20/22 09:47 Preop Diagnosis: Failed Spinal COrd Stimulator Operation Date: 11/20/22 11:05 Proposed Procedures p [id number]: Spinal cord stimulator removal , [id number] Revises or removes a previously implanted spinal neruostimulator(Not Applicable) - Miguel Galindo, DO Familial anesthetic complications: None Was Beta Colleen taken within 24 hours: N/A Was Clonidine taken within 24 hours: N/A Last intake: > 8hrs Social No alcohol and No tobacco Exam alert, oriented x 3, clear to auscultation bilaterally and regular rate & rhythm Airway Mallampati: Class III Dentition: partials CV/HEM Deep Vein Thrombosis and Hypertension Chronic Renal Insufficiency GI hx gastric bypass Metabolic Diabetes Mellitus (nonmedicated since gastric bypass) hyperPTH [facility] scoliosis Anesthetic Plan ASA status: 3 Anesthesia: General Risk of > 500 ml blood loss (7ml/kg in children): No Medications/Allergies Home Medications Medication Instructions Recorded Confirmed Last Taken Type cyanocobalamin (vitamin B-12) 100 100 mcg PO DAILY 12/10/19 11/17/22 11/17/22 History mcg tablet (Vitamin B-12) simvastatin 40 mg tablet 40 mg PO DAILY 12/10/19 11/17/22 11/17/22 History External Heel Lift to Left #1 ea 12/29/20 11/15/22 Unknown Rx cetirizine 10 mg capsule (Zyrtec) 10 mg PO DAILY PRN Allergy Symptoms 01/18/21 11/17/22 11/17/22 History melatonin 12 mg tablet 12 mg PO BEDTIME 01/18/21 11/17/22 11/16/22 History potassium chloride 20 mEq 20 meq PO TID Constipation 12/12/21 11/17/22 11/17/22 History tablet,extended release levothyroxine 125 mcg capsule 88 mcg PO DAILY 03/31/22 11/17/22 11/17/22 History gabapentin 100 mg capsule 100 mg PO QID #120 caps 04/03/22 11/17/22 11/17/22 Rx furosemide 40 mg tablet (Lasix) 40 mg PO DAILY 04/12/22 11/17/22 11/17/22 History methenamine hippurate 1 gram tablet 1 g PO BID Recurrent UTI #60 tabs 05/02/22 11/17/22 11/17/22 Rx anastrozole 1 mg tablet 1 mg PO DAILY 07/19/22 11/16/22 11/17/22 History clotrimazole 1 % topical cream 1 applic topical BID PRN Rash 08/17/22 11/17/22 11/17/22 History (Antifungal (clotrimazole)) polyethylene glycol 3350 17 gram 17 g PO DAILY PRN Constipation 08/17/22 11/17/22 Unknown History oral powder packet (Miralax) apixaban 5 mg tablet (Eliquis) 5 mg PO BID #60 tabs 08/30/22 11/17/22 11/16/22 Rx lubiprostone 24 mcg capsule See Rx Instructions .Route 09/26/22 11/17/22 11/17/22 Rx (Amitiza) .COMPLEX PRN constipation #60 caps oxycodone 15 mg tablet 15 mg PO QID PRN pain 30 days #120 10/26/22 11/17/22 11/17/22 Rx tabs amitriptyline 25 mg tablet 25 mg PO DAILY #30 tabs 10/27/22 11/17/22 11/16/22 Rx Allergies Allergy/AdvReac Type Severity Reaction Status Date / Time TRENT Inhibitors Allergy ADR-Cough Verified 11/17/22 12:20 cephalexin [From Keflex] Allergy ALGY-Rash Verified 11/17/22 12:20 pregabalin [From Lyrica] Allergy ADR-Blurry Verified 11/17/22 12:20 Vision Sulfa (Sulfonamide Allergy ALGY-Hives Verified 11/17/22 12:20 Antibiotics) trazodone Allergy ADR-Irritab Verified 11/17/22 12:20 le silk tape Allergy ALGY-Rash Uncoded 11/16/22 14:37 PFS Anesthesia Medical History Breast cancer Chronic kidney disease Degenerative arthritis Degenerative joint disease of spine History of iron deficiency anemia Hyperlipemia Hypertension Hypothyroidism Neurogenic bladder Osteoporosis Peripheral neuropathy Type 2 diabetes mellitus Urolithiasis Surgical History H/O bariatric surgery H/O hernia repair H/O total hysterectomy History of appendectomy History of back surgery (2015) Thoracic laminectomy with placement of a spinal cord stimulator History of infusaport central venous catheter insertion History of left shoulder replacement (2011) History of lumbar laminectomy (2014) History of lumpectomy of left breast (10/13/20) left breast lumpectomy and left axillary sentinel lymph node biopsy History of repair of left hip joint (2018) ORIF for intertrochanteric fracture History of right shoulder replacement (2010) With redo replacement in 2019 History of tonsillectomy Hx of cholecystectomy S/P ureteral stent placement Family History Mother , at age 84 Stroke Hypertension CAD (coronary artery disease) Father , at age 90 No problems noted. Social History Smoking and tobacco status: never smoked Alcohol intake: never Substance/Drug Use: never Marital status: Current occupational status: retired Data Anesthesia Cardiac Studies: Echocardiogram 10/25/20 Echocardiogram Limited Views 08/11/22
[2022-11-20 10:33] LABS: Glucose Urine UA Norm (Normal); Ketones Urine Negative (Negative); Protein Urine Neg (Negative); Specific Gravity, Urine 1.015 (1.005-1.030); Urine Appearance Clear (CLEAR); Urine Color Yellow (Yellow); pH Urine 5 (5-7)
[2022-11-20 10:34] LABS: Add Urine Culture? No; Add Urine Microscopic? YES; Bacteria Urine 1+ /hpf; Bilirubin Urine Neg (Negative); Blood Urine 2+ (Negative); Leukocyte Esterase Urine Trace (Negative); Nitrate Urine Negative (Negative); RBC Urine 0-4 /hpf (0-2); Squamous Epithelial Cell Urine 0-4 /hpf (0-5); Urobilinogen Urine Norm (Negative); WBC Urine 0-4 /hpf (0-5)
[2022-11-20] MEDS: sodium chloride 0.9% 1,000 ML 30 ML IV (10:38)
--- NOTE | 2022-11-20 10:45 | SUR.PREOP ---
INFUSER PORT RIGHT CHEST CLEANED WITH CHLORAPREP AND ACCESSED WITH 19G GARCIA NEEDLE USING STERILE TECHNIQUE.GOOD BLOOD RETURN AND SALINE INFUSING WELL.
[2022-11-20] MEDS: clindamycin 600 MG/50 ML PREMIX 100 MG IV (10:46)
[2022-11-20] MEDS: vancomycin 1,000 MG SDV 1000 MG IRRIGATION (11:06)
[2022-11-20] MEDS: lidocaine-epi 1% 20 mL INJ INJECTION (11:06)
[2022-11-20] MEDS: vancomycin 1,000 MG SDV 1000 MG XX (11:38)
--- NOTE | 2022-11-20 11:51 | PM.OP ---
Operative Report Date of procedure: November 20, 2022 Pre-op diagnosis: Preop Diagnosis Failed Spinal COrd Stimulator Post-op diagnosis: same Procedure done: 1. removal of spinal cord stimulator 2. removal of battery for spinal cord stimulator Surgeon: Miguel Galindo Answering Service Operator: Gómez Patterson Answering Service Operator: The surgical dental assistant, Gómez Patterson, ELÍAS was needed for his expertise under the microscope. He was important and necessary throughout the procedure to complete in a safe and timely manner. He assisted with patient positioning prepping and draping tissue retraction suctioning of the operative field protection of the dural sac and tissue closure Estimated blood loss (mL): 5 Procedure: 1. removal of spinal cord stimulator 2. removal of battery for spinal cord stimulator Patient is brought to the operative suite after undergoing anesthesia was placed in the prone position. All pressure well-padded patient's prepped draped normal fashion. Attention was first brought to the battery. Skin incision made over the left flank with incision was previously made. Battery was identified battery was then pulled out of the incision. Next attention was brought to the spinal cord stimulator. A skin incision made over the previous incision. The subperiosteal dissection was made down to the bone the previous insertion site was calcified over. Is a high-speed bur was used to take down the bone curved curette and Kerrison rongeur were used to remove this bone and then the spinal cord stimulator was removed. The wires were cut and then the wires were pulled out from the battery side. X-rays brought in to ensure that there were no remaining metal fragments. Wounds then irrigated closed with 0 Vicryl 2-0 Vicryl and Monocryl suture. Sterile dressings applied patient was transferred to the PACU in stable condition.
[2022-11-20] MEDS: fentaNYL 50 mcg/mL INJ 2mL IVP (12:12)
--- NOTE | 2022-11-20 12:57 | ANE.PACU2 ---
Inpatient post-anesthesia follow up: Airway intact: Yes Vital signs: Temperature 97.0 F Pulse Rate 66 Respiratory Rate 16 Blood Pressure 134/79 Pulse Oximetry 100 Oxygen Delivery Me thod Room Air Oxygen Flow Rate 6 Fraction of Inspir ed Oxygen Hydration adequate: Yes Nausea and vomiting: Yes Pain level: 1 Mental status: Baseline
[2022-11-20] MEDS: oxyCODONE 10 mg ER (12 HR) Tablet PO (13:03)
== END 2022-11-20 13:20 | disposition home or self-care (01) ==
PROVIDERS: Physician Assistant; PCP Family Medicine; Visit Provider Orthopaedic Surgery
PROC: (CPT 63661; principal; 2022-11-20 10:55)
DX: T85.112A Breakdown (mechanical) of implanted electronic neurostimulator of spinal cord electrode (lead), initial encounter (principal); M54.9 Dorsalgia, unspecified; G89.29 Other chronic pain; M41.20 Other idiopathic scoliosis, site unspecified; I13.0 Hypertensive heart and chronic kidney disease with heart failure and stage 1 through stage 4 chronic kidney disease, or unspecified chronic kidney disease; N18.9 Chronic kidney disease, unspecified; E11.22 Type 2 diabetes mellitus with diabetic chronic kidney disease; E11.40 Type 2 diabetes mellitus with diabetic neuropathy, unspecified; E78.5 Hyperlipidemia, unspecified; E03.9 Hypothyroidism, unspecified; Z79.899 Other long term (current) drug therapy; Z86.718 Personal history of other venous thrombosis and embolism; Y83.8 Other surgical procedures as the cause of abnormal reaction of the patient, or of later complication, without mention of misadventure at the time of the procedure; Z88.2 Allergy status to sulfonamides
CPT/HCPCS: 63661; 63688; 72020; 76000; 81001; J1100; J2405; J2704; J2710; J3010; J3370; J3490; J7030

== ENCOUNTER 2022-11-28 12:29 | Oncology outpatient (recurring) (ONCR) | payer MEDICARE, OTHER, SELFPAY ==
[2022-11-28 12:33] VITALS: BP 117/71; PULSE 67; RESP 18; TEMP 36.8; O2SAT 97
[2022-11-28 12:58] LABS: Basophils # 0.1 10^3/uL (0.0-0.1); Basophils % 0.7 %; Eosinophils # 0.4 10^3/uL (0.0-0.8); Eosinophils % 5.5 %; Hemoglobin 10.6 g/dL (11.5-15.3); Lymphocytes # 1.5 10^3/uL (0.8-4.8); Lymphocytes % 19.9 %; Mean Corpuscular HGB Conc 31.2 g/dL (30.0-36.0); Mean Corpuscular Volume 96.3 fl (81-99); Mean Platelet Volume 9.6 fL (7.4-10.4); Monocytes # 0.8 10^3/uL (0.2-0.9); Monocytes % 10.7 %; Neutrophils % 62.9 %; Nucleated Red Blood Cells % 0 %; Platelet Count 314 10^3/cmm (130-400); Red Blood Count 3.53 10^6/uL (4.1-5.3); Red Cell Distribution Width 13.2 % (12.1-15.1); White Blood Count 7.5 10^3/uL (4.0-10.0)
[2022-11-28 13:22] LABS: Calcium 9.3 mg/dL (8.5-10.5)
[2022-11-28 13:24] LABS: Alanine Aminotransferase 6 U/L (0-33); Albumin Level 3.6 g/dL (3.5-5.2); Alkaline Phosphatase 78 U/L (35-105); Anion Gap 13.8 (5-19); Aspartate Amino Transferase 12 U/L (0-32); Blood Urea Nitrogen 20 mg/dL (8-23); Calcium 9.5 mg/dL (8.5-10.5); Carbon Dioxide 25 mmol/L (22-29); Chloride 103 mmol/L (98-107); Globulin 2.5 g/dL (1.3-4.6); Glucose 95 mg/dL (65-115); Osmolality Calculated 288 mOsm/kg (285-295); Phosphorus 3.5 mg/dL (2.5-4.5); Potassium 3.8 mmol/L (3.5-5.1); Sodium 138 mmol/L (136-145); Total Bilirubin 0.3 mg/dL (0.15-1.2); Total Protein 6.1 g/dL (6.6-8.7)
[2022-11-28 13:39] LABS: 25 Hydroxy Vitamin D 44 ng/mL (30-100)
[2022-11-28 13:44] LABS: Parathyroid Hormone 172.7 pg/mL (15-65)
== END 2022-12-14 23:59 | disposition home or self-care (01) ==
PROVIDERS: Internal Medicine; PCP Family Medicine; Visit Provider Internal Medicine Medical Oncology
DX: C50.112 Malignant neoplasm of central portion of left female breast (principal); Z17.0 Estrogen receptor positive status [ER+]; D64.9 Anemia, unspecified; G62.9 Polyneuropathy, unspecified; F41.9 Anxiety disorder, unspecified; Z79.811 Long term (current) use of aromatase inhibitors; Z79.891 Long term (current) use of opiate analgesic; Z79.899 Other long term (current) drug therapy; Z53.9 Procedure and treatment not carried out, unspecified reason; Z45.2 Encounter for adjustment and management of vascular access device; E03.9 Hypothyroidism, unspecified; M25.552 Pain in left hip; M54.50 Low back pain, unspecified; R12 Heartburn; Z92.21 Personal history of antineoplastic chemotherapy; N63.20 Unspecified lump in the left breast, unspecified quadrant
CPT/HCPCS: 36591; 80053; 82306; 82310; 83970; 84100; 85025; 99214; J1642

== ENCOUNTER → 2022-12-05 12:53 | Outpatient (BNVA) | payer MEDICARE, OTHER, SELFPAY | PROVIDERS: PCP Family Medicine; Visit Provider Orthopaedic Surgery | DX: Z47.89 Encounter for other orthopedic aftercare (principal) | CPT/HCPCS: 99024 ==

== ENCOUNTER → 2022-12-06 12:56 | Outpatient (BNVA) | payer MEDICARE, OTHER, SELFPAY | PROVIDERS: PCP Family Medicine; Visit Provider Internal Medicine | DX: M81.0 Age-related osteoporosis without current pathological fracture (principal); E67.3 Hypervitaminosis D; N20.9 Urinary calculus, unspecified; N18.9 Chronic kidney disease, unspecified; E21.0 Primary hyperparathyroidism; Z79.890 Hormone replacement therapy | CPT/HCPCS: 99214 ==

== ENCOUNTER → 2022-12-07 10:26 | Outpatient (BNVA) | payer MEDICARE, OTHER, SELFPAY | PROVIDERS: PCP Family Medicine; Visit Provider Specialist | DX: M17.0 Bilateral primary osteoarthritis of knee | CPT/HCPCS: 20610; J7326 ==

== ENCOUNTER 2022-12-21 12:43 | Outpatient (CLI) | payer MEDICARE, OTHER, SELFPAY ==
--- NOTE | 2022-12-21 13:00 | MR_ITS ---
WS: [id number] MRI LUMBAR SPINE WITH AND WITHOUT CONTRAST HISTORY: N31.9 - Neuromuscular dysfunction of bladder, unspecified COMPARISON: 10/19/2015 TECHNIQUE: Sagittal and axial multisequence imaging is submitted. Postcontrast imaging, MultiHance 18 mL IV. Thoracolumbar scoliosis. Mild straightening of the normal thoracic kyphosis. Increased levo scoliosis of the lumbar spine since 2016. Disc bases are asymmetrically narrowed throughout the lumbar spine. Moderate desiccation at all disc levels. No acute marrow edema or fracture. Conus terminates normally at L1-2 disc level. L1-L2: Deformity of the thecal sac to the scoliosis. Nerve roots are displaced into the RIGHT thecal sac. Moderate RIGHT facet joint arthritis. Mild RIGHT foraminal stenosis. L2-L3: Mild asymmetric disc bulging with moderate bilateral facet joint arthritis. Mild osteophytic r idging of the vertebral bodies. Nerve roots are being displaced posteriorly into the RIGHT of the the uri sac. Moderate RIGHT subarticular recess encroachment and bilateral foraminal stenosis. L3-L4: Mild annular disc bulging with a central disc protrusion. Small RIGHT foraminal disc protrusio n. Nerve roots are displaced within the periphery of the thecal sac. Moderate bilateral facet joint a rthritis. Moderate bilateral foraminal stenosis. Posterior laminectomy defects. L4-L5: Diffuse osteophytic ridging and mild disc bulging. Marked facet joint arthritis. Nerve roots a re being displaced within the periphery of the thecal sac. Moderate to severe central with severe LEF T and moderate RIGHT foraminal stenosis. Laminectomy defects with fluid along the laminectomy defect site. L5-S1: Mild osteophytic ridging. Moderate bilateral foraminal stenosis. Mild encroachment upon the thomas barticular recesses. Posterior laminectomy defect. Severe atrophy of the psoas muscles but greatest on the LEFT. Paraspinal muscles are also markedly at rophied. On the postcontrast imaging there is no evidence for discitis or osteomyelitis. More motion artifact is present on the postcontrast imaging. On a single image to the upper abdomen there is a filling defect in the neck of the gallbladder. IMPRESSION: 1. Severe levoscoliosis lumbar spine with mild progression since 2016. 2. Multilevel areas of asymmetric disc space narrowing, central and foraminal stenoses and facet arth ritis. Laminectomy defects are noted from L3-4 through L5-S1. 3. L1-2: Moderate RIGHT facet joint arthritis and mild foraminal stenosis. 4. L2-3: Moderate RIGHT subarticular recess stenosis and bilateral foraminal stenosis. 5. L3-4: Central and RIGHT foraminal disc protrusions. Moderate bilateral foraminal stenosis. 6. L4-5: Moderate to severe central with severe LEFT and moderate RIGHT foraminal stenosis. Stenosis has progressed since the prior MRI. 7. L5-S1: Moderate bilateral foraminal stenosis. 8. No discitis or osteomyelitis. 9. Marked atrophy of the psoas and paraspinal muscles.
== END 2022-12-21 12:44 | disposition home or self-care (01) ==
LOC: RAD 12:45
PROVIDERS: PCP Family Medicine; Visit Provider Specialist
DX: N31.9 Neuromuscular dysfunction of bladder, unspecified (principal); M41.20 Other idiopathic scoliosis, site unspecified; M96.1 Postlaminectomy syndrome, not elsewhere classified; M48.07 Spinal stenosis, lumbosacral region; M47.816 Spondylosis without myelopathy or radiculopathy, lumbar region; M62.5A2 Muscle wasting and atrophy, not elsewhere classified, back, lumbosacral
CPT/HCPCS: 72158

== ENCOUNTER → 2022-12-26 13:23 | Outpatient (BNVA) | payer MEDICARE, OTHER, SELFPAY | PROVIDERS: PCP Family Medicine; Visit Provider Orthopaedic Surgery | DX: G43.711 Chronic migraine without aura, intractable, with status migrainosus; M54.9 Dorsalgia, unspecified; M79.604 Pain in right leg | CPT/HCPCS: 99214 ==

== ENCOUNTER 2023-01-19 13:18 | Emergency (ER) | payer MEDICARE, OTHER, SELFPAY ==
[2023-01-19 13:30] VITALS: BP 110/65; PULSE 79; RESP 15; TEMP 36.6; O2SAT 98; BMI 29.2
[2023-01-19 14:34] VITALS: BP 121/63; PULSE 69; O2SAT 100
[2023-01-19 15:27] LABS: Basophils % 0.6 %; Eosinophils # 0.3 10^3/uL (0.0-0.8); Eosinophils % 5.1 %; Hematocrit 36.3 % (36-47); Lymphocytes # 1.7 10^3/uL (0.8-4.8); Lymphocytes % 25.8 %; Mean Corpuscular HGB Conc 30.9 g/dL (30-55); Mean Corpuscular Hemoglobin 31.1 pg (27-33); Mean Corpuscular Volume 100.8 fl (85-98); Mean Platelet Volume 9.4 fL (7.4-10.4); Monocytes # 0.5 10^3/uL (0.2-0.9); Monocytes % 8.4 %; Neutrophils # 3.85 10^3/uL (1.8-7.7); Neutrophils % 59.9 %; Nucleated Red Blood Cells % 0 %; Platelet Count 245 10^3/cmm (157-399); Red Cell Distribution Width 13.3 % (12.1-15.1); White Blood Count 6.43 10^3/uL (3.29-11.43)
[2023-01-19 15:31] VITALS: RESP 16; O2SAT 100
[2023-01-19] MEDS: morphine 4 mg/mL SDV 1 mL IVP (15:31)
[2023-01-19] MEDS: sodium chloride 0.9% 1,000 ML 999 ML IV (15:31)
[2023-01-19] MEDS: metoclopramide 5 mg/mL SDV 2 mL 10 MG IVP (15:31)
[2023-01-19 15:34] VITALS: BP 132/66; PULSE 52; O2SAT 100
[2023-01-19 15:55] LABS: Alanine Aminotransferase < 5 U/L (0-33); Albumin Level 3.8 g/dL (3.5-5.2); Alkaline Phosphatase 84 U/L (35-105); Anion Gap 13.9 (5-19); Aspartate Amino Transferase 11 U/L (0-32); Blood Urea Nitrogen 25 mg/dL (8-23); Calcium 9.6 mg/dL (8.5-10.5); Carbon Dioxide 26 mmol/L (22-29); Chloride 103 mmol/L (98-107); Globulin 2.5 g/dL (1.3-4.6); Glucose 102 mg/dL (65-115); Osmolality Calculated 293 mOsm/kg (285-295); Potassium 3.9 mmol/L (3.5-5.1); Sodium 139 mmol/L (136-145); Total Bilirubin 0.3 mg/dL (0.15-1.2); Total Protein 6.3 g/dL (6.6-8.7)
--- NOTE | 2023-01-19 16:07 | W.ED.HA ---
HPI - Headache General: Chief Complaint: Headache Stated Complaint: severe headache Time Seen by Provider: 01/19/23 14:05 Source: patient Mode of arrival: ambulatory Limitations: no limitations History of Present Illness: This 78-year-old female presents to the ER with chronic headache that has progressively worsened. Patient notes that headache had been off-and-on for the last 5 months but in the last 3 months, it has been more or less constant. She has been treated by her primary care physician and of late by Dr. Hurley but headache has not improved. Recently, she had an MRI. She also has a history of chronic back pain and is currently on hydrocodone for it. Patient has no fever, nausea, vomiting or signs of systemic illness. Associated symptoms: Deny chest pain or lightheadedness Review of Systems Const: Denies: chills, body aches or change in appetite Eyes: Denies: change in vision or eye discharge ENMT: Denies: throat pain, dental pain or nasal discharge Card: Denies: chest pain or lightheadedness : Denies: dysuria Musc: Denies: neck pain or back pain Neuro: Reports: headache(s); Denies: weakness in extremities Psych: Denies: depression Devang/Lymph: Denies: easy bruising All/Imm: Denies: urticaria, tongue swelling or facial swelling PFSH ED PFSH: Medical History Breast cancer Chronic kidney disease Degenerative arthritis Degenerative joint disease of spine History of iron deficiency anemia Hyperlipemia Hypertension Hypothyroidism Neurogenic bladder Osteoporosis Peripheral neuropathy Type 2 diabetes mellitus Urolithiasis Surgical History H/O bariatric surgery H/O hernia repair H/O total hysterectomy History of appendectomy History of back surgery (2015) Thoracic laminectomy with placement of a spinal cord stimulator History of infusaport central venous catheter insertion History of left shoulder replacement (2011) History of lumbar laminectomy (2014) History of lumpectomy of left breast (10/13/20) left breast lumpectomy and left axillary sentinel lymph node biopsy History of repair of left hip joint (2018) ORIF for intertrochanteric fracture History of right shoulder replacement (2010) With redo replacement in 2019 History of tonsillectomy Hx of cholecystectomy S/P ureteral stent placement Family History Mother , at age 84 Stroke Hypertension CAD (coronary artery disease) Father , at age 90 No problems noted. Social History Smoking and tobacco status: never smoked Alcohol intake: never Substance/Drug Use: never Marital status: Current occupational status: retired Physical Exam Const: COMMON NORMALS: no acute distress, patient oriented x3, no limitations and alert HENMT: COMMON NORMALS: normocephalic HEAD & SCALP: normocephalic Eye: COMMON NORMALS: EOMs intact bilaterally Neck/C-Spine: COMMON NORMALS: full ROM and supple Chest: COMMONS NORMALS: normal inspection of the chest Resp: COMMON NORMALS: normal respiratory effort, No retractions, No use of accessory muscles and clear to auscultation bilaterally AUSCULTATION: clear to auscultation bilaterally Cardio: COMMON NORMALS: regular rate, regular rhythm and No murmurs present (Cardio) RATE: regular rate RHYTHM: regular rhythm GI: COMMON NORMALS: Normal to inspection, nondistended, normoactive bowel sounds present and non-tender : COMMON NORMALS: Yes no CVA tenderness BLADDER/KIDNEY EXAM: Yes no CVA tenderness Back/Pelvis: COMMON NORMALS: no CVA tenderness and no thoracic nor lumbar tenderness Extremity: GENERAL: Yes normal exam except as noted Neuro: COMMON NORMALS: patient oriented x3 and no focal motor deficits SENSORIUM/ORIENTATION: Yes alert Psych: COMMON NORMALS: mental status grossly normal and cooperative Course Vital Signs: Vital signs: Vital Signs Temperature 97.8 F 01/19/23 13:30 Pulse Rate 79 01/19/23 13:30 Respiratory Rate 16 01/19/23 15:31 Blood Pressure 110/65 01/19/23 13:30 Pulse Oximetry 100 01/19/23 15:31 Oxygen Delivery Me thod Room Air 01/19/23 13:30 MDM - Headache Medical Decision Making Medical decision making: Patient has chronic unrelenting headache for which she has seen the neurologist, Dr. Hurley. Clinical exam reveals no focal neurodeficit. After receiving IV fluids and pain medications, patient's headache considerably improved. She is happy to go home. Completed blood tests are unremarkable. There is no indication to admit her at this time. She was advised to follow-up with Dr. Hurley in the office but to return with any new or worsening symptoms. Patient verbalized understanding and agrees with the plan. Lab Data 01/19/23 15:12 01/19/23 15:12 Laboratory Results WBC 6.43 10^3/uL (3.29-11.43) 01/19/23 15:12 RBC 3.60 10^6/uL (3.85-5.65) L 01/19/23 15:12 Hgb 11.20 g/dL (11.27-16.99) L 01/19/23 15:12 Hct 36.3 % (36-47) 01/19/23 15:12 MCV 100.8 fl (85-98) H 01/19/23 15:12 MCH 31.1 pg (27-33) 01/19/23 15:12 MCHC 30.9 g/dL (30-55) 01/19/23 15:12 RDW 13.3 % (12.1-15.1) 01/19/23 15:12 Plt Count 245 10^3/cmm (157-399) 01/19/23 15:12 MPV 9.4 fL (7.4-10.4) 01/19/23 15:12 Neut % (Auto) 59.9 % 01/19/23 15:12 Lymph % (Auto) 25.8 % 01/19/23 15:12 [place] % (Auto) 8.4 % 01/19/23 15:12 Eos % (Auto) 5.1 % 01/19/23 15:12 Baso % (Auto) 0.6 % 01/19/23 15:12 Neut # (Auto) 3.85 10^3/uL (1.8-7.7) 01/19/23 15:12 Lymph # (Auto) 1.7 10^3/uL (0.8-4.8) 01/19/23 15:12 [place] # (Auto) 0.5 10^3/uL (0.2-0.9) 01/19/23 15:12 Eos # (Auto) 0.3 10^3/uL (0.0-0.8) 01/19/23 15:12 Baso # (Auto) 0.0 10^3/uL (0.0-0.1) 01/19/23 15:12 Nucleated RBC % (auto) 0 % 01/19/23 15:12 Nucleated RBCs # 0.0 /100WBC 01/19/23 15:12 Sodium 139 mmol/L (136-145) 01/19/23 15:12 Potassium 3.9 mmol/L (3.5-5.1) 01/19/23 15:12 Chloride 103 mmol/L (98-107) 01/19/23 15:12 Carbon Dioxide 26 mmol/L (22-29) 01/19/23 15:12 Anion Gap 13.9 (5-19) 01/19/23 15:12 BUN 25 mg/dL (8-23) H 01/19/23 15:12 Creatinine 1.5 mg/dL (0.5-0.9) H 01/19/23 15:12 GFR Calculation Not Reportable 01/19/23 15:12 Glucose 102 mg/dL (65-115) 01/19/23 15:12 Calculated Osmolality 293 mOsm/kg (285-295) 01/19/23 15:12 Calcium 9.6 mg/dL (8.5-10.5) 01/19/23 15:12 Total Bilirubin 0.3 mg/dL (0.15-1.2) 01/19/23 15:12 AST 11 U/L (0-32) 01/19/23 15:12 ALT < 5 U/L (0-33) 01/19/23 15:12 Alkaline Phosphatase 84 U/L (35-105) 01/19/23 15:12 Total Protein 6.3 g/dL (6.6-8.7) L 01/19/23 15:12 Albumin 3.8 g/dL (3.5-5.2) 01/19/23 15:12 Globulin 2.5 g/dL (1.3-4.6) 01/19/23 15:12 No radiology studies performed this visit Discharge Plan Discharge Patient Disposition: Home Clinical Impression: Headache Condition: Stable Prescriptions: No Action simvastatin 40 mg tablet 40 mg PO DAILY cyanocobalamin (vitamin B-12) [Vitamin B-12] 100 mcg tablet 100 mcg PO DAILY levothyroxine 125 mcg capsule 88 mcg PO DAILY polyethylene glycol 3350 [Miralax] 17 gram powder in packet 17 g PO DAILY PRN (Reason: Constipation) Zyrtec 10 mg capsule 10 mg PO DAILY PRN (Reason: Allergy Symptoms) melatonin 12 mg tablet 12 mg PO BEDTIME (DME) External Heel Lift to Left See Rx Instructions .Route .MEDSUPPLY Qty: 1 0RF Rx Instructions: As directed by EBER&O calcium carbonate [Tums Ultra] 400 mg calcium (1,000 mg) tablet,chewable 400 mg PO BID furosemide [Lasix] 40 mg tablet 40 mg PO DAILY lubiprostone [Amitiza] 24 mcg capsule See Rx Instructions .ROUTE .COMPLEX PRN (Reason: constipation) Qty: 60 3RF Dose Instruction: Take 1 capsule by mouth twice daily Rx Instructions: Take 1 capsule by mouth twice daily PRN; 340 B plan anastrozole 1 mg tablet 1 mg PO DAILY Qty: 90 1RF hydrocodone-acetaminophen 10-325 mg tablet 1 tab PO Q6H PRN (Reason: pain) 30 Days Qty: 120 0RF gabapentin 100 mg capsule 100 mg PO QID Qty: 120 3RF Rx Instructions: 100 mg BID, 200 mg at bedtime Eliquis 5 mg tablet 5 mg PO BID Qty: 60 3RF potassium chloride 20 mEq tablet extended release 20 meq PO TID Rx Instructions: 40 MEQ in the morning and 20MEQ in evening amitriptyline 50 mg tablet 50 mg PO DAILY Discharge Orders: Discharge ED (Routine); Ordered 01/19/23 Ordered By: Dami Isidro Referrals: Garima Cee DO [Primary Care Provider] - Discharge Diet: Usual diet Discharge Activity: Resume usual activity Patient Instructions: Opioid Safety, Pain Management Activity Restrictions/Additional Instructions: Rest. Maintain adequate fluid intake. Continue taking your usual home medications. Schedule an appointment to follow-up with Dr. Hurley in the office. Return if you develop any new or worsening symptoms. Coding Level of Care Code ED Automatic Lump Making Machine Tender for Anjelica Bingham
[2023-01-19 17:05] VITALS: BP 114/52; PULSE 64; O2SAT 96
== END 2023-01-19 17:09 | disposition home or self-care (01) ==
PROVIDERS: Emergency Provider Family Medicine; PCP Family Medicine
DX: R51.9 Headache, unspecified (principal); Z79.01 Long term (current) use of anticoagulants; I12.9 Hypertensive chronic kidney disease with stage 1 through stage 4 chronic kidney disease, or unspecified chronic kidney disease; E11.22 Type 2 diabetes mellitus with diabetic chronic kidney disease; N18.9 Chronic kidney disease, unspecified; E78.5 Hyperlipidemia, unspecified
CPT/HCPCS: 80053; 85025; 96374; 96375; 99284; J2270; J2765; J7030

== ENCOUNTER → 2023-02-05 08:30 | Outpatient (BNVA) | payer MEDICARE, OTHER, SELFPAY | PROVIDERS: PCP Family Medicine; Visit Provider Specialist | DX: G43.711 Chronic migraine without aura, intractable, with status migrainosus (principal); G62.9 Polyneuropathy, unspecified | CPT/HCPCS: 99215 ==

== ENCOUNTER 2023-02-08 09:18 | Outpatient (CLI) | payer MEDICARE, OTHER, SELFPAY ==
--- NOTE | 2023-02-08 09:30 | MR_ITS ---
WS: [id number] MRI HEAD WITH CONTRAST TECHNIQUE: Sagittal T1, T2 axial, T2 axial FLAIR, axial susceptibility weighted imaging, axial diffus ion weighted images, and coronal T2 images were obtained. Pre and post-T1 axial and post T1 coronal i mages. ADC and FSPGR images. CLINICAL INFORMATION: G43.711 - Chronic migraine without aura, intractable, wit... COMPARISON: CT 2018 FINDINGS: No evidence of restricted diffusion to suggest acute ischemia. Ventricular system and basal cisterns are patent. Mild small vessel changes. Mild parenchymal volume loss. Normal posterior fossa. Normal v ascular flow voids at the skull base. No extra-axial fluid collections. No evidence of mass or mass e ffect. Paranasal sinuses are well aerated. Normal posterior nasopharynx. Mastoid air cells are well a erated. No hemosiderin on the susceptibly weighted images. Normal optic chiasm and pituitary infundibulum. Mi ld symmetric atrophy temporal lobes and hippocampal formations. No abnormal gadolinium enhancement. Normal dural venous sinuses. No other suspicious findings. IMPRESSION: 1. No evidence of restricted diffusion to suggest acute ischemia. 2. Mild small vessel changes with mild parenchymal volume loss. 3. No abnormal intracranial enhancement. 4. No hemosiderin on susceptibility-weighted images. 5. No other suspicious findings.
[2023-02-08] MEDS: gadobenate dimeglumine 20 mL vial 18 ML IV (10:05)
== END 2023-02-08 09:19 | disposition home or self-care (01) ==
LOC: RAD 09:20
PROVIDERS: PCP Family Medicine; Visit Provider Specialist
DX: G43.711 Chronic migraine without aura, intractable, with status migrainosus (principal)
CPT/HCPCS: 70553; A9577

== ENCOUNTER 2023-02-08 10:22 | Emergency (ER) | payer MEDICARE, OTHER, SELFPAY ==
[2023-02-08 10:32] VITALS: BP 149/86; PULSE 73; RESP 16; TEMP 36.6; O2SAT 99; BMI 28.8
--- NOTE | 2023-02-08 10:43 | ED_ITS ---
HPI - Extremity Problem General: Chief complaint: Extremity Injury, Lower Stated complaint: left leg pain Time Seen by Provider: 02/08/23 10:41 History of Present Illness: 78-year-old female with a complex medical history notable for thoracic and lumbar laminectomies, scoliosis, severe degenerative disc disease of the spine, ORIF left hip, peripheral neuropathy, history of breast cancer, among many others who presents to the emergency department today with complaint of left leg pain. Patient explains that she has chronic migraines and is being worked up for low CSF syndrome. She had a scheduled outpatient MRI of the brain today. She was talking to the tech about her leg pain and after the MRI the tech suggested that she could just go down to the ER and get it checked out since she was already here. Patient tells me that this pain is in the proximal one third of her fibular area. About 5 years ago she had a fracture in her proximal fibula. She wonders if this is related. She notices the pain primarily when she turns. She is chronically disabled and uses a wheelchair 95% of the time or more. She only stands and pivots. It is when she is pivoting that she notices this pain on the lateral side of her left knee. No swelling, redness, wounds, falls, or sudden onset. She is told Dr. Shelby, her orthopedic surgeon about it. Dr. Shelby did injections into both of her knees for chronic osteoarthritis pain. She reports this intra-articular injection did not help. Review of Systems Narrative: Patient is here specifically to address his pain in the left lateral knee. Pertinent Positives: Pertinent Negatives: HPI tailored for this specific nonemergent visit. She endorses discomfort, particularly with twisting. No redness, warmth, fever, swelling, effusion, change in her neuropathy, change in motor function, buckling, cracking or crepitus. PFSH ED PFSH: Medical History Breast cancer Chronic kidney disease Degenerative arthritis Degenerative joint disease of spine History of iron deficiency anemia Hyperlipemia Hypertension Hypothyroidism Neurogenic bladder Osteoporosis Peripheral neuropathy Type 2 diabetes mellitus Urolithiasis Surgical History H/O bariatric surgery H/O hernia repair H/O total hysterectomy History of appendectomy History of back surgery (2016) Thoracic laminectomy with placement of a spinal cord stimulator History of infusaport central venous catheter insertion History of left shoulder replacement (2011) History of lumbar laminectomy (2014) History of lumpectomy of left breast (10/13/20) left breast lumpectomy and left axillary sentinel lymph node biopsy History of repair of left hip joint (2018) ORIF for intertrochanteric fracture History of right shoulder replacement (2010) With redo replacement in 2019 History of tonsillectomy Hx of cholecystectomy S/P ureteral stent placement Family History Mother , at age 84 Stroke Hypertension CAD (coronary artery disease) Father , at age 90 No problems noted. Social History Smoking and tobacco/nicotine status: never used tobacco/nicotine Alcohol intake: never Substance/Drug Use: never Marital status: Current occupational status: retired Physical Exam Const: COMMON NORMALS: no limitations, alert and well nourished EXAM LIMITATIONS: no altered mental status HENMT: COMMON NORMALS: normocephalic, atraumatic and external ears normal HEAD & SCALP: normocephalic and atraumatic EXTERNAL EAR: Yes external ears n ormal MOUTH: no muffled voice Extremity: NARRATIVE EXTREMITY EXAM: Examination of the left lower extremity performed. Patient is sitting in her power wheelchair. She stands for only a very limited amount of time. Patient does have pain with anterior and posterior drawer test. LCL and MCL stressing does not seem to bother her. She has some mild tenderness in her lateral meniscus with a grind test. No patellar instability noted. No bony tenderness of the femur. There is tenderness below the lateral left knee joint line. Lateral joint line, warmth, wounds. Unclear whether the tenderness is soft tissue or bony. No deformities.. No redness no tenderness of the lower half of the tib-fib. She has chronic deconditioning of both legs. Skin of lower extremities is warm and well-perfused. Neuro: COMMON NORMALS: moves all extremities, no focal motor deficits and no sensory deficits noted SENSORIUM/ORIENTATION: Yes alert SPEECH: speech normal Psych: COMMON NORMALS: mental status grossly normal, Normal thought process present, cooperative, normal affect and speech normal SPEECH: Yes normal speech THOUGHT PROCESS: Normal thought process present Skin: COMMON NORMALS: no rashes or lesions noted, turgor normal and no jaundice GENERAL SKIN EXAM: no rashes or lesions noted and turgor normal Course Vital Signs: Vital signs: Vital Signs Temperature 97.8 F 02/08/23 10:32 Pulse Rate 73 02/08/23 10:32 Respiratory Rate 16 02/08/23 10:32 Blood Pressure 149/86 02/08/23 10:32 Pulse Oximetry 99 02/08/23 10:32 Oxygen Delivery Me thod Room Air 02/08/23 10:32 MDM - Extremity (Nontraumatic) Medical Decision Making Differential diagnosis includes occult fracture, tendinitis, bursitis, ligamentous injury of the knee, referred pain, deconditioning leading to relative joint instability, meniscus injury, other. Patient is presenting not emergently more out of convenience rather than urgency. She is already seen [facility] surgery. We will obtain an x-ray and if negative, I will recommend compressive sleeve, ice, and being very intentional to avoid twisting her knee but rather to lift it up and move it. Patient and her are in agreement with the plan. She cannot use NSAIDs due to history of kidney disease. All radiology interpretation(s) finalized by discharge ED provider radiology interpretation(s): 1. No acute fracture or joint effusion. 2. Degenerative changes and osteopenia. 3. Old fracture of the upper fibula. Hardware noted in the lower femur. Discharge Plan Discharge Patient Disposition: Home Clinical Impression: Left lateral knee pain Condition: Stable Prescriptions: No Action simvastatin 40 mg tablet 40 mg PO DAILY cyanocobalamin (vitamin B-12) [Vitamin B-12] 100 mcg tablet 100 mcg PO DAILY polyethylene glycol 3350 [Miralax] 17 gram powder in packet 17 g PO DAILY PRN (Reason: Constipation) Zyrtec 10 mg capsule 10 mg PO DAILY melatonin 12 mg tablet 12 mg PO BEDTIME (DME) External Heel Lift to Left See Rx Instructions .Route .MEDSUPPLY Qty: 1 0RF Rx Instructions: As directed by EBER&O calcium carbonate [Tums Ultra] 400 mg calcium (1,000 mg) tablet,chewable 400 mg PO BID furosemide [Lasix] 40 mg tablet 40 mg PO DAILY venlafaxine [Effexor XR] 75 mg capsule,extended release 24hr 75 mg PO DAILY Qty: 7 0RF Rx Instructions: with supper venlafaxine [Effexor XR] 150 mg capsule,extended release 24hr 150 mg PO DAILY Qty: 30 3RF Rx Instructions: after the first 7 days anastrozole 1 mg tablet 1 mg PO DAILY Qty: 90 1RF hydrocodone-acetaminophen 10-325 mg tablet 1 tab PO Q6H PRN (Reason: pain) 30 Days Qty: 120 0RF Eliquis 5 mg tablet 5 mg PO BID Qty: 60 3RF potassium chloride 20 mEq tablet extended release 20 meq PO TID Rx Instructions: 40 MEQ in the morning and 20MEQ in evening levothyroxine 88 mcg Tablet 88 mcg PO DAILY gabapentin 100 mg capsule See Rx Instructions .ROUTE .COMPLEX Rx Instructions: 100 mg orally twice daily and 200 mg at bedtime lubiprostone 24 mcg capsule 24 mcg PO BID PRN (Reason: Constipation) Discharge Orders: Discharge ED (Routine); Ordered 02/08/23 Ordered By: Solitario Stevens Referrals: Garima Cee DO [Primary Care Provider] - Sherry Bonilla MD [Physician] - 7-10 days Discharge Activity: Limit activity as instructed Patient Instructions: Opioid Safety, Pain Management Activity Restrictions/Additional Instructions: There are no signs of fracture today. There are multiple potential etiologies including tendinitis, meniscus injury, deconditioning with knee instability, ligamentous injury, bursitis. Given that she cannot take NSAIDs and that you are not a good surgical candidate, we discussed using a neoprene compression sleeve and modifying your transfers such that you lift your leg rather than twisting at the knee. Please follow-up with Dr. Bonilla Coding Level of Care Code ED Railway Track Plant Operator for Anjelica Bingham
--- NOTE | 2023-02-08 10:55 | XR_ITS ---
WS: [id number] Exam: XR knee LT 3V* [id number] Date/Time of Exam: 02/08/2023 10:55 AM Reason For Exam: pain around pes anserine bursa--also hx of proximal fibula f Comparison 04/12/2022. No acute fracture or dislocation. No joint effusion. Old fracture deformity of the upper fibula. Mild degenerative changes in the medial and lateral joint compartments. Osteopenia. Intramedullary velasquez vi sualized in the lower femur. IMPRESSION: 1. No acute fracture or joint effusion. 2. Degenerative changes and osteopenia. 3. Old fracture of the upper fibula. Hardware noted in the lower femur.
== END 2023-02-08 12:16 | disposition home or self-care (01) ==
PROVIDERS: Emergency Provider Emergency Medicine; PCP Family Medicine
DX: M25.562 Pain in left knee (principal); Z79.01 Long term (current) use of anticoagulants; Z85.3 Personal history of malignant neoplasm of breast; I12.9 Hypertensive chronic kidney disease with stage 1 through stage 4 chronic kidney disease, or unspecified chronic kidney disease; E11.22 Type 2 diabetes mellitus with diabetic chronic kidney disease; N18.9 Chronic kidney disease, unspecified; E78.5 Hyperlipidemia, unspecified; E11.42 Type 2 diabetes mellitus with diabetic polyneuropathy
CPT/HCPCS: 73562; 99283

== ENCOUNTER 2023-02-27 13:29 | Oncology outpatient (recurring) (ONCR) | payer MEDICARE, OTHER, SELFPAY ==
[2023-02-27 13:45] VITALS: BP 96/70; PULSE 60; RESP 16; TEMP 37.2; O2SAT 100
[2023-02-27 14:08] LABS: Basophils % 0.3 %; Eosinophils # 0.1 10^3/uL (0.0-0.8); Eosinophils % 1.1 %; Hematocrit 36.1 % (36-47); Lymphocytes # 0.6 10^3/uL (0.8-4.8); Lymphocytes % 10.2 %; Mean Corpuscular HGB Conc 31.3 g/dL (30-55); Mean Corpuscular Hemoglobin 31.4 pg (27-33); Mean Corpuscular Volume 100.3 fl (85-98); Mean Platelet Volume 9.4 fL (7.4-10.4); Monocytes # 0.4 10^3/uL (0.2-0.9); Monocytes % 6.6 %; Neutrophils # 5.04 10^3/uL (1.8-7.7); Neutrophils % 81.5 %; Nucleated Red Blood Cells % 0 %; Platelet Count 277 10^3/cmm (157-399); Red Cell Distribution Width 13.1 % (12.1-15.1); White Blood Count 6.19 10^3/uL (3.29-11.43)
[2023-02-27 14:27] LABS: Alanine Aminotransferase 8 U/L (0-33); Albumin Level 3.8 g/dL (3.5-5.2); Alkaline Phosphatase 88 U/L (35-105); Aspartate Amino Transferase 13 U/L (0-32); Blood Urea Nitrogen 22 mg/dL (8-23); Calcium 9.6 mg/dL (8.5-10.5); Carbon Dioxide 27 mmol/L (22-29); Chloride 101 mmol/L (98-107); Globulin 2.4 g/dL (1.3-4.6); Glucose 101 mg/dL (65-115); Osmolality Calculated 287 mOsm/kg (285-295); Sodium 137 mmol/L (136-145); Total Bilirubin 0.3 mg/dL (0.15-1.2); Total Protein 6.2 g/dL (6.6-8.7)
[2023-02-27] MEDS: denosumab 60 mg SDV SUBCUT (15:37)
== END 2023-03-15 23:59 | disposition home or self-care (01) ==
PROVIDERS: Nurse Practitioner Family; PCP Family Medicine; Visit Provider Internal Medicine Medical Oncology
DX: C50.112 Malignant neoplasm of central portion of left female breast (principal); Z17.0 Estrogen receptor positive status [ER+]; D64.9 Anemia, unspecified; G62.9 Polyneuropathy, unspecified; F41.9 Anxiety disorder, unspecified; Z79.811 Long term (current) use of aromatase inhibitors; Z79.891 Long term (current) use of opiate analgesic; Z79.899 Other long term (current) drug therapy; Z53.9 Procedure and treatment not carried out, unspecified reason; Z45.2 Encounter for adjustment and management of vascular access device; E03.9 Hypothyroidism, unspecified; M25.552 Pain in left hip; M54.50 Low back pain, unspecified; R12 Heartburn; Z92.21 Personal history of antineoplastic chemotherapy; N63.20 Unspecified lump in the left breast, unspecified quadrant; Z51.11 Encounter for antineoplastic chemotherapy
CPT/HCPCS: 36591; 80053; 85025; 96372; 99214; J0897; J1642

== ENCOUNTER 2023-03-13 13:43 | Outpatient (CLI) | payer MEDICARE, OTHER, SELFPAY ==
--- NOTE | 2023-03-13 13:50 | MM_ITS ---
WS: [id number] DIAGNOSTIC BILATERAL DIGITAL BREAST TOMOSYNTHESIS MAMMOGRAPHY WITH CAD LEFT breast ultrasound, limited HISTORY: 6 month f/u recommendation COMPARISON: 08/30/2022, 12/22/2021 and 08/06/2020 TECHNIQUE: Bilateral craniocaudad, mediolateral oblique, and mediolateral views are submitted with to mosynthesis and SM. Computer aided detection utilized. Breast composition: There are scattered areas of fibroglandular density. No suspicious masses or calc ifications identified. Symmetric appearance of each breast. Right-sided Mediport is noted. Postsurgic al clips towards the LEFT axilla. LEFT breast ultrasound, limited. Cystic mass with slightly irregular jha reidentified in the LEFT breast measures 7 x 6 x 10 mm, sub areolar. Similar size as on the prior examination. IMPRESSION: MM/[place] [id number] BI-RADS: 2-Benign FOLLOW UP: 1 Year Follow-up
--- NOTE | 2023-03-13 14:00 | XR_ITS ---
WS: [id number] SCREENING DEXA SCAN [employer] CLINICAL INFORMATION: AI use, osteoporosis COMPARISON: 2020 FINDINGS: Lumbar scoliosis. The L1-L4 bone mineral density measures 1.204 g/cm2. This corresponds to a T score score of 0.2 and Z score of 1.2. Right femoral neck bone mineral density measures 0.628. This corresponds to a T score of -3.0 of and Z score of -1.7. LEFT forearm bone mineral density measures 0.524. This corresponds to a T score of -4.0 and Z score o f -1.5. IMPRESSION: Normal bone mineralization lumbar spine. Osteoporosis RIGHT femoral neck Osteoporosis LEFT forearm Patient's FRAX calculated 10 year probability for major osteoporotic fracture is 32.9% and osteoporot ic hip fracture is 12.9%. Bone mineral density lumbar spine decrease -0.7% bone mineral density RIGHT femoral neck decrease -4.1% Bone mineral density LEFT forearm decrease -15.3%
== END 2023-03-13 13:44 | disposition home or self-care (01) ==
LOC: RAD 13:43
PROVIDERS: PCP Family Medicine; Visit Provider Nurse Practitioner Family
DX: C50.112 Malignant neoplasm of central portion of left female breast (principal); M81.0 Age-related osteoporosis without current pathological fracture; Z79.811 Long term (current) use of aromatase inhibitors
CPT/HCPCS: 76642; 77062; 77080; G0279

== ENCOUNTER → 2023-03-21 13:28 | Outpatient (BNVA) | payer MEDICARE, OTHER, SELFPAY | PROVIDERS: PCP Family Medicine; Visit Provider Specialist | DX: G43.711 Chronic migraine without aura, intractable, with status migrainosus (principal); M96.1 Postlaminectomy syndrome, not elsewhere classified | CPT/HCPCS: 99214 ==

== ENCOUNTER 2023-03-28 15:00 | Oncology outpatient (recurring) (ONCR) | payer MEDICARE, OTHER, SELFPAY ==
[2023-03-28 15:06] VITALS: BP 127/79; PULSE 79; RESP 16; TEMP 36.2; O2SAT 98
== END 2023-04-15 23:59 | disposition home or self-care (01) ==
LOC: ONCMED 15:00
PROVIDERS: PCP Family Medicine; Visit Provider Internal Medicine Medical Oncology
DX: Z45.2 Encounter for adjustment and management of vascular access device
CPT/HCPCS: J1642

== ENCOUNTER 2023-05-29 14:43 | Oncology outpatient (recurring) (ONCR) | payer MEDICARE, OTHER, SELFPAY ==
[2023-05-29 15:21] LABS: Basophils # 0.1 10^3/uL (0.0-0.1); Basophils % 0.6 %; Eosinophils # 0.2 10^3/uL (0.0-0.8); Eosinophils % 2.2 %; Hematocrit 39.6 % (36-47); Lymphocytes # 1.9 10^3/uL (0.8-4.8); Lymphocytes % 20.1 %; Mean Corpuscular HGB Conc 30.3 g/dL (30-55); Mean Corpuscular Hemoglobin 30.5 pg (27-33); Mean Corpuscular Volume 100.8 fl (85-98); Mean Platelet Volume 9.6 fL (7.4-10.4); Monocytes # 0.6 10^3/uL (0.2-0.9); Monocytes % 6.7 %; Neutrophils # 6.57 10^3/uL (1.8-7.7); Neutrophils % 70.2 %; Nucleated Red Blood Cells % 0 %; Platelet Count 417 10^3/cmm (157-399); Red Blood Count 3.93 10^6/uL (3.85-5.65); Red Cell Distribution Width 12.9 % (12.1-15.1); White Blood Count 9.38 10^3/uL (3.29-11.43)
[2023-05-29 15:47] LABS: Alanine Aminotransferase 26 U/L (0-33); Albumin Level 3.6 g/dL (3.5-5.2); Alkaline Phosphatase 199 U/L (35-105); Aspartate Amino Transferase 18 U/L (0-32); Blood Urea Nitrogen 20 mg/dL (8-23); Carbon Dioxide 24 mmol/L (22-29); Chloride 104 mmol/L (98-107); Globulin 2.5 g/dL (1.3-4.6); Glucose 104 mg/dL (65-115); Osmolality Calculated 289 mOsm/kg (285-295); Sodium 138 mmol/L (136-145); Total Bilirubin 0.5 mg/dL (0.15-1.2); Total Protein 6.1 g/dL (6.6-8.7)
[2023-05-29 15:48] LABS: Calcium 8.9 mg/dL (8.5-10.5)
[2023-05-29 15:56] LABS: Parathyroid Hormone 570.5 pg/mL (15-65)
[2023-05-29 16:01] LABS: 25 Hydroxy Vitamin D 37 ng/mL (30-100)
== END 2023-06-14 23:59 | disposition home or self-care (01) ==
PROVIDERS: Internal Medicine; Nurse Practitioner Family; PCP Family Medicine; Visit Provider Internal Medicine Medical Oncology
DX: C50.112 Malignant neoplasm of central portion of left female breast (principal); Z17.0 Estrogen receptor positive status [ER+]; Z92.21 Personal history of antineoplastic chemotherapy; Z79.811 Long term (current) use of aromatase inhibitors; R74.8 Abnormal levels of other serum enzymes; N31.9 Neuromuscular dysfunction of bladder, unspecified; M79.18 Myalgia, other site; Z79.899 Other long term (current) drug therapy
CPT/HCPCS: 36591; 80053; 82306; 82310; 83970; 85025; 99214

== ENCOUNTER → 2023-06-15 10:47 | Outpatient (BNVA) | payer MEDICARE, OTHER, SELFPAY | PROVIDERS: PCP Family Medicine; Visit Provider Specialist | DX: M17.0 Bilateral primary osteoarthritis of knee (principal) | CPT/HCPCS: 20610; J7326 ==

== ENCOUNTER → 2023-06-20 14:09 | Outpatient (BNVA) | payer MEDICARE, OTHER, SELFPAY | PROVIDERS: PCP Family Medicine; Visit Provider Specialist | DX: G43.711 Chronic migraine without aura, intractable, with status migrainosus (principal); G56.22 Lesion of ulnar nerve, left upper limb; G60.9 Hereditary and idiopathic neuropathy, unspecified | CPT/HCPCS: 99214 ==

== ENCOUNTER → 2023-06-21 11:54 | Outpatient (BNVA) | payer MEDICARE, OTHER, SELFPAY | PROVIDERS: PCP Family Medicine; Visit Provider Internal Medicine | DX: M81.0 Age-related osteoporosis without current pathological fracture (principal); E67.3 Hypervitaminosis D; N18.9 Chronic kidney disease, unspecified; N20.9 Urinary calculus, unspecified; R10.9 Unspecified abdominal pain; N25.81 Secondary hyperparathyroidism of renal origin | CPT/HCPCS: 99214 ==

== ENCOUNTER 2023-06-26 08:05 | Outpatient (CLI) | payer MEDICARE, OTHER, SELFPAY ==
--- NOTE | 2023-06-26 08:30 | US_ITS ---
WS: [id number] ULTRASOUND ABDOMEN LIMITED CLINICAL INFORMATION: Elevated alkaline phosphatase COMPARISON: None. FINDINGS: Limited examination due to bowel gas. Liver Size: Normal. Craniocaudal length: 15.8 cm. Echogenicity: Normal. Surface nodularity: None. Mass (size and location): None. Bile ducts Intrahepatic ducts: Normal. Common bile duct diameter: 0.6 cm. Gallbladder Cholecystectomy Pancreas Not visualized Right kidney: Limited visualization of the RIGHT kidney appears normal Hydronephrosis: None. Abdominal aorta and IVC Visualized portions are normal. Ascites: None. IMPRESSION: Very Limited examination due to bowel gas. 1. Prior cholecystectomy. 2. Common bile duct difficult to visualize measuring 6 mm. This would be better evaluated with MRCP. 3. Normal liver. 4. No hydronephrosis in the RIGHT kidney.
== END 2023-06-26 08:06 | disposition home or self-care (01) ==
LOC: RAD 08:06
PROVIDERS: PCP Family Medicine; Visit Provider Internal Medicine Medical Oncology
DX: R74.8 Abnormal levels of other serum enzymes (principal)
CPT/HCPCS: 76705

== ENCOUNTER 2023-07-03 13:22 | Outpatient (CLI) | payer MEDICARE, OTHER, SELFPAY ==
[2023-07-03 14:30] LABS: Basophils # 0.1 10^3/uL (0.0-0.1); Basophils % 0.7 %; Eosinophils # 0.3 10^3/uL (0.0-0.8); Eosinophils % 4.2 %; Lymphocytes # 1.8 10^3/uL (0.8-4.8); Lymphocytes % 24.6 %; Mean Corpuscular HGB Conc 30.3 g/dL (30-55); Mean Corpuscular Hemoglobin 30.4 pg (27-33); Mean Corpuscular Volume 100.5 fl (85-98); Mean Platelet Volume 9.7 fL (7.4-10.4); Monocytes # 0.6 10^3/uL (0.2-0.9); Monocytes % 8.1 %; Neutrophils # 4.48 10^3/uL (1.8-7.7); Neutrophils % 62.1 %; Nucleated Red Blood Cells % 0 %; Platelet Count 321 10^3/cmm (157-399); Red Blood Count 3.98 10^6/uL (3.85-5.65); Red Cell Distribution Width 13.3 % (12.1-15.1)
[2023-07-03 14:48] LABS: Estmated Average Glucose 97
[2023-07-03 15:06] LABS: Alanine Aminotransferase 6 U/L (0-33); Albumin Level 3.9 g/dL (3.5-5.2); Alkaline Phosphatase 88 U/L (35-105); Aspartate Amino Transferase 13 U/L (0-32); Blood Urea Nitrogen 20 mg/dL (8-23); Calcium 9.6 mg/dL (8.5-10.5); Carbon Dioxide 25 mmol/L (22-29); Chloride 105 mmol/L (98-107); Chol HDL Ratio 2.25 mg/dL (0.0-4.40); Cholesterol 153 mg/dL (0-200); Globulin 2.6 g/dL (1.3-4.6); Glucose 86 mg/dL (65-115); HDL Cholesterol 68 mg/dL (60-100); LDL Cholesterol Calculated 67 mg/dL (50-129); LDL HDL Ratio 0.99 RATIO (0.00-3.22); Osmolality Calculated 294 mOsm/kg (285-295); Sodium 141 mmol/L (136-145); Total Bilirubin 0.4 mg/dL (0.15-1.2); Total Protein 6.5 g/dL (6.6-8.7); Triglycerides 91 mg/dL (0-150)
== END 2023-07-03 13:23 | disposition home or self-care (01) ==
LOC: LAB 13:24
PROVIDERS: PCP Family Medicine; Visit Provider Family Medicine
DX: E11.29 Type 2 diabetes mellitus with other diabetic kidney complication (principal); E78.5 Hyperlipidemia, unspecified; N18.30 Chronic kidney disease, stage 3 unspecified
CPT/HCPCS: 36415; 80053; 80061; 83036; 84443; 85025

== ENCOUNTER 2023-07-30 15:00 | Oncology outpatient (recurring) (ONCR) | payer MEDICARE, OTHER, SELFPAY | END 2023-08-14 23:59 | disposition home or self-care (01) | LOC: ONCMED 15:00 | PROVIDERS: PCP Family Medicine; Visit Provider Internal Medicine Medical Oncology | DX: Z45.2 Encounter for adjustment and management of vascular access device (principal) | CPT/HCPCS: 96523; J1642 ==

== ENCOUNTER 2023-08-18 19:03 | Emergency (ER) | payer MEDICARE, OTHER, SELFPAY ==
[2023-08-18 19:08] VITALS: BP 100/64; PULSE 82; RESP 17; TEMP 36.6; O2SAT 96; BMI 28.1
--- NOTE | 2023-08-18 20:37 | XRR_ITS ---
PROCEDURE INFORMATION: Exam: XR Pelvis Exam date and time: 08/18/2023 8:52 PM Age: 78 years old Clinical indication: Injury or trauma; Fall; Blunt trauma (contusions or hematomas); Bilateral; Sacrum; Prior surgery; Surgery date: 6+ months; Surgery type: Hernia repair. Hip orif; Patient HX: Patient fell onto buttocks in bathroom. C/O sacral pain. TECHNIQUE: Imaging protocol: Radiologic exam of the pelvis. Views: 1 or 2 view. COMPARISON: CR XR pelvis 1-2V* [id number] 08/09/2021 2:15 PM FINDINGS: Bones/joints: Intramedullary velasquez and compression screw in the left femur, transversing an old healed intertrochanteric fracture. Degenerative changes and curvature of the lumbar spine. No acute fracture. Soft tissues: Unremarkable. XR/XR pelvis 1-2V* [id number] IMPRESSION: No acute findings.
--- NOTE | 2023-08-18 20:37 | XRR_ITS ---
PROCEDURE INFORMATION: Exam: XR Lumbosacral Spine Exam date and time: 08/18/2023 8:52 PM Age: 78 years old Clinical indication: Injury or trauma; Fall; Blunt trauma (contusions or hematomas); Prior surgery; Surgery date: 6+ months; Surgery type: Laminectomy. Hernia repair. Patient HX: Patient fell onto buttocks in bathroom. C/O low back pain. TECHNIQUE: Imaging protocol: Radiologic exam of the lumbosacral spine. Views: 2 or 3 views. COMPARISON: CT Lumbar Spine [facility] [id number] 03/24/2019 3:19 PM FINDINGS: Bones/joints: 48 degrees leftward lumbar curvature. Degenerative endplate changes with asymmetric narrowing of the right disc spaces. No fracture or subluxation. Posterior bony fusion of L2-S1. L3-L5 decompressive laminectomies. Soft tissues: Unremarkable. XR/XR lumbar spine 2-3V* [id number] IMPRESSION: 1. No acute findings. 2. Scoliosis with intact posterior bony fusion L2-S1.
--- NOTE | 2023-08-18 21:12 | W.ED.FALL ---
HPI - Fall General: Chief Complaint: Fall Stated Complaint: Fall Time Seen by Provider: 08/18/23 20:37 History of Present Illness: 78-year-old female comes in today for evaluation of a ground-level fall. Patient reports he lost her balance was able to catch herself but ended up having to lower herself down to the ground except for the last 3 inches which she fell. Patient reports some mild pain but no severe pain. Patient reports pain within her lower part of her back. Patient has severe osteoporosis. Review of Systems General: Reports: 10 or more systems reviewed and unremarkable except in HPI and below Musc: Reports: back pain PFS ED PFSH: Medical History History of iron deficiency anemia Chronic kidney disease Degenerative joint disease of spine Degenerative arthritis Peripheral neuropathy Type 2 diabetes mellitus Breast cancer Urolithiasis Neurogenic bladder Hyperlipemia Hypertension Hypothyroidism Osteoporosis Surgical History S/P ureteral stent placement History of infusaport central venous catheter insertion History of lumpectomy of left breast (10/13/20) left breast lumpectomy and left axillary sentinel lymph node biopsy History of right shoulder replacement (2010) With redo replacement in 2019 History of left shoulder replacement (2011) History of lumbar laminectomy (2014) H/O hernia repair H/O bariatric surgery History of back surgery (2015) Thoracic laminectomy with placement of a spinal cord stimulator Hx of cholecystectomy History of tonsillectomy H/O total hysterectomy History of appendectomy History of repair of left hip joint (2018) ORIF for intertrochanteric fracture Family History Mother , at age 84 Stroke Hypertension CAD (coronary artery disease) Father , at age 90 No problems noted. Social History Smoking and tobacco/nicotine status: never used tobacco/nicotine Alcohol intake: never Substance/Drug Use: never Marital status: Current occupational status: retired Physical Exam Const: COMMON NORMALS: alert HENMT: COMMON NORMALS: normocephalic HEAD & SCALP: normocephalic Neck/C-Spine: COMMON NORMALS: full ROM Chest: COMMONS NORMALS: normal inspection of the chest Cardio: COMMON NORMALS: regular rate RATE: regular rate GI: COMMON NORMALS: Soft to palpation and non-tender PALPATION: Yes Soft to palpation Back/Pelvis: COMMON NORMALS: thoracic and lumbar spine normal to inspection Extremity: COMMON NORMALS: full ROM Neuro: SENSORIUM/ORIENTATION: Yes alert Skin: COMMON NORMALS: turgor normal GENERAL SKIN EXAM: turgor normal Course Vital Signs: Vital signs: Vital Signs Temperature 97.8 F 08/18/23 19:08 Pulse Rate 82 08/18/23 19:08 Respiratory Rate 17 08/18/23 19:08 Blood Pressure 100/64 08/18/23 19:08 Pulse Oximetry 96 08/18/23 19:08 Oxygen Delivery Me thod Room Air 08/18/23 19:08 MDM - Fall Medical Decision Making Patient presents with injury secondary to a fall. Patient appears nontoxic. Patient reports losing her balance and lowering herself to the ground but impacting at about 3 inches off the ground onto her buttocks. Patient reports some low back pain. Patient does have severe osteoporosis. Vital signs are normal. Differential diagnosis includes but not limited to fracture, contusion, unlikely cauda equina syndrome, unstable vertebral fracture. X-rays noted no acute abnormalities. Reviewed exam with patient with recommendations for treatment and follow-up. Patient reported understanding and agreed to plan. Lab Data Radiology Impressions Lumbar Spine X-Ray 08/18/23 20:37 IMPRESSION: 1. No acute findings. 2. Scoliosis with intact posterior bony fusion L2-S1. Pelvis X-Ray 08/18/23 20:37 IMPRESSION: No acute findings. All radiology interpretation(s) finalized by discharge Discharge Plan Discharge Patient Disposition: Home Clinical Impression: Scoliosis (and kyphoscoliosis), idiopathic, Fall Condition: Stable Prescriptions: No Action simvastatin 40 mg tablet 40 mg PO DAILY cyanocobalamin (vitamin B-12) [Vitamin B-12] 100 mcg tablet 100 mcg PO DAILY polyethylene glycol 3350 [Miralax] 17 gram powder in packet 17 g PO DAILY PRN (Reason: Constipation) Zyrtec 10 mg capsule 10 mg PO DAILY melatonin 12 mg tablet 12 mg PO BEDTIME (DME) External Heel Lift to Left See Rx Instructions .Route .MEDSUPPLY Qty: 1 0RF Rx Instructions: As directed by EBER&O calcium carbonate [Tums Ultra] 400 mg calcium (1,000 mg) tablet,chewable 400 mg PO BID oxycodone 10 mg tablet PO Emgality Syringe 120 mg/mL syringe 240 mg SUBCUT ONCE Qty: 2 0RF Emgality Syringe 120 mg/mL syringe 120 mg SUBCUT ONCE Qty: 1 4RF Eliquis 5 mg tablet 5 mg PO BID Qty: 180 3RF Rx Instructions: 340 b furosemide [Lasix] 40 mg tablet 40 mg PO DAILY venlafaxine [Effexor XR] 75 mg capsule,extended release 24hr 75 mg PO DAILY Qty: 7 0RF Rx Instructions: with supper venlafaxine [Effexor XR] 150 mg capsule,extended release 24hr 150 mg PO DAILY Qty: 30 3RF Rx Instructions: after the first 7 days lubiprostone 24 mcg capsule See Rx Instructions .ROUTE .COMPLEX Qty: 60 3RF Dose Instruction: take 1 capsule BY MOUTH TWICE DAILY NEEDED FOR CONSTIPATION Rx Instructions: take 1 capsule BY MOUTH TWICE DAILY NEEDED FOR CONSTIPATION anastrozole 1 mg tablet 1 mg PO DAILY Qty: 90 1RF Botox 100 unit recon soln 100 unit IM ONCE Qty: 2 3RF Rx Instructions: Standard FDA approved protocol potassium chloride 20 mEq tablet extended release 20 meq PO TID Rx Instructions: 40 MEQ in the morning and 20MEQ in evening levothyroxine 88 mcg Tablet 88 mcg PO DAILY gabapentin 100 mg capsule See Rx Instructions .ROUTE .COMPLEX Rx Instructions: 100 mg orally twice daily and 200 mg at bedtime Discharge Orders: Discharge ED (Routine); Ordered 08/18/23 Ordered By: Yannick Blount Referrals: Garima Cee DO [Primary Care Provider] - Discharge Diet: Usual diet Discharge Activity: Increase activity as tolerated Patient Instructions: Opioid Safety, Pain Management Activity Restrictions/Additional Instructions: Continue with routine care. Activity as tolerated. Follow-up with primary care in 1 week for recheck. Return to ED for worsening symptoms. Coding Level of Care Code ED Chromosomal Disorders Counselor for Anjelica Bingham
[2023-08-18 22:51] VITALS: BP 102/63; PULSE 81; RESP 16; TEMP 36.6; O2SAT 97
== END 2023-08-18 22:52 | disposition home or self-care (01) ==
PROVIDERS: Emergency Provider Nurse Practitioner Family; PCP Family Medicine
DX: M41.27 Other idiopathic scoliosis, lumbosacral region (principal); Z79.01 Long term (current) use of anticoagulants; E11.22 Type 2 diabetes mellitus with diabetic chronic kidney disease; I12.9 Hypertensive chronic kidney disease with stage 1 through stage 4 chronic kidney disease, or unspecified chronic kidney disease; N18.9 Chronic kidney disease, unspecified; Z85.3 Personal history of malignant neoplasm of breast; E78.5 Hyperlipidemia, unspecified
CPT/HCPCS: 72100; 72170; 99284

== ENCOUNTER 2023-08-27 13:40 | Oncology outpatient (recurring) (ONCR) | payer MEDICARE, OTHER, SELFPAY ==
[2023-08-27 14:08] LABS: Basophils % 0.4 %; Eosinophils # 0.3 10^3/uL (0.0-0.8); Eosinophils % 4.9 %; Hematocrit 35.3 % (36-47); Lymphocytes # 1.5 10^3/uL (0.8-4.8); Lymphocytes % 21.4 %; Mean Corpuscular HGB Conc 30.9 g/dL (30-55); Mean Corpuscular Hemoglobin 30.8 pg (27-33); Mean Corpuscular Volume 99.7 fl (85-98); Mean Platelet Volume 9.7 fL (7.4-10.4); Monocytes # 0.6 10^3/uL (0.2-0.9); Monocytes % 8.7 %; Neutrophils # 4.51 10^3/uL (1.8-7.7); Neutrophils % 64.3 %; Nucleated Red Blood Cells % 0 %; Platelet Count 348 10^3/cmm (157-399); Red Blood Count 3.54 10^6/uL (3.85-5.65); Red Cell Distribution Width 13.2 % (12.1-15.1); White Blood Count 7.01 10^3/uL (3.29-11.43)
[2023-08-27 14:29] LABS: Alanine Aminotransferase < 5 U/L (0-33); Albumin Level 3.4 g/dL (3.5-5.2); Alkaline Phosphatase 89 U/L (35-105); Anion Gap 12.9 (5-19); Aspartate Amino Transferase 13 U/L (0-32); Blood Urea Nitrogen 23 mg/dL (8-23); Calcium 9.6 mg/dL (8.5-10.5); Carbon Dioxide 25 mmol/L (22-29); Chloride 104 mmol/L (98-107); Globulin 2.6 g/dL (1.3-4.6); Glucose 108 mg/dL (65-115); Osmolality Calculated 290 mOsm/kg (285-295); Potassium 3.9 mmol/L (3.5-5.1); Sodium 138 mmol/L (136-145); Total Bilirubin 0.3 mg/dL (0.15-1.2)
== END 2023-09-14 23:59 | disposition home or self-care (01) ==
PROVIDERS: PCP Family Medicine; Visit Provider Internal Medicine Medical Oncology
DX: C50.112 Malignant neoplasm of central portion of left female breast; Z17.0 Estrogen receptor positive status [ER+]; Z92.21 Personal history of antineoplastic chemotherapy; Z79.811 Long term (current) use of aromatase inhibitors; R74.8 Abnormal levels of other serum enzymes; Z79.899 Other long term (current) drug therapy; Z95.828 Presence of other vascular implants and grafts; Z86.718 Personal history of other venous thrombosis and embolism; Z79.01 Long term (current) use of anticoagulants
CPT/HCPCS: 36591; 80053; 85025; 99214

== ENCOUNTER 2023-08-31 15:47 | Outpatient (CLI) | payer MEDICARE, OTHER, SELFPAY ==
--- NOTE | 2023-08-31 16:00 | USCV_ITS ---
Lucie Joyner Age: 78 Gender: F : 1945 Exam Date: 08/31/2023 15:53 Ordering Phys: Bernadette Herrera APRN Technologist: TERI [place] [facility] [place]: [place] after [place] HISTORY: Lower extremity pain. PROCEDURES: Venous duplex imaging was performed in only the right lower extremity. The following venous structures were evaluated: common femoral vein, profunda vein, proximal portion of the greater saphenous vein, superficial femoral vein, and the popliteal vein. In addition, the posterior tibial veins were evaluated. In addition, the posterior tibial and peroneal trunk were evaluated. Serial compression, augmentation maneuvers, and spectral Doppler flow evaluation were performed. FINDINGS: No evidence of DVT seen in any vessel visualized at this time. CONCLUSIONS No evidence of right lower extremity DVT. Randal Urena MD (Electronically Signed) Final Date: 03 Sep 2023 15:51 S
== END 2023-08-31 15:48 | disposition home or self-care (01) ==
LOC: RAD 15:47
PROVIDERS: PCP Family Medicine; Visit Provider Nurse Practitioner Family
DX: M79.604 Pain in right leg (principal); M79.661 Pain in right lower leg; Z91.81 History of falling
CPT/HCPCS: 93971

== ENCOUNTER → 2023-09-05 13:28 | Outpatient (BNVA) | payer MEDICARE, OTHER, SELFPAY | PROVIDERS: PCP Family Medicine; Referring Provider Family Medicine; Visit Provider Specialist | DX: M17.12 Unilateral primary osteoarthritis, left knee (principal); M25.562 Pain in left knee; G89.29 Other chronic pain | CPT/HCPCS: 73560; 73565; 99214 ==

== ENCOUNTER 2023-09-18 12:01 | Outpatient (CLI) | payer MEDICARE, OTHER, SELFPAY ==
[2023-09-18 13:35] LABS: Calcium 9.4 mg/dL (8.5-10.5)
[2023-09-18 13:39] LABS: Parathyroid Hormone 95.7 pg/mL (15-65)
[2023-09-18 13:49] LABS: 25 Hydroxy Vitamin D 46 ng/mL (30-100)
== END 2023-09-18 12:02 | disposition home or self-care (01) ==
LOC: LAB 12:04
PROVIDERS: PCP Family Medicine; Visit Provider Internal Medicine
DX: M81.0 Age-related osteoporosis without current pathological fracture (principal); N25.81 Secondary hyperparathyroidism of renal origin; E67.3 Hypervitaminosis D
CPT/HCPCS: 36415; 82306; 82310; 83970

== ENCOUNTER 2023-09-25 09:47 | Oncology outpatient (recurring) (ONCR) | payer MEDICARE, OTHER, SELFPAY ==
--- NOTE | 2023-09-25 09:30 | MM_ITS ---
WS: [id number] DIAGNOSTIC LEFT DIGITAL TOMOSYNTHESIS MAMMOGRAPHY WITH CAD. LEFT breast ultrasound, limited HISTORY: 1cm lump in left breast toward axillary, history of LEFT breast cancer. COMPARISON: 03/13/2023, 08/30/2022, 12/22/2021, 09/02/2018 Technique: CC, MLO and ML views. Spot compression LEFT MLO. Breast composition: There are scattered areas of fibroglandular density. Postsurgical changes along w ith clips are noted towards the axillary tail of the LEFT breast. There is a marker placed near the c lips. No obvious nodule is identified by mammography. The remaining breast is negative for suspicious calcification or mass. LEFT breast ultrasound, limited. Palpable area corresponds to a complex cyst in the axilla measuring 0.6 x 0.5 x 0.8 cm. There is a fl uid layer suggest this may from be from a hematoma or seroma. There is an adjacent surgical clip. The re is no increased vascularity. MM/[place] [id number] IMPRESSION: BI-RADS: 2-Benign FOLLOW UP: See Report 1. Palpable area in the LEFT axilla corresponds to a small complex cyst surroun ding the surgical clip. This appears very benign in appearance and may be a sma ll seroma. No increased vascularity. No additional follow-up necessary unless t his area continues to increase in size and then aspiration may be of benefit. Return to annual diagnostic mammography.
--- NOTE | 2023-09-25 10:54 | US_ITS ---
WS: [id number] DIAGNOSTIC LEFT DIGITAL TOMOSYNTHESIS MAMMOGRAPHY WITH CAD. LEFT breast ultrasound, limited HISTORY: 1cm lump in left breast toward axillary, history of LEFT breast cancer. COMPARISON: 03/13/2023, 08/30/2022, 12/22/2021, 09/02/2018 Technique: CC, MLO and ML views. Spot compression LEFT MLO. Breast composition: There are scattered areas of fibroglandular density. Postsurgical changes along w ith clips are noted towards the axillary tail of the LEFT breast. There is a marker placed near the c lips. No obvious nodule is identified by mammography. The remaining breast is negative for suspicious calcification or mass. LEFT breast ultrasound, limited. Palpable area corresponds to a complex cyst in the axilla measuring 0.6 x 0.5 x 0.8 cm. There is a fl uid layer suggest this may from be from a hematoma or seroma. There is an adjacent surgical clip. The re is no increased vascularity. US/US breast LT limited* [id number] IMPRESSION: BI-RADS: 2-Benign FOLLOW UP: See Report 1. Palpable area in the LEFT axilla corresponds to a small complex cyst surroun ding the surgical clip. This appears very benign in appearance and may be a sma ll seroma. No increased vascularity. No additional follow-up necessary unless t his area continues to increase in size and then aspiration may be of benefit. Return to annual diagnostic mammography.
--- NOTE | 2023-09-27 13:00 | MR_ITS ---
WS: [id number] MRI LEFT KNEE HISTORY: knee pain COMPARISON: Radiograph 09/05/2023 Anterior cruciate ligament: Mucoid degeneration. No tear. Posterior cruciate ligament: Small caliber posterior cruciate ligament. Cruciate ligament does appear to be intact but poorly visualized throughout its course. Medial collateral ligament: Intact. Posterior lateral corner structures: Increased intermediate signal in the fibular ligament and biceps femoris tendon ligament but no tear. Popliteus tendon is intact with adjacent fluid. Medial menisci: Intact. Normal signal, size and shape. Lateral meniscus: Horizontal tear in the posterior horn. Tear extends to the inferior articulating thomas rface. Extensor mechanism: Distal quadriceps tendon and patellar tendons are intact. Fluid and soft tissue: Small suprapatellar joint effusion. Very small Durham's cyst. Osseous and articular structures: Patellofemoral compartment: Moderate narrowing patellofemoral joint space with mild chondromalacia. N o edema. Medial compartment: Mild narrowing the medial compartment with mild chondromalacia. There is edema ex tending anteriorly across the tibial plateau, beneath the tibial spines. No definite fracture. Lateral compartment: Severe narrowing of the lateral compartment with complete loss of cartilage and subchondral cystic changes in the femoral condyle and tibial plateau. Small amount of marrow edema in the femoral condyle and the tibial plateau. Small portion of the femoral velasquez is identified in the distal femoral diaphysis. There is also variabl e signal in the distal femoral diaphysis consistent with a bone infarct. Infarct measures 2.8 x 1.0 c m. MR/MR knee LT wo con* [id number] IMPRESSION: 1. Severe lateral compartment osteoarthritis with loss of cartilage, bone upon bone and marrow edema. 2. Moderate narrowing of the patellofemoral joint space and mild narrowing of the medial compartment. 3. Mild mucoid degeneration ACL. 4. Mild injury involving the posterolateral corner structures. There is increa sed fluid with mild thickening in the fibular ligament. Fluid surrounding the p opliteus tendon. 5. Horizontal tear in the posterior horn lateral meniscus extending to the inf erior tickler surface. 6. Bone infarct distal femoral diaphysis.
== END 2023-10-14 23:59 | disposition home or self-care (01) ==
LOC: ONCMED 09-27 13:08 → RAD 09-28
PROVIDERS: PCP Family Medicine; Visit Provider Specialist
DX: M17.12 Unilateral primary osteoarthritis, left knee (principal); S83.282A Other tear of lateral meniscus, current injury, left knee, initial encounter; X58.XXXA Exposure to other specified factors, initial encounter; R93.6 Abnormal findings on diagnostic imaging of limbs; Z53.9 Procedure and treatment not carried out, unspecified reason
CPT/HCPCS: 73721; 76642; 77061; G0279

== ENCOUNTER 2023-10-22 11:28 | Outpatient (CLI) | payer MEDICARE, OTHER, SELFPAY | END 2023-10-22 11:29 | disposition home or self-care (01) | LOC: SPT 11:29 | PROVIDERS: PCP Family Medicine; Visit Provider Specialist | DX: Z46.89 Encounter for fitting and adjustment of other specified devices (principal); M17.12 Unilateral primary osteoarthritis, left knee | CPT/HCPCS: 97760; L1812 ==

== ENCOUNTER 2023-10-30 16:26 | Oncology outpatient (recurring) (ONCR) | payer MEDICARE, OTHER, SELFPAY ==
--- OUTSIDE RECORDS SUMMARY | 2023-10-30 16:28 | XMS_ITS ---
Author Name Americo Ennis Address [address] [place] [id number] Organization Unknown Address [address] [place] [id number] ALLERGIES AND ADVERSE REACTIONS No information ASSESSMENT No information CHIEF COMPLAINT No information MEDICATIONS No information OBJECTIVE DATA No information PHYSICAL EXAMINATION No information TREATMENT PLAN Planned Care Start Date Provider Encounter for Check-up [id number] [facility] PROBLEMS No information RESULTS No information REVIEW OF SYSTEMS No information SUBJECTIVE DATA No information VITAL SIGNS No information
== END 2023-11-14 23:59 | disposition home or self-care (01) ==
LOC: ONCMED 16:26
PROVIDERS: PCP Family Medicine; Visit Provider Specialist
DX: Z45.2 Encounter for adjustment and management of vascular access device
CPT/HCPCS: 96523

== ENCOUNTER → 2023-11-06 12:22 | Outpatient (BNVA) | payer MEDICARE, OTHER, SELFPAY | PROVIDERS: PCP Family Medicine; Visit Provider Internal Medicine | DX: M81.0 Age-related osteoporosis without current pathological fracture (principal); E67.3 Hypervitaminosis D; N25.81 Secondary hyperparathyroidism of renal origin; N18.9 Chronic kidney disease, unspecified; N20.9 Urinary calculus, unspecified; Z79.890 Hormone replacement therapy | CPT/HCPCS: 99214 ==

== ENCOUNTER 2023-11-27 13:40 | Oncology outpatient (recurring) (ONCR) | payer MEDICARE, OTHER, SELFPAY ==
[2023-11-27 14:00] LABS: Basophils % 0.6 %; Eosinophils # 0.3 10^3/uL (0.0-0.8); Eosinophils % 3.7 %; Hematocrit 34.9 % (36-47); Lymphocytes # 1.8 10^3/uL (0.8-4.8); Lymphocytes % 24.9 %; Mean Corpuscular HGB Conc 30.9 g/dL (30-55); Mean Corpuscular Hemoglobin 30.5 pg (27-33); Mean Corpuscular Volume 98.6 fl (85-98); Mean Platelet Volume 10.2 fL (7.4-10.4); Monocytes # 0.7 10^3/uL (0.2-0.9); Monocytes % 9.1 %; Neutrophils # 4.46 10^3/uL (1.8-7.7); Neutrophils % 61.3 %; Nucleated Red Blood Cells % 0 %; Platelet Count 268 10^3/cmm (157-399); Red Blood Count 3.54 10^6/uL (3.85-5.65); Red Cell Distribution Width 13.1 % (12.1-15.1); White Blood Count 7.27 10^3/uL (3.29-11.43)
[2023-11-27 14:19] LABS: Alanine Aminotransferase 7 U/L (0-33); Albumin Level 3.5 g/dL (3.5-5.2); Alkaline Phosphatase 109 U/L (35-105); Anion Gap 13.9 (5-19); Aspartate Amino Transferase 12 U/L (0-32); Blood Urea Nitrogen 25 mg/dL (8-23); Calcium 9.1 mg/dL (8.5-10.5); Carbon Dioxide 25 mmol/L (22-29); Chloride 102 mmol/L (98-107); Globulin 2.7 g/dL (1.3-4.6); Glucose 96 mg/dL (65-115); Osmolality Calculated 288 mOsm/kg (285-295); Potassium 3.9 mmol/L (3.5-5.1); Sodium 137 mmol/L (136-145); Total Bilirubin 0.3 mg/dL (0.15-1.2); Total Protein 6.2 g/dL (6.6-8.7)
[2023-11-27] MEDS: denosumab 60 mg SDV SUBCUT (15:41)
[2023-11-27 15:59] VITALS: BP 126/74; PULSE 68; RESP 16; TEMP 36.5
== END 2023-12-15 23:55 | disposition home or self-care (01) ==
PROVIDERS: Nurse Practitioner Family; PCP Family Medicine; Visit Provider Specialist
DX: C50.112 Malignant neoplasm of central portion of left female breast (principal); Z79.811 Long term (current) use of aromatase inhibitors; Z17.0 Estrogen receptor positive status [ER+]; Z86.718 Personal history of other venous thrombosis and embolism; Z79.01 Long term (current) use of anticoagulants
CPT/HCPCS: 36591; 80053; 85025; 96372; 99214; J0897

== ENCOUNTER 2024-01-03 15:20 | Oncology outpatient (recurring) (ONCR) | payer MEDICARE, OTHER, SELFPAY | END 2024-01-14 23:59 | disposition home or self-care (01) | LOC: ONCMED 15:20 | PROVIDERS: PCP Family Medicine; Visit Provider Specialist | DX: Z45.2 Encounter for adjustment and management of vascular access device | CPT/HCPCS: 96523 ==

== ENCOUNTER 2024-01-29 14:25 | Oncology outpatient (recurring) (ONCR) | payer MEDICARE, OTHER, SELFPAY | END 2024-02-14 23:59 | disposition home or self-care (01) | LOC: ONCMED 14:26 | PROVIDERS: PCP Family Medicine; Visit Provider Specialist | DX: Z45.2 Encounter for adjustment and management of vascular access device (principal) | CPT/HCPCS: 96523 ==

== ENCOUNTER 2024-03-05 13:55 | Oncology outpatient (recurring) (ONCR) | payer MEDICARE, OTHER, SELFPAY ==
[2024-03-05 14:15] LABS: Basophils % 0.7 %; Eosinophils # 0.4 10^3/uL (0.0-0.8); Hematocrit 37.3 % (36-47); Lymphocytes % 32.7 %; Mean Corpuscular Volume 96.6 fl (85-98); Monocytes # 0.3 10^3/uL (0.2-0.9); Monocytes % 5.5 %; Neutrophils # 3.38 10^3/uL (1.8-7.7); Neutrophils % 54.9 %; Nucleated Red Blood Cells % 0 %; Platelet Count 285 10^3/cmm (157-399); Red Blood Count 3.86 10^6/uL (3.85-5.65); Red Cell Distribution Width 13.9 % (12.1-15.1); White Blood Count 6.15 10^3/uL (3.29-11.43)
[2024-03-05 14:32] LABS: Alanine Aminotransferase 6 U/L (0-33); Albumin Level 3.7 g/dL (3.5-5.2); Alkaline Phosphatase 68 U/L (35-105); Anion Gap 15.1 (5-19); Aspartate Amino Transferase 16 U/L (0-32); Blood Urea Nitrogen 22 mg/dL (8-23); Calcium 8.8 mg/dL (8.5-10.5); Carbon Dioxide 21 mmol/L (22-29); Chloride 109 mmol/L (98-107); Creatinine Clr Calc Pharmacy 32.8538; Globulin 2.2 g/dL (1.3-4.6); Glucose 234 mg/dL (65-115); Osmolality Calculated 303 mOsm/kg (285-295); Potassium 4.1 mmol/L (3.5-5.1); Sodium 141 mmol/L (136-145); Total Bilirubin 0.3 mg/dL (0.15-1.2); Total Protein 5.9 g/dL (6.6-8.7)
== END 2024-03-15 23:59 | disposition home or self-care (01) ==
PROVIDERS: Nurse Practitioner Family; PCP Family Medicine; Visit Provider Specialist
DX: Z45.2 Encounter for adjustment and management of vascular access device (principal); C50.112 Malignant neoplasm of central portion of left female breast
CPT/HCPCS: 36591; 80053; 85025; 99214

== ENCOUNTER 2024-03-19 20:13 | Emergency (ER) | payer MEDICARE, OTHER, SELFPAY ==
--- NOTE | 2024-03-19 20:17 | XRR_ITS ---
PROCEDURE INFORMATION: Exam: XR Left Knee Exam date and time: 03/19/2024 8:50 PM Age: 79 years old Clinical indication: Injury or trauma; Fall; Blunt trauma; Knee; Left; Prior surgery; Surgery date: 6+ months; Surgery type: Femur nail in image; Additional info: Fall, pain TECHNIQUE: Imaging protocol: Radiologic exam of the left knee. Views: 3 views. COMPARISON: MR knee LT wo con* [id number] 09/27/2023 1:31 PM FINDINGS: Bones/joints: Tricompartmental degenerative changes of the knee joint greatest at the lateral tibiofemoral compartment. No knee joint effusion. Chronic deformity of the proximal fibular head and neck. Intramedullary nail through the distal femur noted. Diffusely decreased bony mineralization. No dislocation. Soft tissues: Normal. XR/XR knee LT 3V* [id number] IMPRESSION: As above.
--- NOTE | 2024-03-19 20:17 | XRR_ITS ---
PROCEDURE INFORMATION: Exam: XR Left Elbow Exam date and time: 03/19/2024 8:50 PM Age: 79 years old Clinical indication: Injury or trauma; Fall; Blunt trauma (contusions or hematomas); Elbow; Prior surgery; Surgery date: 6+ months; Surgery type: Left reverse shoulder; Additional info: Fall, pain TECHNIQUE: Imaging protocol: Radiologic exam of the left elbow. Views: 3 or more views. COMPARISON: No relevant prior studies available. FINDINGS: Bones/joints: Transverse fracture through the olecranon. Small elbow joint effusion. No dislocation. Cortical plate and screws through the distal humerus. Soft tissues: Overlying soft tissue swelling. XR/XR elbow LT min 3V* [id number] IMPRESSION: As above.
[2024-03-19 20:18] VITALS: BP 118/62; PULSE 82; RESP 18; TEMP 37.1; O2SAT 95; BMI 28.8
[2024-03-19 20:22] VITALS: BP 118/63; PULSE 82; O2SAT 92
--- NOTE | 2024-03-19 20:41 | W.ED.FALL ---
HPI - Fall General: Chief Complaint: Fall Stated Complaint: FALL Time Seen by Provider: 03/19/24 20:14 History of Present Illness: 79-year-old female with a history of diabetes, hyperlipidemia, hypertension, hypothyroidism and urinary tension with regular self catheterizations who presents emergency room by ambulance after she had a fall. EMS reports she was actually going to come to the emergency room because she had had a fever up to 102 today. She had taken Tylenol and the fevers improved. She was transferring to her leah chair and fell. She has some mild pain in her knee and her elbow. She did not hit her head. No loss of consciousness. No altered mental status. Related Data Home Medications Medication Instructions Recorded Confirmed cyanocobalamin (vitamin B-12) 100 100 mcg PO DAILY 12/10/19 03/05/24 mcg tablet (Vitamin B-12) simvastatin 40 mg tablet 40 mg PO DAILY 12/10/19 03/05/24 cetirizine 10 mg capsule (Zyrtec) 10 mg PO DAILY 01/18/21 03/05/24 melatonin 12 mg tablet 12 mg PO BEDTIME 01/18/21 03/05/24 potassium chloride 20 mEq 20 meq PO TID Constipation 12/12/21 03/05/24 tablet,extended release furosemide 40 mg tablet (Lasix) 40 mg PO DAILY 04/12/22 03/05/24 polyethylene glycol 3350 17 gram 17 g PO DAILY PRN Constipation 08/17/22 03/05/24 oral powder packet (Miralax) levothyroxine 88 mcg tablet 88 mcg PO DAILY 02/08/23 03/05/24 oxycodone 10 mg tablet mg PO 03/21/23 03/05/24 magnesium oxide 400 mg (241.3 mg mg PO For headaches 03/05/24 03/05/24 magnesium) tablet riboflavin (vitamin B2) 400 mg 400 mg PO DAILY For headaches 03/05/24 03/05/24 tablet Previous Rx's Medication Instructions Recorded External Heel Lift to Left #1 ea 12/29/20 lubiprostone 24 mcg capsule See Rx Instructions .Route 06/07/23 .COMPLEX #60 caps gabapentin 100 mg capsule See Rx Instructions .Route 09/27/23 .COMPLEX #90 caps Hinged knee brace, left #1 ea 10/22/23 apixaban 5 mg tablet (Eliquis) 5 mg PO BID #180 tabs 10/23/23 anastrozole 1 mg tablet 1 mg PO DAILY #90 tabs 03/05/24 cefdinir 300 mg capsule 300 mg PO BID 7 days #14 caps 03/19/24 Allergies Allergy/AdvReac Type Severity Reaction Status Date / Time TRENT Inhibitors Allergy ADR-Cough Verified 03/19/24 20:23 cephalexin [From Keflex] Allergy ALGY-Rash Verified 03/19/24 20:23 pregabalin [From Lyrica] Allergy ADR-Blurry Verified 03/19/24 20:23 Vision Sulfa (Sulfonamide Allergy ALGY-Hives Verified 03/19/24 20:23 Antibiotics) trazodone Allergy ADR-Irritab Verified 03/19/24 20:23 le silk tape Allergy ALGY-Rash Uncoded 03/19/24 20:23 Review of Systems Narrative: Constitutional symptoms: Negative except as documented in HPI. Skin symptoms: Negative except as documented in HPI. Eye symptoms: Negative except as documented in HPI. ENMT symptoms: Negative except as documented in HPI. Respiratory symptoms: Negative except as documented in HPI. Cardiovascular symptoms: Negative except as documented in HPI. Gastrointestinal symptoms: Negative except as documented in HPI. Genitourinary symptoms: Negative except as documented in HPI. Musculoskeletal symptoms: Negative except as documented in HPI. Neurologic symptoms: Negative except as documented in HPI. Psychiatric symptoms: Negative except as documented in HPI. Endocrine symptoms: Negative except as documented in HPI. PFSH ED PFSH: Medical History Left breast mass History of iron deficiency anemia Chronic kidney disease Degenerative joint disease of spine Degenerative arthritis Peripheral neuropathy Type 2 diabetes mellitus Breast cancer Urolithiasis Neurogenic bladder Hyperlipemia Hypertension Hypothyroidism Osteoporosis Surgical History S/P ureteral stent placement History of infusaport central venous catheter insertion History of lumpectomy of left breast (10/13/20) left breast lumpectomy and left axillary sentinel lymph node biopsy History of right shoulder replacement (2010) With redo replacement in 2019 History of left shoulder replacement (2011) History of lumbar laminectomy (2014) H/O hernia repair H/O bariatric surgery History of back surgery (2015) Thoracic laminectomy with placement of a spinal cord stimulator Hx of cholecystectomy History of tonsillectomy H/O total hysterectomy History of appendectomy History of repair of left hip joint (2019) ORIF for intertrochanteric fracture Family History Mother , at age 84 Stroke Hypertension CAD (coronary artery disease) Father , at age 90 No problems noted. Social History Smoking and tobacco/nicotine status: never used tobacco/nicotine Alcohol intake: never Substance/Drug Use: never Marital status: Current occupational status: retired Physical Exam Narrative: EXAM NARRATIVE: General: Alert, no acute distress. Skin: Warm, dry. Head: Normocephalic, atraumatic. Neck: Supple, trachea midline. Eye: Extraocular movements are intact. Ears, nose, mouth and throat: mucosa moist. Cardiovascular: Regular, Normal peripheral perfusion. Respiratory: Lungs are clear to auscultation, respirations are non-labored, breath sounds are equal, Symmetrical chest wall expansion. Gastrointestinal: Soft, Nontender, Non distended Musculoskeletal: Tenderness to palpation of the right elbow. Neurological: Alert and oriented, No focal neurological deficit observed. Psychiatric: Cooperative, appropriate mood & affect. Course Vital Signs: Vital signs: Vital Signs Temperature 98.8 F 03/19/24 20:18 Pulse Rate 77 03/19/24 21:30 Respiratory Rate 18 03/19/24 20:18 Blood Pressure 106/59 03/19/24 21:30 Pulse Oximetry 98 03/19/24 21:30 Oxygen Delivery Me thod Room Air 03/19/24 21:22 MDM - Fall Medical Decision Making Medical decision making: Differential diagnosis for patient presenting with generalized weakness including but not limited to and based on the above HPI, review of systems and physical exam: Sepsis. Dehydration. Renal failure. Electrolyte abnormalities. Anemia. Congestive heart failure. Hypotension. Coronary syndrome. Hepatitis. Cirrhosis. Infections such as pneumonia, urinary tract infection, Tick bourne illness, Cellulitis, Viral infections including influenza and Covid-19. Workup: labwork and lab/exam driven imaging ordered to evaluate, rule in and rule out above pathologies. X-ray of the left elbow shows a proximal ulnar fracture. This was reviewed and interpreted by myself the emergency room physician. I also reviewed the radiology report. X-ray of the left knee: Degenerative changes but no acute process. This was reviewed and interpreted by myself the emergency room physician. I also reviewed the radiology report. Lab Review: Laboratory results were reviewed and interpreted by myself the emergency room physician. No leukocytosis. Hemoglobin 10.2. BUN and creatinine at or below the patient's baseline at 26 and 1.3 respectively. Urinalysis only has a few whites but has too numerous to count bacteria and patient is a chronic self catheterization at home. Treating for urinary tract infection I reviewed the patient's medical record. Reexamination: Patient remained stable. No increased work of breathing. No altered mental status. No focal motor deficits. Splint was placed by nursing. I have examined personally. Neurovascularly intact. Consultation: I spoke with Dr. Bonilla who is on-call for orthopedics and who is also the patient's orthopedist normally. She reviewed the films and recommends splinting and she will see her in clinic. Assessment and plan: Proximal ulnar fracture Urinary tract infection Fall ?IV Rocephin and splint placed in the ER. -Patient listed an allergy to Keflex. She says this was just itching. Not actually a rash. She tolerated Rocephin fine here. Going to place her on cefdinir. - Discharged home - Discussed findings and plan with patient. Answered any questions. - All laboratory values were reviewed and interpreted personally by myself, the ER physician - All imaging was reviewed and interpreted personally by myself, the ER physician. - Evaluation and treatment of this problem were appropriate in the emergency setting Lab Data 03/19/24 20:35 03/19/24 20:35 Radiology Impressions Elbow X-Ray 03/19/24 20:17 IMPRESSION: As above. Knee X-Ray 03/19/24 20:17 IMPRESSION: As above. Laboratory Results WBC 8.29 10^3/uL (3.29-11.43) 03/19/24 20:35 RBC 3.48 10^6/uL (3.85-5.65) L 03/19/24 20:35 Hgb 10.20 g/dL (11.27-16.99) L 03/19/24 20:35 Hct 34.2 % (36-47) L 03/19/24 20:35 MCV 98.3 fl (85-98) H 03/19/24 20:35 MCH 29.3 pg (27-33) 03/19/24 20:35 MCHC 29.8 g/dL (30-55) L 03/19/24 20:35 RDW 14.1 % (12.1-15.1) 03/19/24 20:35 Plt Count 206 10^3/cmm (157-399) 03/19/24 20:35 MPV 10.3 fL (7.4-10.4) 03/19/24 20:35 Neut % (Auto) 86.5 % 03/19/24 20:35 Lymph % (Auto) 4.2 % 03/19/24 20:35 [place] % (Auto) 8.3 % 03/19/24 20:35 Eos % (Auto) 0.4 % 03/19/24 20:35 Baso % (Auto) 0.4 % 03/19/24 20:35 Neut # (Auto) 7.17 10^3/uL (1.8-7.7) 03/19/24 20:35 Lymph # (Auto) 0.4 10^3/uL (0.8-4.8) L 03/19/24 20:35 [place] # (Auto) 0.7 10^3/uL (0.2-0.9) 03/19/24 20:35 Eos # (Auto) 0.0 10^3/uL (0.0-0.8) 03/19/24 20:35 Baso # (Auto) 0.0 10^3/uL (0.0-0.1) 03/19/24 20:35 Nucleated RBC % (auto) 0 % 03/19/24 20:35 Nucleated RBCs # 0.0 /100WBC 03/19/24 20:35 Sodium 141 mmol/L (136-145) 03/19/24 20:35 Potassium 4.6 mmol/L (3.5-5.1) 03/19/24 20:35 Chloride 107 mmol/L (98-107) 03/19/24 20:35 Carbon Dioxide 21 mmol/L (22-29) L 03/19/24 20:35 Anion Gap 17.6 (5-19) 03/19/24 20:35 BUN 26 mg/dL (8-23) H 03/19/24 20:35 Creatinine 1.3 mg/dL (0.5-0.9) H 03/19/24 20:35 GFR Calculation Not Reportable 03/19/24 20:35 Glucose 142 mg/dL (65-115) H 03/19/24 20:35 Calculated Osmolality 299 mOsm/kg (285-295) H 03/19/24 20:35 Lactic Acid 1.6 mmol/L (0.5-2.2) 03/19/24 20:35 Calcium 8.2 mg/dL (8.5-10.5) L 03/19/24 20:35 Total Bilirubin 0.4 mg/dL (0.15-1.2) 03/19/24 20:35 AST 36 U/L (0-32) H 03/19/24 20:35 ALT 18 U/L (0-33) 03/19/24 20:35 Alkaline Phosphatase 77 U/L (35-105) 03/19/24 20:35 C-Reactive Protein 30.7 mg/L (0.0-4.9) H 03/19/24 20:35 Total Protein 5.2 g/dL (6.6-8.7) L 03/19/24 20:35 Albumin 3.4 g/dL (3.5-5.2) L 03/19/24 20:35 Globulin 1.8 g/dL (1.3-4.6) 03/19/24 20:35 Urine Color Yellow (Yellow) 03/19/24 20:30 Urine Appearance Slightly cloudy (CLEAR) 03/19/24 20:30 Urine pH 7.5 (5-7) 03/19/24 20:30 Ur Specific [place] 1.010 (1.005-1.030) 03/19/24 20:30 Urine Protein Trace (Negative) A 03/19/24 20:30 Urine Glucose (UA) Negative (Normal) 03/19/24 20: Urine Ketones Negative (Negative) 03/19/24 20: Urine Blood 2+ (Negative) A 03/19/24 20:30 Urine Nitrate Negative (Negative) 03/19/24 20: Urine Bilirubin Negative (Negative) 03/19/24 20: Urine Urobilinogen 1.0 mg/dL (Negative) 12/04/24 20:30 Ur Leukocyte Esterase 1+ (Negative) A 03/19/24 20:30 Urine RBC 6-10 /hpf (0-2) 03/19/24 20:30 Urine WBC 11-20 /hpf (0-5) H 03/19/24 20:30 Ur Squamous Epith Cells 0-5 /hpf (0-5) 03/19/24 20:30 Amorphous Sediment Not Reportable 03/19/24 20:30 Urine Bacteria Exceeds /hpf (NONE) 03/19/24 20:30 Hyaline Casts 2.87 /lpf 03/19/24 20:30 Coronavirus (PCR) Negative (Negative) 03/19/24 20:45 Influenza A (PCR) Negative (Negative) 03/19/24 20:45 Influenza Type B (PCR) Negative (Negative) 03/19/24 20:45 RSV (PCR) Negative (Negative) 03/19/24 20:45 All radiology interpretation(s) finalized by discharge Discharge Plan Discharge Patient Disposition: Home Clinical Impression: Elbow fracture, left, Urinary tract infection, Fall Condition: Stable Prescriptions: New cefdinir 300 mg capsule 300 mg PO BID 7 Days Qty: 14 0RF No Action simvastatin 40 mg tablet 40 mg PO DAILY cyanocobalamin (vitamin B-12) [Vitamin B-12] 100 mcg tablet 100 mcg PO DAILY polyethylene glycol 3350 [Miralax] 17 gram powder in packet 17 g PO DAILY PRN (Reason: Constipation) Zyrtec 10 mg capsule 10 mg PO DAILY melatonin 12 mg tablet 12 mg PO BEDTIME (DME) External Heel Lift to Left See Rx Instructions .Route .MEDSUPPLY Qty: 1 0RF Rx Instructions: As directed by EBER&O oxycodone 10 mg tablet PO (DME) Hinged knee brace, left See Rx Instructions .Route .MEDSUPPLY Qty: 1 0RF Rx Instructions: As directed furosemide [Lasix] 40 mg tablet 40 mg PO DAILY magnesium oxide 400 mg (241.3 mg magnesium) tablet PO riboflavin (vitamin B2) 400 mg tablet 400 mg PO DAILY anastrozole 1 mg tablet 1 mg PO DAILY Qty: 90 0RF lubiprostone 24 mcg capsule See Rx Instructions .ROUTE .COMPLEX Qty: 60 3RF Dose Instruction: take 1 capsule BY MOUTH TWICE DAILY NEEDED FOR CONSTIPATION Rx Instructions: take 1 capsule BY MOUTH TWICE DAILY NEEDED FOR CONSTIPATION gabapentin 100 mg capsule See Rx Instructions .ROUTE .COMPLEX Qty: 90 0RF Rx Instructions: 100 mg orally twice daily and 200 mg at bedtime Eliquis 5 mg tablet 5 mg PO BID Qty: 180 3RF Rx Instructions: 340 b potassium chloride 20 mEq tablet extended release 20 meq PO TID Rx Instructions: 40 MEQ in the morning and 20MEQ in evening levothyroxine 88 mcg Tablet 88 mcg PO DAILY Discharge Orders: Discharge ED (Routine); Ordered 03/19/24 Ordered By: Gogo Her Referrals: Garima Cee DO [Primary Care Provider] - Sherry Bonilla MD [Physician] - 4-7 days (Please call for a follow-up appointment) Discharge Diet: Usual diet Discharge Activity: Limit activity as instructed Patient Instructions: How to Use a Sling (ED), Splint Care (ED), Urinary Tract Infection in Older Adults (ED), Opioid Safety, Pain Management Activity Restrictions/Additional Instructions: Thank you for choosing [facility] for your healthcare needs today. Please realize this is an emergency room and that we are providing you with a medical screening exam and this may not be complete and all inclusive of all the testing and or work up that you may need to determine your ailment or severity of your illness. You have been screened and evaluated and felt safe for discharge. Health conditions do change or evolve sometimes and as such it is important that you follow up with your Primary Doctor to be re checked, 3-5 days is a general good time frame for follow up. You are always welcome to return to the ED for re assessment if your symptoms are worsening or you have new concerns Coding Level of Care Code ED Analysis Intern for Anjelica Bingham
[2024-03-19 20:43] LABS: Basophils % 0.4 %; Eosinophils % 0.4 %; Hematocrit 34.2 % (36-47); Lymphocytes # 0.4 10^3/uL (0.8-4.8); Lymphocytes % 4.2 %; Mean Corpuscular HGB Conc 29.8 g/dL (30-55); Mean Corpuscular Hemoglobin 29.3 pg (27-33); Mean Corpuscular Volume 98.3 fl (85-98); Mean Platelet Volume 10.3 fL (7.4-10.4); Monocytes # 0.7 10^3/uL (0.2-0.9); Monocytes % 8.3 %; Neutrophils # 7.17 10^3/uL (1.8-7.7); Neutrophils % 86.5 %; Nucleated Red Blood Cells % 0 %; Platelet Count 206 10^3/cmm (157-399); Red Blood Count 3.48 10^6/uL (3.85-5.65); Red Cell Distribution Width 14.1 % (12.1-15.1); White Blood Count 8.29 10^3/uL (3.29-11.43)
[2024-03-19 20:51] LABS: Bacteria Urine EXCEEDS /hpf; Hyaline Casts Urine 2.87 /lpf; Squamous Epithelial Cell Urine 0-5 /hpf (0-5)
[2024-03-19 20:52] VITALS: BP 116/56; PULSE 82; O2SAT 91
[2024-03-19 20:54] LABS: Bilirubin Urine Negative (Negative); Blood Urine 2+ (Negative); Glucose Urine UA Negative (Normal); Ketones Urine Negative (Negative); Leukocyte Esterase Urine 1+ (Negative); Nitrate Urine Negative (Negative); Protein Urine Trace (Negative); Urine Color Yellow (Yellow); pH Urine 7.5 (5-7)
[2024-03-19 20:57] LABS: Add Urine Culture? Yes; Urine Appearance Slightly Cloudy (CLEAR)
[2024-03-19 21:01] LABS: Alanine Aminotransferase 18 U/L (0-33); Albumin Level 3.4 g/dL (3.5-5.2); Alkaline Phosphatase 77 U/L (35-105); Blood Urea Nitrogen 26 mg/dL (8-23); C Reactive Protein 30.7 mg/L (0.0-4.9); Calcium 8.2 mg/dL (8.5-10.5); Carbon Dioxide 21 mmol/L (22-29); Chloride 107 mmol/L (98-107); Creatinine Clr Calc Pharmacy 40.3351; Globulin 1.8 g/dL (1.3-4.6); Glucose 142 mg/dL (65-115); Osmolality Calculated 299 mOsm/kg (285-295); Sodium 141 mmol/L (136-145); Total Bilirubin 0.4 mg/dL (0.15-1.2); Total Protein 5.2 g/dL (6.6-8.7)
[2024-03-19 21:02] LABS: Lactic Sepsis W/Reflex 1.6 mmol/L (0.5-2.2)
[2024-03-19 21:03] LABS: Anion Gap 17.6 (5-19); Aspartate Amino Transferase 36 U/L (0-32); Potassium 4.6 mmol/L (3.5-5.1)
[2024-03-19 21:22] VITALS: BP 122/62; PULSE 81; O2SAT 99
[2024-03-19 21:30] VITALS: BP 106/59; PULSE 77; O2SAT 98
[2024-03-19] MEDS: cefTRIAXone 1,000 mg SDV 1000 MG IVP (21:38)
[2024-03-19 21:43] LABS: Covid PCR NEGATIVE (Negative); Influenza A NEGATIVE (Negative); Influenza B NEGATIVE (Negative); Respiratory Syncytial Virus Ce NEGATIVE (Negative)
[2024-03-19 23:44] VITALS: BP 96/50; PULSE 83; O2SAT 98
== END 2024-03-19 22:17 | disposition home or self-care (01) ==
PROVIDERS: Emergency Provider Emergency Medicine; PCP Family Medicine
DX: S52.002A Unspecified fracture of upper end of left ulna, initial encounter for closed fracture (principal); N39.0 Urinary tract infection, site not specified; W19.XXXA Unspecified fall, initial encounter; Z79.01 Long term (current) use of anticoagulants; Z11.52 Encounter for screening for COVID-19; E11.22 Type 2 diabetes mellitus with diabetic chronic kidney disease; I12.9 Hypertensive chronic kidney disease with stage 1 through stage 4 chronic kidney disease, or unspecified chronic kidney disease; N18.9 Chronic kidney disease, unspecified; C50.912 Malignant neoplasm of unspecified site of left female breast
CPT/HCPCS: 0241U; 36415; 73080; 73562; 80053; 81001; 83605; 85025; 86140; 87040; 87077; 87086; 87186; 87205; 96374; 99284; J0696

== ENCOUNTER 2024-03-21 00:36 | Inpatient (IN) | payer MEDICARE, OTHER, SELFPAY ==
[2024-03-21] VITALS (17 sets, daily range): BP systolic 92–124; BP diastolic 44–80; PULSE 66–87; RESP 7–19; TEMP 36.3–37.6; O2SAT 92–99; BMI 28.8; BMI 32.6
--- NOTE | 2024-03-21 00:44 | XRR_ITS ---
PROCEDURE INFORMATION: Exam: XR Left Knee Exam date and time: 03/21/2024 1:30 AM Age: 79 years old Clinical indication: Injury or trauma; Fall; Blunt trauma; Knee; Left; Prior surgery; Surgery date: 6+ months; Surgery type: Femoral nail; Additional info: Fall, pain TECHNIQUE: Imaging protocol: Radiologic exam of the left knee. Views: 3 views. COMPARISON: CR (LOW EXM, ) 03/19/2024 8:50 PM FINDINGS: Bones/joints: There is osteopenia. Old healed fracture proximal shaft fibula. Distal aspect of the femoral nail noted. Moderate degenerative changes lateral compartment. Mild valgus angulation. Small knee joint effusion. Soft tissues: See Bones/joints finding. XR/XR knee LT 3V* [id number] IMPRESSION: No radiographic evidence of fracture.
--- NOTE | 2024-03-21 00:49 | ED_ITS ---
HPI - Extremity Problem 2 General: Chief complaint: Extremity Injury, Lower Stated complaint: knee pain, post fall Time Seen by Provider: 03/21/24 00:41 History of Present Illness: 79-year-old female whom I saw in the [facility] room yesterday after a fall yesterday. She presents today with worsening left knee pain. She says she injured it worse while trying to get into her 's truck. She has an olecranon fracture and is in a sling on her left arm. She had also injured her left knee yesterday but there was no fractures. Related Data Home Medications Medication Instructions Recorded Confirmed cyanocobalamin (vitamin B-12) 100 100 mcg PO DAILY 12/10/19 03/05/24 mcg tablet (Vitamin B-12) simvastatin 40 mg tablet 40 mg PO DAILY 12/10/19 03/05/24 cetirizine 10 mg capsule (Zyrtec) 10 mg PO DAILY 01/18/21 03/05/24 melatonin 12 mg tablet 12 mg PO BEDTIME 01/18/21 03/05/24 potassium chloride 20 mEq 20 meq PO TID Constipation 12/12/21 03/05/24 tablet,extended release furosemide 40 mg tablet (Lasix) 40 mg PO DAILY 04/12/22 03/05/24 polyethylene glycol 3350 17 gram 17 g PO DAILY PRN Constipation 08/17/22 03/05/24 oral powder packet (Miralax) levothyroxine 88 mcg tablet 88 mcg PO DAILY 02/08/23 03/05/24 oxycodone 10 mg tablet mg PO 03/21/23 03/05/24 magnesium oxide 400 mg (241.3 mg mg PO For headaches 03/05/24 03/05/24 magnesium) tablet riboflavin (vitamin B2) 400 mg 400 mg PO DAILY For headaches 03/05/24 03/05/24 tablet Previous Rx's Medication Instructions Recorded External Heel Lift to Left #1 ea 12/29/20 lubiprostone 24 mcg capsule See Rx Instructions .Route 06/07/23 .COMPLEX #60 caps gabapentin 100 mg capsule See Rx Instructions .Route 09/27/23 .COMPLEX #90 caps Hinged knee brace, left #1 ea 10/22/23 apixaban 5 mg tablet (Eliquis) 5 mg PO BID #180 tabs 07/09/24 anastrozole 1 mg tablet 1 mg PO DAILY #90 tabs 03/05/24 cefdinir 300 mg capsule 300 mg PO BID 7 days #14 caps 03/19/24 Allergies Allergy/AdvReac Type Severity Reaction Status Date / Time TRENT Inhibitors Allergy ADR-Cough Verified 03/19/24 20:23 cephalexin [From Keflex] Allergy ALGY-Rash Verified 03/19/24 20:23 pregabalin [From Lyrica] Allergy ADR-Blurry Verified 03/19/24 20:23 Vision Sulfa (Sulfonamide Allergy ALGY-Hives Verified 03/19/24 20:23 Antibiotics) trazodone Allergy ADR-Irritab Verified 03/19/24 20:23 le silk tape Allergy ALGY-Rash Uncoded 03/19/24 20:23 Review of Systems 2 Narrative: Constitutional symptoms: Negative except as documented in HPI. Skin symptoms: Negative except as documented in HPI. Eye symptoms: Negative except as documented in HPI. ENMT symptoms: Negative except as documented in HPI. Respiratory symptoms: Negative except as documented in HPI. Cardiovascular symptoms: Negative except as documented in HPI. Gastrointestinal symptoms: Negative except as documented in HPI. Genitourinary symptoms: Negative except as documented in HPI. Musculoskeletal symptoms: Negative except as documented in HPI. Neurologic symptoms: Negative except as documented in HPI. Psychiatric symptoms: Negative except as documented in HPI. Endocrine symptoms: Negative except as documented in HPI. PFSH ED 2 PFSH: Medical History Left breast mass History of iron deficiency anemia Chronic kidney disease Degenerative joint disease of spine Degenerative arthritis Peripheral neuropathy Type 2 diabetes mellitus Breast cancer Urolithiasis Neurogenic bladder Hyperlipemia Hypertension Hypothyroidism Osteoporosis Surgical History S/P ureteral stent placement History of infusaport central venous catheter insertion History of lumpectomy of left breast (10/13/20) left breast lumpectomy and left axillary sentinel lymph node biopsy History of right shoulder replacement (2010) With redo replacement in 2019 History of left shoulder replacement (2011) History of lumbar laminectomy (2014) H/O hernia repair H/O bariatric surgery History of back surgery (2015) Thoracic laminectomy with placement of a spinal cord stimulator Hx of cholecystectomy History of tonsillectomy H/O total hysterectomy History of appendectomy History of repair of left hip joint (2019) ORIF for intertrochanteric fracture Family History Mother , at age 84 Stroke Hypertension CAD (coronary artery disease) Father , at age 90 No problems noted. Social History Smoking and tobacco/nicotine status: never used tobacco/nicotine Alcohol intake: never Substance/Drug Use: never Marital status: Current occupational status: retired Physical Exam 2 Narrative: EXAM NARRATIVE: General: Alert, no acute distress. Skin: Warm, dry. Head: Normocephalic, atraumatic. Neck: Supple, trachea midline. Eye: Extraocular movements are intact. Ears, nose, mouth and throat: mucosa moist. Cardiovascular: Regular, Normal peripheral perfusion. Respiratory: Lungs are clear to auscultation, respirations are non-labored, breath sounds are equal, Symmetrical chest wall expansion. Gastrointestinal: Soft, Nontender, Non distended Musculoskeletal: Swelling of the left knee. Pain with movement. Neurological: Alert and oriented, No focal neurological deficit observed. Psychiatric: Cooperative, appropriate mood & affect. Course 2 Vital Signs: Vital signs: Vital Signs Temperature 99.7 F H 03/21/24 00:43 Pulse Rate 87 03/21/24 00:43 Respiratory Rate 17 03/21/24 02:15 Blood Pressure 106/44 03/21/24 00:43 Pulse Oximetry 99 03/21/24 02:15 Oxygen Delivery Me thod Room Air 03/21/24 00:43 MDM - Extremity (Nontraumatic) Medical Decision Making X-ray of the knee shows no acute fractures. Patient is febrile again here in the emergency room and review of the chart shows that she has 3 of 3 positive blood cultures for gram negative rods. She has a frequent history of being bacteremic in the past. Both E. coli and Klebsiella species in the past. Often both. Lab Review: Laboratory results were reviewed and interpreted by myself the emergency room physician. No leukocytosis. Stable anemia with a hemoglobin of 10. BUN and creatinine continue to trend up at 29 and 1.7 today. I am going to give Rocephin here in the emergency room and a liter of fluids to avoid any further nephrotoxicity. Urine still appears infected. I reviewed the patient's medical record. Reexamination: Patient remained stable. No increased work of breathing. No altered mental status. No focal motor deficits. Consultation: I spoke Dr. Gregorio who agrees to admission to the hospital. CT of the abdomen pelvis: No obstructive uropathy. She does have some bladder wall thickening which might indicate some chronic cystitis which she does seem to have. This was reviewed and interpreted by myself the emergency room physician. I also reviewed the radiology report. Assessment and plan: Bacteremia Fall Knee injury Urinary tract infection Acute on chronic renal insufficiency ?Patient is bacteremic did not necessarily seem septic but I am treating her as thus. -2L normal saline bolus. Fluid volumes based on ideal body weight. -Cefepime in the emergency room -Sepsis quality measures. -Lactic acid with a reflex was ordered. -Blood cultures were ordered. ?2lNormal saline bolus and IV cefepime. Patient has tolerated Rocephin and Omnicef. She does have an allergy to Keflex. She says it was just itching though. -I discussed the patient with the hospitalist on-call who is admitting the patient. - Discussed findings and plan with patient. Answered any questions. - All laboratory values were reviewed and interpreted personally by myself, the ER physician - All imaging was reviewed and interpreted personally by myself, the ER physician. - Evaluation and treatment of this problem were appropriate in the emergency setting -I spent a total of >35 minutes of critical care time managing the patient, independent of any other practitioner. -The time involved in the performance of separately reportable procedures was not counted towards critical care time. Lab Data 03/21/24 01:19 03/21/24 01:19 Radiology Impressions Knee X-Ray 03/21/24 00:44 IMPRESSION: No radiographic evidence of fracture. Abdomen/Pelvis CT 03/21/24 01:31 IMPRESSION: Mild urinary bladder wall thickening may represent cystitis. Please correlate clinically. Laboratory Results WBC 7.58 10^3/uL (3.29-11.43) 03/21/24 01:19 RBC 3.41 10^6/uL (3.85-5.65) L 03/21/24 01:19 Hgb 10.00 g/dL (11.27-16.99) L 03/21/24 01:19 Hct 32.7 % (36-47) L 03/21/24 01:19 MCV 95.9 fl (85-98) 03/21/24 01:19 MCH 29.3 pg (27-33) 03/21/24 01:19 MCHC 30.6 g/dL (30-55) 03/21/24 01:19 RDW 14.3 % (12.1-15.1) 03/21/24 01:19 Plt Count 201 10^3/cmm (157-399) 03/21/24 01:19 MPV 10.3 fL (7.4-10.4) 03/21/24 01:19 Neut % (Auto) 76.7 % 03/21/24 01:19 Lymph % (Auto) 7.7 % 03/21/24 01:19 [place] % (Auto) 14.1 % 03/21/24 01:19 Eos % (Auto) 0.8 % 03/21/24 01:19 Baso % (Auto) 0.4 % 03/21/24 01:19 Neut # (Auto) 5.82 10^3/uL (1.8-7.7) 03/21/24 01:19 Lymph # (Auto) 0.6 10^3/uL (0.8-4.8) L 03/21/24 01:19 [place] # (Auto) 1.1 10^3/uL (0.2-0.9) H 03/21/24 01:19 Eos # (Auto) 0.1 10^3/uL (0.0-0.8) 03/21/24 01:19 Baso # (Auto) 0.0 10^3/uL (0.0-0.1) 03/21/24 01:19 Nucleated RBC % (auto) 0 % 03/21/24 01:19 Nucleated RBCs # 0.0 /100WBC 03/21/24 01:19 Sodium 135 mmol/L (136-145) L 03/21/24 01:19 Potassium 5.0 mmol/L (3.5-5.1) 03/21/24 01:19 Chloride 100 mmol/L (98-107) 03/21/24 01:19 Carbon Dioxide 24 mmol/L (22-29) 03/21/24 01:19 Anion Gap 16.0 (5-19) 03/21/24 01:19 BUN 29 mg/dL (8-23) H 03/21/24 01:19 Creatinine 1.7 mg/dL (0.5-0.9) H 03/21/24 01:19 GFR Calculation Not Reportable 03/21/24 01:19 Glucose 144 mg/dL (65-115) H 03/21/24 01:19 Calculated Osmolality 288 mOsm/kg (285-295) 03/21/24 01:19 Lactic Acid 2.1 mmol/L (0.5-2.2) 03/21/24 01:19 Calcium 9.0 mg/dL (8.5-10.5) 03/21/24 01:19 Total Bilirubin 0.3 mg/dL (0.15-1.2) 03/21/24 01:19 AST 24 U/L (0-32) 03/21/24 01:19 ALT 18 U/L (0-33) 03/21/24 01:19 Alkaline Phosphatase 80 U/L (35-105) 03/21/24 01:19 Total Protein 6.1 g/dL (6.6-8.7) L 03/21/24 01:19 Albumin 3.6 g/dL (3.5-5.2) 03/21/24 01:19 Globulin 2.5 g/dL (1.3-4.6) 03/21/24 01:19 Urine Color Yellow (Yellow) 03/21/24 02:09 Urine Appearance Slightly cloudy (CLEAR) 03/21/24 02:09 Urine pH 5.5 (5-7) 03/21/24 02:09 Ur Specific Spearman 1.010 (1.005-1.030) 03/21/24 02:09 Urine Protein Negative (Negative) 03/21/24 02:09 Urine Glucose (UA) Negative (Normal) 03/21/24 02:09 Urine Ketones Negative (Negative) 03/21/24 02:09 Urine Blood 2+ (Negative) A 03/21/24 02:09 Urine Nitrate Negative (Negative) 03/21/24 02:09 Urine Bilirubin Negative (Negative) 03/21/24 02:09 Urine Urobilinogen 1.0 mg/dL (Negative) 03/21/24 02:09 Ur Leukocyte Esterase Trace (Negative) A 03/21/24 02:09 Urine RBC 11-20 /hpf (0-2) H 03/21/24 02:09 Urine WBC 11-20 /hpf (0-5) H 03/21/24 02:09 Ur Squamous Epith Cells 0-5 /hpf (0-5) 03/21/24 02:09 Amorphous Sediment Not Reportable 03/21/24 02:09 Urine Bacteria None seen /hpf (NONE) 03/21/24 02:09 Hyaline Casts 3.71 /lpf 03/21/24 02:09 All radiology interpretation(s) finalized by discharge Discharge Plan Discharge Patient Disposition: Admitted As Inpatient Admit Provider: Lauren Gregorio Clinical Impression: Bacteremia, Urinary tract infection, Acute on chronic renal insufficiency, Knee injury, Closed fracture of left olecranon process Condition: Stable Coding Level of Care Code ED Curator Of Education for Anjelica Bingham
--- NOTE | 2024-03-21 01:00 | PC.NURSE ---
Pt chose not to take the IV pain meds reporting that as long as no one touches her knee then she has no pain. This typewriters functional tester explained that it will be available if she changes her mind. Pt verbalized understanding.
[2024-03-21 01:31] LABS: Basophils % 0.4 %; Eosinophils # 0.1 10^3/uL (0.0-0.8); Eosinophils % 0.8 %; Hematocrit 32.7 % (36-47); Lymphocytes # 0.6 10^3/uL (0.8-4.8); Lymphocytes % 7.7 %; Mean Corpuscular HGB Conc 30.6 g/dL (30-55); Mean Corpuscular Hemoglobin 29.3 pg (27-33); Mean Corpuscular Volume 95.9 fl (85-98); Mean Platelet Volume 10.3 fL (7.4-10.4); Monocytes # 1.1 10^3/uL (0.2-0.9); Monocytes % 14.1 %; Neutrophils # 5.82 10^3/uL (1.8-7.7); Neutrophils % 76.7 %; Nucleated Red Blood Cells % 0 %; Platelet Count 201 10^3/cmm (157-399); Red Blood Count 3.41 10^6/uL (3.85-5.65); Red Cell Distribution Width 14.3 % (12.1-15.1); White Blood Count 7.58 10^3/uL (3.29-11.43)
--- NOTE | 2024-03-21 01:31 | CTR_ITS ---
PROCEDURE INFORMATION: Exam: CT Abdomen And Pelvis Without Contrast Exam date and time: 03/21/2024 2:25 AM Age: 79 years old Clinical indication: Other: Recurrent UTI; Prior surgery; Surgery date: 6+ months; Surgery type: Stone SX, HX of ureter stents; Patient HX: HX of stones TECHNIQUE: Imaging protocol: Computed tomography of the abdomen and pelvis without contrast. Radiation optimization: All CT scans at this facility use at least one of these dose optimization techniques: automated exposure control; mA and/or kV adjustment per patient size (includes targeted exams where dose is matched to clinical indication); or iterative reconstruction. COMPARISON: CT kidney stone [id number] 01/03/2021 8:42 PM RADIATION DOSE METRICS: Total DLP (mGy-cm): 1133.92 FINDINGS: Limitations: The patient was scanned with their arms at their side creating streak and beam hardening artifact which limits evaluation. Tubes, catheters and devices: There is a Marlow catheter in place. Lungs: Bibasilar atelectasis noted. Mild mosaic attenuation lung bases. Coronary arteries: There is atherosclerotic calcification coronary arteries. Liver: Normal. No mass. Gallbladder and biliary ducts: Normal. No calcified stones. No ductal dilation. Pancreas: Normal. No ductal dilation. Spleen: Normal. No splenomegaly. Adrenal glands: Normal. No mass. Kidneys and ureters: [id number] left renal atrophy noted this is new from 2020. Benign renal parenchymal calcifications noted. No hydronephrosis. Stomach and bowel: Unremarkable. No obstruction. No mucosal thickening. Appendix: No evidence of appendicitis. Intraperitoneal space: Unremarkable. No free air. No significant fluid collection. Vasculature: Scattered phleboliths in the pelvis noted. Calcified atherosclerotic plaque noted. Lymph nodes: Unremarkable. No enlarged lymph nodes. Urinary bladder: Mild urinary bladder wall thickening may represent cystitis. Please correlate clinically. Reproductive: There has been hysterectomy. Bones/joints: Unremarkable. No acute fracture. Soft tissues: Unremarkable. CT/CT kidney stone [id number] IMPRESSION: Mild urinary bladder wall thickening may represent cystitis. Please correlate clinically.
--- NOTE | 2024-03-21 01:44 | CTR_ITS ---
PROCEDURE INFORMATION: Exam: CT Left Lower Extremity, Knee Exam date and time: 03/21/2024 2:28 AM Age: 79 years old Clinical indication: Injury or trauma; Fall; Blunt trauma; Knee; Prior surgery; Surgery date: 6+ months; Surgery type: Left femoral nail; Additional info: Fall, knee pain TECHNIQUE: Imaging protocol: CT of the left lower extremity without contrast was performed. Exam focused on the knee. Radiation optimization: All CT scans at this facility use at least one of these dose optimization techniques: automated exposure control; mA and/or kV adjustment per patient size (includes targeted exams where dose is matched to clinical indication); or iterative reconstruction. COMPARISON: MR knee LT wo con* [id number] 09/27/2023 1:31 PM RADIATION DOSE METRICS: Total DLP (mGy-cm): 351.8 FINDINGS: Bones/joints: The distal aspect of the intramedullary nail is noted. There is acute fracture of the proximal shaft of the fibula without significant displacement. There is likely old healed fracture of the proximal fibula. There is fracture of the lateral tibial plateau with depression estimated at 3 mm. Large joint effusion. Soft tissues: Normal. CT/CT knee LT wo con* [id number] IMPRESSION: 1. There is fracture of the lateral tibial plateau with depression estimated at 3 mm. 2. Acute fracture proximal shaft fibula without significant displacement. 3. Advanced degenerative changes lateral compartment.
[2024-03-21 01:56] LABS: Alanine Aminotransferase 18 U/L (0-33); Albumin Level 3.6 g/dL (3.5-5.2); Alkaline Phosphatase 80 U/L (35-105); Aspartate Amino Transferase 24 U/L (0-32); Blood Urea Nitrogen 29 mg/dL (8-23); Carbon Dioxide 24 mmol/L (22-29); Chloride 100 mmol/L (98-107); Creatinine Clr Calc Pharmacy 30.8445; Globulin 2.5 g/dL (1.3-4.6); Glucose 144 mg/dL (65-115); Lactic Sepsis W/Reflex 2.1 mmol/L (0.5-2.2); Osmolality Calculated 288 mOsm/kg (285-295); Sodium 135 mmol/L (136-145); Total Bilirubin 0.3 mg/dL (0.15-1.2); Total Protein 6.1 g/dL (6.6-8.7)
--- NOTE | 2024-03-21 02:05 | P.HP_ITS ---
Providers/Chief Complaint 2 Primary Care Provider: Garima Cee DO Chief Complaint: knee pain, post fall History of Present Illness Lucie Joyner is a 79 year old female with history of CKD, neuropathy, numbness left leg, DVT Eliquis history of breast cancer, knee arthritis, kidney stones status post ureteral stent removed by Dr. Barron presented for febrile events, UTI and recent fall. She was recently diagnosed with left transverse fracture although creatinine, splint was placed, patient was discharged home, next around 2:00 she slid off the truck stepstool and twisted her left leg badly. In the ER she has positive blood culture for gram-negative velasquez, previous urine culture showed Klebsiella, E. coli pansensitive. No fever or leukocytosis. Requested CT scanning of renal tissue. Her last dose of Eliquis was in the morning 8 AM 03/20 Review of Systems 2 Const: Reports: fever(s), chills, body aches and fatigue Eyes: Denies: change in vision ENMT: Denies: throat pain Card: Denies: chest pain : Reports: difficulty voiding and dysuria Musc: Reports: neck pain, back pain and extremity pain Medications/Allergies Home Medications Medication Instructions Recorded Confirmed Last Taken Type cyanocobalamin (vitamin B-12) 100 100 mcg PO DAILY 12/10/19 03/05/24 02/08/23 History mcg tablet (Vitamin B-12) simvastatin 40 mg tablet 40 mg PO DAILY 12/10/19 03/05/24 02/07/23 History External Heel Lift to Left #1 ea 12/29/20 03/05/24 Unknown Rx cetirizine 10 mg capsule (Zyrtec) 10 mg PO DAILY 01/18/21 03/05/24 02/08/23 History melatonin 12 mg tablet 12 mg PO BEDTIME 01/18/21 03/05/24 02/07/23 History potassium chloride 20 mEq 20 meq PO TID Constipation 12/12/21 03/05/24 02/08/23 History tablet,extended release furosemide 40 mg tablet (Lasix) 40 mg PO DAILY 04/12/22 03/05/24 02/07/23 History polyethylene glycol 3350 17 gram 17 g PO DAILY PRN Constipation 08/17/22 03/05/24 Unknown History oral powder packet (Miralax) levothyroxine 88 mcg tablet 88 mcg PO DAILY 02/08/23 03/05/24 02/08/23 History oxycodone 10 mg tablet mg PO 03/21/23 03/05/24 Unknown History lubiprostone 24 mcg capsule See Rx Instructions .Route 06/07/23 03/05/24 Unknown Rx .COMPLEX #60 caps gabapentin 100 mg capsule See Rx Instructions .Route 09/27/23 03/05/24 Unknown Rx .COMPLEX #90 caps Hinged knee brace, left #1 ea 10/22/23 03/05/24 Unknown Rx apixaban 5 mg tablet (Eliquis) 5 mg PO BID #180 tabs 10/23/23 03/05/24 Unknown Rx anastrozole 1 mg tablet 1 mg PO DAILY #90 tabs 03/05/24 03/05/24 Unknown Rx magnesium oxide 400 mg (241.3 mg mg PO For headaches 03/05/24 03/05/24 Unknown History magnesium) tablet riboflavin (vitamin B2) 400 mg 400 mg PO DAILY For headaches 03/05/24 03/05/24 Unknown History tablet cefdinir 300 mg capsule 300 mg PO BID 7 days #14 caps 03/19/24 Unknown Rx Allergies Allergy/AdvReac Type Severity Reaction Status Date / Time TRENT Inhibitors Allergy ADR-Cough Verified 03/19/24 20:23 cephalexin [From Keflex] Allergy ALGY-Rash Verified 03/19/24 20:23 pregabalin [From Lyrica] Allergy ADR-Blurry Verified 03/19/24 20:23 Vision Sulfa (Sulfonamide Allergy ALGY-Hives Verified 03/19/24 20:23 Antibiotics) trazodone Allergy ADR-Irritab Verified 03/19/24 20:23 le silk tape Allergy ALGY-Rash Uncoded 03/19/24 20:23 PFSH Acute 2 PFSH: Medical History Left breast mass History of iron deficiency anemia Chronic kidney disease Degenerative joint disease of spine Degenerative arthritis Peripheral neuropathy Type 2 diabetes mellitus Breast cancer Urolithiasis Neurogenic bladder Hyperlipemia Hypertension Hypothyroidism Osteoporosis Surgical History S/P ureteral stent placement History of infusaport central venous catheter insertion History of lumpectomy of left breast (10/13/20) left breast lumpectomy and left axillary sentinel lymph node biopsy History of right shoulder replacement (2010) With redo replacement in 2019 History of left shoulder replacement (2011) History of lumbar laminectomy (2014) H/O hernia repair H/O bariatric surgery History of back surgery (2015) Thoracic laminectomy with placement of a spinal cord stimulator Hx of cholecystectomy History of tonsillectomy H/O total hysterectomy History of appendectomy History of repair of left hip joint (2018) ORIF for intertrochanteric fracture Family History Mother , at age 84 Stroke Hypertension CAD (coronary artery disease) Father , at age 90 No problems noted. Social History Smoking and tobacco/nicotine status: never used tobacco/nicotine Alcohol intake: never Substance/Drug Use: never Marital status: Current occupational status: retired Vitals/I&O/Wt Last Vital Signs Temp 99.7 F H 03/21/24 00:43 Pulse 87 03/21/24 00:43 Resp 16 03/21/24 00:43 BP 106/44 03/21/24 00:43 Pulse Ox 94 03/21/24 00:43 O2 Del Method Room Air 03/21/24 00:43 03/20/24 03/20/24 03/21/24 14:59 22:59 06:59 Intake Total 0 / 0 Balance 0 / 0 Weight last 48 hrs Weight 86.183 kg Physical Exam 2 Narrative: Morbidly obese female, GCS 15 Nonfocal neuroexam Complaining of left elbow and hip pain Clinically looks slightly edematous with lower extremity edema No active focal deficit Pleasant and cooperative Currently hemodynamically stable no active audible stridor or wheezing Abdomen soft variable S1-S2 Data 03/21/24 01:19 03/21/24 01:19 Micro: Microbiology 03/21/24 01:19 Blood Culture - Preliminary Blood SPECIMEN COLLECTED 03/21/24 01:19 Blood Culture - Preliminary Blood SPECIMEN COLLECTED A&P Assessment and plan (1) Chronic deep vein thrombosis (DVT) of left femoral vein: (2) Hypothyroidism: (3) Osteoporosis: (4) Osteoporosis: (5) Primary hyperparathyroidism: (6) Secondary hyperparathyroidism: (7) Obesity (BMI 30-39.9): (8) Hearing loss: (9) Left ureteral calculus: (10) Chronic kidney disease: (11) Neurogenic bladder: (12) History of urinary tract infection: (13) Chronic cystitis: (14) Urinary tract infection: (15) Left breast mass: (16) Elbow fracture, left: (17) Primary osteoarthritis of knees, bilateral: Plan Fever secondary to UTI Bacteremia with gram-negative velasquez Start Zosyn Previous culture positive for pansensitive Klebsiella and E. coli Patient has history of stent stating that Dr. Barron has removed her ureteral stent Left elbow fracture currently in splint conservative management Patient complaining of severe left lower extremity pain, CT scan requested, concern for tibial plateau fracture as per personal read of x-ray Consult Dr. Shelby in the morning please Opioids along bowel regimen History of DVT takes Eliquis: Last dose was yesterday 8 AM Full code Will keep her n.p.o. Waiting on CT report: Further plan will be made after reviewing CT report Attestations 2 Medical Necessity Statement*: More than 2 midnights anticipated Diagnoses Chronic deep vein thrombosis (DVT) of left femoral vein I82.512 Hypothyroidism E03.9 Osteoporosis M81.0 Primary hyperparathyroidism E21.0 Secondary hyperparathyroidism N25.81 Obesity (BMI 30-39.9) E66.9 Hearing loss H91.90 Left ureteral calculus N20.1 Chronic kidney disease N18.9 Neurogenic bladder N31.9 History of urinary tract infection Z87.440 Chronic cystitis N30.20 Urinary tract infection N39.0 Left breast mass N63.20 Elbow fracture, left S42.402A Primary osteoarthritis of knees, bilateral M17.0
[2024-03-21] MEDS: HYDROmorphone 1 mg/mL INJ 1 mL IVP (02:15)
[2024-03-21 02:30] LABS: Bacteria Urine None Seen /hpf; Hyaline Casts Urine 3.71 /lpf; Squamous Epithelial Cell Urine 0-5 /hpf (0-5)
[2024-03-21 02:34] LABS: Add Urine Culture? Yes; Bilirubin Urine Negative (Negative); Blood Urine 2+ (Negative); Glucose Urine UA Negative (Normal); Ketones Urine Negative (Negative); Leukocyte Esterase Urine Trace (Negative); Nitrate Urine Negative (Negative); Protein Urine Negative (Negative); Urine Appearance Slightly Cloudy (CLEAR); Urine Color Yellow (Yellow); pH Urine 5.5 (5-7)
[2024-03-21] MEDS: cefepime 2,000 mg SDV 2000 MG IVP (03:13)
[2024-03-21] MEDS: sodium chloride 0.9% 1,000 ML 999 ML IV ×2 (03:14→04:03)
[2024-03-21 03:17] LABS: Reflex Lactate Order REFLEX LACTIC ORDERD
[2024-03-21] MEDS: levothyroxine 88 mcg Tablet PO (05:07)
[2024-03-21] MEDS: piperacillin-tazobactam 3.375 GM in sodium chloride 0.9% (plus) 50 ML IV ×3 (05:08→20:17)
[2024-03-21 05:29] LABS: Lactic Acid level (Lactate) 0.9 mmol/L (0.5-2.2)
[2024-03-21 08:34] LABS: INR 1.32 (0.8-1.2)
[2024-03-21] MEDS: sennosides-docusate Tablet 1 TAB PO (08:57)
[2024-03-21] MEDS: oxyCODONE 5 mg IR Tab/Cap 10 MG PO ×2 (08:57→16:33)
[2024-03-21] MEDS: potassium chloride ER 20 mEq Tablet PO (08:58)
[2024-03-21] MEDS: FUROsemide 40 mg Tablet PO (08:58)
--- NOTE | 2024-03-21 12:43 | PM.MISC ---
Miscellaneous Note Note: continue mgmt at per HnP
--- NOTE | 2024-03-21 16:58 | P.CONIM_ITS ---
Providers/Reason For Consult 2 Consulting Physician/Specialty*: Sherry Bonilla MD Reason for Consult*: Left tibial plateau fracture and left olecranon fracture Requesting Physician: Dr. Gogo Her Attending Physician: Shelly Fuentes MD Primary Care Provider: Garima Cee DO History of Present Illness History of Present Illness Lucie Joyner is a 79 year old female who presented to the emergency department after a fall at home. The patient was seen in the emergency department on March for complaining of left elbow pain. At that time, she also had a fever of 102 degrees. She was transferring to her leah chair and fell. She had mild pain in her knee and in her elbow. After evaluation in the emergency department, the patient was found to have a left proximal ulnar fracture involving the olecranon and this was intra-articular. At that time, the patient was splinted and was discharged to home. She was placed on appropriate antibiotics for a UTI. The following day, yesterday, the patient was planning to come to my office to be evaluated. She was getting into her 's tundra and states she was too weak, and she fell causing her left knee to go up under her. She was brought to the emergency department at that time, and imaging studies were obtained. Plain films of the knee demonstrated no evidence of fracture. CT scan was therefore ordered and demonstrated approximately 3 mm impacted lateral tibial plateau fracture. There were also advanced degenerative changes in this compartment. Patient was admitted to the medical service for treatment of her UTI but also treatment of her 2 fractures including a lateral tibial plateau fracture in the left knee and the left olecranon fracture. Review of Systems 2 Narrative: Constitutional symptoms: Negative except as documented in HPI. Skin symptoms: Negative except as documented in HPI. Eye symptoms: Negative except as documented in HPI. ENMT symptoms: Negative except as documented in HPI. Respiratory symptoms: Negative except as documented in HPI. Cardiovascular symptoms: Negative except as documented in HPI. Gastrointestinal symptoms: Negative except as documented in HPI. Genitourinary symptoms: Negative except as documented in HPI. Musculoskeletal symptoms: Negative except as documented in HPI. Neurologic symptoms: Negative except as documented in HPI. Psychiatric symptoms: Negative except as documented in HPI. Endocrine symptoms: Negative except as documented in HPI. Const: Reports: fever(s), chills, body aches and fatigue Eyes: Denies: change in vision or photophobia ENMT: Denies: throat pain Card: Denies: chest pain : Reports: difficulty voiding and dysuria Musc: Reports: neck pain, back pain and extremity pain; Denies: joint warmth All/Imm: Denies: acute wheezing Medications/Allergies Home Medications Medication Instructions Recorded Confirmed Last Taken Type cyanocobalamin (vitamin B-12) 100 100 mcg PO DAILY 12/10/19 03/21/24 03/20/24 History mcg tablet (Vitamin B-12) simvastatin 40 mg tablet 40 mg PO DAILY 12/10/19 03/21/24 03/20/24 History External Heel Lift to Left #1 ea 12/29/20 03/21/24 Unknown Rx cetirizine 10 mg capsule (Zyrtec) 10 mg PO DAILY 01/18/21 03/21/24 02/08/23 History melatonin 12 mg tablet 12 mg PO BEDTIME 01/18/21 03/21/24 03/19/24 History potassium chloride 20 mEq 20 meq PO TID Constipation 12/12/21 03/21/24 03/20/24 History tablet,extended release furosemide 40 mg tablet (Lasix) 40 mg PO DAILY 04/12/22 03/21/24 03/20/24 History polyethylene glycol 3350 17 gram 17 g PO DAILY PRN Constipation 08/17/22 03/21/24 Unknown History oral powder packet (Miralax) levothyroxine 88 mcg tablet 88 mcg PO DAILY 02/08/23 03/21/24 03/20/24 History lubiprostone 24 mcg capsule See Rx Instructions .Route 06/07/23 03/21/24 03/20/24 Rx .COMPLEX #60 caps gabapentin 100 mg capsule See Rx Instructions .Route 09/27/23 03/21/24 03/19/24 Rx .COMPLEX #90 caps Hinged knee brace, left #1 ea 10/22/23 03/21/24 Unknown Rx apixaban 5 mg tablet (Eliquis) 5 mg PO BID #180 tabs 10/23/23 03/21/24 03/20/24 Rx anastrozole 1 mg tablet 1 mg PO DAILY #90 tabs 03/05/24 03/21/24 03/20/24 Rx magnesium oxide 400 mg (241.3 mg 400 mg PO DAILY For headaches 03/05/24 03/21/24 03/20/24 History magnesium) tablet riboflavin (vitamin B2) 400 mg 400 mg PO DAILY For headaches 03/05/24 03/21/24 Unknown History tablet cefdinir 300 mg capsule 300 mg PO BID 7 days #14 caps 03/19/24 03/21/24 03/20/24 Rx docusate sodium 100 mg capsule 100 mg PO TID 03/21/24 03/21/24 03/20/24 History oxycodone 10 mg tablet 10 mg PO TID 03/21/24 03/21/24 03/20/24 History Allergies Allergy/AdvReac Type Severity Reaction Status Date / Time TRENT Inhibitors Allergy ADR-Cough Verified 03/19/24 20:23 cephalexin [From Keflex] Allergy ALGY-Rash Verified 03/19/24 20:23 pregabalin [From Lyrica] Allergy ADR-Blurry Verified 03/19/24 20:23 Vision Sulfa (Sulfonamide Allergy ALGY-Hives Verified 03/19/24 20:23 Antibiotics) trazodone Allergy ADR-Irritab Verified 03/19/24 20:23 le silk tape Allergy ALGY-Rash Uncoded 03/19/24 20:23 Current Medications Generic Name Dose Route Start Last Admin Trade Name Freq PRN Reason Stop Dose Admin Furosemide 40 mg 03/21/24 09:00 03/21/24 08:58 Furosemide 40 Mg Tablet PO 40 mg DAILY YANICK Administration Piperacillin Sod/Tazobactam 50 mls @ 12.5 mls/hr 03/21/24 05:00 03/21/24 16:57 Sod 3.375 gm/ Sodium Chloride IV Infused Q8H YANICK Infusion Levothyroxine Sodium 88 mcg 03/21/24 06:00 03/21/24 05:07 Levothyroxine 88 Mcg Tablet PO 88 mcg 0600 YANICK Administration Oxycodone HCl 10 mg 03/21/24 04:53 03/21/24 16:33 Oxycodone 5 Mg Ir Tab/Cap PO 10 mg Q4H PRN Administration Leg pain Potassium Chloride 20 meq 03/21/24 09:00 03/21/24 08:58 Potassium Chloride Er 20 Meq Tablet PO 20 meq DAILY YANICK Administration Senna/Docusate Sodium 1 tab 03/21/24 09:00 03/21/24 08:57 Sennosides-Docusate Tablet PO 1 tab DAILY YANICK Administration PFSH Acute 2 PFSH: Medical History Left breast mass History of iron deficiency anemia Chronic kidney disease Degenerative joint disease of spine Degenerative arthritis Peripheral neuropathy Type 2 diabetes mellitus Breast cancer Urolithiasis Neurogenic bladder Hyperlipemia Hypertension Hypothyroidism Osteoporosis Surgical History S/P ureteral stent placement History of infusaport central venous catheter insertion History of lumpectomy of left breast (10/13/20) left breast lumpectomy and left axillary sentinel lymph node biopsy History of right shoulder replacement (2010) With redo replacement in 2019 History of left shoulder replacement (2011) History of lumbar laminectomy (2014) H/O hernia repair H/O bariatric surgery History of back surgery (2015) Thoracic laminectomy with placement of a spinal cord stimulator Hx of cholecystectomy History of tonsillectomy H/O total hysterectomy History of appendectomy History of repair of left hip joint (2018) ORIF for intertrochanteric fracture Family History Mother , at age 84 Stroke Hypertension CAD (coronary artery disease) Father , at age 90 No problems noted. Social History Smoking and tobacco/nicotine status: never used tobacco/nicotine Alcohol intake: never Substance/Drug Use: never Marital status: Current occupational status: retired Vitals/I&O/Wt Last Vital Signs Temp 98.4 F 03/21/24 16:00 Pulse 80 03/21/24 16:00 Resp 17 03/21/24 16:00 BP 92/59 03/21/24 16:00 Pulse Ox 96 03/21/24 16:00 O2 Del Method Room Air 03/21/24 16:00 03/21/24 03/21/24 03/21/24 06:59 14:59 22:59 Intake Total 1999 / 1999 370 / 370 50 / 420 Output Total 1025 / 1025 1675 / 1675 Balance 975 / 975 -1305 / -1305 50 / -1255 Weight last 48 hrs Weight 216 lb 3 oz Weight 215 lb Weight 190 lb Physical Exam 2 Const: COMMON NORMALS: no acute distress, average body habitus, patient oriented x3 and alert GENERAL APPEARANCE: cooperative and comfortable O RIENTATION/CONSCIOUSNESS: Yes awake HENMT: COMMON NORMALS: normocephalic and atraumatic HEAD & SCALP: n ormocephalic and atraumatic Eye: GENERAL EYE: appearance normal, both eyes and all related structures Chest: COMMONS NORMALS: normal inspection of the chest Resp: COMMON NORMALS: normal respiratory effort EFFORT & INSPECTION: Yes able to speak in complete sentences and Yes symmetric chest movement Extremity: LEFT UPPER EXTREMITY: Yes elbow joint (Hinged elbow brace in place locked at approximately 60 degrees) Left elbow: Yes palpation (Tender over the olecranon), Yes ROM (Not evaluated) and Yes neurovascular exam (Intact in the hand) LEFT LOWER EXTREMITY: Yes knee joint ([place] knee brace in place locked at approximately 20 degrees) Left knee: Yes inspection (Minimal to no bruising), Yes palpation (Tender over lateral tibial plateau), Yes ROM (Not evaluated) and Yes neurovascular exam (Neuropathic, but able to move left foot) Neuro: COMMON NORMALS: patient oriented x3 SENSORIUM/ORIENTATION: Yes alert Psych: COMMON NORMALS: mental status grossly normal APPEARANCE: Yes grossly normal ATTITUDE: Yes calm and Yes engaged ATTENTION/CONCENTRATION: Yes attention grossly intact Skin: COMMON NORMALS: no rashes or lesions noted GENERAL SKIN EXAM: no rashes or lesions noted Urinary Catheter Management: Marlow: Cath Placed During This Visit: yes Reason for Continuing Indwelling Catheter: Other Urinary Catheter Date of Insertion: 03/21/24 Urinary Catheter Time of Insertion: 02:00 Data 03/21/24 01:19 03/21/24 01:19 Micro: Microbiology 03/21/24 01:19 Blood Culture - Preliminary Blood SPECIMEN COLLECTED 03/21/24 01:19 Blood Culture - Preliminary Blood SPECIMEN COLLECTED Other Imaging: My impression: Images are reviewed of the patient's left elbow and right knee. The left elbow demonstrates an essentially nondisplaced left olecranon fracture which is intra- articular. Left knee imaging demonstrates no evidence of fracture on plain films, on CT scan, there is evidence of a lateral tibial plateau fracture with approximately 3 mm of depression. There is also a proximal fibular fracture without significant displacement. There is advanced degenerative osteoarthritis within the knee as well. A&P Assessment and plan (1) Multiple fractures: Patient presents to the emergency department with multiple fractures. She had an olecranon fracture with date of injury March. On her way to the office for evaluation of this fracture, she fell while getting into her 's pickup truck, and at this time, she presented to the emergency department complaining of severe left knee pain. She was found to have a left lateral tibial plateau fracture and proximal fibular fracture. Patient was admitted with these fractures as well as a UTI. She is on the medical service. After evaluation, the patient was placed in a [place] brace to the lower extremity locked at approximately 20 degrees. She was also placed in a hinged elbow brace on the left upper extremity locked at approximately 60 degrees. She will need to be nonweightbearing on her left lower extremity and also on her left upper extremity requiring assistance for transfers. (2) Closed fracture of left olecranon process: Qualifiers: Encounter type: initial encounter Qualified Code(s): S52.022A - Displaced fracture of olecranon process without intraarticular extension of left ulna, initial encounter for closed fracture (3) Closed fracture of lateral portion of left tibial plateau: Qualifiers: Encounter type: initial encounter Qualified Code(s): S82.122A - Displaced fracture of lateral condyle of left tibia, initial encounter for closed fracture (4) Fracture of left proximal fibula: Qualifiers: Encounter type: initial encounter Fracture type: closed Fracture morphology: other fracture Qualified Code(s): S82.832A - Other fracture of upper and lower end of left fibula, initial encounter for closed fracture (5) Primary osteoarthritis of left knee: Consult Attestations 2 Medical Necessity Statement: Per hospitalist team Coding Level of Care Code Acute Code for [facility] Diagnoses Multiple fractures T07.XXXA Closed fracture of olecranon process of left ulna, initial encounter S52.022A Encounter type: initial encounter Closed fracture of lateral portion of left tibial plateau, initial encounter S82.122A Encounter type: initial encounter Other closed fracture of proximal end of left fibula, initial encounter S82.832A Encounter type: initial encounter Fracture type: closed Fracture morphology: other fracture Primary osteoarthritis of left knee M17.12
[2024-03-22] VITALS (11 sets, daily range): BP systolic 97–161; BP diastolic 58–71; PULSE 71–74; RESP 14–18; TEMP 36.7–37.1; O2SAT 93–96
[2024-03-22] MEDS: oxyCODONE 5 mg IR Tab/Cap 10 MG PO ×4 (00:29→23:52)
[2024-03-22 05:40] LABS: Basophils % 0.6 %; Eosinophils # 0.3 10^3/uL (0.0-0.8); Eosinophils % 5.1 %; Hematocrit 29.8 % (36-47); Lymphocytes # 1.5 10^3/uL (0.8-4.8); Lymphocytes % 22.9 %; Mean Corpuscular HGB Conc 30.5 g/dL (30-55); Mean Corpuscular Hemoglobin 29.8 pg (27-33); Mean Corpuscular Volume 97.7 fl (85-98); Mean Platelet Volume 10.5 fL (7.4-10.4); Monocytes # 0.9 10^3/uL (0.2-0.9); Monocytes % 13.6 %; Neutrophils # 3.68 10^3/uL (1.8-7.7); Neutrophils % 57.5 %; Nucleated Red Blood Cells % 0 %; Platelet Count 183 10^3/cmm (157-399); Red Blood Count 3.05 10^6/uL (3.85-5.65); Red Cell Distribution Width 14.3 % (12.1-15.1); White Blood Count 6.41 10^3/uL (3.29-11.43)
[2024-03-22 05:54] LABS: Blood Urea Nitrogen 21 mg/dL (8-23); C Reactive Protein 87.4 mg/L (0.0-4.9); Calcium 8.4 mg/dL (8.5-10.5); Carbon Dioxide 24 mmol/L (22-29); Chloride 105 mmol/L (98-107); Creatinine Clr Calc Pharmacy 35.1557; Glucose 106 mg/dL (65-115); Magnesium 2.2 mg/dL (1.7-2.3); Osmolality Calculated 283 mOsm/kg (285-295); Sodium 135 mmol/L (136-145)
[2024-03-22] MEDS: levothyroxine 88 mcg Tablet PO (06:42)
[2024-03-22] MEDS: sennosides-docusate Tablet 1 TAB PO (08:22)
[2024-03-22] MEDS: FUROsemide 40 mg Tablet PO (08:23)
[2024-03-22] MEDS: potassium chloride ER 20 mEq Tablet PO (08:23)
[2024-03-22] MEDS: ondansetron 2 mg/ML SDV 2 mL 4 MG IVP (08:23)
[2024-03-22] MEDS: piperacillin-tazobactam 3.375 GM in sodium chloride 0.9% (plus) 50 ML IV ×3 (08:23→21:44)
--- NOTE | 2024-03-22 15:26 | PM.PN ---
Subjective Subjective: seen this morning patient states she is miserable and in a lot of pain she is requesting to have more pain medicine. Vitals/I&O/Wt Last Vital Signs Temp 98.8 F 03/22/24 12:00 Pulse 74 03/22/24 12:00 Resp 14 03/22/24 13:32 BP 105/65 03/22/24 12:00 Pulse Ox 96 03/22/24 13:32 O2 Del Method Room Air 03/22/24 12:00 03/22/24 03/22/24 03/22/24 06:59 14:59 22:59 Intake Total 50 / 588 410 / 410 Output Total 900 / 4775 Balance -850 / -4187 410 / 410 Weight last 48 hrs Weight 99.422 kg Weight 98.061 kg Weight 97.522 kg Weight 86.183 kg Physical Exam Narrative: Morbidly obese female, complains of pain GCS 15 Nonfocal neuroexam Complaining of left elbow and hip pain, splint applied Clinically looks slightly edematous with lower extremity edema No active focal deficit Pleasant and cooperative Currently hemodynamically stable no active audible stridor or wheezing Abdomen soft variable S1-S2 Urinary Catheter Management: Marlow: Cath Placed During This Visit: yes Reason for Continuing Indwelling Catheter: Other Urinary Catheter Date of Insertion: 03/21/24 Urinary Catheter Time of Insertion: 02:00 Data 03/22/24 05:22 03/22/24 05:22 Micro: Microbiology 03/21/24 02:09 Urine Culture - Preliminary Urine,Clean Catch 03/21/24 01:19 Blood Culture - Preliminary Blood NEGATIVE TO DATE 03/21/24 01:19 Blood Culture - Preliminary Blood NEGATIVE TO DATE A&P Assessment and plan (1) Chronic deep vein thrombosis (DVT) of left femoral vein: (2) Hypothyroidism: (3) Osteoporosis: (4) Osteoporosis: (5) Primary hyperparathyroidism: (6) Secondary hyperparathyroidism: (7) Obesity (BMI 30-39.9): (8) Hearing loss: (9) Left ureteral calculus: (10) Chronic kidney disease: (11) Neurogenic bladder: (12) History of urinary tract infection: (13) Chronic cystitis: (14) Urinary tract infection: (15) Left breast mass: (16) Elbow fracture, left: (17) Primary osteoarthritis of knees, bilateral: Plan Fever secondary to UTI Bacteremia with gram-negative velasquez Start Zosyn Previous culture positive for pansensitive Klebsiella and E. coli Patient has history of stent stating that Dr. Barron has removed her ureteral stent Left elbow fracture currently in splint conservative management Patient complaining of severe left lower extremity pain, CT scan requested, concern for tibial plateau fracture as per personal read of x-ray Consult Dr. Shelby in the morning please Opioids along bowel regimen History of DVT takes Eliquis: Last dose was yesterday 8 AM Full code Will keep her n.p.o. Waiting on CT report: Further plan will be made after reviewing CT report 03/22/2024 -Continue Zosyn for UTI. ? Await urine culture ? Await blood cultures ? Patient has been placed in splints. ? Orthopedic surgery has evaluated patient. No plan for surgery at this time. She is to be nonweightbearing on left lower extremity and also on her left upper extremity requiring assistance for transfers. ? I will restart Eliquis at this time. ? Patient pending transfer to SNF. painting and coating worker working on placement. ? Adjust pain medications. Continue on morphine 2 mg every 2 hours as needed for breakthrough pain. Continue on hydrocodone 10 every 4 hours. ? Will escalate pain medications as necessary. Attestations Medical Necessity Statement*: Requiring IV pain medication at this time. Pending placement. Continue to treat for UTI inpatient as well. Awaiting cultures. Diagnoses Chronic deep vein thrombosis (DVT) of left femoral vein I82.512 Hypothyroidism E03.9 Osteoporosis M81.0 Primary hyperparathyroidism E21.0 Secondary hyperparathyroidism N25.81 Obesity (BMI 30-39.9) E66.9 Hearing loss H91.90 Left ureteral calculus N20.1 Chronic kidney disease N18.9 Neurogenic bladder N31.9 History of urinary tract infection Z87.440 Chronic cystitis N30.20 Urinary tract infection N39.0 Left breast mass N63.20 Elbow fracture, left S42.402A Primary osteoarthritis of knees, bilateral M17.0
[2024-03-22] MEDS: morphine 4 mg/mL SDV 1 mL 2 MG IVP (17:50)
[2024-03-22] MEDS: acetaminophen 500 mg Tablet PO (23:52)
[2024-03-23] VITALS (9 sets, daily range): BP systolic 96–125; BP diastolic 60–82; PULSE 62–87; RESP 15–18; TEMP 36.4–36.6; O2SAT 93–97
[2024-03-23] MEDS: levothyroxine 88 mcg Tablet PO (06:01)
[2024-03-23] MEDS: piperacillin-tazobactam 3.375 GM in sodium chloride 0.9% (plus) 50 ML IV ×3 (06:01→22:10)
[2024-03-23 08:27] LABS: Basophils % 0.7 %; Eosinophils # 0.4 10^3/uL (0.0-0.8); Eosinophils % 8.1 %; Lymphocytes # 1.5 10^3/uL (0.8-4.8); Lymphocytes % 27.3 %; Mean Corpuscular HGB Conc 33.6 g/dL (30-55); Mean Corpuscular Hemoglobin 31.8 pg (27-33); Mean Corpuscular Volume 94.6 fl (85-98); Mean Platelet Volume 11.6 fL (7.4-10.4); Monocytes # 0.7 10^3/uL (0.2-0.9); Monocytes % 12.5 %; Neutrophils % 51.2 %; Nucleated Red Blood Cells % 0 %; Red Blood Count 2.96 10^6/uL (3.85-5.65); White Blood Count 5.46 10^3/uL (3.29-11.43)
[2024-03-23 08:28] LABS: Platelet Count 541 10^3/cmm (157-399)
[2024-03-23 08:35] LABS: Blood Urea Nitrogen 16 mg/dL (8-23); Calcium 8.9 mg/dL (8.5-10.5); Carbon Dioxide 26 mmol/L (22-29); Chloride 105 mmol/L (98-107); Creatinine Clr Calc Pharmacy 37.5093; Glucose 86 mg/dL (65-115); Magnesium 2.3 mg/dL (1.7-2.3); Osmolality Calculated 288 mOsm/kg (285-295); Sodium 139 mmol/L (136-145)
[2024-03-23 08:37] LABS: Anion Gap 12.2 (5-19); Potassium 4.2 mmol/L (3.5-5.1)
[2024-03-23] MEDS: sennosides-docusate Tablet 1 TAB PO ×2 (09:09→16:05)
[2024-03-23] MEDS: FUROsemide 40 mg Tablet PO (09:09)
[2024-03-23] MEDS: potassium chloride ER 20 mEq Tablet PO (09:09)
[2024-03-23] MEDS: oxyCODONE 5 mg IR Tab/Cap 10 MG PO ×3 (09:09→20:15)
[2024-03-23] MEDS: ondansetron 2 mg/ML SDV 2 mL 4 MG IVP (09:14)
--- NOTE | 2024-03-23 14:26 | P.PN_ITS ---
Subjective 2 Subjective: Seen this morning. She says her pain is better when she has not had to use as much pain medication as yesterday. Does complain of mild numbness at the right thumb. She has a towel under her splint which is helping at this time. Vitals/I&O/Wt Last Vital Signs Temp 97.9 F 03/23/24 12:31 Pulse 70 03/23/24 12:31 Resp 18 03/23/24 13:40 BP 116/82 03/23/24 12:31 Pulse Ox 96 03/23/24 13:40 O2 Del Method Room Air 03/23/24 12:31 03/22/24 03/23/24 03/23/24 22:59 06:59 14:59 Intake Total 770 / 1180 170 / 1350 1410 / 1410 Output Total 5000 / 5000 400 / 5400 Balance -4230 / -3820 -230 / -4050 1410 / 1410 Weight last 48 hrs Weight 99.473 kg Weight 99.422 kg Physical Exam 2 Narrative: Morbidly obese female, complains of pain GCS 15 Nonfocal neuroexam Clinically looks slightly edematous with lower extremity edema No active focal deficit Pleasant and cooperative Currently hemodynamically stable no active audible stridor or wheezing Abdomen soft variable S1-S2 Left arm and knee in splint. Urinary Catheter Management: Marlow: Cath Placed During This Visit: yes Reason for Continuing Indwelling Catheter: Other Urinary Catheter Date of Insertion: 03/21/24 Urinary Catheter Time of Insertion: 02:00 Data 03/23/24 07:11 03/23/24 07:11 Micro: Microbiology 03/21/24 02:09 Urine Culture - Final Urine,Clean Catch A&P Assessment and plan (1) Chronic deep vein thrombosis (DVT) of left femoral vein: (2) Hypothyroidism: (3) Osteoporosis: (4) Osteoporosis: (5) Primary hyperparathyroidism: (6) Secondary hyperparathyroidism: (7) Obesity (BMI 30-39.9): (8) Hearing loss: (9) Left ureteral calculus: (10) Chronic kidney disease: (11) Neurogenic bladder: (12) History of urinary tract infection: (13) Chronic cystitis: (14) Urinary tract infection: (15) Left breast mass: (16) Elbow fracture, left: (17) Primary osteoarthritis of knees, bilateral: (18) E coli bacteremia: (19) Urinary tract infection: Plan Fever secondary to UTI Bacteremia with gram-negative velasquez Start Zosyn Previous culture positive for pansensitive Klebsiella and E. coli Patient has history of stent stating that Dr. Barron has removed her ureteral stent Left elbow fracture currently in splint conservative management Patient complaining of severe left lower extremity pain, CT scan requested, concern for tibial plateau fracture as per personal read of x-ray Consult Dr. Shelby in the morning please Opioids along bowel regimen History of DVT takes Eliquis: Last dose was yesterday 8 AM Full code Will keep her n.p.o. Waiting on CT report: Further plan will be made after reviewing CT report 03/23/2024 -Continue Zosyn at this time. ? urine culture positive for E. coli ? Blood cultures 3 out of 4 bottles positive for E. coli. ? Repeat blood cultures today. ? Patient will need 2 weeks of IV antibiotics at discharge. Will place PICC line at discharge from last negative blood culture. ? Patient has been placed in splints. ? Orthopedic surgery has evaluated patient. No plan for surgery at this time. She is to be nonweightbearing on left lower extremity and also on her left upper extremity requiring assistance for transfers. ? Continue Eliquis 5 twice daily. ? Patient pending transfer to SNF. social worker working on placement. ? Adjust pain medications. Continue on morphine 2 mg every 2 hours as needed for breakthrough pain. Continue on hydrocodone 10 every 4 hours. ? Will escalate pain medications as necessary. Attestations 2 Medical Necessity Statement*: Patient requires continued hospitalization for bacteremia, UTI She will need IV antibiotics at discharge. Diagnoses Chronic deep vein thrombosis (DVT) of left femoral vein I82.512 Hypothyroidism E03.9 Osteoporosis M81.0 Primary hyperparathyroidism E21.0 Secondary hyperparathyroidism N25.81 Obesity (BMI 30-39.9) E66.9 Hearing loss H91.90 Left ureteral calculus N20.1 Chronic kidney disease N18.9 Neurogenic bladder N31.9 History of urinary tract infection Z87.440 Chronic cystitis N30.20 Urinary tract infection N39.0 Left breast mass N63.20 Elbow fracture, left S42.402A Primary osteoarthritis of knees, bilateral M17.0 E coli bacteremia R78.81; B96.20
[2024-03-23] MEDS: apixaban 5 mg Tablet PO ×2 (14:47→20:15)
[2024-03-23] MEDS: polyethylene glycol 3350 Pkt 17 gm PO (16:05)
[2024-03-24] VITALS (9 sets, daily range): BP systolic 92–119; BP diastolic 45–67; PULSE 69–80; RESP 15–18; TEMP 36.6–36.9; O2SAT 92–98
[2024-03-24] MEDS: morphine 4 mg/mL SDV 1 mL 2 MG IVP (02:21)
--- NOTE | 2024-03-24 04:35 | PC.NURSE ---
Addendum entered by Shannon Banegas LPN 03/24/24 06:07: Patient complained of pain with a rating of 8/10 on the numeric scale at approximately 02:20 am. This nurse gathered prn morphine and before administering said medication informed patient that it was IV morphine being administered. Original Note: At approximately 0430, this nurse heard a banging from the pts room. This nurse went in and pt was banging her metal straw on her cup. This nurse asked pt what was going on and pt screamed that she was in pain and never received pain medicine. This nurse informed pt that she was given morphine through her port at 0221. Pt screamed at surya Ortega LPN and this nurse that she never asked for morphine and wants her pain pills (oxycodone). This nurse left the room to get the pt her oxycodone. This nurse brought in the oxycodone and pt refused to take it. Pt stated, I'm not taking that! I'm just going to have my bring my pain pills from home! This nurse educated pt that home medications were not allowed and offered the oxycodone again. Pt refused all pain medications.
[2024-03-24] MEDS: piperacillin-tazobactam 3.375 GM in sodium chloride 0.9% (plus) 50 ML IV ×3 (05:57→21:59)
--- NOTE | 2024-03-24 06:03 | PC.NURSE ---
Patient complained of pain with a rating of 8/10 on the numeric scale at approximately 02:20 am. This nurse gathered prn morphine and before administering said medication informed patient that it was IV morphine being administered.
[2024-03-24 06:50] LABS: Basophils # 0.1 10^3/uL (0.0-0.1); Basophils % 0.8 %; Eosinophils # 0.4 10^3/uL (0.0-0.8); Eosinophils % 6.8 %; Hematocrit 30.8 % (36-47); Lymphocytes # 1.6 10^3/uL (0.8-4.8); Lymphocytes % 25.2 %; Mean Corpuscular HGB Conc 31.2 g/dL (30-55); Mean Corpuscular Hemoglobin 29.5 pg (27-33); Mean Corpuscular Volume 94.8 fl (85-98); Monocytes # 0.7 10^3/uL (0.2-0.9); Monocytes % 11.1 %; Neutrophils # 3.51 10^3/uL (1.8-7.7); Neutrophils % 55.8 %; Nucleated Red Blood Cells % 0 %; Platelet Count 268 10^3/cmm (157-399); Red Blood Count 3.25 10^6/uL (3.85-5.65); Red Cell Distribution Width 13.7 % (12.1-15.1)
[2024-03-24 07:06] LABS: Anion Gap 13.8 (5-19); Blood Urea Nitrogen 15 mg/dL (8-23); Carbon Dioxide 25 mmol/L (22-29); Chloride 103 mmol/L (98-107); Creatinine Clr Calc Pharmacy 34.1114; Glucose 91 mg/dL (65-115); Magnesium 2.2 mg/dL (1.7-2.3); Osmolality Calculated 286 mOsm/kg (285-295); Potassium 3.8 mmol/L (3.5-5.1); Sodium 138 mmol/L (136-145)
[2024-03-24] MEDS: potassium chloride ER 20 mEq Tablet PO (09:36)
[2024-03-24] MEDS: sennosides-docusate Tablet 1 TAB PO ×2 (09:36→17:54)
[2024-03-24] MEDS: polyethylene glycol 3350 Pkt 17 gm PO (09:36)
[2024-03-24] MEDS: FUROsemide 40 mg Tablet PO (09:36)
[2024-03-24] MEDS: apixaban 5 mg Tablet PO ×2 (09:36→20:15)
--- NOTE | 2024-03-24 09:54 | PC.CHAP ---
Pastoral Care Encounter/Spiritual Assessment Type of Contact [] Declined liner inserter visit [] Patient/Family/Request visit [] Outpatient visit [] Follow-up visit [] Physician referral [] Code/Alert [x] Routine visit [] Staff referral [] Actively dying [x] Patient sleeping [] Family support [] [] Out of room [] Palliative care [] [] Receiving care in room [] Pre-surgical visit [] Trauma [] Long length of stay [] ICU visit [] Other: Relational/Emotional Strength [] Patient feels connected with others/family/visitors/staff [] Distress [] Loneliness/isolation [] Abandonment Spirituality of Patient [] Person of Ann [] Attends Episcopalian of their Ann [] Believes in Prayer [] Reads Bible or Jehovah'S Witness materials [] There are Spiritual issues to be addressed Manager Payment Interventions [x] Prayer [] Active listening [] Non-anxious presence [] Spiritual/emotional support [] Crisis/trauma care [] Spiritual counseling [] Bereavement support [] Provided bereavement packet [] Provided Bible/devotional materials [] Provided toy/stuffed animal, coloring book to patient or family member [] Provided Communion [] Anointing/[place] [] Salvation [] Completed spiritual assessment [] Other: Impact on Illness or Injury [] Angry [] Fearful [] Anxious [] Often cries [] Exhaustion [] Unable to work [] Unable to attend christianity [] Unable to walk/stand [] Unable to read [] Unable to drive [] Unable to eat/drink [] Unable to sleep [] Unable to be with family [] Patient intubated [] Other: Summary Time spent with patient
--- NOTE | 2024-03-24 13:54 | P.PN_ITS ---
Subjective 2 Subjective: seen today awaiting placement Vitals/I&O/Wt Last Vital Signs Temp 97.9 F 03/24/24 13:00 Pulse 80 03/24/24 13:00 Resp 15 03/24/24 13:00 BP 94/53 03/24/24 13:00 Pulse Ox 98 03/24/24 09:09 O2 Del Method Room Air 03/24/24 13:00 03/23/24 03/24/24 03/24/24 22:59 06:59 14:59 Intake Total 1030 / 2440 410 / 2850 Output Total 2950 / 2950 1000 / 3950 Balance -1920 / -510 -590 / -1100 Weight last 48 hrs Weight 93.621 kg Weight 99.473 kg Physical Exam 2 Narrative: Morbidly obese female, complains of pain GCS 15 Nonfocal neuroexam Clinically looks slightly edematous with lower extremity edema No active focal deficit Pleasant and cooperative Currently hemodynamically stable no active audible stridor or wheezing Abdomen soft variable S1-S2 Left arm and knee in splint. Urinary Catheter Management: Marlow: Cath Placed During This Visit: yes Reason for Continuing Indwelling Catheter: Other Urinary Catheter Date of Insertion: 03/21/24 Urinary Catheter Time of Insertion: 02:00 Data 03/24/24 06:00 03/24/24 06:00 Micro: Microbiology 03/24/24 11:39 Blood Culture - Preliminary Blood SPECIMEN COLLECTED 03/23/24 06:00 Blood Culture - Preliminary Blood SPECIMEN COLLECTED 03/21/24 02:09 Urine Culture - Final Urine,Clean Catch A&P Assessment and plan (1) Chronic deep vein thrombosis (DVT) of left femoral vein: (2) Hypothyroidism: (3) Osteoporosis: (4) Osteoporosis: (5) Primary hyperparathyroidism: (6) Secondary hyperparathyroidism: (7) Obesity (BMI 30-39.9): (8) Hearing loss: (9) Left ureteral calculus: (10) Chronic kidney disease: (11) Neurogenic bladder: (12) History of urinary tract infection: (13) Chronic cystitis: (14) Urinary tract infection: (15) Left breast mass: (16) Elbow fracture, left: (17) Primary osteoarthritis of knees, bilateral: (18) E coli bacteremia: (19) Urinary tract infection: Plan Fever secondary to UTI Bacteremia with gram-negative velasquez Start Zosyn Previous culture positive for pansensitive Klebsiella and E. coli Patient has history of stent stating that Dr. Barron has removed her ureteral stent Left elbow fracture currently in splint conservative management Patient complaining of severe left lower extremity pain, CT scan requested, concern for tibial plateau fracture as per personal read of x-ray Consult Dr. Shelby in the morning please Opioids along bowel regimen History of DVT takes Eliquis: Last dose was yesterday 8 AM Full code Will keep her n.p.o. Waiting on CT report: Further plan will be made after reviewing CT report 03/24/2024 -Continue ceftriaxone at this time. ? urine culture positive for E. coli ? Blood cultures 3 out of 4 bottles positive for E. coli. ? Repeat blood cultures today. ? Patient will need 2 weeks of IV antibiotics at discharge. Will place PICC line at discharge from last negative blood culture. ? Patient has been placed in splints. ? Orthopedic surgery has evaluated patient. No plan for surgery at this time. She is to be nonweightbearing on left lower extremity and also on her left upper extremity requiring assistance for transfers. ? Continue Eliquis 5 twice daily. ? Patient pending transfer to SNF. psych social worker working on placement. ? Adjust pain medications. Continue on morphine 2 mg every 2 hours as needed for breakthrough pain. Continue on hydrocodone 10 every 4 hours. ? Will escalate pain medications as necessary. Attestations 2 Medical Necessity Statement*: Patient requires continued hospitalization for bacteremia, UTI She will need IV antibiotics at discharge. Diagnoses Chronic deep vein thrombosis (DVT) of left femoral vein I82.512 Hypothyroidism E03.9 Osteoporosis M81.0 Primary hyperparathyroidism E21.0 Secondary hyperparathyroidism N25.81 Obesity (BMI 30-39.9) E66.9 Hearing loss H91.90 Left ureteral calculus N20.1 Chronic kidney disease N18.9 Neurogenic bladder N31.9 History of urinary tract infection Z87.440 Chronic cystitis N30.20 Urinary tract infection N39.0 Left breast mass N63.20 Elbow fracture, left S42.402A Primary osteoarthritis of knees, bilateral M17.0 E coli bacteremia R78.81; B96.20
--- NOTE | 2024-03-24 14:08 | PC.SOCIAL ---
IMM Updated Updated pt on IMM. No questions voiced. Provided pt a copy. Initialed, dated, & timed copy in chart.
[2024-03-24] MEDS: cefTRIAXone 1,000 mg SDV 1000 MG IVP (14:29)
--- NOTE | 2024-03-24 17:30 | P.PN_ITS ---
Subjective 2 Subjective: Patient was seen today while resting in bed. Range of motion elbow brace in place to left upper extremity, with range of motion [place] brace in place to left lower extremity. Patient has been transferring with the assistance of therapies. She has complaints of intermittent numbness and tingling to the left upper extremity however, patient states that she has had this intermittently since previous unsuccessful ulnar nerve surgery . Continues to complain of pain however this is controlled with medications. Continually being followed by medical service due to medical comorbidities and acute UTI and bacteremia. Medications: Reviewed: Yes Vitals/I&O/Wt Last Vital Signs Temp 97.9 F 03/24/24 13:00 Pulse 80 03/24/24 13:00 Resp 15 03/24/24 13:00 BP 94/53 03/24/24 13:00 Pulse Ox 98 03/24/24 09:09 O2 Del Method Room Air 03/24/24 13:00 03/24/24 03/24/24 03/24/24 06:59 14:59 22:59 Intake Total 410 / 2850 50 / 50 Output Total 1000 / 3950 1200 / 1200 Balance -590 / -1100 -1150 / -1150 Weight last 48 hrs Weight 206 lb 6.4 oz Weight 219 lb 4.8 oz Physical Exam 2 Const: COMMON NORMALS: no acute distress, average body habitus, patient oriented x3 and alert GENERAL APPEARANCE: cooperative and comfortable O RIENTATION/CONSCIOUSNESS: Yes awake HENMT: COMMON NORMALS: normocephalic and atraumatic HEAD & SCALP: n ormocephalic and atraumatic Chest: COMMONS NORMALS: normal inspection of the chest Resp: COMMON NORMALS: normal respiratory effort EFFORT & INSPECTION: Yes able to speak in complete sentences and Yes symmetric chest movement Extremity: LEFT UPPER EXTREMITY: Yes elbow joint (Hinged elbow brace in place locked at approximately 60 degrees) Left elbow: Yes inspection (Moderate swelling and bruising. ), Yes palpation (Tender over the olecranon), Yes ROM (Not evaluated), Yes neurovascular exam (Intact in the hand) and Yes other (C/O intermittent tingling to LUE - hx of ulnar nerve surgery .) LEFT LOWER EXTREMITY: Yes knee joint (Benito knee brace in place locked at approximately 20 degrees) Left knee: Yes inspection (Minimal to no bruising), Yes palpation (Tender over lateral tibial plateau), Yes ROM (Not evaluated due to known fx. ) and Yes neurovascular exam (Neuropathic, but able to move left foot) Neuro: COMMON NORMALS: patient oriented x3 SENSORIUM/ORIENTATION: Yes alert Psych: COMMON NORMALS: mental status grossly normal APPEARANCE: Yes grossly normal ATTITUDE: Yes calm and Yes engaged ATTENTION/CONCENTRATION: Yes attention grossly intact Skin: COMMON NORMALS: no rashes or lesions noted GENERAL SKIN EXAM: no rashes or lesions noted Urinary Catheter Management: Marlow: Cath Placed During This Visit: yes Reason for Continuing Indwelling Catheter: Other Urinary Catheter Date of Insertion: 03/21/24 Urinary Catheter Time of Insertion: 02:00 Data 03/24/24 06:00 03/24/24 06:00 Micro: Microbiology 03/24/24 11:39 Blood Culture - Preliminary Blood SPECIMEN COLLECTED 03/23/24 06:00 Blood Culture - Preliminary Blood SPECIMEN COLLECTED 03/21/24 02:09 Urine Culture - Final Urine,Clean Catch A&P Assessment and plan (1) Multiple fractures: Continues to be followed by medical service for urinary tract infection. We will plan to continue the braces to the upper and lower extremity. Patient is unable to ambulate with assistive device, due to the upper extremity fracture and she is unable to bear weight to the left lower extremity, due to the tibial plateau fracture. Patient will require intermediate facility placement. We are currently awaiting placement. Patient will continue to elevate the extremities to help limit swelling. She will be followed in the clinic after discharge. She is on the medical service. She will need to continue to be nonweightbearing on her left lower extremity and also on her left upper extremity requiring assistance for transfers. (2) Closed fracture of left olecranon process: Qualifiers: Encounter type: initial encounter Qualified Code(s): S52.022A - Displaced fracture of olecranon process without intraarticular extension of left ulna, initial encounter for closed fracture (3) Closed fracture of lateral portion of left tibial plateau: Qualifiers: Encounter type: initial encounter Qualified Code(s): S82.122A - Displaced fracture of lateral condyle of left tibia, initial encounter for closed fracture (4) Fracture of left proximal fibula: Qualifiers: Encounter type: initial encounter Fracture type: closed Fracture morphology: other fracture Qualified Code(s): S82.832A - Other fracture of upper and lower end of left fibula, initial encounter for closed fracture (5) Primary osteoarthritis of left knee: Attestations 2 Medical Necessity Statement*: Patient will require continued hospitalization for medical management of comorbidities and while awaiting skilled facility placement due to left tibial plateau fracture and left olecranon fracture. Due to upper and lower extremity fractures, she is unable to ambulate with assistive device. Coding Level of Care Code Acute Code for [facility] Fwd Diagnoses Multiple fractures T07.XXXA Closed fracture of olecranon process of left ulna, initial encounter S52.022A Encounter type: initial encounter Closed fracture of lateral portion of left tibial plateau, initial encounter S82.122A Encounter type: initial encounter Other closed fracture of proximal end of left fibula, initial encounter S82.832A Encounter type: initial encounter Fracture type: closed Fracture morphology: other fracture Primary osteoarthritis of left knee M17.12
[2024-03-24] MEDS: LUBIPROSTONE 24 MCG 24 EACH PO (20:15)
[2024-03-25] MEDS: acetaminophen 500 mg Tablet PO (02:32)
[2024-03-25 04:25] VITALS: BP 101/58; PULSE 66; RESP 16; TEMP 36.6; O2SAT 93
[2024-03-25] MEDS: levothyroxine 88 mcg Tablet PO (05:48)
[2024-03-25] MEDS: piperacillin-tazobactam 3.375 GM in sodium chloride 0.9% (plus) 50 ML IV (05:49)
[2024-03-25 07:29] LABS: Basophils # 0.1 10^3/uL (0.0-0.1); Basophils % 0.7 %; Eosinophils # 0.2 10^3/uL (0.0-0.8); Eosinophils % 2.9 %; Hematocrit 32.2 % (36-47); Lymphocytes # 1.6 10^3/uL (0.8-4.8); Lymphocytes % 21.8 %; Mean Corpuscular HGB Conc 30.4 g/dL (30-55); Mean Corpuscular Hemoglobin 28.8 pg (27-33); Mean Corpuscular Volume 94.7 fl (85-98); Mean Platelet Volume 9.7 fL (7.4-10.4); Monocytes # 0.8 10^3/uL (0.2-0.9); Neutrophils # 4.66 10^3/uL (1.8-7.7); Neutrophils % 63.3 %; Nucleated Red Blood Cells % 0 %; Platelet Count 323 10^3/cmm (157-399); Red Cell Distribution Width 13.7 % (12.1-15.1); White Blood Count 7.35 10^3/uL (3.29-11.43)
[2024-03-25 07:48] LABS: Anion Gap 12.7 (5-19); Blood Urea Nitrogen 14 mg/dL (8-23); Carbon Dioxide 25 mmol/L (22-29); Chloride 105 mmol/L (98-107); Creatinine Clr Calc Pharmacy 36.8559; Glucose 88 mg/dL (65-115); Magnesium 2.5 mg/dL (1.7-2.3); Osmolality Calculated 288 mOsm/kg (285-295); Potassium 3.7 mmol/L (3.5-5.1); Sodium 139 mmol/L (136-145)
[2024-03-25 08:00] VITALS: BP 124/67; PULSE 69; RESP 16; TEMP 36.3; O2SAT 94
[2024-03-25 08:33] VITALS: PULSE 67; RESP 16; O2SAT 93
--- NOTE | 2024-03-25 09:32 | P.DS_ITS ---
Discharge Providers Date of Admission: 03/21/24 02:25 Date of Discharge: March 25, 2024 Attending Provider at Admission: Lauren Gregorio MD Attending Provider at Discharge: Shelly Fuentes MD Primary Care Provider: Garima Cee DO Diagnoses at Discharge Discharge Diagnosis (1) Multiple fractures: Status: Acute (2) Closed fracture of left olecranon process: Status: Acute Qualifiers: Encounter type: initial encounter Qualified Code(s): S52.022A - Displaced fracture of olecranon process without intraarticular extension of left ulna, initial encounter for closed fracture (3) Closed fracture of lateral portion of left tibial plateau: Status: Acute Qualifiers: Encounter type: initial encounter Qualified Code(s): S82.122A - Displaced fracture of lateral condyle of left tibia, initial encounter for closed fracture (4) Fracture of left proximal fibula: Status: Acute Qualifiers: Encounter type: initial encounter Fracture morphology: other fracture Fracture type: closed Qualified Code(s): S82.832A - Other fracture of upper and lower end of left fibula, initial encounter for closed fracture (5) Primary osteoarthritis of left knee: Status: Acute Reason for Visit Reason for Visit: knee pain, post fall Hospital Course Hospital Course Patient presented with fever secondary to UTI. She does have a history of stenting in the past and ureteral stent has been removed by Dr. Barron about a year ago. She was found to have E. coli bacteremia with 3 out of 4 bottles positive for E. coli. Blood cultures repeated were negative. Patient to go home with 2 weeks of IV ceftriaxone from 03/21. She was also noted to have left elbow fracture and tibial plateau fracture for which splints were placed. Orthopedic surgery consulted. Patient will be sent to rehab. Physical Exam Narrative: Morbidly obese female, complains of pain GCS 15 Nonfocal neuroexam brace in place left elbow and left leg No active focal deficit Pleasant and cooperative Currently hemodynamically stable no active audible stridor or wheezing Abdomen soft variable S1-S2 Left arm and knee in splint. Urinary Catheter Management: Marlow: Cath Placed During This Visit: yes Reason for Continuing Indwelling Catheter: Other Urinary Catheter Date of Insertion: 03/21/24 Urinary Catheter Time of Insertion: 02:00 Discharge Data Studies Completed and Pending Completed Studies During Hospitalization Category Date Time Status CT abdomen renal stone [CT kidney stone [id number]] Stat Cat Scan 03/21/24 01:[address] knee LT wo con* [id number] Stat Cat Scan 03/21/24 01:44 Completed XR knee LT 3V* [id number] Stat Exams 03/21/24 00:44 Completed Pending at discharge Category Date Time Status Blood Culture Stat Lab 03/21/24 01:19 Results Blood Culture Stat Lab 03/23/24 14:36 Results Radiology Impressions Knee X-Ray 03/21/24 00:44 IMPRESSION: No radiographic evidence of fracture. Abdomen/Pelvis CT 03/21/24 01:31 IMPRESSION: Mild urinary bladder wall thickening may represent cystitis. Please correlate clinically. Knee CT 03/21/24 01:44 IMPRESSION: 1. There is fracture of the lateral tibial plateau with depression estimated at 3 mm. 2. Acute fracture proximal shaft fibula without significant displacement. 3. Advanced degenerative changes lateral compartment. Laboratory Results WBC 7.35 10^3/uL (3.29-11.43) 03/25/24 06:26 RBC 3.40 10^6/uL (3.85-5.65) L 03/25/24 06:26 Hgb 9.80 g/dL (11.27-16.99) L 03/25/24 06:26 Hct 32.2 % (36-47) L 03/25/24 06:26 MCV 94.7 fl (85-98) 03/25/24 06:26 MCH 28.8 pg (27-33) 03/25/24 06:26 MCHC 30.4 g/dL (30-55) 03/25/24 06:26 RDW 13.7 % (12.1-15.1) 03/25/24 06:26 Plt Count 323 10^3/cmm (157-399) 03/25/24 06:26 MPV 9.7 fL (7.4-10.4) 03/25/24 06:26 Neut % (Auto) 63.3 % 03/25/24 06:26 Lymph % (Auto) 21.8 % 03/25/24 06:26 [place] % (Auto) 11.0 % 03/25/24 06:26 Eos % (Auto) 2.9 % 03/25/24 06:26 Baso % (Auto) 0.7 % 03/25/24 06:26 Neut # (Auto) 4.66 10^3/uL (1.8-7.7) 03/25/24 06:26 Lymph # (Auto) 1.6 10^3/uL (0.8-4.8) 03/25/24 06:26 [place] # (Auto) 0.8 10^3/uL (0.2-0.9) 03/25/24 06:26 Eos # (Auto) 0.2 10^3/uL (0.0-0.8) 03/25/24 06:26 Baso # (Auto) 0.1 10^3/uL (0.0-0.1) 03/25/24 06:26 Nucleated RBC % (auto) 0 % 03/25/24 06: Nucleated RBCs # 0.0 /100WBC 03/25/24 06:26 PT 16.80 SECONDS (12.1-14.9) H 03/21/24 08:00 INR 1.32 (0.8-1.2) H 03/21/24 08:00 Sodium 139 mmol/L (136-145) 03/25/24 06:26 Potassium 3.7 mmol/L (3.5-5.1) 03/25/24 06:26 Chloride 105 mmol/L (98-107) 03/25/24 06:26 Carbon Dioxide 25 mmol/L (22-29) 03/25/24 06:26 Anion Gap 12.7 (5-19) 03/25/24 06:26 BUN 14 mg/dL (8-23) 03/25/24 06:26 Creatinine 1.5 mg/dL (0.5-0.9) H 03/25/24 06:26 GFR Calculation Not Reportable 03/25/24 06:26 Glucose 88 mg/dL (65-115) 03/25/24 06:26 Calculated Osmolality 288 mOsm/kg (285-295) 03/25/24 06:26 Lactic Acid 2.1 mmol/L (0.5-2.2) 03/21/24 01:19 Lactic Acid (Sepsis) 0.9 mmol/L (0.5-2.2) 03/21/24 04:51 Calcium 9.0 mg/dL (8.5-10.5) 03/25/24 06:26 Magnesium 2.5 mg/dL (1.7-2.3) H 03/25/24 06:26 Total Bilirubin 0.3 mg/dL (0.15-1.2) 03/21/24 01:19 AST 24 U/L (0-32) 03/21/24 01:19 ALT 18 U/L (0-33) 03/21/24 01:19 Alkaline Phosphatase 80 U/L (35-105) 03/21/24 01:19 C-Reactive Protein 87.4 mg/L (0.0-4.9) H 03/22/24 05:22 Total Protein 6.1 g/dL (6.6-8.7) L 03/21/24 01:19 Albumin 3.6 g/dL (3.5-5.2) 03/21/24 01:19 Globulin 2.5 g/dL (1.3-4.6) 03/21/24 01:19 Urine Color Yellow (Yellow) 03/21/24 02:09 Urine Appearance Slightly cloudy (CLEAR) 03/21/24 02:09 Urine pH 5.5 (5-7) 03/21/24 02:09 Ur Specific Media 1.010 (1.005-1.030) 03/21/24 02:09 Urine Protein Negative (Negative) 03/21/24 02:09 Urine Glucose (UA) Negative (Normal) 03/21/24 02:09 Urine Ketones Negative (Negative) 03/21/24 02:09 Urine Blood 2+ (Negative) A 03/21/24 02:09 Urine Nitrate Negative (Negative) 03/21/24 02:09 Urine Bilirubin Negative (Negative) 03/21/24 02:09 Urine Urobilinogen 1.0 mg/dL (Negative) 03/21/24 02:09 Ur Leukocyte Esterase Trace (Negative) A 03/21/24 02:09 Urine RBC 11-20 /hpf (0-2) H 03/21/24 02:09 Urine WBC 11-20 /hpf (0-5) H 03/21/24 02:09 Ur Squamous Epith Cells 0-5 /hpf (0-5) 03/21/24 02:09 Amorphous Sediment Not Reportable 03/21/24 02:09 Urine Bacteria None seen /hpf (NONE) 03/21/24 02:09 Hyaline Casts 3.71 /lpf 03/21/24 02:09 Vitals Last Vital Signs Temp 97.4 F L 03/25/24 08:00 Pulse 67 03/25/24 08:33 Resp 16 03/25/24 08:33 BP 124/67 03/25/24 08:00 Pulse Ox 93 03/25/24 08:33 O2 Del Method Room Air 03/25/24 08:33 Discharge Plan Discharge Patient Disposition: Xfer SNF Condition: Stable Prescriptions: New polyethylene glycol 3350 17 gram Powder In Packet 17 g PO DAILY PRN (Reason: Constipation) Qty: 30 0RF sennosides-docusate sodium [Stool Softener-Laxative] 8.6-50 mg Tablet 1 tab PO BID Qty: 30 0RF Continued simvastatin 40 mg tablet 40 mg PO DAILY cyanocobalamin (vitamin B-12) [Vitamin B-12] 100 mcg tablet 100 mcg PO DAILY polyethylene glycol 3350 [Miralax] 17 gram powder in packet 17 g PO DAILY PRN (Reason: Constipation) Zyrtec 10 mg capsule 10 mg PO DAILY melatonin 12 mg tablet 12 mg PO BEDTIME (DME) External Heel Lift to Left See Rx Instructions .Route .MEDSUPPLY Qty: 1 0RF Rx Instructions: As directed by [facility] (DME) Hinged knee brace, left See Rx Instructions .Route .MEDSUPPLY Qty: 1 0RF Rx Instructions: As directed furosemide [Lasix] 40 mg tablet 40 mg PO DAILY magnesium oxide 400 mg (241.3 mg magnesium) tablet 400 mg PO DAILY riboflavin (vitamin B2) 400 mg tablet 400 mg PO DAILY anastrozole 1 mg tablet 1 mg PO DAILY Qty: 90 0RF lubiprostone 24 mcg capsule See Rx Instructions .ROUTE .COMPLEX Qty: 60 3RF Dose Instruction: take 1 capsule BY MOUTH TWICE DAILY NEEDED FOR CONSTIPATION Rx Instructions: take 1 capsule BY MOUTH TWICE DAILY NEEDED FOR CONSTIPATION gabapentin 100 mg capsule See Rx Instructions .ROUTE .COMPLEX Qty: 90 0RF Rx Instructions: 100 mg orally twice daily and 200 mg at bedtime Eliquis 5 mg tablet 5 mg PO BID Qty: 180 3RF Rx Instructions: 340 b levothyroxine 88 mcg Tablet 88 mcg PO DAILY docusate sodium 100 mg Capsule 100 mg PO TID oxycodone 10 mg tablet 10 mg PO TID Changed potassium chloride 20 mEq tablet extended release 20 meq PO BID Qty: 30 0RF Rx Instructions: 20 MEQ in the morning and 20MEQ in evening Discontinued cefdinir 300 mg capsule 300 mg PO BID 7 Days Qty: 14 0RF Discharge Orders: Discharge Order (Routine); Ordered 03/25/24 Ordered By: Shelly Fuentes Other Ambulatory Orders: Complete Blood Count w/Auto (Q7D) Timeframe: 20240401 Location: Determined by Patient Ordered By: Shelly Fuentes Complete Blood Count w/Auto (Q7D) Timeframe: 20240408 Location: Determined by Patient Ordered By: Shelly Fuentes Comprehensive Metabolic Panel (Q7D) Timeframe: 20240401 Facility: [facility] - Location: Lab - Main Lab Ordered By: Shelly Fuentes Referrals: [facility] [Outside] Garima Cee DO [Primary Care Provider] - 4-7 days Sherry Bonilla MD [Physician] - 04/21/24 8:45 am (We have notified your physician's clinic of the need for a follow-up appointment to be scheduled. If you have not heard from them within the next 2 business days, please call them directly. ) Discharge Diet: Cardiac Discharge Activity: As per PT/OT instructions Patient Instructions: Laxative, Stool Softeners (By mouth), Ceftriaxone (By injection), Opioid Safety Activity Restrictions/Additional Instructions: Nonweightbearing left upper extremity and left lower extremity. May use right lower extremity for transfers as well as right upper extremity. Wear hinged knee and hinged elbow brace at all times. Remove splints and do skin checks at least once per day. Maintain elbow splint at 60 degrees. Maintain knee splint at 0 to 20 degrees IV cerftriaxone 1 g daily x 2 weeks from mar 22, 2024 Discharge Attestations Time Spent in Discharge Care*: greater than 30 min Quality Metrics Clinical Quality Measures [ No reported AMI, CVA or VTE this stay] Coding Level of Care Code 10189 Total time (in minutes) for Discharge: 35 Diagnoses Multiple fractures T07.XXXA Closed fracture of olecranon process of left ulna, initial encounter S52.022A Encounter type: initial encounter Closed fracture of lateral portion of left tibial plateau, initial encounter S82.122A Encounter type: initial encounter Other closed fracture of proximal end of left fibula, initial encounter S82.832A Encounter type: initial encounter Fracture morphology: other fracture Fracture type: closed Primary osteoarthritis of left knee M17.12
--- NOTE | 2024-03-25 10:38 | PC.CHAP ---
Pastoral Care Encounter/Spiritual Assessment Type of Contact [] Declined housing management representative visit [] Patient/Family/Request visit [] Outpatient visit [] Follow-up visit [] Physician referral [] Code/Alert [] Routine visit [] Staff referral [] Actively dying [x] Patient sleeping [] Family support [] [] Out of room [] Palliative care [] [] Receiving care in room [] Pre-surgical visit [] Trauma [] Long length of stay [] ICU visit [] Other: Relational/Emotional Strength [] Patient feels connected with others/family/visitors/staff [] Distress [] Loneliness/isolation [] Abandonment Spirituality of Patient [] Person of Ann [] Attends Oriental Orthodox of their Ann [] Believes in Prayer [] Reads Bible or Roman Catholic materials [] There are Spiritual issues to be addressed Shower Attendant Interventions [] Prayer [] Active listening [] Non-anxious presence [] Spiritual/emotional support [] Crisis/trauma care [] Spiritual counseling [] Bereavement support [] Provided bereavement packet [] Provided Bible/devotional materials [] Provided toy/stuffed animal, coloring book to patient or family member [] Provided Communion [] Anointing/Daniels [] Salvation [] Completed spiritual assessment [] Other: Impact on Illness or Injury [] Angry [] Fearful [] Anxious [] Often cries [] Exhaustion [] Unable to work [] Unable to attend yarsanism [] Unable to walk/stand [] Unable to read [] Unable to drive [] Unable to eat/drink [] Unable to sleep [] Unable to be with family [] Patient intubated [] Other: Summary Time spent with patient
--- NOTE | 2024-03-25 10:44 | PC.NURSE ---
I received a call from [facility] needing clarification on patient's d/c medications. They were inquiring which facility patient was going to as they had not received any notification from her prior facility that she would be returning. Upon review of documentation, patient is going to [facility]. I communicated this with [facility] industrial relations representative. She denies any further questions/concerns at this time.
--- NOTE | 2024-03-25 10:56 | PM.MISC ---
Miscellaneous Note Purpose of Documentation: Discharge instructions Note: Discharge instructions for nonweightbearing left lower and left upper extremities have been included in the discharge instructions to intermediate. Follow-up appointment has been made for the patient. She will follow-up in our office, but otherwise, she will maintain braces at current settings secondary to tibial plateau fracture and olecranon fracture both on the left.
[2024-03-25] MEDS: apixaban 5 mg Tablet PO (11:03)
[2024-03-25] MEDS: FUROsemide 40 mg Tablet PO (11:03)
[2024-03-25] MEDS: potassium chloride ER 20 mEq Tablet PO (11:03)
[2024-03-25] MEDS: polyethylene glycol 3350 Pkt 17 gm PO (11:04)
[2024-03-25] MEDS: sennosides-docusate Tablet 1 TAB PO (11:04)
[2024-03-25 11:45] VITALS: BP 116/53; PULSE 67; RESP 13; TEMP 36.4; O2SAT 93
[2024-03-25 13:41] LABS: SARS Covid-2 Antigen negative (Negative)
[2024-03-25] MEDS: LUBIPROSTONE 24 MCG 24 EACH PO (13:44)
[2024-03-25 15:11] VITALS: BP 108/73; PULSE 82; RESP 16; O2SAT 96
[2024-03-25 15:50] VITALS: BP 108/73; PULSE 82; RESP 16; TEMP 36.4; O2SAT 96
== END 2024-03-25 15:52 | disposition skilled nursing facility (03) | DRG 563 ==
LOC: ER 00:51 → MEDSURG 02:26
PROVIDERS: Specialist; Admitting Provider Internal Medicine; Emergency Provider Emergency Medicine; PCP Family Medicine; Visit Provider Internal Medicine
DX: S82.145A Nondisplaced bicondylar fracture of left tibia, initial encounter for closed fracture (principal); N39.0 Urinary tract infection, site not specified; I82.512 Chronic embolism and thrombosis of left femoral vein; N25.81 Secondary hyperparathyroidism of renal origin; S52.035A Nondisplaced fracture of olecranon process with intraarticular extension of left ulna, initial encounter for closed fracture; S82.832A Other fracture of upper and lower end of left fibula, initial encounter for closed fracture; W18.30XA Fall on same level, unspecified, initial encounter; Z11.52 Encounter for screening for COVID-19; E11.22 Type 2 diabetes mellitus with diabetic chronic kidney disease; I12.9 Hypertensive chronic kidney disease with stage 1 through stage 4 chronic kidney disease, or unspecified chronic kidney disease; N18.9 Chronic kidney disease, unspecified; G62.9 Polyneuropathy, unspecified; Z85.3 Personal history of malignant neoplasm of breast; M17.0 Bilateral primary osteoarthritis of knee; Z87.442 Personal history of urinary calculi; Z87.440 Personal history of urinary (tract) infections; Z91.81 History of falling; B96.1 Klebsiella pneumoniae [K. pneumoniae] as the cause of diseases classified elsewhere; B96.20 Unspecified Escherichia coli [E. coli] as the cause of diseases classified elsewhere; Z79.891 Long term (current) use of opiate analgesic; Z79.01 Long term (current) use of anticoagulants; Z79.811 Long term (current) use of aromatase inhibitors; Z88.5 Allergy status to narcotic agent; Z88.2 Allergy status to sulfonamides; H91.90 Unspecified hearing loss, unspecified ear; E66.01 Morbid (severe) obesity due to excess calories; Z68.32 Body mass index [BMI] 32.0-32.9, adult; Z82.49 Family history of ischemic heart disease and other diseases of the circulatory system; Z82.3 Family history of stroke; Z90.49 Acquired absence of other specified parts of digestive tract; Z96.82 Presence of neurostimulator; Z96.612 Presence of left artificial shoulder joint; Z96.611 Presence of right artificial shoulder joint; M81.0 Age-related osteoporosis without current pathological fracture; E03.9 Hypothyroidism, unspecified; E78.5 Hyperlipidemia, unspecified; N31.9 Neuromuscular dysfunction of bladder, unspecified
CPT/HCPCS: 0241U; 36415; 36591; 51702; 73080; 73562; 73700; 74176; 80048; 80053; 81001; 83605; 83735; 85025; 85610; 86140; 87040; 87077; 87086; 87186; 87205; 87426; 96361; 96374; 96375; 97162; 97530; 97760; 99284; 99285; J0692; J0696; J1171; J2270; J2405; J2543; J7030; L1812; L3762

== ENCOUNTER → 2024-04-14 13:30 | Outpatient (BNVA) | payer MEDICARE, OTHER, SELFPAY | PROVIDERS: PCP Family Medicine; Visit Provider Specialist | DX: S82.132A Displaced fracture of medial condyle of left tibia, initial encounter for closed fracture (principal); S82.122A Displaced fracture of lateral condyle of left tibia, initial encounter for closed fracture; S52.022A Displaced fracture of olecranon process without intraarticular extension of left ulna, initial encounter for closed fracture; X58.XXXA Exposure to other specified factors, initial encounter | CPT/HCPCS: 73080; 73562; 99024 ==

== ENCOUNTER → 2024-05-12 14:16 | Outpatient (BNVA) | payer MEDICARE, OTHER, SELFPAY | PROVIDERS: PCP Family Medicine; Visit Provider Specialist | DX: S52.022A Displaced fracture of olecranon process without intraarticular extension of left ulna, initial encounter for closed fracture (principal); S82.122A Displaced fracture of lateral condyle of left tibia, initial encounter for closed fracture; X58.XXXA Exposure to other specified factors, initial encounter | CPT/HCPCS: 73080; 73562 ==

== ENCOUNTER 2024-05-26 12:53 | Oncology outpatient (recurring) (ONCR) | payer MEDICARE, OTHER, SELFPAY ==
[2024-05-26 13:18] LABS: Basophils # 0.1 10^3/uL (0.0-0.1); Basophils % 0.7 %; Eosinophils # 0.3 10^3/uL (0.0-0.8); Eosinophils % 4.2 %; Hematocrit 34.6 % (36-47); Lymphocytes # 1.7 10^3/uL (0.8-4.8); Lymphocytes % 23.3 %; Mean Corpuscular HGB Conc 30.9 g/dL (30-55); Mean Corpuscular Hemoglobin 29.4 pg (27-33); Mean Corpuscular Volume 95.1 fl (85-98); Mean Platelet Volume 9.5 fL (7.4-10.4); Monocytes # 0.6 10^3/uL (0.2-0.9); Monocytes % 9.1 %; Neutrophils # 4.42 10^3/uL (1.8-7.7); Neutrophils % 62.6 %; Nucleated Red Blood Cells % 0 %; Platelet Count 402 10^3/cmm (157-399); Red Blood Count 3.64 10^6/uL (3.85-5.65); Red Cell Distribution Width 13.8 % (12.1-15.1); White Blood Count 7.07 10^3/uL (3.29-11.43)
[2024-05-26 13:43] LABS: Alanine Aminotransferase < 5 U/L (0-33); Albumin Level 3.6 g/dL (3.5-5.2); Alkaline Phosphatase 77 U/L (35-105); Anion Gap 14.4 (5-19); Aspartate Amino Transferase 11 U/L (0-32); Blood Urea Nitrogen 26 mg/dL (8-23); Calcium 9.8 mg/dL (8.5-10.5); Carbon Dioxide 25 mmol/L (22-29); Chloride 106 mmol/L (98-107); Globulin 2.7 g/dL (1.3-4.6); Glucose 95 mg/dL (65-115); Osmolality Calculated 297 mOsm/kg (285-295); Potassium 4.4 mmol/L (3.5-5.1); Sodium 141 mmol/L (136-145); Total Bilirubin 0.3 mg/dL (0.15-1.2); Total Protein 6.3 g/dL (6.6-8.7)
[2024-05-26 13:59] LABS: 25 Hydroxy Vitamin D 33 ng/mL (30-100)
[2024-05-26 14:09] LABS: Calcium 9.9 mg/dL (8.5-10.5); Parathyroid Hormone 127.2 pg/mL (15-65)
[2024-05-26] MEDS: denosumab 60 mg SDV SUBCUT (14:52)
== END 2024-06-13 23:59 | disposition home or self-care (01) ==
PROVIDERS: Internal Medicine; Nurse Practitioner Family; PCP Family Medicine; Visit Provider Specialist
DX: C50.112 Malignant neoplasm of central portion of left female breast (principal); Z17.0 Estrogen receptor positive status [ER+]; M81.0 Age-related osteoporosis without current pathological fracture; E67.3 Hypervitaminosis D; N25.81 Secondary hyperparathyroidism of renal origin; Z79.899 Other long term (current) drug therapy; Z92.3 Personal history of irradiation; Z79.811 Long term (current) use of aromatase inhibitors; D64.9 Anemia, unspecified
CPT/HCPCS: 36591; 80053; 82306; 82310; 83970; 85025; 96372; 99214; J0897

== ENCOUNTER → 2024-06-09 14:56 | Outpatient (BNVA) | payer MEDICARE, OTHER, SELFPAY | PROVIDERS: PCP Family Medicine; Visit Provider Specialist | DX: S82.122D Displaced fracture of lateral condyle of left tibia, subsequent encounter for closed fracture with routine healing (principal); S52.022D Displaced fracture of olecranon process without intraarticular extension of left ulna, subsequent encounter for closed fracture with routine healing; X58.XXXD Exposure to other specified factors, subsequent encounter | CPT/HCPCS: 73080; 73562; 99024 ==

== ENCOUNTER 2024-06-23 13:15 | Oncology outpatient (recurring) (ONCR) | payer MEDICARE, OTHER, SELFPAY ==
[2024-06-23 13:46] LABS: Basophils # 0.1 10^3/uL (0.0-0.1); Basophils % 0.8 %; Eosinophils # 0.2 10^3/uL (0.0-0.8); Eosinophils % 3.7 %; Hematocrit 36.1 % (36-47); Lymphocytes % 31.3 %; Mean Corpuscular Hemoglobin 30.1 pg (27-33); Mean Platelet Volume 9.9 fL (7.4-10.4); Monocytes # 0.6 10^3/uL (0.2-0.9); Monocytes % 8.9 %; Neutrophils # 3.45 10^3/uL (1.8-7.7); Nucleated Red Blood Cells % 0 %; Platelet Count 294 10^3/cmm (157-399); Red Blood Count 3.72 10^6/uL (3.85-5.65); White Blood Count 6.27 10^3/uL (3.29-11.43)
[2024-06-23 14:06] LABS: Albumin Level 3.6 g/dL (3.5-5.2); Anion Gap 14.1 (5-19); Blood Urea Nitrogen 18 mg/dL (8-23); Calcium 9.6 mg/dL (8.5-10.5); Carbon Dioxide 25 mmol/L (22-29); Chloride 106 mmol/L (98-107); Glucose 118 mg/dL (65-115); Phosphorus 2.7 mg/dL (2.5-4.5); Potassium 4.1 mmol/L (3.5-5.1); Sodium 141 mmol/L (136-145)
[2024-06-23 14:13] LABS: Calcium 9.7 mg/dL (8.5-10.5)
[2024-06-23 14:21] LABS: Parathyroid Hormone 170.4 pg/mL (15-65)
[2024-06-23 14:50] LABS: Creatinine Urine, Random 75 mg/dL (28-217); Microalbum Creatinine Ratio Ur 27 mg/dL (0-20); Microalbumin Random Urine 2 ug/dL (0-20)
== END 2024-07-14 23:59 | disposition home or self-care (01) ==
LOC: ONCMED 13:15
PROVIDERS: Registered Nurse; PCP Family Medicine; Visit Provider Specialist
DX: N18.32 Chronic kidney disease, stage 3b (principal)
CPT/HCPCS: 36591; 80069; 82044; 82310; 83970; 85025

== ENCOUNTER → 2024-07-07 15:42 | Outpatient (BNVA) | payer MEDICARE, OTHER, SELFPAY | PROVIDERS: PCP Family Medicine; Visit Provider Specialist | DX: S82.122D Displaced fracture of lateral condyle of left tibia, subsequent encounter for closed fracture with routine healing (principal); S52.022D Displaced fracture of olecranon process without intraarticular extension of left ulna, subsequent encounter for closed fracture with routine healing; X58.XXXD Exposure to other specified factors, subsequent encounter | CPT/HCPCS: 73080; 73562; 99214 ==

== ENCOUNTER 2024-08-25 13:05 | Oncology outpatient (recurring) (ONCR) | payer MEDICARE, OTHER, SELFPAY ==
[2024-08-25 13:33] LABS: Basophils # 0.1 10^3/uL (0.0-0.1); Basophils % 0.8 %; Eosinophils # 0.3 10^3/uL (0.0-0.8); Lymphocytes # 1.8 10^3/uL (0.8-4.8); Lymphocytes % 29.1 %; Mean Corpuscular Hemoglobin 29.2 pg (27-33); Mean Corpuscular Volume 97.3 fl (85-98); Mean Platelet Volume 9.9 fL (7.4-10.4); Monocytes # 0.6 10^3/uL (0.2-0.9); Neutrophils # 3.53 10^3/uL (1.8-7.7); Neutrophils % 56.9 %; Nucleated Red Blood Cells % 0 %; Platelet Count 257 10^3/cmm (157-399); Red Cell Distribution Width 14.7 % (12.1-15.1); White Blood Count 6.21 10^3/uL (3.29-11.43)
[2024-08-25 14:11] LABS: Alanine Aminotransferase 7 U/L (0-33); Albumin Level 3.5 g/dL (3.5-5.2); Alkaline Phosphatase 64 U/L (35-105); Anion Gap 16.4 (5-19); Aspartate Amino Transferase 14 U/L (0-32); Blood Urea Nitrogen 21 mg/dL (8-23); CA 15-3 14.2 U/mL (0-25); Calcium 9.1 mg/dL (8.5-10.5); Carbon Dioxide 24 mmol/L (22-29); Chloride 107 mmol/L (98-107); Ferritin 88 ng/mL (15-150); Globulin 2.5 g/dL (1.3-4.6); Glucose 134 mg/dL (65-115); Iron 80 ug/dL (37-145); Osmolality Calculated 301 mOsm/kg (285-295); Percent Saturation 40.2 % (20-50); Potassium 4.4 mmol/L (3.5-5.1); Sodium 143 mmol/L (136-145); Total Bilirubin 0.4 mg/dL (0.15-1.2); Total Iron Binding Capacity 199 mcg/dl; Unsaturated Iron Binding 119 ug/dL (112-347)
[2024-08-25 14:22] LABS: Folate Level 6.6 ng/mL (4.8-37.3)
[2024-08-25 14:32] LABS: Vitamin B12 > 2000 pg/mL (232-1245)
== END 2024-09-13 23:59 | disposition home or self-care (01) ==
PROVIDERS: Internal Medicine Medical Oncology; PCP Family Medicine; Visit Provider Specialist
DX: C50.112 Malignant neoplasm of central portion of left female breast (principal); N18.32 Chronic kidney disease, stage 3b; M81.0 Age-related osteoporosis without current pathological fracture
CPT/HCPCS: 36591; 80053; 82607; 82728; 82746; 83540; 83550; 85025; 86300; 99213